=== PATIENT | male | born 1965 | race American Indian/Alaskan Native ===

== ENCOUNTER 2017-09-04 11:10 | Inpatient (IN) | payer BC ==
[2017-09-04 11:10] VITALS: BMI 28.1
--- NOTE | 2017-09-04 11:43 | C.PDOC ---
History Of Present Illness 52 Y/O MALE PRESENTS TO ED WITH C/O NEW ONSET JI/SOB FOR 2-3 DAYS, WORSENING B/ L LEG SWELL X SEVERAL WEEKS. PATIENT STATES HE WAS PREVIOUSLY ON HCTZ BUT WAS DC DUE TO HYPOKALEMIA. PATIENT REPORTS NO DIURETIC NOW W RECUR LEG SWELL. ON LASIX 20 MG X 2-3 DAYS "SWELLING IS MUCH BETTER THAN BEFORE". PATIENT ADMITS TO NEW ONSET YELLOW EYES X UNKNOWN DURATION, PMD IS AWAKE AND IS PENDING SPECIALIST EVALUATION. PATIENT COMPLAINS OF ABDOMEN DISTENTION AND DECREASED APPETITE, DENIES CP, FEVER, N/V/D OR ANY OTHER COMPLAINTS AT THIS TIME. +NEW ONSET YELLOW EYES X UNK DURATION. PS PMD AWARE, PENDING SPECIALIST EVAL. CO ABD DIST, DECR APPETITE. NO NVD COMPLIANT W HIV MEDS. VL UNDETECT EXAM NAD HEENT +ICTERIC SCLERA LUNGS B/L BASILAR RALES NO RETRACTIONS, TACHYPNEA SPEAKING FULL SENTENCES CV RRR EDEMA 2+ B/L ABD +MILD DIST NONTEND NEURO NO FOCAL DEF REMAINDER NEG Chief Complaint (Nursing): Shortness Of Breath History Per: Patient History/Exam Limitations: no limitations Onset/Duration Of Symptoms: Days Current Symptoms Are (Timing): Still Present Past Medical History Reviewed: Historical Data, Nursing Documentation, Vital Signs Vital Signs: Last Vital Signs Temp 98.3 F 09/04/17 11:12 Pulse 106 H 09/04/17 11:12 Resp 24 09/04/17 11:12 BP 143/82 09/04/17 11:12 Pulse Ox 96 09/04/17 12:43 - Medical History PMH: HIV, Hypothyroidism Surgical [facility] INJECT/INFUSE NEC (02/29/12) INJECT/INFUSE THROMBOLYTIC AGENT (11/06/03) PACKED CELL TRANSFUSION (11/06/03) Family History: States: No Known Family Hx - Social History Hx Tobacco Use: No Hx Alcohol Use: Yes Hx Substance Use: No Review Of Systems Constitutional: Negative for: Fever, Chills Cardiovascular: Negative for: Chest Pain Respiratory: Positive for: Shortness of Breath, SOB with Excertion. Negative for: Cough Gastrointestinal: Negative for: Nausea, Vomiting Musculoskeletal: Positive for: Leg Pain (swelling) Skin: Negative for: Rash Neurological: Negative for: Numbness Physical Exam - Physical Exam Appears: Non-toxic, No Acute Distress, Other (Speaking in full sentences) Skin: Warm, Dry, No Rash Head: Atraumatic, Normacephalic Eye(s): bilateral: PERRL, EOMI, Scleral Icterus Oral Mucosa: Moist Neck: Normal ROM, Supple Cardiovascular: Rhythm Regular Respiratory: Rales (bilateral basilar), No Rhonchi, No Wheezing, Other ( Tachypnea) Gastrointestinal/Abdominal: Soft, No Tenderness, Distention (mildly), No Guarding, No Rebound Back: No CVA Tenderness, No Paraspinal Tenderness Extremity: Pedal Edema (2+ bilateral), Capillary Refill (<2 seconds) Neurological/Psych: Oriented x3, Normal Speech, Normal Cognition ED Course And Treatment - Laboratory Results Result Diagrams: 09/04/17 11:57 ECG: Interpreted By Me ECG Rhythm: Sinus Rhythm ECG Interpretation: Normal Rate From EC O2 Sat by Pulse Oximetry: 96 (RA) Pulse Ox Interpretation: Normal - Radiology CXR: Interpreted by Me CXR Interpretation: Yes: No Acute Disease Progress - Re-Evaluation Re-evaluation Note: 09/04/17 12:36 D/W DR OLIVEIRA [employer] AND TE[employer] AWARE OF ER FINDINGS. CBC, UA PENDING. WILL ADMIT - Data Reviewed Data Reviewed: Lab, Diagnostic imaging, EKG, Old records Disposition Counseled Patient/Family Regarding: Studies Performed, Diagnosis - Disposition Disposition: HOSPITALIZED Disposition Time: 12:37 Condition: STABLE Forms: [facility] (Hebrew) - POA Present On Arrival: None - Clinical Impression Clinical Impression: Jaundice, HIV (human immunodeficiency virus infection), Dyspnea - Scribe Statement The provider has reviewed the documentation as recorded by the Saul Bearden All medical record entries made by the Saul were at my direction and personally dictated by me. I have reviewed the chart and agree that the record accurately reflects my personal performance of the history, physical exam, medical decision making, and the department course for this patient. I have also personally directed, reviewed, and agree with the discharge instructions and disposition. Decision To Admit - Pt Status Changed To: Hospital Disposition Of: Inpatient - Admit Certification Admit to Inpatient:: After my assessment, the patient will require hospitalization for at least two midnights. This is because of the severity of symptoms shown, intensity of services needed, and/or the medical risk in this patient being treated as an outpatient. - InPatient: Physician Admission Certification: I certify that this patient requires 2 or more midnights of care for the following reason:: SEE NOTE - . Bed Request Type: Telemetry Admitting Physician: Dano Oliveira Patient Diagnosis: Jaundice, HIV (human immunodeficiency virus infection), Dyspnea
[2017-09-04 12:25] LABS: ALB/GLOB RATIO 0.5 (1.0-2.1); ALT/SGPT 95 U/L (21-72); AST/SGOT 226 U/L (17-59); BILIRUBIN,DIRECT 6.1 mg/dL (0.0-0.4); BLOOD UREA NITROGEN 10 mg/dL (9-20); CALCIUM 8.2 mg/dl (8.6-10.4); GFR AFRICAN-AMERICAN > 60; GFR NON-AFRICAN AMERICAN > 60
[2017-09-04 12:29] LABS: B-TYPE NATRIURETIC PEPTIDE 163 pg/mL (0-900)
[2017-09-04] MEDS ORDERED: Potassium Chloride 20 mEq/15 ml LIQ UD PO STA (12:30)
[2017-09-04 12:40] LABS: SQUAMOUS EPITHIAL < 1 /hpf (0-5); URINE BACTERIA RARE (<OCC); URINE BILIRUBIN 2+ (NEGATIVE); URINE BLOOD 1+ (NEGATIVE); URINE CLARITY Hazy (Clear); URINE COLOR Amber (YELLOW); URINE GLUCOSE (UA) NORMAL (Normal); URINE LEUKOCYTE ESTERASE NEG Leu/uL (Negative); URINE PROTEIN 1+ mg/dL (NEGATIVE)
--- NOTE | 2017-09-04 12:46 | RAD ---
PROCEDURE: CHEST RADIOGRAPH, 1 VIEW HISTORY: SOB COMPARISON: None available. FINDINGS: LUNGS: Poor inspiration with low lung volumes, crowded bronchovascular markings and mild bibasilar atelectasis and suspected small left-sided effusion. Trace right-sided effusion not excluded. Developing lower lobe infiltrates could be excluded followup radiographs. PLEURA: As above. No apparent pneumothorax CARDIOVASCULAR: . Heart size difficult to assess due to poor inspiration the heart appears borderline enlarged OSSEOUS STRUCTURES: No significant abnormalities. VISUALIZED UPPER ABDOMEN: Normal. OTHER FINDINGS: None. IMPRESSION: Poor inspiration with low lung volumes, crowded bronchovascular markings and mild bibasilar atelectasis and suspected small left-sided effusion. Trace right-sided effusion not excluded. Developing lower lobe infiltrates could be excluded followup radiographs.
[2017-09-04 12:47] LABS: HEPATITIS B SURFACE AG Negative (NEGATIVE)
[2017-09-04 12:50] LABS: BASO # 0.1 K/uL (0.0-0.2); BASO % 1.2 % (0.0-2.0); EOS # 0.1 K/uL (0.0-0.7); EOS % 1.7 % (0.0-4.0); HEMOGLOBIN 11.9 g/dL (12.0-18.0); LYMPH # 1.4 K/uL (1.0-4.3); LYMPH % 19.7 % (20.0-40.0); MEAN CELL VOLUME 106.9 fL (80.0-94.0); MEAN CORPUSCULAR HEMOGLOBIN 36.3 pg (27.0-31.0); MEAN CORPUSCULAR HGB CONC 33.9 g/dL (33.0-37.0); MEAN PLATELET VOLUME 9.1 fL (7.2-11.7); MONO % 13.8 % (0.0-10.0); NEUT # 4.5 K/uL (1.8-7.0); NEUT % 63.6 % (50.0-75.0); NRBC % 0.3 % (0.0-2.0); RBC 3.28 Mil/uL (4.40-5.90); RED CELL DISTRIBUTION WIDTH 15.4 % (11.5-14.5); WHITE BLOOD COUNT 7.1 K/uL (4.8-10.8)
[2017-09-04 12:53] LABS: HEPATITIS A IGM NEGATIVE (NEGATIVE); HEPATITIS B CORE AB NEGATIVE (NEGATIVE)
[2017-09-04] MEDS ORDERED: Potassium Chloride 20 mEq ER Tab PO ONE ×2 (12:56→22:42)
[2017-09-04 13:05] LABS: HEPATITIS C ANTIBODY NEGATIVE (NEGATIVE)
[2017-09-04 13:07] LABS: VENOUS BLOOD GAS BASE EXCESS 5.4 mmol/L (0.0-2.0); VENOUS BLOOD GAS PCO2 38 mmHg (40-60); VENOUS BLOOD GAS PO2 39 mm/Hg (30-55); VENOUS BLOOD PH 7.49 (7.32-7.43)
[2017-09-04 13:09] LABS: PROTHROMBIN TIME 44.2 SECONDS (9.7-12.2)
[2017-09-04] MEDS ORDERED: Potassium Chloride 20 mEq 100 ML ONE (13:18)
--- NOTE | 2017-09-04 13:32 | CP.PCM.HP ---
History of Present Illness - History of Present Illness History of Present Illness: Of Note: Patient was seen and examined in ED Bed 15 at approximately 14:00. Patient is a FULL CODE status at this time. He has an advance directive in place. He states that his sister is his emergency contact. Her name is Dasha Luong. She can be reached at [phone]. CC: Shortness of breath HPI: 52 year old male with past medical history significant for PE (2003) and HIV presents with complaints of shortness of breath which he has been experiencing for the past three days. Patient states that he has not experienced this in the past. He states that he noticed dyspnea even while completing daily activities. He states that he has not been out of his house much and thus could not quantify the distance that he can walk before feeling short of breath. Patient states that he sleeps with one pillow at night as well. He further states that he had a workup back at [facility] in [place], 9 months ago for jaundice. He states that he had lab work and ultrasound performed which all came back normal. He states that he also had a recent visit to [facility] [place] [place] 6 weeks prior for treatment for hypokalemia. Patient states that an ultrasound was performed- the results of which were sent to his primary medical doctor. Patient states that he has since followed up with his primary. He states that his doctor switched him from HCTZ to Lasix. Since then, patient states that he recently started taking Lasix 4 days ago. Patient admits to dyspnea on exertion and swelling. He denies chest pain, headaches, nausea, vomiting, bowel changes, urinary changes, skin changes, bruising or recent illness at this time. PMHx- as stated above. Shantelle developed a PE following hernia surgery in 2003. Was on coumadin therapy afterwards for approx 6 month period PSHx- Hernia repair in 2003 Fam Hx- Mother has asthma, DM and HTN; Father has HTN, glaucoma and prostate cancer diagnosed in 60s/70s; Brother had prostate cancer diagnosed in his 50s Meds- Complera , Levothyroxine 100 mcg daily, Lasix 20 mg daily, Potassium daily ( unsure of meq), Vitamin D over the counter Social Hx- Admits to drinking 1-2 ( 6 or 7 oz) wine spritzers daily; denies tobacco or illicit drug use Allergies- denies although the medical record states lactose. Will need to clarify. Present on Admission - Present on Admission Any Indicators Present on Admission: No Review of Systems - Constitutional Constitutional: absent: Headache, Weight Gain, Weight Loss - EENT Eyes: absent: Blurred Vision, Change in Vision Nose/Mouth/Throat: absent: Nasal Congestion, Sinus Pain, Sinus Pressure - Cardiovascular Cardiovascular: Dyspnea, Dyspnea on Exertion, Leg Edema, Pedal Edema. absent: Chest Pain, Chest Pain at Rest, Chest Pain with Activity, Palpitations - Respiratory Respiratory: Dyspnea. absent: Cough, Hemoptysis - Gastrointestinal Gastrointestinal: Bloating, Nausea. absent: Abdominal Pain, Constipation, Diarrhea, Hematemesis, Hematochezia, Loose Stools, Melena, Vomiting - Genitourinary Genitourinary: absent: Difficulty Urinating, Dysuria, Flank Pain, Hematuria, Urinary Frequency - Integumentary Integumentary: Swelling. absent: New Lesions, Unusual Bruising, Wounds - Neurological Neurological: absent: Weakness - Hematologic/Lymphatic Hematologic: absent: Easy Bleeding, Easy Bruising Past Patient History - Past Social History Smoking Status: Never Smoked Alcohol: < 2 Drinks/Day Drugs: Denies - CARDIAC Hx Cardiac Disorders: Yes Hx Hypotension: Yes - ENDOCRINE/METABOLIC Hx Hypothyroidism: Yes - HEMATOLOGICAL/ONCOLOGICAL Hx Human Immunodeficiency Virus (HIV): Yes - PSYCHIATRIC Hx Substance Use: No - SURGICAL HISTORY Hx Tonsillectomy: Yes Meds Allergies/Adverse Reactions: Allergies Allergy/AdvReac Type Severity Reaction Status Date / Time lactose AdvReac Verified 09/04/17 11:17 Physical Exam - Constitutional Appears: Non-toxic, No Acute Distress - Head Exam Head Exam: ATRAUMATIC, NORMAL INSPECTION, NORMOCEPHALIC - Eye Exam Eye Exam: EOMI, Scleral icterus. absent: Normal appearance - ENT Exam ENT Exam: Mucous Membranes Moist - Neck Exam Neck exam: Positive for: Full Rom - Respiratory Exam Respiratory Exam: NORMAL BREATHING PATTERN. absent: Wheezes Additional comments: harsh breath sounds- poor inspiratory effort - Cardiovascular Exam Cardiovascular Exam: REGULAR RHYTHM, +S1, +S2, Systolic Murmur - Expanded Cardiovascular Exam Expanded Type of murmur: Systolic - GI/Abdominal Exam GI & Abdominal Exam: Distended, Soft. absent: Guarding, Rigid, Tenderness Additional comments: fluid wave shift noted; could not palpate for organomegaly - Extremities Exam Extremities exam: Positive for: full ROM, normal capillary refill, pedal edema, pedal pulses present - Neurological Exam Neurological exam: Alert, Oriented x3 - Psychiatric Exam Psychiatric exam: Normal Affect, Normal Mood - Skin Skin Exam: Dry, Intact, Warm Additional comments: no petechia or purpura appreciated Results - Vital Signs Recent Vital Signs: Last Vital Signs Temp 98.3 F 09/04/17 11:12 Pulse 106 H 09/04/17 11:12 Resp 24 09/04/17 11:12 BP 143/82 09/04/17 11:12 Pulse Ox 96 09/04/17 13:05 - Labs Result Diagrams: 09/04/17 12:39 09/04/17 11:57 Labs: Laboratory Results - last 24 hr 09/04/17 09/04/17 09/04/17 11:57 11:57 12:27 WBC RBC Hgb Hct MCV MCH MCHC RDW Plt Count MPV Neut % (Auto) Lymph % (Auto) [place] % (Auto) Eos % (Auto) Baso % (Auto) Neut # (Auto) Lymph # (Auto) [place] # (Auto) Eos # (Auto) Baso # (Auto) Differential Comment PT INR APTT pO2 VBG pH VBG pCO2 VBG HCO3 VBG Total CO2 VBG O2 Sat (Calc) VBG Base Excess VBG Potassium Glucose Lactate Sodium 136 Potassium 2.5 L* Chloride 92 L Carbon Dioxide 33 H Anion Gap 14 BUN 10 Creatinine 1.0 Est GFR ( Amer) > 60 Est GFR (Non-Af Amer) > 60 Random Glucose 106 Calcium 8.2 L Total Bilirubin 13.7 H Direct Bilirubin 6.1 H AST 226 H ALT 95 H Alkaline Phosphatase 169 H Troponin I 0.0150 NT-Pro-B Natriuret Pep 163 Total Protein 8.6 H Albumin 3.0 L Globulin 5.6 H Albumin/Globulin Ratio 0.5 L Venous Blood Potassium Urine Color [place] Urine Clarity Hazy Urine pH 5.0 Ur Specific [place] 1.024 Urine Protein 1+ H Urine Glucose (UA) Normal Urine Ketones Negative Urine Blood 1+ H Urine Nitrate Negative Urine Bilirubin 2+ H Urine Urobilinogen 4.0 Ur Leukocyte Esterase Neg Urine WBC (Auto) 2 Urine RBC (Auto) 7 H Ur Squamous Epith Cells < 1 Urine Bacteria Rare Hyaline Casts 6-10 H Hepatitis A IgM Ab Negative Hep Bs Antigen Negative Hep B Core IgM Ab Negative Hepatitis C Antibody Negative 09/04/17 09/04/17 09/04/17 12:39 12:39 13:03 WBC 7.1 RBC 3.28 L Hgb 11.9 L Hct 35.1 MCV 106.9 H MCH 36.3 H MCHC 33.9 RDW 15.4 H Plt Count 56 L MPV 9.1 Neut % (Auto) 63.6 Lymph % (Auto) 19.7 L [place] % (Auto) 13.8 H Eos % (Auto) 1.7 Baso % (Auto) 1.2 Neut # (Auto) 4.5 Lymph # (Auto) 1.4 [place] # (Auto) 1.0 H Eos # (Auto) 0.1 Baso # (Auto) 0.1 Differential Comment PT 44.2 H* INR 4.0 APTT 51 H pO2 39 VBG pH 7.49 H VBG pCO2 38 L VBG HCO3 28.6 VBG Total CO2 30.2 H VBG O2 Sat (Calc) 78.5 H VBG Base Excess 5.4 H VBG Potassium 3.4 L Glucose 94 Lactate 2.9 H Sodium 135.0 Potassium Chloride 102.0 Carbon Dioxide Anion Gap BUN Creatinine Est GFR ( Amer) Est GFR (Non-Af Amer) Random Glucose Calcium Total Bilirubin Direct Bilirubin AST ALT Alkaline Phosphatase Troponin I NT-Pro-B Natriuret Pep Total Protein Albumin Globulin Albumin/Globulin Ratio Venous Blood Potassium 3.4 L Urine Color Urine Clarity Urine pH Ur Specific [place] Urine Protein Urine Glucose (UA) Urine Ketones Urine Blood Urine Nitrate Urine Bilirubin Urine Urobilinogen Ur Leukocyte Esterase Urine WBC (Auto) Urine RBC (Auto) Ur Squamous Epith Cells Urine Bacteria Hyaline Casts Hepatitis A IgM Ab Hep Bs Antigen Hep B Core IgM Ab Hepatitis C Antibody Assessment & Plan (1) Transaminitis Assessment and Plan: With Hyperbilirubinemia Unclear source of hepatocellular injury- Considerations for Autoimmune, Viral, Toxin mediated or cardiac etiology Elevated liver enzymes Hep panel negative F/U additional studies: abdominal ultrasound, UDS, Alcohol, Echo, AM labs Consult to GI- F/U recommendations Status: Acute (2) Ascites Assessment and Plan: Evaluate portal hypertension vs non-portal hypertensive etiologies Consult to IR- Will require paracentesis once INR is stable. Currently 4. Administered Vitamin K. F/U fluid studies Status: Acute (3) Dyspnea Assessment and Plan: Will need diuresis however so this will be dependent on Potassium levels Repeat CXR b/c portable was of poor quality F/U Standing XRAYS, Echo BNP within normal limits Oxygen PRN Hold off on duonebs due to hypokalemic side effects. Monitor closely Status: Acute (4) Anemia Assessment and Plan: Follow up Anemia workup Could be secondarily due to liver pathology Status: Acute (5) Thrombocytopenia Assessment and Plan: Avoid medications that can further exacerbate levels Monitor at this time Status: Acute (6) HIV (human immunodeficiency virus infection) Assessment and Plan: F/U HIV Ab/Ag, Viral load, CD4 count Hold Complera at this time - Known side effects include Hepatotoxicity and Renal toxicity Considerations for ID consult pending lab results Status: Chronic (7) Hypokalemia Assessment and Plan: Secondary to effects of diuresis Repleted Recheck Potassium and Mag values later tonight and in AM Once within normal parameters, can give Lasix 20 mg IV. Considerations for aldactone since it is potassium-sparing; however onset likely slower than IV Lasix. Status: Acute (8) Hypothyroidism Assessment and Plan: Unclear of patient's history however he states that he takes levothyroxine F/U TSH values Continue 100 mcg at this time. Adjust accordingly pending results. Status: Acute (9) Prophylactic measure Assessment and Plan: Chemical anticoagulation contraindicated due to thrombocytopenia Patient MUST walk at least twice daily with assistance if need be. SCDs contraindicated due to LE swelling Status: Acute
[2017-09-04 17:12] LABS: IRON 124 ug/dL (49-181)
[2017-09-04 17:21] LABS: % IRON SATURATION 64 (20-55); TOTAL IRON BINDING CAPACITY 193 ug/dL (250-450)
--- NOTE | 2017-09-04 17:31 | RAD ---
HISTORY: Dyspnea ; could not visualize well on portable. COMPARISON: Correlation made with frontal view of the chest obtained earlier same day. TECHNIQUE: Chest PA and lateral FINDINGS: LUNGS: Mild bibasilar atelectasis and or scarring changes. Rule out developing infiltrates with followup radiographs Note that the possibility of pleural-based calcifications along the hemidiaphragms not excluded. PLEURA: No significant pleural effusion identified. No pneumothorax apparent. CARDIOVASCULAR: Normal. OSSEOUS STRUCTURES: No significant abnormalities. VISUALIZED UPPER ABDOMEN: Normal. OTHER FINDINGS: None. IMPRESSION: Mild bibasilar atelectasis and/or scarring. Rule out developing infiltrates with followup radiographs. . Note that the possibility of pleural-based calcification both hemidiaphragms not excluded
[2017-09-04] MEDS ORDERED: Magnesium Sulfate 1 gm in D5W 1 GM/100 ML BAG IVPB ONE (17:45)
[2017-09-04] MEDS ORDERED: Potassium Chloride 20 mEq/15 ml LIQ UD PO ONE (18:00)
[2017-09-04 18:20] LABS: FOLATE 12.6 ng/mL
[2017-09-04] MEDS ORDERED: Phytonadione 2.5 MG/0.5 TAB TAB PO ONE (19:00)
--- NOTE | 2017-09-04 19:54 | US ---
EXAM: US Abdomen Complete EXAM DATE/TIME: Exam ordered 09/04/2017 3:05 PM CLINICAL HISTORY: 52 years old, male; Signs and symptoms; Other: Jaundice , elevated bili , abd distension; Additional info: Jaundice, elevated bili, abd distension TECHNIQUE: Real-time ultrasound of the abdomen (complete) with image documentation. COMPARISON: No relevant prior studies available. FINDINGS: Liver: The liver surface is nodular. The liver measures 14.3 cm in craniocaudal span. Phasic flow is noted in the right and middle hepatic veins. Gallbladder: Unremarkable. No gallstones. Common bile duct: The common bile duct measures 4 mm. No stones. No dilation. Pancreas: The pancreas is not seen due to bowel gas. Kidneys: The right kidney measures 11 x 4.7 x 4.7 cm. The left kidney measures 11.7 x 6.5 x 5.6 cm. No stones. No hydronephrosis. Spleen: The spleen measures 12 cm in craniocaudal span. Aorta: The mid abdominal aorta are not seen due to bowel gas Inferior vena cava: Unremarkable. Free fluid: There is moderate to large amount of intra-abdominal ascites. Tubes, lines and devices: There is normal blood flow direction in the main portal vein. IMPRESSION: 1. Moderate amount of intra-abdominal ascites with evidence of cirrhosis.
[2017-09-04 21:25] LABS: BARBITURATES, UR NEGATIVE (NEGATIVE); BENZODIAZEPINES, UR NEGATIVE (NEGATIVE); OPIATES, UR NEGATIVE (NEGATIVE); PHENCYCLIDINE, UR NEGATIVE (NEGATIVE)
[2017-09-05] MEDS ORDERED: Potassium Chloride 20 mEq ER Tab PO ONE ×4 (04:00→22:42)
[2017-09-05] MEDS: Levothyroxine 100 MCG TAB PO SCH (05:55)
[2017-09-05 07:30] LABS: BASO # 0.1 K/uL (0.0-0.2); BASO % 1.1 % (0.0-2.0); EOS # 0.1 K/uL (0.0-0.7); EOS % 1.4 % (0.0-4.0); HEMOGLOBIN 11.4 g/dL (12.0-18.0); LYMPH # 1.4 K/uL (1.0-4.3); LYMPH % 22.4 % (20.0-40.0); MEAN CELL VOLUME 107.7 fL (80.0-94.0); MEAN CORPUSCULAR HEMOGLOBIN 36.5 pg (27.0-31.0); MEAN CORPUSCULAR HGB CONC 33.9 g/dL (33.0-37.0); MEAN PLATELET VOLUME 9.1 fL (7.2-11.7); MONO # 0.9 K/uL (0.0-0.8); MONO % 14.2 % (0.0-10.0); NEUT # 3.8 K/uL (1.8-7.0); NEUT % 60.9 % (50.0-75.0); NRBC % 0.4 % (0.0-2.0); RBC 3.12 Mil/uL (4.40-5.90); RED CELL DISTRIBUTION WIDTH 15.3 % (11.5-14.5); WHITE BLOOD COUNT 6.2 K/uL (4.8-10.8)
[2017-09-05 07:56] LABS: INR 3.9
[2017-09-05 07:57] LABS: PROTHROMBIN TIME 43.3 SECONDS (9.7-12.2)
[2017-09-05 08:12] LABS: ALB/GLOB RATIO 0.5 (1.0-2.1); ALBUMIN 2.5 g/dL (3.5-5.0); ALT/SGPT 89 U/L (21-72); AST/SGOT 190 U/L (17-59); BLOOD UREA NITROGEN 11 mg/dL (9-20); GFR AFRICAN-AMERICAN > 60; GFR NON-AFRICAN AMERICAN > 60
[2017-09-05] MEDS: Potassium Chloride 20 mEq ER Tab PO SCH ×2 (10:18→13:50)
--- NOTE | 2017-09-05 11:24 | CP.PCM.PN ---
<Avani Cotter - Last Filed: 09/05/17 15:11> Subjective - Date & Time of Evaluation Date of Evaluation: 09/05/17 Time of Evaluation: 07:00 - Subjective Subjective: PGY2- Medicine Note for Dr. Trevino Patient seen and examined at bedside and in no acute distress. Patient says his shortness of breath is much better, but he still experiences it with exertion. Patient feels his abdomen is very distended still. Patient denies headache, chest pain, nausea, vomiting, constipation, or diarrhea. Objective - Vital Signs/Intake and Output Vital Signs (last 24 hours): Temp Pulse Resp BP Pulse Ox 98.3 F 101 H 20 112/69 96 09/05/17 07:00 09/05/17 08:00 09/05/17 07:00 09/05/17 07:00 09/05/17 07:00 - Medications Medications: Current Medications Levothyroxine Sodium (Synthroid) 100 mcg PO DAILY@0630 [facility] Last Admin: 09/05/17 05:55 Dose: 100 mcg Potassium Chloride (K-Dur 20 Meq Er Tab) 40 meq PO Q4H [facility] Stop: 09/05/17 14:01 Last Admin: 09/05/17 10:18 Dose: 40 meq - Labs Labs: 09/05/17 07:06 09/05/17 07:06 PT 43.3 SECONDS (9.7-12.2) H* 09/05/17 07:06 INR 3.9 09/05/17 07:06 APTT 43 SECONDS (21-34) H D 09/05/17 07:06 - Constitutional Appears: Non-toxic, No Acute Distress - Head Exam Head Exam: ATRAUMATIC, NORMAL INSPECTION, NORMOCEPHALIC - Eye Exam Eye Exam: EOMI, Scleral icterus - ENT Exam ENT Exam: Mucous Membranes Moist - Neck Exam Neck Exam: Full ROM - Respiratory Exam Respiratory Exam: Decreased Breath Sounds, NORMAL BREATHING PATTERN. absent: Rales, Rhonchi, Wheezes - Cardiovascular Exam Cardiovascular Exam: REGULAR RHYTHM, +S1, +S2, Murmur (systolic murmur) - GI/Abdominal Exam GI & Abdominal Exam: Distended, Firm - Extremities Exam Extremities Exam: Normal Inspection, Pedal Edema. absent: Tenderness - Back Exam Back Exam: NORMAL INSPECTION - Neurological Exam Neurological Exam: Alert, Awake, Oriented x3 - Psychiatric Exam Psychiatric exam: Normal Affect, Normal Mood - Skin Skin Exam: Intact, Normal Color, Warm Assessment and Plan - Assessment and Plan (Free Text) Assessment: (1) Transaminitis/ Liver failure Assessment and Plan: With Hyperbilirubinemia Unclear source of hepatocellular injury- Considerations for Autoimmune, Viral, Toxin mediated or cardiacetiology Elevated liver enzymes Hep panel negative UDS and alcohol screen negative abdominal u/s: moderate amoutn of intra-abdominal ascites with evidence or cirrhosis Consult to GI- F/U recommendations F/u liver CT meds as per GI: Vitamin K, Xifaxin 550mg po BID, Aldactone 100mg po daily, Lactulose 20gm po BID, Lasix 40mg po daily Status: Acute (2) Ascites Assessment and Plan: Evaluate portal hypertension vs non-portal hypertensive etiologies Consult to IR- Will require paracentesis once INR is stable. Currently 3.9. Administered Vitamin K. Status: Acute (3) Dyspnea Assessment and Plan: Repeat CXR b/c portable was of poor quality Cxray: mild bibasilar atelectasis and/or scarring. Rule out developing infiltrates with followup radiographs. Note that the possibility of pleural based calcification both hemidiaphragms not excluded f/u ECHO BNP within normal limits Oxygen PRN Hold off on duonebs due to hypokalemic side effects. Monitor closely Status: Acute (4) Anemia Assessment and Plan: Follow up Anemia workup Could be secondarily due to liver pathology Status: Acute (5) Thrombocytopenia Assessment and Plan: Avoid medications that can further exacerbate levels Monitor at this time Status: Acute (6) HIV (human immunodeficiency virus infection) Assessment and Plan: F/U HIV Ab/Ag, Viral load, CD4 count Complera NF, patient will have someone bring to hospital ID, Dr. Dutton, consulted help appreciated Status: Chronic (7) Hypokalemia Assessment and Plan: Secondary to effects of diuresis Repleted Recheck Potassium tonight Aldactone 100mg po daily Status: Acute (8) Hypothyroidism Assessment and Plan: Unclear of patient's history however he states that he takes levothyroxine TSH: 6.57 Free T4: 2.68 Continue 100 mcg at this time. Status: Acute (9) Prophylactic measure Assessment and Plan: Chemical anticoagulation contraindicated due to thrombocytopenia Patient MUST walk at least twice daily with assistance if need be. SCDs contraindicated due to LE swelling <Star Trevinoraizacarmelita - Last Filed: 09/08/17 13:58> Objective - Vital Signs/Intake and Output Vital Signs (last 24 hours): Temp Pulse Resp BP Pulse Ox 98.8 F 105 H 20 129/77 95 09/08/17 07:05 09/08/17 11:53 09/08/17 07:05 09/08/17 09:07 09/08/17 07:05 - Medications Medications: Current Medications Furosemide (Lasix) 40 mg PO DAILY [facility] Last Admin: 09/08/17 09:07 Dose: 40 mg Home Med (Patient's Own Medication) 1 tab PO DAILY [facility] Last Admin: 09/08/17 09:08 Dose: Not Given Lactulose (Enulose) 20 gm PO BID [facility] Last Admin: 09/08/17 09:07 Dose: 20 gm Levothyroxine Sodium (Synthroid) 100 mcg PO DAILY@0630 [facility] Last Admin: 09/08/17 06:22 Dose: 100 mcg Prednisone (Prednisone Tab) 40 mg PO DAILY [facility] Stop: 10/05/17 10:01 Last Admin: 09/08/17 12:15 Dose: 40 mg Rifaximin (Xifaxan) 550 mg PO BID [facility] PRN Reason: Protocol Spironolactone (Aldactone) 100 mg PO DAILY [facility] Last Admin: 09/08/17 09:07 Dose: 100 mg - Labs Labs: 09/08/17 07:56 09/08/17 07:56 PT 28.1 SECONDS (9.7-12.2) H D 09/08/17 07:56 INR 2.6 D 09/08/17 07:56 APTT 43 SECONDS (21-34) H D 09/05/17 07:06 Attending/Attestation - Attestation I have personally seen and examined this patient.: Yes I have fully participated in the care of the patient.: Yes I have reviewed all pertinent clinical information, including history, physical exam and plan: Yes Notes (Text): Seen and examined by me. Assessment and the plan discussed with the resident in detail 1.SOB/Ascites/Liver cirrhosis/acute 2.Anemia/thrombocytopenia 3.coagulopathy 4.HIV on HAART 5.Transaminitis I agree with the documentation of the resident's assessment and the plan we will folllow GI recommendation Vit K to prep for paracentesis
--- NOTE | 2017-09-05 12:30 | CP.PCM.CON ---
<Donna Hooks - Last Filed: 09/05/17 12:35> History of Present Illness - History of Present Illness History of Present Illness: GI Fellow PGY4 Consult Note This is a 52 year old male with past medical history significant for PE in 2003 after hernia repair with no more OAC, HIV on HAART, alcohol abuse presenting with complaints of shortness of breath and abdominal distention over 3 days. Pt reports he has never had ascites, jaundice or admission for alcohol abuse. Pt has a hx of drinking alcohol with beer and liquor for years and six months ago started only drinking 1-2 glasses of wine. No known prior diagnosis of cirrhosis. Patient admits to dyspnea on exertion and swelling. He denies chest pain, headaches, nausea, vomiting, bowel changes, urinary changes, skin changes , bruising or recent illness at this time. No prior EGD or colonoscopy. ROS: A 12pt ROS was negative except as above. PMHx- As stated above PSHx- Hernia repair in 2003 FHx- Neg for liver disease or colon cancer SHx- Admits to drinking 1-2 glasses of wine daily, but heavy alcohol use prior for years; denies tobacco or illicit drug use Past Patient History - Past Medical History & Family History Past Medical History?: Yes - Past Social History Smoking Status: Never Smoked - CARDIAC Hx Cardiac Disorders: Yes Hx Hypotension: Yes - ENDOCRINE/METABOLIC Hx Endocrine Disorders: Yes Hx Hypothyroidism: Yes - HEMATOLOGICAL/ONCOLOGICAL Hx Blood Disorders: Yes Hx Human Immunodeficiency Virus (HIV): Yes - MUSCULOSKELETAL/RHEUMATOLOGICAL Hx Falls: No - PSYCHIATRIC Hx Psychophysiologic Disorder: No Hx Substance Use: No - SURGICAL HISTORY Hx Surgeries: Yes Hx Tonsillectomy: Yes - ANESTHESIA Hx Anesthesia: Yes Hx Anesthesia Reactions: No Meds Allergies/Adverse Reactions: Allergies Allergy/AdvReac Type Severity Reaction Status Date / Time lactose AdvReac Verified 09/04/17 11:17 - Medications Medications: Current Medications Levothyroxine Sodium (Synthroid) 100 mcg PO DAILY@0630 [facility] Last Admin: 09/05/17 05:55 Dose: 100 mcg Potassium Chloride (K-Dur 20 Meq Er Tab) 40 meq PO Q4H BEV Stop: 09/05/17 14:01 Last Admin: 09/05/17 10:18 Dose: 40 meq Physical Exam - Constitutional Appears: Non-toxic, No Acute Distress - Head Exam Head Exam: ATRAUMATIC, NORMAL INSPECTION, NORMOCEPHALIC - Eye Exam Eye Exam: EOMI, PERRL, Scleral icterus Pupil Exam: PERRL - ENT Exam ENT Exam: Mucous Membranes Moist - Neck Exam Neck exam: Positive for: Normal Inspection - Respiratory Exam Respiratory Exam: Clear to Auscultation Bilateral, NORMAL BREATHING PATTERN - Cardiovascular Exam Cardiovascular Exam: REGULAR RHYTHM, RRR, +S1, +S2 - GI/Abdominal Exam GI & Abdominal Exam: Distended, Normal Bowel Sounds, Soft. absent: Organomegaly , Tenderness Additional comments: ascites - Rectal Exam Rectal Exam: Deferred - Extremities Exam Extremities exam: Positive for: full ROM, pedal edema - Back Exam Back exam: NORMAL INSPECTION - Neurological Exam Neurological exam: Alert, Oriented x3 - Psychiatric Exam Psychiatric exam: Normal Affect, Normal Mood - Skin Skin Exam: Dry, Intact, Normal Color, Warm Results - Vital Signs Recent Vital Signs: Last Vital Signs Temp 98.3 F 09/05/17 07:00 Pulse 106 H 09/05/17 12:22 Resp 20 09/05/17 07:00 BP 112/69 09/05/17 07:00 Pulse Ox 96 09/05/17 07:00 - Labs Result Diagrams: 09/05/17 07:06 09/05/17 07:06 Labs: Laboratory Results - last 24 hr 09/04/17 09/04/17 09/04/17 11:57 11:57 12:27 WBC RBC Hgb Hct MCV MCH MCHC RDW Plt Count MPV Neut % (Auto) Lymph % (Auto) Mason % (Auto) Eos % (Auto) Baso % (Auto) Neut # (Auto) Lymph # (Auto) Mason # (Auto) Eos # (Auto) Baso # (Auto) Differential Comment Retic Count Haptoglobin PT INR APTT pO2 VBG pH VBG pCO2 VBG HCO3 VBG Total CO2 VBG O2 Sat (Calc) VBG Base Excess VBG Potassium Glucose Lactate Sodium 136 Potassium 2.5 L* Chloride 92 L Carbon Dioxide 33 H Anion Gap 14 BUN 10 Creatinine 1.0 Est GFR ( Amer) > 60 Est GFR (Non-Af Amer) > 60 Random Glucose 106 Calcium 8.2 L Phosphorus Magnesium Iron TIBC % Saturation Ferritin Total Bilirubin 13.7 H Direct Bilirubin 6.1 H AST 226 H ALT 95 H Alkaline Phosphatase 169 H Lactate Dehydrogenase Troponin I 0.0150 NT-Pro-B Natriuret Pep 163 Total Protein 8.6 H Albumin 3.0 L Globulin 5.6 H Albumin/Globulin Ratio 0.5 L Vitamin B12 Folate Free T4 TSH 3rd Generation Venous Blood Potassium Urine Color [place] Urine Clarity Hazy Urine pH 5.0 Ur Specific [place] 1.024 Urine Protein 1+ H Urine Glucose (UA) Normal Urine Ketones Negative Urine Blood 1+ H Urine Nitrate Negative Urine Bilirubin 2+ H Urine Urobilinogen 4.0 Ur Leukocyte Esterase Neg Urine WBC (Auto) 2 Urine RBC (Auto) 7 H Ur Squamous Epith Cells < 1 Urine Bacteria Rare Hyaline Casts 6-10 H Urine Opiates Screen Urine Methadone Screen Ur Barbiturates Screen Ur Phencyclidine Scrn Ur Amphetamines Screen U Benzodiazepines Scrn U Oth Cocaine Metabols U Cannabinoids Screen Alcohol, Quantitative Hepatitis A IgM Ab Negative Hep Bs Antigen Negative Hep B Core IgM Ab Negative Hepatitis C Antibody Negative Blood Type Antibody Screen 09/04/17 09/04/17 09/04/17 12:39 12:39 13:03 WBC 7.1 RBC 3.28 L Hgb 11.9 L Hct 35.1 MCV 106.9 H MCH 36.3 H MCHC 33.9 RDW 15.4 H Plt Count 56 L MPV 9.1 Neut % (Auto) 63.6 Lymph % (Auto) 19.7 L Mason % (Auto) 13.8 H Eos % (Auto) 1.7 Baso % (Auto) 1.2 Neut # (Auto) 4.5 Lymph # (Auto) 1.4 Mason # (Auto) 1.0 H Eos # (Auto) 0.1 Baso # (Auto) 0.1 Differential Comment Retic Count Haptoglobin PT 44.2 H* INR 4.0 APTT 51 H pO2 39 VBG pH 7.49 H VBG pCO2 38 L VBG HCO3 28.6 VBG Total CO2 30.2 H VBG O2 Sat (Calc) 78.5 H VBG Base Excess 5.4 H VBG Potassium 3.4 L Glucose 94 Lactate 2.9 H Sodium 135.0 Potassium Chloride 102.0 Carbon Dioxide Anion Gap BUN Creatinine Est GFR ( Amer) Est GFR (Non-Af Amer) Random Glucose Calcium Phosphorus Magnesium Iron TIBC % Saturation Ferritin Total Bilirubin Direct Bilirubin AST ALT Alkaline Phosphatase Lactate Dehydrogenase Troponin I NT-Pro-B Natriuret Pep Total Protein Albumin Globulin Albumin/Globulin Ratio Vitamin B12 Folate Free T4 TSH 3rd Generation Venous Blood Potassium 3.4 L Urine Color Urine Clarity Urine pH Ur Specific [place] Urine Protein Urine Glucose (UA) Urine Ketones Urine Blood Urine Nitrate Urine Bilirubin Urine Urobilinogen Ur Leukocyte Esterase Urine WBC (Auto) Urine RBC (Auto) Ur Squamous Epith Cells Urine Bacteria Hyaline Casts Urine Opiates Screen Urine Methadone Screen Ur Barbiturates Screen Ur Phencyclidine Scrn Ur Amphetamines Screen U Benzodiazepines Scrn U Oth Cocaine Metabols U Cannabinoids Screen Alcohol, Quantitative Hepatitis A IgM Ab Hep Bs Antigen Hep B Core IgM Ab Hepatitis C Antibody Blood Type Antibody Screen 09/04/17 09/04/17 09/04/17 16:42 16:42 16:42 WBC RBC Hgb Hct MCV MCH MCHC RDW Plt Count MPV Neut % (Auto) Lymph % (Auto) Mason % (Auto) Eos % (Auto) Baso % (Auto) Neut # (Auto) Lymph # (Auto) Mason # (Auto) Eos # (Auto) Baso # (Auto) Differential Comment Retic Count Haptoglobin PT INR APTT pO2 VBG pH VBG pCO2 VBG HCO3 VBG Total CO2 VBG O2 Sat (Calc) VBG Base Excess VBG Potassium Glucose Lactate Sodium Potassium Chloride Carbon Dioxide Anion Gap BUN Creatinine Est GFR ( Amer) Est GFR (Non-Af Amer) Random Glucose Calcium Phosphorus Magnesium Iron 124 TIBC 193 L % Saturation 64 H Ferritin 730.0 Total Bilirubin Direct Bilirubin AST ALT Alkaline Phosphatase Lactate Dehydrogenase Troponin I NT-Pro-B Natriuret Pep Total Protein Albumin Globulin Albumin/Globulin Ratio Vitamin B12 445 Folate 12.6 Free T4 2.68 H TSH 3rd Generation 6.57 H Venous Blood Potassium Urine Color Urine Clarity Urine pH Ur Specific [place] Urine Protein Urine Glucose (UA) Urine Ketones Urine Blood Urine Nitrate Urine Bilirubin Urine Urobilinogen Ur Leukocyte Esterase Urine WBC (Auto) Urine RBC (Auto) Ur Squamous Epith Cells Urine Bacteria Hyaline Casts Urine Opiates Screen Urine Methadone Screen Ur Barbiturates Screen Ur Phencyclidine Scrn Ur Amphetamines Screen U Benzodiazepines Scrn U Oth Cocaine Metabols U Cannabinoids Screen Alcohol, Quantitative Hepatitis A IgM Ab Hep Bs Antigen Hep B Core IgM Ab Hepatitis C Antibody Blood Type Antibody Screen 09/04/17 09/04/17 09/04/17 16:42 19:22 19:22 WBC RBC Hgb Hct MCV MCH MCHC RDW Plt Count MPV Neut % (Auto) Lymph % (Auto) Mason % (Auto) Eos % (Auto) Baso % (Auto) Neut # (Auto) Lymph # (Auto) Mason # (Auto) Eos # (Auto) Baso # (Auto) Differential Comment Retic Count 5.8 H Haptoglobin < 20.0 L PT INR APTT pO2 VBG pH VBG pCO2 VBG HCO3 VBG Total CO2 VBG O2 Sat (Calc) VBG Base Excess VBG Potassium Glucose Lactate Sodium Potassium Chloride Carbon Dioxide Anion Gap BUN Creatinine Est GFR ( Amer) Est GFR (Non-Af Amer) Random Glucose Calcium Phosphorus Magnesium Iron TIBC % Saturation Ferritin Total Bilirubin Direct Bilirubin AST ALT Alkaline Phosphatase Lactate Dehydrogenase 1075 H Troponin I NT-Pro-B Natriuret Pep Total Protein Albumin Globulin Albumin/Globulin Ratio Vitamin B12 Folate Free T4 TSH 3rd Generation Venous Blood Potassium Urine Color Urine Clarity Urine pH Ur Specific [place] Urine Protein Urine Glucose (UA) Urine Ketones Urine Blood Urine Nitrate Urine Bilirubin Urine Urobilinogen Ur Leukocyte Esterase Urine WBC (Auto) Urine RBC (Auto) Ur Squamous Epith Cells Urine Bacteria Hyaline Casts Urine Opiates Screen Urine Methadone Screen Ur Barbiturates Screen Ur Phencyclidine Scrn Ur Amphetamines Screen U Benzodiazepines Scrn U Oth Cocaine Metabols U Cannabinoids Screen Alcohol, Quantitative < 10 Hepatitis A IgM Ab Hep Bs Antigen Hep B Core IgM Ab Hepatitis C Antibody Blood Type Antibody Screen 09/04/17 09/04/17 09/05/17 19:22 21:01 07:06 WBC 6.2 RBC 3.12 L Hgb 11.4 L Hct 33.6 L MCV 107.7 H MCH 36.5 H MCHC 33.9 RDW 15.3 H Plt Count 46 L MPV 9.1 Neut % (Auto) 60.9 Lymph % (Auto) 22.4 Mason % (Auto) 14.2 H Eos % (Auto) 1.4 Baso % (Auto) 1.1 Neut # (Auto) 3.8 Lymph # (Auto) 1.4 Mason # (Auto) 0.9 H Eos # (Auto) 0.1 Baso # (Auto) 0.1 Differential Comment Retic Count Haptoglobin PT INR APTT pO2 VBG pH VBG pCO2 VBG HCO3 VBG Total CO2 VBG O2 Sat (Calc) VBG Base Excess VBG Potassium Glucose Lactate Sodium Potassium 3.1 L Chloride Carbon Dioxide Anion Gap BUN Creatinine Est GFR ( Amer) Est GFR (Non-Af Amer) Random Glucose Calcium Phosphorus Magnesium 1.9 Iron TIBC % Saturation Ferritin Total Bilirubin Direct Bilirubin AST ALT Alkaline Phosphatase Lactate Dehydrogenase Troponin I NT-Pro-B Natriuret Pep Total Protein Albumin Globulin Albumin/Globulin Ratio Vitamin B12 Folate Free T4 TSH 3rd Generation Venous Blood Potassium Urine Color Urine Clarity Urine pH Ur Specific [place] Urine Protein Urine Glucose (UA) Urine Ketones Urine Blood Urine Nitrate Urine Bilirubin Urine Urobilinogen Ur Leukocyte Esterase Urine WBC (Auto) Urine RBC (Auto) Ur Squamous Epith Cells Urine Bacteria Hyaline Casts Urine Opiates Screen Negative Urine Methadone Screen Negative Ur Barbiturates Screen Negative Ur Phencyclidine Scrn Negative Ur Amphetamines Screen Negative U Benzodiazepines Scrn Negative U Oth Cocaine Metabols Negative U Cannabinoids Screen Negative Alcohol, Quantitative Hepatitis A IgM Ab Hep Bs Antigen Hep B Core IgM Ab Hepatitis C Antibody Blood Type Antibody Screen 09/05/17 09/05/17 09/05/17 07:06 07:06 11:10 WBC RBC Hgb Hct MCV MCH MCHC RDW Plt Count MPV Neut % (Auto) Lymph % (Auto) Mason % (Auto) Eos % (Auto) Baso % (Auto) Neut # (Auto) Lymph # (Auto) Mason # (Auto) Eos # (Auto) Baso # (Auto) Differential Comment Retic Count Haptoglobin PT 43.3 H* INR 3.9 APTT 43 H D pO2 VBG pH VBG pCO2 VBG HCO3 VBG Total CO2 VBG O2 Sat (Calc) VBG Base Excess VBG Potassium Glucose Lactate Sodium 137 Potassium 3.0 L Chloride 96 L Carbon Dioxide 34 H Anion Gap 10 BUN 11 Creatinine 0.9 Est GFR ( Amer) > 60 Est GFR (Non-Af Amer) > 60 Random Glucose 103 Calcium 8.0 L Phosphorus 2.6 Magnesium 2.0 Iron TIBC % Saturation Ferritin Total Bilirubin 13.4 H Direct Bilirubin AST 190 H ALT 89 H Alkaline Phosphatase 134 H D Lactate Dehydrogenase Troponin I NT-Pro-B Natriuret Pep Total Protein 7.3 Albumin 2.5 L Globulin 4.8 H Albumin/Globulin Ratio 0.5 L Vitamin B12 Folate Free T4 TSH 3rd Generation Venous Blood Potassium Urine Color Urine Clarity Urine pH Ur Specific [place] Urine Protein Urine Glucose (UA) Urine Ketones Urine Blood Urine Nitrate Urine Bilirubin Urine Urobilinogen Ur Leukocyte Esterase Urine WBC (Auto) Urine RBC (Auto) Ur Squamous Epith Cells Urine Bacteria Hyaline Casts Urine Opiates Screen Urine Methadone Screen Ur Barbiturates Screen Ur Phencyclidine Scrn Ur Amphetamines Screen U Benzodiazepines Scrn U Oth Cocaine Metabols U Cannabinoids Screen Alcohol, Quantitative Hepatitis A IgM Ab Hep Bs Antigen Hep B Core IgM Ab Hepatitis C Antibody Blood Type A POSITIVE Antibody Screen Negative Assessment & Plan - Assessment and Plan (Free Text) Assessment: This is a 52 year old male with past medical history significant for PE in 2003 after hernia repair with no more OAC, HIV on HAART, alcohol abuse presenting with complaints of shortness of breath and abdominal distention over 3 days. 1. Decompensated Alcoholic Cirrhosis MELD 31 2. Alcoholic hepatitis DF 156 3. Ascites 4. Hx of HIV on HAART 5. Coagulopathy 6. Elevated LFTs, Hyperbilirubinemia Plan: -Continue supportive care -Pt with cirrhosis on Abd US as well as on lab finding -Will order CT Liver to r/o HCC and AFP level -Pt with ascites, will need to r/o SBP prior to starting treatment for alcoholic hepatitis -Pt with alcoholic hepatitis and DF>32 (152), will benefit from steroids or pentoxyphilline after all infectious workup negative -Pt will need Vit K and FFP prior to paracentesis -Will order Vit K today and tomorrow, FFP tomorrow for possible paracentesis Sunday -Start lasix, spironalactone -Start lactulose and rifaxamin -Monitor labs, INR, electrolytes -Hepatitis panel neg, UDS neg, will order autoimmune serologies -Low sodium diet -Discussed alcohol cessation -Pt will need EGD as an outpt to r/o esophageal varices -No active GI bleeding at this time, monitor closely -Will continue to follow closely <Elvin Solorio - Last Filed: 09/05/17 13:08> Meds - Medications Medications: Current Medications Furosemide (Lasix) 40 mg PO DAILY BEV Lactulose (Enulose) 20 gm PO BID [facility] Levothyroxine Sodium (Synthroid) 100 mcg PO DAILY@0630 [facility] Last Admin: 09/05/17 05:55 Dose: 100 mcg Phytonadione (Vitamin K Inj) 10 mg IV ONCE ONE Stop: 09/05/17 13:01 Potassium Chloride (K-Dur 20 Meq Er Tab) 40 meq PO Q4H [facility] Stop: 09/05/17 14:01 Last Admin: 09/05/17 10:18 Dose: 40 meq Rifaximin (Xifaxan) 550 mg PO BID BEV PRN Reason: Protocol Spironolactone (Aldactone) 100 mg PO DAILY BEV Results - Vital Signs Recent Vital Signs: Last Vital Signs Temp 98.3 F 09/05/17 07:00 Pulse 106 H 09/05/17 12:22 Resp 20 09/05/17 07:00 BP 112/69 09/05/17 07:00 Pulse Ox 96 09/05/17 07:00 - Labs Result Diagrams: 09/05/17 07:06 09/05/17 07:06 Labs: Laboratory Results - last 24 hr 09/04/17 09/04/17 09/04/17 12:39 12:39 13:03 WBC 7.1 RBC 3.28 L Hgb 11.9 L Hct 35.1 MCV 106.9 H MCH 36.3 H MCHC 33.9 RDW 15.4 H Plt Count 56 L MPV 9.1 Neut % (Auto) 63.6 Lymph % (Auto) 19.7 L Mason % (Auto) 13.8 H Eos % (Auto) 1.7 Baso % (Auto) 1.2 Neut # (Auto) 4.5 Lymph # (Auto) 1.4 Mason # (Auto) 1.0 H Eos # (Auto) 0.1 Baso # (Auto) 0.1 Differential Comment Retic Count Haptoglobin PT 44.2 H* INR 4.0 APTT 51 H pO2 39 VBG pH 7.49 H VBG pCO2 38 L VBG HCO3 28.6 VBG Total CO2 30.2 H VBG O2 Sat (Calc) 78.5 H VBG Base Excess 5.4 H VBG Potassium 3.4 L Sodium 135.0 Chloride 102.0 Glucose 94 Lactate 2.9 H Potassium Carbon Dioxide Anion Gap BUN Creatinine Est GFR ( Amer) Est GFR (Non-Af Amer) Random Glucose Calcium Phosphorus Magnesium Iron TIBC % Saturation Ferritin Total Bilirubin AST ALT Alkaline Phosphatase Lactate Dehydrogenase Total Protein Albumin Globulin Albumin/Globulin Ratio Vitamin B12 Folate Free T4 TSH 3rd Generation Venous Blood Potassium 3.4 L Urine Opiates Screen Urine Methadone Screen Ur Barbiturates Screen Ur Phencyclidine Scrn Ur Amphetamines Screen U Benzodiazepines Scrn U Oth Cocaine Metabols U Cannabinoids Screen Alcohol, Quantitative Blood Type Antibody Screen 09/04/17 09/04/17 09/04/17 16:42 16:42 16:42 WBC RBC Hgb Hct MCV MCH MCHC RDW Plt Count MPV Neut % (Auto) Lymph % (Auto) Mason % (Auto) Eos % (Auto) Baso % (Auto) Neut # (Auto) Lymph # (Auto) Mason # (Auto) Eos # (Auto) Baso # (Auto) Differential Comment Retic Count Haptoglobin PT INR APTT pO2 VBG pH VBG pCO2 VBG HCO3 VBG Total CO2 VBG O2 Sat (Calc) VBG Base Excess VBG Potassium Sodium Chloride Glucose Lactate Potassium Carbon Dioxide Anion Gap BUN Creatinine Est GFR ( Amer) Est GFR (Non-Af Amer) Random Glucose Calcium Phosphorus Magnesium Iron 124 TIBC 193 L % Saturation 64 H Ferritin 730.0 Total Bilirubin AST ALT Alkaline Phosphatase Lactate Dehydrogenase Total Protein Albumin Globulin Albumin/Globulin Ratio Vitamin B12 445 Folate 12.6 Free T4 2.68 H TSH 3rd Generation 6.57 H Venous Blood Potassium Urine Opiates Screen Urine Methadone Screen Ur Barbiturates Screen Ur Phencyclidine Scrn Ur Amphetamines Screen U Benzodiazepines Scrn U Oth Cocaine Metabols U Cannabinoids Screen Alcohol, Quantitative Blood Type Antibody Screen 09/04/17 09/04/17 09/04/17 16:42 19:22 19:22 WBC RBC Hgb Hct MCV MCH MCHC RDW Plt Count MPV Neut % (Auto) Lymph % (Auto) Mason % (Auto) Eos % (Auto) Baso % (Auto) Neut # (Auto) Lymph # (Auto) Mason # (Auto) Eos # (Auto) Baso # (Auto) Differential Comment Retic Count 5.8 H Haptoglobin < 20.0 L PT INR APTT pO2 VBG pH VBG pCO2 VBG HCO3 VBG Total CO2 VBG O2 Sat (Calc) VBG Base Excess VBG Potassium Sodium Chloride Glucose Lactate Potassium Carbon Dioxide Anion Gap BUN Creatinine Est GFR ( Amer) Est GFR (Non-Af Amer) Random Glucose Calcium Phosphorus Magnesium Iron TIBC % Saturation Ferritin Total Bilirubin AST ALT Alkaline Phosphatase Lactate Dehydrogenase 1075 H Total Protein Albumin Globulin Albumin/Globulin Ratio Vitamin B12 Folate Free T4 TSH 3rd Generation Venous Blood Potassium Urine Opiates Screen Urine Methadone Screen Ur Barbiturates Screen Ur Phencyclidine Scrn Ur Amphetamines Screen U Benzodiazepines Scrn U Oth Cocaine Metabols U Cannabinoids Screen Alcohol, Quantitative < 10 Blood Type Antibody Screen 09/04/17 09/04/17 09/05/17 19:22 21:01 07:06 WBC 6.2 RBC 3.12 L Hgb 11.4 L Hct 33.6 L MCV 107.7 H MCH 36.5 H MCHC 33.9 RDW 15.3 H Plt Count 46 L MPV 9.1 Neut % (Auto) 60.9 Lymph % (Auto) 22.4 Mason % (Auto) 14.2 H Eos % (Auto) 1.4 Baso % (Auto) 1.1 Neut # (Auto) 3.8 Lymph # (Auto) 1.4 Mason # (Auto) 0.9 H Eos # (Auto) 0.1 Baso # (Auto) 0.1 Differential Comment Retic Count Haptoglobin PT INR APTT pO2 VBG pH VBG pCO2 VBG HCO3 VBG Total CO2 VBG O2 Sat (Calc) VBG Base Excess VBG Potassium Sodium Chloride Glucose Lactate Potassium 3.1 L Carbon Dioxide Anion Gap BUN Creatinine Est GFR ( Amer) Est GFR (Non-Af Amer) Random Glucose Calcium Phosphorus Magnesium 1.9 Iron TIBC % Saturation Ferritin Total Bilirubin AST ALT Alkaline Phosphatase Lactate Dehydrogenase Total Protein Albumin Globulin Albumin/Globulin Ratio Vitamin B12 Folate Free T4 TSH 3rd Generation Venous Blood Potassium Urine Opiates Screen Negative Urine Methadone Screen Negative Ur Barbiturates Screen Negative Ur Phencyclidine Scrn Negative Ur Amphetamines Screen Negative U Benzodiazepines Scrn Negative U Oth Cocaine Metabols Negative U Cannabinoids Screen Negative Alcohol, Quantitative Blood Type Antibody Screen 09/05/17 09/05/17 09/05/17 07:06 07:06 11:10 WBC RBC Hgb Hct MCV MCH MCHC RDW Plt Count MPV Neut % (Auto) Lymph % (Auto) Mason % (Auto) Eos % (Auto) Baso % (Auto) Neut # (Auto) Lymph # (Auto) Mason # (Auto) Eos # (Auto) Baso # (Auto) Differential Comment Retic Count Haptoglobin PT 43.3 H* INR 3.9 APTT 43 H D pO2 VBG pH VBG pCO2 VBG HCO3 VBG Total CO2 VBG O2 Sat (Calc) VBG Base Excess VBG Potassium Sodium 137 Chloride 96 L Glucose Lactate Potassium 3.0 L Carbon Dioxide 34 H Anion Gap 10 BUN 11 Creatinine 0.9 Est GFR ( Amer) > 60 Est GFR (Non-Af Amer) > 60 Random Glucose 103 Calcium 8.0 L Phosphorus 2.6 Magnesium 2.0 Iron TIBC % Saturation Ferritin Total Bilirubin 13.4 H AST 190 H ALT 89 H Alkaline Phosphatase 134 H D Lactate Dehydrogenase Total Protein 7.3 Albumin 2.5 L Globulin 4.8 H Albumin/Globulin Ratio 0.5 L Vitamin B12 Folate Free T4 TSH 3rd Generation Venous Blood Potassium Urine Opiates Screen Urine Methadone Screen Ur Barbiturates Screen Ur Phencyclidine Scrn Ur Amphetamines Screen U Benzodiazepines Scrn U Oth Cocaine Metabols U Cannabinoids Screen Alcohol, Quantitative Blood Type A POSITIVE Antibody Screen Negative Attending/Attestation - Attestation I have personally seen and examined this patient.: Yes I have fully participated in the care of the patient.: Yes I have reviewed all pertinent clinical information: Yes Notes (Text): 09/05/17 13:07 52 year old male with new onset severe etoh hepatitis/cirrhosis. Recommend eval for other chronic liver disease. Triple phase CT abdomen. Etoh cessation. Diet as tolerated. Check factor level.s Give vitamin k. Plan for paracentesis when INR less than 2, maybe sunday. Will likely need steroids at some point based on high DF
[2017-09-05] MEDS ORDERED: Phytonadione 10 mg/ml Inj (Adult) IV ONE (13:00)
[2017-09-05] MEDS ORDERED: Phytonadione 10 MG in Sodium Chloride 0.9% 50 ML IVPB ONE (13:30)
[2017-09-05] MEDS ORDERED: Iodixanol 320 MG/ML 100 ML BOTTLE IV ONE (14:34)
[2017-09-05 14:43] LABS: IRON 95 ug/dL (49-181)
[2017-09-05 14:53] LABS: % IRON SATURATION 51 (20-55); TOTAL IRON BINDING CAPACITY 185 ug/dL (250-450)
--- NOTE | 2017-09-05 16:27 | CT ---
PROCEDURE: CT Abdomen with and without intravenous contrast HISTORY: cirrhosis, r/o HCC COMPARISON: None. TECHNIQUE: Axial images of the abdomen from lung bases to iliac crest with and without intravenous contrast enhancement. Postcontrast images were acquired in the arterial and portal venous phases of enhancement. Coronal and sagittal reformats generated. Oral contrast also administered. Intravenous contrast Dose: 100 mL Visipaque 320 Radiation dose: Total exam DLP = 2417.72 mGy-cm. This CT exam was performed using one or more of the following dose reduction techniques: Automated exposure control, adjustment of the mA and/or kV according to patient size, and/or use of iterative reconstruction technique. FINDINGS: LOWER THORAX: Bilateral lower lobe subsegmental atelectasis. Trace right pleural effusion. Two small nodules, 4 mm or less, in the posterior segment of the right upper lobe common nonspecific. No followup required. LIVER: Atrophic. Nodular contour consistent with cirrhosis. No mass. No abnormal early enhancement. No biliary ductal dilatation. GALLBLADDER AND BILE DUCTS: Unremarkable. PANCREAS: Unremarkable. No gross lesion or ductal dilatation. SPLEEN: Borderline spleen enlargement. No mass. ADRENALS: Unremarkable. No mass. KIDNEYS AND URETERS: Unremarkable. No hydronephrosis. No solid mass. VASCULATURE: Unremarkable. No aortic aneurysm. BOWEL: Diffuse mural thickening of the small bowel common nonspecific. This may be due to hypoalbuminemia or nonspecific enteritis. No bowel obstruction. APPENDIX: Normal appendix. PERITONEUM: Extensive ascites. LYMPH NODES: Unremarkable. No enlarged lymph nodes. BONES: No acute fracture. OTHER FINDINGS: None. IMPRESSION: Hepatic cirrhosis. No evidence of hepatocellular malignancy. Extensive ascites. Bilateral lower lobe subsegmental atelectasis and trace right pleural effusion. Diffuse mural thickening of the small bowel common nonspecific. This may be due to hypoalbuminemia or nonspecific enteritis. Additional minor findings as above appear
--- NOTE | 2017-09-05 21:00 | CP.PCM.CON ---
History of Present Illness - History of Present Illness History of Present Illness: dictated Past Patient History - Past Medical History & Family History Past Medical History?: Yes - Past Social History Smoking Status: Never Smoked - CARDIAC Hx Cardiac Disorders: Yes Hx Hypotension: Yes - ENDOCRINE/METABOLIC Hx Endocrine Disorders: Yes Hx Hypothyroidism: Yes - HEMATOLOGICAL/ONCOLOGICAL Hx Blood Disorders: Yes Hx Human Immunodeficiency Virus (HIV): Yes - MUSCULOSKELETAL/RHEUMATOLOGICAL Hx Falls: No - PSYCHIATRIC Hx Psychophysiologic Disorder: No Hx Substance Use: No - SURGICAL HISTORY Hx Surgeries: Yes Hx Tonsillectomy: Yes - ANESTHESIA Hx Anesthesia: Yes Hx Anesthesia Reactions: No Meds Allergies/Adverse Reactions: Allergies Allergy/AdvReac Type Severity Reaction Status Date / Time lactose AdvReac Verified 09/04/17 11:17 - Medications Medications: Current Medications Furosemide (Lasix) 40 mg PO DAILY [facility] Last Admin: 09/05/17 13:50 Dose: 40 mg Lactulose (Enulose) 20 gm PO BID [facility] Last Admin: 09/05/17 18:54 Dose: 20 gm Levothyroxine Sodium (Synthroid) 100 mcg PO DAILY@0630 [facility] Last Admin: 09/05/17 05:55 Dose: 100 mcg Rifaximin (Xifaxan) 550 mg PO BID [facility] PRN Reason: Protocol Last Admin: 09/05/17 18:55 Dose: 550 mg Spironolactone (Aldactone) 100 mg PO DAILY [facility] Last Admin: 09/05/17 13:50 Dose: 100 mg Results - Vital Signs Recent Vital Signs: Last Vital Signs Temp 98.8 F 09/05/17 15:45 Pulse 103 H 09/05/17 15:45 Resp 20 09/05/17 15:45 BP 115/71 09/05/17 15:45 Pulse Ox 94 L 09/05/17 15:45 - Labs Result Diagrams: 09/05/17 07:06 09/05/17 16:53 Labs: Laboratory Results - last 24 hr 09/04/17 09/05/17 09/05/17 21:01 07:06 07:06 WBC 6.2 RBC 3.12 L Hgb 11.4 L Hct 33.6 L MCV 107.7 H MCH 36.5 H MCHC 33.9 RDW 15.3 H Plt Count 46 L MPV 9.1 Neut % (Auto) 60.9 Lymph % (Auto) 22.4 [place] % (Auto) 14.2 H Eos % (Auto) 1.4 Baso % (Auto) 1.1 Neut # (Auto) 3.8 Lymph # (Auto) 1.4 [place] # (Auto) 0.9 H Eos # (Auto) 0.1 Baso # (Auto) 0.1 PT INR APTT Sodium 137 Potassium 3.0 L Chloride 96 L Carbon Dioxide 34 H Anion Gap 10 BUN 11 Creatinine 0.9 Est GFR ( Amer) > 60 Est GFR (Non-Af Amer) > 60 Random Glucose 103 Calcium 8.0 L Phosphorus 2.6 Magnesium 2.0 Iron TIBC % Saturation Ferritin Total Bilirubin 13.4 H AST 190 H ALT 89 H Alkaline Phosphatase 134 H D Total Protein 7.3 Albumin 2.5 L Globulin 4.8 H Albumin/Globulin Ratio 0.5 L Urine Opiates Screen Negative Urine Methadone Screen Negative Ur Barbiturates Screen Negative Ur Phencyclidine Scrn Negative Ur Amphetamines Screen Negative U Benzodiazepines Scrn Negative U Oth Cocaine Metabols Negative U Cannabinoids Screen Negative IgG Blood Type Antibody Screen 09/05/17 09/05/17 09/05/17 07:06 11:10 14:02 WBC RBC Hgb Hct MCV MCH MCHC RDW Plt Count MPV Neut % (Auto) Lymph % (Auto) [place] % (Auto) Eos % (Auto) Baso % (Auto) Neut # (Auto) Lymph # (Auto) [place] # (Auto) Eos # (Auto) Baso # (Auto) PT 43.3 H* INR 3.9 APTT 43 H D Sodium Potassium Chloride Carbon Dioxide Anion Gap BUN Creatinine Est GFR ( Amer) Est GFR (Non-Af Amer) Random Glucose Calcium Phosphorus Magnesium Iron 95 TIBC 185 L % Saturation 51 Ferritin Total Bilirubin AST ALT Alkaline Phosphatase Total Protein Albumin Globulin Albumin/Globulin Ratio Urine Opiates Screen Urine Methadone Screen Ur Barbiturates Screen Ur Phencyclidine Scrn Ur Amphetamines Screen U Benzodiazepines Scrn U Oth Cocaine Metabols U Cannabinoids Screen IgG Blood Type A POSITIVE Antibody Screen Negative 09/05/17 09/05/17 09/05/17 14:02 14:03 16:53 WBC RBC Hgb Hct MCV MCH MCHC RDW Plt Count MPV Neut % (Auto) Lymph % (Auto) [place] % (Auto) Eos % (Auto) Baso % (Auto) Neut # (Auto) Lymph # (Auto) [place] # (Auto) Eos # (Auto) Baso # (Auto) PT INR APTT Sodium Potassium 3.3 L Chloride Carbon Dioxide Anion Gap BUN Creatinine Est GFR ( Amer) Est GFR (Non-Af Amer) Random Glucose Calcium Phosphorus Magnesium Iron TIBC % Saturation Ferritin 743.0 Total Bilirubin AST ALT Alkaline Phosphatase Total Protein Albumin Globulin Albumin/Globulin Ratio Urine Opiates Screen Urine Methadone Screen Ur Barbiturates Screen Ur Phencyclidine Scrn Ur Amphetamines Screen U Benzodiazepines Scrn U Oth Cocaine Metabols U Cannabinoids Screen IgG 2483.3 H Blood Type Antibody Screen
--- NOTE | 2017-09-05 23:09 | CARD ---
APPROVED REPORT EKG Measurement Heart [id number] <Conclusion> Sinus rhythm with occasional premature ventricular complexes Possible Inferior infarct, age undetermined Abnormal ECG
[2017-09-06] MEDS: Levothyroxine 100 MCG TAB PO SCH (05:31)
--- NOTE | 2017-09-06 06:58 | CP.PCM.PN ---
<Amn Jesseea - Last Filed: 09/06/17 08:00> Subjective - Date & Time of Evaluation Date of Evaluation: 09/06/17 Time of Evaluation: 06:35 - Subjective Subjective: GI Fellow PGY4 Progress Note Pt seen and evaluated at bedside, pt doing well with no acute issues overnight. Pt tolerating diet with no N/V or F/C. Pt reports +BM with lactulose, no confusion noted. Pt with abdominal distension but no abdominal pain. ROS: A 12pt ROS was neg except as above. Objective - Vital Signs/Intake and Output Vital Signs (last 24 hours): Temp Pulse Resp BP Pulse Ox 98.0 F 103 H 20 117/70 95 09/05/17 23:10 09/06/17 03:53 09/05/17 23:10 09/05/17 23:10 09/05/17 23:10 Intake and Output: 09/05/17 09/06/17 18:59 06:59 Intake Total 350 Balance 350 - Medications Medications: Current Medications Furosemide (Lasix) 40 mg PO DAILY [facility] Last Admin: 09/05/17 13:50 Dose: 40 mg Lactulose (Enulose) 20 gm PO BID [facility] Last Admin: 09/05/17 18:54 Dose: 20 gm Levothyroxine Sodium (Synthroid) 100 mcg PO DAILY@0630 [facility] Last Admin: 09/06/17 05:31 Dose: 100 mcg Rifaximin (Xifaxan) 550 mg PO BID [facility] PRN Reason: Protocol Last Admin: 09/05/17 18:55 Dose: 550 mg Spironolactone (Aldactone) 100 mg PO DAILY [facility] Last Admin: 09/05/17 13:50 Dose: 100 mg - Labs Labs: 09/05/17 07:06 09/05/17 16:53 PT 43.3 SECONDS (9.7-12.2) H* 09/05/17 07:06 INR 3.9 09/05/17 07:06 APTT 43 SECONDS (21-34) H D 09/05/17 07:06 - Constitutional Appears: Non-toxic, No Acute Distress - Head Exam Head Exam: ATRAUMATIC, NORMAL INSPECTION, NORMOCEPHALIC - Eye Exam Eye Exam: EOMI, PERRL, Scleral icterus Pupil Exam: PERRL - ENT Exam ENT Exam: Mucous Membranes Moist - Neck Exam Neck Exam: Full ROM, Normal Inspection - Respiratory Exam Respiratory Exam: Clear to Ausculation Bilateral, NORMAL BREATHING PATTERN - Cardiovascular Exam Cardiovascular Exam: REGULAR RHYTHM, RRR, +S1, +S2 - GI/Abdominal Exam GI & Abdominal Exam: Distended, Firm, Hypoactive Bowel Sounds. absent: Soft, Organomegaly Additional comments: +ascites - Rectal Exam Rectal Exam: Deferred - Extremities Exam Extremities Exam: Full ROM, Pedal Edema - Back Exam Back Exam: Full ROM, NORMAL INSPECTION - Neurological Exam Neurological Exam: Alert, Awake, Oriented x3 - Psychiatric Exam Psychiatric exam: Normal Affect, Normal Mood - Skin Skin Exam: Dry, Intact, Warm Additional comments: jaundice Assessment and Plan - Assessment and Plan (Free Text) Assessment: This is a 52 year old male with past medical history significant for PE in 2003 after hernia repair with no more OAC, HIV on HAART, alcohol abuse presenting with complaints of shortness of breath and abdominal distention over 3 days. 1. 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 Alcoholic hepatitis DF 156 on admission 3. Ascites 4. Hx of HIV on HAART 5. Coagulopathy 6. Elevated LFTs, Hyperbilirubinemia Plan: -Continue supportive care -Pt with cirrhosis on Abd US as well as on lab finding -CT Liver with cirrhosis, ascites, neg for HCC, AFP pending -Pt with ascites, will need to r/o SBP prior to starting treatment for alcoholic hepatitis -Pt with alcoholic hepatitis and DF>32 (152), will benefit from steroids or pentoxyphilline after all infectious workup negative -Pt will need Vit K and FFP prior to paracentesis -Will order Vit K today, FFP tomorrow for possible paracentesis Sunday -Continue lasix, spironalactone -Continue lactulose and rifaxamin for HE ppx -Monitor labs, INR, electrolytes -Hepatitis panel neg, UDS neg, autoimmune serologies pending, IgG elevated -Low sodium diet -Discussed alcohol cessation -Pt will need EGD as an outpt to r/o esophageal varices -No active GI bleeding at this time, monitor closely -Will continue to follow closely <Elvin Solorio - Last Filed: 09/06/17 09:41> Objective - Vital Signs/Intake and Output Vital Signs (last 24 hours): Temp Pulse Resp BP Pulse Ox 98.3 F 106 H 18 119/76 96 09/06/17 09:21 09/06/17 09:21 09/06/17 09:21 09/06/17 09:21 09/06/17 09:21 - Medications Medications: Current Medications Furosemide (Lasix) 40 mg PO DAILY [facility] Last Admin: 09/05/17 13:50 Dose: 40 mg Lactulose (Enulose) 20 gm PO BID [facility] Last Admin: 09/05/17 18:54 Dose: 20 gm Levothyroxine Sodium (Synthroid) 100 mcg PO DAILY@0630 [facility] Last Admin: 09/06/17 05:31 Dose: 100 mcg Rifaximin (Xifaxan) 550 mg PO BID [facility] PRN Reason: Protocol Last Admin: 09/05/17 18:55 Dose: 550 mg Spironolactone (Aldactone) 100 mg PO DAILY [facility] Last Admin: 09/05/17 13:50 Dose: 100 mg - Labs Labs: 09/06/17 06:18 09/06/17 06:18 PT 43.3 SECONDS (9.7-12.2) H* 09/05/17 07:06 INR 3.9 09/05/17 07:06 APTT 43 SECONDS (21-34) H D 09/05/17 07:06 Attending/Attestation - Attestation I have personally seen and examined this patient.: Yes I have fully participated in the care of the patient.: Yes I have reviewed all pertinent clinical information, including history, physical exam and plan: Yes Notes (Text): 09/06/17 09:40 52 year old male admitted with decompensated alcoholic cirrhosis with ascites. CT reviewed, no malignancy noted. Recommend paracentesis if we are able to lower his INR sufficiently for procedure. Will likely need to give course of steroids for alcoholic hepatitis with very high DF.
[2017-09-06 07:04] LABS: BASO # 0.1 K/uL (0.0-0.2); BASO % 1.1 % (0.0-2.0); EOS # 0.1 K/uL (0.0-0.7); EOS % 1.8 % (0.0-4.0); HEMOGLOBIN 11.9 g/dL (12.0-18.0); LYMPH # 1.5 K/uL (1.0-4.3); LYMPH % 21.4 % (20.0-40.0); MEAN CELL VOLUME 108.6 fL (80.0-94.0); MEAN CORPUSCULAR HEMOGLOBIN 37.6 pg (27.0-31.0); MEAN CORPUSCULAR HGB CONC 34.6 g/dL (33.0-37.0); MONO # 0.9 K/uL (0.0-0.8); MONO % 13.3 % (0.0-10.0); NEUT # 4.5 K/uL (1.8-7.0); NEUT % 62.4 % (50.0-75.0); RBC 3.16 Mil/uL (4.40-5.90); RED CELL DISTRIBUTION WIDTH 15.5 % (11.5-14.5); WHITE BLOOD COUNT 7.1 K/uL (4.8-10.8)
--- NOTE | 2017-09-06 07:16 | CON ---
DATE: 09/05/2017 This is a new patient for me, and the patient was referred by Dr. Micki Trevino. HISTORY OF PRESENT ILLNESS: This patient is a 52-year-old male. He was admitted with shortness of breath and he is 52-year-old. He has a history of PE in the past. He had hernia surgery he said. He had pulmonary embolism and also he has HIV for the last 12 years. He has had different medications for HIV in the past, but right now he was on Complera, and he started to have shortness of breath. He says that he was on hydrochlorothiazide. For two weeks, he was not on anything, and now recently he took Lasix for 3 or 4 days, but he states that he did not feel better and was having dyspnea on exertion. He denied any chest pain. No headaches, no fevers, no nausea, no vomiting, but he was getting shortness of breath and he got concerned and came to the hospital. PAST MEDICAL HISTORY: Significant for PE, for hernia surgery in 2003, and he was in Coumadin for six months at that time. PAST SURGICAL HISTORY: Hernia repair in 2003. FAMILY HISTORY: Mother has asthma, diabetes, and hypertension. Father has glaucoma, hypertension, and prostate problems, and brother also has prostate problems in the 50s. MEDICATIONS: He is on Complera, levothyroxine, Lasix, potassium, and vitamin D. SOCIAL HISTORY: He admits to drinking 1 to 2 ounces of wine daily, and he used to drink heavier than that before. Denies any tobacco abuse. Denies any drug abuse. ALLERGIES: HE IS ALLERGIC TO LACTOSE HE STATES. REVIEW OF SYSTEMS: He states that he has become swollen with lower extremity swollen. Shortness of breath recently. Denies any eye problem. Does come with shortness of breath. Denies any chest pain. No chest pain on rest. No palpitations. Denies any recent respiratory infection and has generalized swelling. Denies any urinary symptoms. He does complain of bloating and nausea, but denied any abdominal pain, constipation, or diarrhea. PAST MEDICAL HISTORY: As above. ALLERGIES: HE IS ALLERGIC TO LACTOSE. MEDICATIONS: giving him furosemide now 40 mg p.o. daily. He is on lactulose 20 mg p.o. b.i.d. He is on levothyroxine as he is hypothyroid. He is on rifaximine 550 p.o. b.i.d. and he is on spironolactone 100 mg p.o. daily, and they are holding the HIV medications, which I agree with as he is severely jaundiced. PHYSICAL EXAMINATION: GENERAL: He is awake, alert, able to give history. VITAL SIGNS: T-max is 98.8, heart rate of 103, blood pressure of 115/71, respirations are 20. HEENT: Head is atraumatic and normocephalic. Eyes: Sclerae is jaundiced. Tongue is moist. NECK: Supple. JVP is flat. No lymphadenopathy present. LUNGS: Clear. No crackles or rales present. HEART: S1 and S2 is regular. No murmur is appreciated. ABDOMEN: Soft and is distended. There is fluid thrill and there is ascites. EXTREMITIES: Have bilateral edema on both lower extremities; and he is edematous, fluid thrill, jaundiced. There is no skin rash. LABORATORY DATA: Labs are noted. Labs show white count is 6.2, hemoglobin 11.4, hematocrit 33.6, platelet count is only 46. Haptoglobins were less than 20, retic count was 5.8, INR is 3.9. Sodium is 137, potassium is 3, chloride is 96, anion gap was 10, BUN is 11, creatinine 0.9, total bilirubin is 13.4. AST is 190, ALT is 89, alkaline phosphatase is 134. Free T4 was 2.68 and TSH is 6.57. Still he is hypothyroid. IgG, they did immunoglobulins, it is is high and it has serology. Hepatitis A, B and C are all negative at this time for any active, IgG is elevated and toxicology did not show any drug screen positive. He had abdominal ultrasound which showed moderate amount of intraabdominal ascites with evidence of cirrhosis, and then he also had liver CT done which shows extensive ascites, hepatic cirrhosis. No evidence of hepatocellular malignancy. Bilateral lower lobe segmental atelectasis, trace dry pleural effusion, diffuse mural thickening of the small bowel which is nonspecific due to hypoalbuminemia, nonspecific enteritis. Additional findings as above. So this patient has HIV. We will get a CD4 count and viral load done and he was seen by GI and he has liver cirrhosis with ascites. They are going to tap as soon as INR gets better and this is probably related to his drinking, alcoholic hepatitis. We will monitor, and we will follow with you. Ross Dutton MD
[2017-09-06 07:34] LABS: ALB/GLOB RATIO 0.5 (1.0-2.1); ALBUMIN 2.7 g/dL (3.5-5.0); ALT/SGPT 91 U/L (21-72); AST/SGOT 209 U/L (17-59); BLOOD UREA NITROGEN 12 mg/dL (9-20); CALCIUM 8.1 mg/dl (8.6-10.4); GFR AFRICAN-AMERICAN > 60; GFR NON-AFRICAN AMERICAN > 60
--- NOTE | 2017-09-06 07:49 | CP.PCM.PN ---
<Avani Cotter - Last Filed: 09/06/17 13:36> Subjective - Date & Time of Evaluation Date of Evaluation: 09/06/17 Time of Evaluation: 07:00 - Subjective Subjective: PGY2 Medicine Note for Dr. Trevino Patient seen and examined at bedside. Patient says his abdomen feels like "a balloon filled with air." Patient is uncomfortable, but denies any pain. Patient admits to some shortness of breath. Patient denies headache, chest pain , nausea, vomiting, constipation, or diarrhea. Objective - Vital Signs/Intake and Output Vital Signs (last 24 hours): Temp Pulse Resp BP Pulse Ox 98.0 F 103 H 20 117/70 95 09/05/17 23:10 09/06/17 03:53 09/05/17 23:10 09/05/17 23:10 09/05/17 23:10 - Medications Medications: Current Medications Furosemide (Lasix) 40 mg PO DAILY [facility] Last Admin: 09/05/17 13:50 Dose: 40 mg Lactulose (Enulose) 20 gm PO BID [facility] Last Admin: 09/05/17 18:54 Dose: 20 gm Levothyroxine Sodium (Synthroid) 100 mcg PO DAILY@0630 [facility] Last Admin: 09/06/17 05:31 Dose: 100 mcg Rifaximin (Xifaxan) 550 mg PO BID [facility] PRN Reason: Protocol Last Admin: 09/05/17 18:55 Dose: 550 mg Spironolactone (Aldactone) 100 mg PO DAILY [facility] Last Admin: 09/05/17 13:50 Dose: 100 mg - Labs Labs: 09/06/17 06:18 09/06/17 06:18 PT 43.3 SECONDS (9.7-12.2) H* 09/05/17 07:06 INR 3.9 09/05/17 07:06 APTT 43 SECONDS (21-34) H D 09/05/17 07:06 - Additional Findings Additional findings: - Constitutional Appears: Non-toxic, No Acute Distress - Head Exam Head Exam: ATRAUMATIC, NORMAL INSPECTION, NORMOCEPHALIC - Eye Exam Eye Exam: EOMI, Scleral icterus - ENT Exam ENT Exam: Mucous Membranes Moist - Neck Exam Neck Exam: Full ROM - Respiratory Exam Respiratory Exam: Decreased Breath Sounds, NORMAL BREATHING PATTERN. absent: Rales, Rhonchi, Wheezes - Cardiovascular Exam Cardiovascular Exam: REGULAR RHYTHM, +S1, +S2, Murmur (systolic murmur) - GI/Abdominal Exam GI & Abdominal Exam: Distended, Firm - Extremities Exam Extremities Exam: Normal Inspection, Pedal Edema. absent: Tenderness - Back Exam Back Exam: NORMAL INSPECTION - Neurological Exam Neurological Exam: Alert, Awake, Oriented x3 - Psychiatric Exam Psychiatric exam: Normal Affect, Normal Mood - Skin Skin Exam: Intact, Normal Color, Warm Assessment and Plan - Assessment and Plan (Free Text) Assessment: (1) Transaminitis/ Liver failure Assessment and Plan: With Hyperbilirubinemia Unclear source of hepatocellular injury- Considerations for Autoimmune, Viral, Toxin mediated or cardiacetiology Elevated liver enzymes Hep panel negative UDS and alcohol screen negative abdominal u/s: moderate amoutn of intra-abdominal ascites with evidence or cirrhosis Consult to GI- F/U recommendations liver CT: hepatic cirrhosis. no evidence of hepatocellular malignancy. extensive ascites. Bilateral lower lobe subsegmental atelectasis and trace right pleural effusion. Diffuse mural thickening of the small bowel common nonspecific. This may be due to hypoalbuminemia or nonspecific enteritis. meds as per GI: Vitamin K, Xifaxin 550mg po BID, Aldactone 100mg po daily, Lactulose 20gm po BID, Lasix 40mg po daily Status: Acute (2) Ascites Assessment and Plan: Evaluate portal hypertension vs non-portal hypertensive etiologies Consult to IR- Will require paracentesis once INR is stable. INR decreased to 3.2 on 09/06. will need to get FFP and vitamin K before paracentesis Status: Acute (3) Dyspnea Assessment and Plan: Cxray: mild bibasilar atelectasis and/or scarring. Rule out developing infiltrates with followup radiographs. Note that the possibility of pleural based calcification both hemidiaphragms not excluded ECHO:EF: 55-60%, mitral regurg trace to mild, mild to moderate tricuspid regurg , mild to moderate pulm hypertension, trace to mild pulmonic valvular regurg BNP within normal limits Oxygen PRN Hold off on duonebs due to hypokalemic side effects. Monitor closely Status: Acute (4) Anemia Assessment and Plan: Follow up Anemia workup Could be secondarily due to liver pathology Status: Acute (5) Thrombocytopenia Assessment and Plan: Avoid medications that can further exacerbate levels Monitor at this time patient will need FFP before paracentesis Status: Acute (6) HIV (human immunodeficiency virus infection) Assessment and Plan: F/U HIV Ab/Ag, Viral load, CD4 count Complera NF, patient will have someone bring to hospital ID, Dr. Dutton, consulted help appreciated Status: Chronic (7) Hypokalemia Assessment and Plan: Secondary to effects of diuresis Repleted Recheck Potassium tonight Aldactone 100mg po daily Status: Acute (8) Hypothyroidism Assessment and Plan: Unclear of patient's history however he states that he takes levothyroxine TSH: 6.57 Free T4: 2.68 Continue 100 mcg at this time. Status: Acute (9) Prophylactic measure Assessment and Plan: Chemical anticoagulation contraindicated due to thrombocytopenia Patient MUST walk at least twice daily with assistance if need be. SCDs contraindicated due to LE swelling <Eddy Trevino - Last Filed: 09/08/17 14:53> Objective - Vital Signs/Intake and Output Vital Signs (last 24 hours): Temp Pulse Resp BP Pulse Ox 98.8 F 105 H 20 129/77 95 09/08/17 07:05 09/08/17 11:53 09/08/17 07:05 09/08/17 09:07 09/08/17 07:05 - Medications Medications: Current Medications Furosemide (Lasix) 40 mg PO DAILY [facility] Last Admin: 09/08/17 09:07 Dose: 40 mg Home Med (Patient's Own Medication) 1 tab PO DAILY [facility] Last Admin: 09/08/17 09:08 Dose: Not Given Lactulose (Enulose) 20 gm PO BID [facility] Last Admin: 09/08/17 09:07 Dose: 20 gm Levothyroxine Sodium (Synthroid) 100 mcg PO DAILY@0630 [facility] Last Admin: 09/08/17 06:22 Dose: 100 mcg Prednisone (Prednisone Tab) 40 mg PO DAILY [facility] Stop: 10/05/17 10:01 Last Admin: 09/08/17 12:15 Dose: 40 mg Rifaximin (Xifaxan) 550 mg PO BID [facility] PRN Reason: Protocol Spironolactone (Aldactone) 100 mg PO DAILY [facility] Last Admin: 09/08/17 09:07 Dose: 100 mg - Labs Labs: 09/08/17 07:56 09/08/17 07:56 PT 28.1 SECONDS (9.7-12.2) H D 09/08/17 07:56 INR 2.6 D 09/08/17 07:56 APTT 43 SECONDS (21-34) H D 09/05/17 07:06 Attending/Attestation - Attestation I have personally seen and examined this patient.: Yes I have fully participated in the care of the patient.: Yes I have reviewed all pertinent clinical information, including history, physical exam and plan: Yes Notes (Text): Seen and examined by me.Not in distress,alert oriented x3,no confusion Patient was compliance with HAART and follows his ID physician. Discussed with Dr Dutton.we will follow her recommendation about continue his meds 1. Decompensated Alcoholic Cirrhosis MELD 31 2. Acute Alcoholic hepatitis 3. Ascites 4. Hx of HIV on HAART 5. Coagulopathy Got Vit K. Will get FFP before paracentesis. we will follow INR Discussed with the resident. I agree with the documentation of the resident's assessment and the plan
[2017-09-06 10:34] LABS: CERULOPLASMIN 21 mg/dL (18-36)
--- NOTE | 2017-09-06 10:54 | CARD ---
APPROVED REPORT EXAM: Two-dimensional and M-mode echocardiogram with Doppler and color Doppler. Other Information Quality : GoodRhythm : INDICATION Dyspnea Congestive Heart Failure HIV 2D DIMENSIONS IVSd1.2 (0.7-1.1cm)Aortic Root (2D)2.7 (2.0-3.7cm) LVDd4.1 (3.9-5.9cm)PWd0.8 (0.7-1.1cm) LVDs2.8 (2.5-4.0cm)FS (%) 31.3 % LVEF (%)59.5 (>50%) M-Mode DIMENSIONS RVDd1.97 (2.1-3.2cm)Left Atrium (MM)3.48 (2.5-4.0cm) IVSd1.00 (0.7-1.1cm)Aortic Root2.91 (2.2-3.7cm) LVDd4.56 (4.0-5.6cm)Aortic Cusp Exc.2.12 (1.5-2.0cm) PWd0.94 (0.7-1.1cm)FS (%) 31 % LVDs3.16 (2.0-3.8cm)LVEF (%)58 (>50%) Mitral Valve MV E Emrdhsui45.5cm/sMV A Veeqgeat43.8cm/sE/A ratio0.9 TDI E/Lateral E'0.0E/Medial E'0.0 Tricuspid Valve TR Peak [id number]/sTR Peak Gr.[id number] LEFT VENTRICLE The left ventricle is normal size. Left ventricle systolic function is normal. The Ejection Fraction is 55-60%. There is normal LV segmental wall motion. The left ventricular diastolic function is abnormal- Grade I-abnormal relaxation pattern. No left ventricle thrombus noted on this study. There is no ventricular septal defect visualized. RIGHT VENTRICLE The right ventricle is normal size. The right ventricular systolic function is normal. ATRIA The left atrium size is normal. The right atrium size is normal. AORTIC VALVE The aortic valve is mildly to moderately thickened. The aortic valve is trileaflet. No aortic regurgitation is present. There is no aortic valvular stenosis. There is no aortic valvular vegetation. MITRAL VALVE Mitral annular calcification is mild. The mitral valve leaflets are thickened. There is no evidence of mitral valve prolapse. There is no mitral valve stenosis. Mitral regurgitation is trace to mild. TRICUSPID VALVE The tricuspid valve is normal in structure. There is mild to moderate tricuspid regurgitation. Right ventricular systolic pressure is estimated at 40-50 mmHg. There is mild-moderate pulmonary hypertension. There is no tricuspid valve prolapse or vegetation. There is no tricuspid valve stenosis. PULMONIC VALVE The pulmonary valve is normal in structure. There is trace to mild pulmonic valvular regurgitation. There is no pulmonic valvular stenosis. GREAT VESSELS The aortic root is normal in size. The IVC collapses <50% with inspiration. PERICARDIAL EFFUSION There is no pericardial effusion. There is large left pleural effusion. <Conclusion> The left ventricle is normal size. Left ventricle systolic function is normal. The Ejection Fraction is 55-60%. The left ventricular diastolic function is abnormal- Grade I-abnormal relaxation pattern. The right ventricle is normal size. The right ventricular systolic function is normal. The left atrium size is normal. The right atrium size is normal. Mitral regurgitation is trace to mild. There is mild to moderate tricuspid regurgitation. There is mild-moderate pulmonary hypertension. There is trace to mild pulmonic valvular regurgitation.
[2017-09-06 11:44] LABS: INR 3.2
[2017-09-06 11:48] LABS: PROTHROMBIN TIME 35.4 SECONDS (9.7-12.2)
[2017-09-06] MEDS ORDERED: Phytonadione 10 mg/ml Inj (Adult) IV STA (12:33)
[2017-09-06] MEDS ORDERED: Phytonadione 10 MG in Sodium Chloride 0.9% 50 ML IV ONE (12:45)
[2017-09-06 15:40] LABS: % CD4 (T HELPER CELL) 41 Percent (30-61); % CD8 (SUPPRESSOR T CELL) 31 Percent (12-42); ABSOLUTE CD4 CELLS 663 Cells/mcL (490-1740); ABSOLUTE CD8 CELLS 505 Cells/mcL (180-1170); ABSOLUTE LYMPHOCYTES 1637 Cells/mcL (850-3900); HELPER/SUPPRESSOR RATIO 1.31 Ratio (0.86-5.00)
--- NOTE | 2017-09-06 19:49 | CP.PCM.PN ---
Subjective - Date & Time of Evaluation Date of Evaluation: 09/06/17 Time of Evaluation: 03:30 - Subjective Subjective: dictated Objective - Vital Signs/Intake and Output Vital Signs (last 24 hours): Temp Pulse Resp BP Pulse Ox 97.9 F 105 H 20 122/76 95 09/06/17 15:00 09/06/17 15:00 09/06/17 15:00 09/06/17 15:00 09/06/17 15:00 Intake and Output: 09/06/17 09/07/17 18:59 06:59 Intake Total 400 Balance 400 - Medications Medications: Current Medications Furosemide (Lasix) 40 mg PO DAILY [facility] Last Admin: 09/06/17 10:12 Dose: 40 mg Home Med (Home Med) 1 unit PO DAILY [facility] Lactulose (Enulose) 20 gm PO BID [facility] Last Admin: 09/06/17 17:52 Dose: 20 gm Levothyroxine Sodium (Synthroid) 100 mcg PO DAILY@0630 [facility] Last Admin: 09/06/17 05:31 Dose: 100 mcg Rifaximin (Xifaxan) 550 mg PO BID [facility] PRN Reason: Protocol Last Admin: 09/06/17 17:52 Dose: 550 mg Spironolactone (Aldactone) 100 mg PO DAILY [facility] Last Admin: 09/06/17 10:12 Dose: 100 mg - Labs Labs: 09/06/17 06:18 09/06/17 06:18 PT 35.4 SECONDS (9.7-12.2) H* D 09/06/17 11:13 INR 3.2 09/06/17 11:13 APTT 43 SECONDS (21-34) H D 09/05/17 07:06
--- NOTE | 2017-09-07 01:12 | PN ---
DATE: 09/06/2017 SUBJECTIVE: The patient was seen today. He is still waiting to get paracentesis done. He denies any complaints. Otherwise, he states he wants to get rid of the fluid as it is bothering him. PHYSICAL EXAMINATION: VITAL SIGNS: T-max is 97.9, heart rate of 105, blood pressure 122/76, respirations are 20. HEENT: Head is atraumatic and normocephalic. Pupils are reacting to light. He has icterus present. NECK: Supple. LUNGS: Clear. Decreased breath sounds bilaterally on both basis. He has to constantly change his position to be without shortness of breath. HEART: S1, S2 is regular. ABDOMEN: Remains diffusely distended. Abdomen has ascites and distention. EXTREMITIES: Have bilateral edema on the lower extremities. Labs are noted. White count is 7.1, hemoglobin 11.9, hematocrit 34.4, platelet count 66 is low. Platelets are low. INR is high 3.2. He is going to get FFP today and tomorrow they are saying. So INR is really high, and his bilirubin came down to 12.6, which is slightly better than it was. He was on Complera before which is we are holding, and we may have to change the medications to change it to something which is not that hepatotoxic as he does have alcoholic hepatitis and may have been aggravated with the medications that he was taking. Also suggest at this time, we will follow with the health and wellness coordinator. Blood culture x2 and urine culture are negative. Suggest also to send if the fluid is done to send for AFB and for cell count, which has been ordered, SIMRAN and HIV, and I would get for C and S culture as well as cell count culture for AFB and LDH, peritoneal fluid and culture of the fluid should be done. At this time, we will follow. The patient is HIV positive. He has been on medications for HIV ____ alcoholic hepatitis with cirrhosis of liver and ascites, and at this time has dyspnea due to some significant fluid and has coagulopathy. Ross Dutton MD
[2017-09-07] MEDS: Levothyroxine 100 MCG TAB PO SCH (05:44)
[2017-09-07 06:55] LABS: INR 2.4; PROTHROMBIN TIME 26.7 SECONDS (9.7-12.2)
[2017-09-07 07:03] LABS: ALB/GLOB RATIO 0.5 (1.0-2.1); ALBUMIN 2.6 g/dL (3.5-5.0); ALT/SGPT 86 U/L (21-72); AST/SGOT 157 U/L (17-59); BLOOD UREA NITROGEN 14 mg/dL (9-20); CALCIUM 8.5 mg/dl (8.6-10.4); GFR AFRICAN-AMERICAN > 60; GFR NON-AFRICAN AMERICAN > 60
[2017-09-07] MEDS ORDERED: Potassium Chloride 20 mEq ER Tab PO ONE ×2 (07:17→08:45)
[2017-09-07 07:24] LABS: BASO % 0.5 % (0.0-2.0); EOS # 0.1 K/uL (0.0-0.7); EOS % 1.3 % (0.0-4.0); HEMOGLOBIN 10.3 g/dL (12.0-18.0); LYMPH # 0.9 K/uL (1.0-4.3); LYMPH % 12.8 % (20.0-40.0); MEAN CELL VOLUME 108.3 fL (80.0-94.0); MEAN CORPUSCULAR HEMOGLOBIN 37.3 pg (27.0-31.0); MEAN CORPUSCULAR HGB CONC 34.4 g/dL (33.0-37.0); MEAN PLATELET VOLUME 9.2 fL (7.2-11.7); MONO # 0.8 K/uL (0.0-0.8); MONO % 10.7 % (0.0-10.0); NEUT # 5.3 K/uL (1.8-7.0); NEUT % 74.7 % (50.0-75.0); NRBC % 0.2 % (0.0-2.0); RBC 2.76 Mil/uL (4.40-5.90); RED CELL DISTRIBUTION WIDTH 15.4 % (11.5-14.5); WHITE BLOOD COUNT 7.1 K/uL (4.8-10.8)
--- NOTE | 2017-09-07 07:35 | CP.PCM.PN ---
<Donna Hooks - Last Filed: 09/07/17 07:36> Subjective - Date & Time of Evaluation Date of Evaluation: 09/07/17 Time of Evaluation: 07:00 - Subjective Subjective: GI Fellow PGY4 Progress Note Pt seen and evaluated at bedside, pt doing well with no acute issues overnight. Pt tolerating diet with no N/V or F/C. Pt reports +BM with lactulose, no confusion noted. Pt with abdominal distension but no abdominal pain. Pt received 2U FFP overnight instead of total 5U FFP, will plan for 3UFFP now. ROS: A 12pt ROS was neg except as above. Objective - Vital Signs/Intake and Output Vital Signs (last 24 hours): Temp Pulse Resp BP Pulse Ox 98.5 F 112 H 20 117/70 93 L 09/07/17 05:40 09/07/17 05:40 09/07/17 05:40 09/07/17 05:40 09/07/17 05:40 - Medications Medications: Current Medications Furosemide (Lasix) 40 mg PO DAILY [facility] Last Admin: 09/06/17 10:12 Dose: 40 mg Home Med (Home Med) 1 unit PO DAILY [facility] Lactulose (Enulose) 20 gm PO BID [facility] Last Admin: 09/06/17 17:52 Dose: 20 gm Levothyroxine Sodium (Synthroid) 100 mcg PO DAILY@0630 [facility] Last Admin: 09/07/17 05:44 Dose: 100 mcg Potassium Chloride (K-Dur 20 Meq Er Tab) 40 meq PO ONCE ONE Stop: 09/07/17 07:18 Rifaximin (Xifaxan) 550 mg PO BID [facility] PRN Reason: Protocol Last Admin: 09/06/17 17:52 Dose: 550 mg Spironolactone (Aldactone) 100 mg PO DAILY [facility] Last Admin: 09/06/17 10:12 Dose: 100 mg - Labs Labs: 09/07/17 06:34 09/07/17 06:34 PT 26.7 SECONDS (9.7-12.2) H D 09/07/17 06:34 INR 2.4 D 09/07/17 06:34 APTT 43 SECONDS (21-34) H D 09/05/17 07:06 - Constitutional Appears: Non-toxic, No Acute Distress - Head Exam Head Exam: ATRAUMATIC, NORMAL INSPECTION, NORMOCEPHALIC - Eye Exam Eye Exam: EOMI, PERRL, Scleral icterus - ENT Exam ENT Exam: Mucous Membranes Moist - Neck Exam Neck Exam: Full ROM, Normal Inspection - Respiratory Exam Respiratory Exam: Decreased Breath Sounds, NORMAL BREATHING PATTERN - Cardiovascular Exam Cardiovascular Exam: RRR, +S1, +S2 - GI/Abdominal Exam GI & Abdominal Exam: Distended, Firm, Normal Bowel Sounds. absent: Tenderness, Organomegaly - Extremities Exam Extremities Exam: Pedal Edema - Back Exam Back Exam: Full ROM, NORMAL INSPECTION - Neurological Exam Neurological Exam: Alert, Awake, Oriented x3 - Psychiatric Exam Psychiatric exam: Normal Affect, Normal Mood - Skin Skin Exam: Dry, Intact, Normal Color, Warm Assessment and Plan - Assessment and Plan (Free Text) Assessment: This is a 52 year old male with past medical history significant for PE in 2003 after hernia repair with no more OAC, HIV on HAART, alcohol abuse presenting with complaints of shortness of breath and abdominal distention over 3 days. 1. 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 Alcoholic hepatitis DF 156 on admission 3. Ascites 4. Hx of HIV on HAART 5. Coagulopathy 6. Elevated LFTs, Hyperbilirubinemia Plan: -Continue supportive care -Pt with cirrhosis on Abd US as well as on lab finding -CT Liver with cirrhosis, ascites, neg for HCC, AFP pending -Pt with ascites, will need to r/o SBP prior to starting treatment for alcoholic hepatitis -Pt with alcoholic hepatitis and DF>32 (152), will benefit from steroids after all infectious workup negative -Pt will need Vit K and FFP prior to paracentesis -Pt receiving 5U FFP today, INR 2.4, still planned for 3U FFP -Continue lasix, spironalactone -Continue lactulose and rifaxamin for HE ppx -Monitor labs, INR, electrolytes -Hepatitis panel neg, UDS neg, autoimmune serologies pending, IgG elevated -Low sodium diet -Discussed alcohol cessation -Pt will need EGD as an outpt to r/o esophageal varices -No active GI bleeding at this time, monitor closely -Will continue to follow closely MELD today 26 DF today 79.4 <Elvin Solorio - Last Filed: 09/07/17 15:49> Objective - Vital Signs/Intake and Output Vital Signs (last 24 hours): Temp Pulse Resp BP Pulse Ox 98.2 F 111 H 18 120/70 99 09/07/17 12:00 09/07/17 12:00 09/07/17 12:00 09/07/17 12:00 09/07/17 12:00 - Medications Medications: Current Medications Furosemide (Lasix) 40 mg PO DAILY [facility] Last Admin: 09/07/17 10:49 Dose: 40 mg Home Med (Patient's Own Medication) 1 tab PO DAILY [facility] Last Admin: 09/07/17 10:49 Dose: 1 tab Lactulose (Enulose) 20 gm PO BID [facility] Last Admin: 09/07/17 10:51 Dose: Not Given Levothyroxine Sodium (Synthroid) 100 mcg PO DAILY@0630 [facility] Last Admin: 09/07/17 05:44 Dose: 100 mcg Spironolactone (Aldactone) 100 mg PO DAILY [facility] Last Admin: 09/07/17 10:48 Dose: 100 mg - Labs Labs: 09/07/17 06:34 09/07/17 06:34 PT 19.0 SECONDS (9.7-12.2) H 09/07/17 13:01 INR 1.7 09/07/17 13:01 APTT 43 SECONDS (21-34) H D 09/05/17 07:06 Attending/Attestation - Attestation I have personally seen and examined this patient.: Yes I have fully participated in the care of the patient.: Yes I have reviewed all pertinent clinical information, including history, physical exam and plan: Yes Notes (Text): 09/07/17 15:48 52 year old male with etoh hepatitis/cirrhosis c/b ascites. S/p ffp for paracentesis today. Send fluid for cell count, diff, TP/albumin, and culture. Start steroids once sbp ruled out due to etoh hepatitis.
[2017-09-07] MEDS: COMPLERA PO SCH (10:49)
[2017-09-07 11:28] LABS: INR 1.8
[2017-09-07 13:26] LABS: INR 1.7
--- NOTE | 2017-09-07 15:51 | PCM.SURG1 ---
Surgeon's Initial Post Op Note - Surgeon's Notes Surgeon: [employer] Manager: None Type of Anesthesia: Local Pre-Operative Diagnosis: Ascites Operative Findings: Ascites Post-Operative Diagnosis: Ascites Operation Performed: Paracentesis Specimen/Specimens Removed: Approx 4000ml of clear pale yellow fluid aspirated. Estimated Blood Loss: EBL {In ML}: 1 Blood Products Given: N/A Drains Used: No Drains Post-Op Condition: Good Date of Surgery/Procedure: 09/07/17 Time of Surgery/Procedure: 15:40
--- NOTE | 2017-09-07 16:06 | CP.PCM.PN ---
<Avani Cotter - Last Filed: 09/07/17 15:55> Subjective - Date & Time of Evaluation Date of Evaluation: 09/07/17 Time of Evaluation: 07:00 - Subjective Subjective: PGY2- Progress note for Dr. Trevino Patient seen and examined at bedside and in no acute distress. Patient says his abdomen is very uncomfortable and that it is still causing him to feel short of breath. Patient denies any headache, chest pain, nausea, vomiting, constipation , or diarrhea. Objective - Vital Signs/Intake and Output Vital Signs (last 24 hours): Temp Pulse Resp BP Pulse Ox 98.2 F 111 H 18 120/70 99 09/07/17 12:00 09/07/17 12:00 09/07/17 12:00 09/07/17 12:00 09/07/17 12:00 - Medications Medications: Current Medications Furosemide (Lasix) 40 mg PO DAILY [facility] Last Admin: 09/07/17 10:49 Dose: 40 mg Home Med (Patient's Own Medication) 1 tab PO DAILY [facility] Last Admin: 09/07/17 10:49 Dose: 1 tab Lactulose (Enulose) 20 gm PO BID [facility] Last Admin: 09/07/17 10:51 Dose: Not Given Levothyroxine Sodium (Synthroid) 100 mcg PO DAILY@0630 [facility] Last Admin: 09/07/17 05:44 Dose: 100 mcg Spironolactone (Aldactone) 100 mg PO DAILY [facility] Last Admin: 09/07/17 10:48 Dose: 100 mg - Labs Labs: 09/07/17 06:34 09/07/17 06:34 PT 19.0 SECONDS (9.7-12.2) H 09/07/17 13:01 INR 1.7 09/07/17 13:01 APTT 43 SECONDS (21-34) H D 09/05/17 07:06 - Additional Findings Additional findings: - Constitutional Appears: Non-toxic, No Acute Distress - Head Exam Head Exam: ATRAUMATIC, NORMAL INSPECTION, NORMOCEPHALIC - Eye Exam Eye Exam: EOMI, Scleral icterus - ENT Exam ENT Exam: Mucous Membranes Moist - Neck Exam Neck Exam: Full ROM - Respiratory Exam Respiratory Exam: Decreased Breath Sounds, NORMAL BREATHING PATTERN. absent: Rales, Rhonchi, Wheezes - Cardiovascular Exam Cardiovascular Exam: REGULAR RHYTHM, +S1, +S2, Murmur (systolic murmur) - GI/Abdominal Exam GI & Abdominal Exam: Distended, Firm - Extremities Exam Extremities Exam: Normal Inspection, Pedal Edema. absent: Tenderness - Back Exam Back Exam: NORMAL INSPECTION - Neurological Exam Neurological Exam: Alert, Awake, Oriented x3 - Psychiatric Exam Psychiatric exam: Normal Affect, Normal Mood - Skin Skin Exam: Intact, Normal Color, Warm Assessment and Plan - Assessment and Plan (Free Text) Assessment: (1) Transaminitis/ Liver failure Assessment and Plan: With Hyperbilirubinemia Unclear source of hepatocellular injury- Considerations for Autoimmune, Viral, Toxin mediated or cardiacetiology Elevated liver enzymes Hep panel negative UDS and alcohol screen negative abdominal u/s: moderate amoutn of intra-abdominal ascites with evidence or cirrhosis Consult to GI- F/U recommendations liver CT: hepatic cirrhosis. no evidence of hepatocellular malignancy. extensive ascites. Bilateral lower lobe subsegmental atelectasis and trace right pleural effusion. Diffuse mural thickening of the small bowel common nonspecific. This may be due to hypoalbuminemia or nonspecific enteritis. meds as per GI: Vitamin K, Xifaxin 550mg po BID, Aldactone 100mg po daily, Lactulose 20gm po BID, Lasix 40mg po daily Status: Acute (2) Ascites Assessment and Plan: Evaluate portal hypertension vs non-portal hypertensive etiologies Consult to IR- Will require paracentesis once INR is stable. INR decreased to 3.2 on 09/06. recieved FFPx5 and vitamin K before paracentesis INR decreased to 1.7 on 09/07 paracentesis done on 09/07, f/u fluid studies Status: Acute (3) Dyspnea Assessment and Plan: Cxray: mild bibasilar atelectasis and/or scarring. Rule out developing infiltrates with followup radiographs. Note that the possibility of pleural based calcification both hemidiaphragms not excluded ECHO:EF: 55-60%, mitral regurg trace to mild, mild to moderate tricuspid regurg , mild to moderate pulm hypertension, trace to mild pulmonic valvular regurg BNP within normal limits Oxygen PRN Hold off on duonebs due to hypokalemic side effects. Monitor closely Status: Acute (4) Anemia Assessment and Plan: Follow up Anemia workup Could be secondarily due to liver pathology Status: Acute (5) Thrombocytopenia Assessment and Plan: Avoid medications that can further exacerbate levels Monitor at this time patient transfused 5 bags of FFP on 09/07 Status: Acute (6) HIV (human immunodeficiency virus infection) Assessment and Plan: CD4 count: 663 f/u viral load Complera 1 tab po daily ID, Dr. Dutton, consulted help appreciated Status: Chronic (7) Hypokalemia Assessment and Plan: Secondary to effects of diuresis Repleted with KDur 40 on 09/07 Recheck potassium in Am Aldactone 100mg po daily Status: Acute (8) Hypothyroidism Assessment and Plan: Unclear of patient's history however he states that he takes levothyroxine TSH: 6.57 Free T4: 2.68 Continue 100 mcg at this time. Status: Acute (9) Prophylactic measure Assessment and Plan: Chemical anticoagulation contraindicated due to thrombocytopenia Patient MUST walk at least twice daily with assistance if need be. SCDs contraindicated due to LE swelling <Eddy Trevino - Last Filed: 09/08/17 14:57> Objective - Vital Signs/Intake and Output Vital Signs (last 24 hours): Temp Pulse Resp BP Pulse Ox 98.8 F 105 H 20 129/77 95 09/08/17 07:05 09/08/17 11:53 09/08/17 07:05 09/08/17 09:07 09/08/17 07:05 - Medications Medications: Current Medications Furosemide (Lasix) 40 mg PO DAILY [facility] Last Admin: 09/08/17 09:07 Dose: 40 mg Home Med (Patient's Own Medication) 1 tab PO DAILY [facility] Last Admin: 09/08/17 09:08 Dose: Not Given Lactulose (Enulose) 20 gm PO BID [facility] Last Admin: 09/08/17 09:07 Dose: 20 gm Levothyroxine Sodium (Synthroid) 100 mcg PO DAILY@0630 [facility] Last Admin: 09/08/17 06:22 Dose: 100 mcg Prednisone (Prednisone Tab) 40 mg PO DAILY [facility] Stop: 10/05/17 10:01 Last Admin: 09/08/17 12:15 Dose: 40 mg Rifaximin (Xifaxan) 550 mg PO BID [facility] PRN Reason: Protocol Spironolactone (Aldactone) 100 mg PO DAILY [facility] Last Admin: 09/08/17 09:07 Dose: 100 mg - Labs Labs: 09/08/17 07:56 09/08/17 07:56 PT 28.1 SECONDS (9.7-12.2) H D 09/08/17 07:56 INR 2.6 D 09/08/17 07:56 APTT 43 SECONDS (21-34) H D 09/05/17 07:06 Attending/Attestation - Attestation I have personally seen and examined this patient.: Yes I have fully participated in the care of the patient.: Yes I have reviewed all pertinent clinical information, including history, physical exam and plan: Yes Notes (Text): Seen and examined by me. No complain,getting FFP,repeat INR after 5th bag Discussed with Interventional radiologist about paracentesis. He wants his INR below 1.7 with low platelets. Discussed with GI fellow.Do Paracentesis and rule out SBP before start on steroid for his acute hepatitis I agree with the documentation of the resident's assessment and the plan
[2017-09-07 16:37] VITALS: RESP 20
[2017-09-07 17:14] LABS: BODY FLUID TYPE PERITONEAL/ASCITES
[2017-09-07 18:02] LABS: BF GROSS APPEARANCE SL CLOUDY (CLEAR); BODY FLUID MONO/MACROPHAGE 1 % (0-0); BODY FLUID TOTAL COUNT 100 (0-0)
--- NOTE | 2017-09-07 19:40 | CP.PCM.PN ---
Subjective - Date & Time of Evaluation Date of Evaluation: 09/07/17 Time of Evaluation: 03:30 - Subjective Subjective: dictated Objective - Vital Signs/Intake and Output Vital Signs (last 24 hours): Temp Pulse Resp BP Pulse Ox 98.7 F 109 H 20 109/65 94 L 09/07/17 16:20 09/07/17 16:20 09/07/17 16:20 09/07/17 16:20 09/07/17 16:20 - Medications Medications: Current Medications Furosemide (Lasix) 40 mg PO DAILY [facility] Last Admin: 09/07/17 10:49 Dose: 40 mg Home Med (Patient's Own Medication) 1 tab PO DAILY [facility] Last Admin: 09/07/17 10:49 Dose: 1 tab Lactulose (Enulose) 20 gm PO BID [facility] Last Admin: 09/07/17 17:07 Dose: 20 gm Levothyroxine Sodium (Synthroid) 100 mcg PO DAILY@0630 [facility] Last Admin: 09/07/17 05:44 Dose: 100 mcg Spironolactone (Aldactone) 100 mg PO DAILY [facility] Last Admin: 09/07/17 10:48 Dose: 100 mg - Labs Labs: 09/07/17 06:34 09/07/17 06:34 PT 19.0 SECONDS (9.7-12.2) H 09/07/17 13:01 INR 1.7 09/07/17 13:01 APTT 43 SECONDS (21-34) H D 09/05/17 07:06
--- NOTE | 2017-09-07 23:10 | PN ---
DATE: 09/07/2017 SUBJECTIVE: The patient had a peritoneal tap today dressing, they removed 3.5 liter. He was feeling slightly better. He still had leg swelling, but he looks slightly better. He says he still has swelling. He said he took Complera today as he had one tablet. I would hold off his HIV medicines till the liver enzymes get better. OBJECTIVE: VITAL SIGNS: T-max is 98.7, heart rate is 109, blood pressure 109/65, respirations are 20. HEENT: Head is atraumatic, normocephalic. Icterus present. NECK: Supple. LUNGS: Clear. No crackles or rales present. Decreased breath sounds. HEART: S1, S2, regular. ABDOMEN: Soft with ascites. EXTREMITIES: Have bilateral edema. White count today was 7.1 and INR was 1.7 when they did that. Sodium was 136, potassium 3, he did get supplements, and we were waiting for the peritoneal fluid. It showed fluid had 95 wbc and 31% were neutrophils, 68% were lymphocytes, so probably but there are more rbc's because he has coagulopathy also, and his chemistry shows bilirubin still remains 12.7. Liver enzymes are slightly better. We need to give time for the liver enzymes to recuperate. I do not think Complera is a good choice to continue as it does cause better toxicity so we will have to see what to give him next and get HIV genotyping done, and also we are waiting for his CD4 count. Viral load was undetectable, and he also has smooth antibody, anti-smooth muscle antibodies positive, IgG was high, CD4 count absolute is 663, so at this time, Complera was working but I think we should put him on something which is less. Hepatotoxic once he is ready to get out of here. We will follow the culture reports. We will follow. IMPRESSION: He has alcoholic hepatitis and liver cirrhosis and second degree alcoholism and is human immunodeficiency virus positive. Ross Dutton MD
[2017-09-08 00:23] VITALS: TEMP 98.8
[2017-09-08] MEDS: Levothyroxine 100 MCG TAB PO SCH (06:22)
[2017-09-08 07:44] VITALS: O2SAT 95
[2017-09-08] MEDS ORDERED: Potassium Chloride 20 mEq ER Tab PO ONE ×2 (08:04→10:58)
--- NOTE | 2017-09-08 08:06 | CP.PCM.PN ---
Objective - Vital Signs/Intake and Output Vital Signs (last 24 hours): Temp Pulse Resp BP Pulse Ox 98.8 F 105 H 20 135/73 95 09/08/17 07:05 09/08/17 07:05 09/08/17 07:05 09/08/17 07:05 09/08/17 07:05 - Medications Medications: Current Medications Furosemide (Lasix) 40 mg PO DAILY [facility] [place] Last Admin: 09/07/17 10:49 Dose: 40 mg Home Med (Patient's Own Medication) 1 tab PO DAILY [facility] [place] Last Admin: 09/07/17 10:49 Dose: 1 tab Lactulose (Enulose) 20 gm PO BID [facility] [place] Last Admin: 09/07/17 17:07 Dose: 20 gm Levothyroxine Sodium (Synthroid) 100 mcg PO DAILY@0630 [facility] [place] Last Admin: 09/08/17 06:22 Dose: 100 mcg Spironolactone (Aldactone) 100 mg PO DAILY [facility] [place] Last Admin: 09/07/17 10:48 Dose: 100 mg - Labs Labs: 09/07/17 06:34 09/07/17 06:34 PT 19.0 SECONDS (9.7-12.2) H 09/07/17 13:01 INR 1.7 09/07/17 13:01 APTT 43 SECONDS (21-34) H D 09/05/17 07:06 - Additional Findings Additional findings: - Constitutional Appears: Non-toxic, No Acute Distress - Head Exam Head Exam: ATRAUMATIC, NORMAL INSPECTION, NORMOCEPHALIC - Eye Exam Eye Exam: EOMI, Scleral icterus - ENT Exam ENT Exam: Mucous Membranes Moist - Neck Exam Neck Exam: Full ROM - Respiratory Exam Respiratory Exam: Decreased Breath Sounds, NORMAL BREATHING PATTERN. absent: Rales, Rhonchi, Wheezes - Cardiovascular Exam Cardiovascular Exam: REGULAR RHYTHM, +S1, +S2, Murmur (systolic murmur) - GI/Abdominal Exam GI & Abdominal Exam: Distended, Firm - Extremities Exam Extremities Exam: Normal Inspection, Pedal Edema. absent: Tenderness - Back Exam Back Exam: NORMAL INSPECTION - Neurological Exam Neurological Exam: Alert, Awake, Oriented x3 - Psychiatric Exam Psychiatric exam: Normal Affect, Normal Mood - Skin Skin Exam: Intact, Normal Color, Warm Assessment and Plan - Assessment and Plan (Free Text) Assessment: (1) Transaminitis/ Liver failure Assessment and Plan: With Hyperbilirubinemia Unclear source of hepatocellular injury- Considerations for Autoimmune, Viral, Toxin mediated or cardiac etiology Elevated liver enzymes Hep panel negative UDS and alcohol screen negative Alpha Fetoprotein NORMAL abdominal u/s: moderate amount of intra-abdominal ascites with evidence or cirrhosis Consult to GI- * will need to r/o SBP prior to starting treatment for alcoholic hepatitis * will benefit from steroids after all infectious workup negative * Pt will need EGD as an outpt to r/o esophageal varices s/p paracentesis with 4 Liters removed on 09/07/[address]: hepatic cirrhosis. no evidence of hepatocellular malignancy. extensive ascites. Bilateral lower lobe subsegmental atelectasis and trace right pleural effusion. Diffuse mural thickening of the small bowel common nonspecific. This may be due to hypoalbuminemia or nonspecific enteritis. meds as per GI: Vitamin K, Xifaxin 550mg po BID, Aldactone 100mg po daily, Lactulose 20gm po BID, Lasix 40mg po daily Status: Acute (2) Ascites Assessment and Plan: Evaluate portal hypertension vs non-portal hypertensive etiologies Consult to IR- Will require paracentesis once INR is stable. INR decreased to 3.2 on 09/06. recieved FFPx5 and vitamin K before paracentesis INR decreased to 1.7 on 09/07 s/p paracentesis with 4 Liters removed on 09/07/17, f/u fluid studies Status: Acute (3) Dyspnea Assessment and Plan: Cxray: mild bibasilar atelectasis and/or scarring. Rule out developing infiltrates with followup radiographs. Note that the possibility of pleural based calcification both hemidiaphragms not excluded ECHO:EF: 55-60%, mitral regurg trace to mild, mild to moderate tricuspid regurg , mild to moderate pulm hypertension, trace to mild pulmonic valvular regurg BNP within normal limits Oxygen PRN Hold off on duonebs due to hypokalemic side effects. Monitor closely Status: Acute (4) Anemia Assessment and Plan: Follow up Anemia workup Could be secondarily due to liver pathology Status: Acute (5) Thrombocytopenia Assessment and Plan: Avoid medications that can further exacerbate levels Monitor at this time patient transfused 5 bags of FFP on 09/07 Status: Acute (6) HIV (human immunodeficiency virus infection) Assessment and Plan: CD4 count: 663 f/u viral load Complera 1 tab po daily ID, Dr. Dutton, consulted help appreciated Status: Chronic (7) Hypokalemia Assessment and Plan: Secondary to effects of diuresis Repleted with KDur 40 on 09/07 Recheck potassium in Am Aldactone 100mg po daily Status: Acute (8) Hypothyroidism Assessment and Plan: Unclear of patient's history however he states that he takes levothyroxine TSH: 6.57 Free T4: 2.68 Continue 100 mcg at this time. Status: Acute (9) Prophylactic measure Assessment and Plan: Chemical anticoagulation contraindicated due to thrombocytopenia Patient MUST walk at least twice daily with assistance if need be. SCDs contraindicated due to LE swelling
[2017-09-08 08:07] LABS: BASO % 0.9 % (0.0-2.0); EOS # 0.1 K/uL (0.0-0.7); EOS % 2.2 % (0.0-4.0); HEMOGLOBIN 10.5 g/dL (12.0-18.0); LYMPH # 1.2 K/uL (1.0-4.3); LYMPH % 23.7 % (20.0-40.0); MEAN CELL VOLUME 109.8 fL (80.0-94.0); MEAN CORPUSCULAR HEMOGLOBIN 37.4 pg (27.0-31.0); MEAN CORPUSCULAR HGB CONC 34.1 g/dL (33.0-37.0); MEAN PLATELET VOLUME 9.2 fL (7.2-11.7); MONO # 0.6 K/uL (0.0-0.8); MONO % 11.7 % (0.0-10.0); NEUT # 3.2 K/uL (1.8-7.0); NEUT % 61.5 % (50.0-75.0); NRBC % 0.5 % (0.0-2.0); RBC 2.81 Mil/uL (4.40-5.90); RED CELL DISTRIBUTION WIDTH 15.9 % (11.5-14.5); WHITE BLOOD COUNT 5.3 K/uL (4.8-10.8)
[2017-09-08 08:14] LABS: INR 2.6; PROTHROMBIN TIME 28.1 SECONDS (9.7-12.2)
[2017-09-08 08:26] LABS: ALB/GLOB RATIO 0.6 (1.0-2.1); ALT/SGPT 84 U/L (21-72); AST/SGOT 147 U/L (17-59); BLOOD UREA NITROGEN 11 mg/dL (9-20); CALCIUM 8.7 mg/dl (8.6-10.4); GFR AFRICAN-AMERICAN > 60; GFR NON-AFRICAN AMERICAN > 60
[2017-09-08 09:08] VITALS: BP 129/77
[2017-09-08] MEDS: COMPLERA PO SCH (09:08)
--- NOTE | 2017-09-08 11:07 | CP.PCM.PN ---
<Paulo Arana - Last Filed: 09/08/17 11:12> Subjective - Date & Time of Evaluation Date of Evaluation: 09/08/17 Time of Evaluation: 10:00 - Subjective Subjective: PGY5 GI Fellow Progress Note Patient seen and examined bedside this morning. The patient denies any complaints at this time. States that he is feeling well today and is eager to return home. No episodes overnight. 12 system ROS performed and negative except where stated. Objective - Vital Signs/Intake and Output Vital Signs (last 24 hours): Temp Pulse Resp BP Pulse Ox 98.8 F 100 H 20 129/77 95 09/08/17 07:05 09/08/17 07:07 09/08/17 07:05 09/08/17 09:07 09/08/17 07:05 - Medications Medications: Current Medications Furosemide (Lasix) 40 mg PO DAILY [facility] Last Admin: 09/08/17 09:07 Dose: 40 mg Home Med (Patient's Own Medication) 1 tab PO DAILY [facility] Last Admin: 09/08/17 09:08 Dose: Not Given Lactulose (Enulose) 20 gm PO BID [facility] Last Admin: 09/08/17 09:07 Dose: 20 gm Levothyroxine Sodium (Synthroid) 100 mcg PO DAILY@0630 [facility] Last Admin: 09/08/17 06:22 Dose: 100 mcg Spironolactone (Aldactone) 100 mg PO DAILY [facility] Last Admin: 09/08/17 09:07 Dose: 100 mg - Labs Labs: 09/08/17 07:56 09/08/17 07:56 PT 28.1 SECONDS (9.7-12.2) H D 09/08/17 07:56 INR 2.6 D 09/08/17 07:56 APTT 43 SECONDS (21-34) H D 09/05/17 07:06 - Constitutional Appears: Non-toxic, No Acute Distress - Eye Exam Eye Exam: EOMI, PERRL - ENT Exam ENT Exam: Mucous Membranes Moist - Respiratory Exam Respiratory Exam: Clear to Ausculation Bilateral. absent: Rales, Rhonchi, Wheezes - Cardiovascular Exam Cardiovascular Exam: RRR, +S1, +S2 - GI/Abdominal Exam GI & Abdominal Exam: Distended, Soft, Normal Bowel Sounds. absent: Firm, Guarding, Rigid, Tenderness, Organomegaly - Extremities Exam Extremities Exam: Normal Inspection. absent: Pedal Edema - Neurological Exam Neurological Exam: Alert, Awake, Oriented x3 - Psychiatric Exam Psychiatric exam: Normal Affect, Normal Mood Assessment and Plan - Assessment and Plan (Free Text) Assessment: Patient is a 52yo male with PMHx significant for decompensated EtOH cirrhosis c/ b ascites, coagulopathy with ongoing EtOH use, also with PE, HIV on HAART who presented to the ED with shortness of breath and abdominal distention. -Decompensated EtOH cirrhosis -Ascites -Acute alcoholic hepatitis -HIV on HAART Plan: -MDF > 32; Recommend initiation of Prednisone 40mg PO QD (Prednisolone unavailable) for acute alcoholic hepatitis - will require one month of therapy followed by prolonged taper -S/P 4L paracentesis without evidence of SBP on cell count -Supportive care -OK for D/C from GI standpoint with outpatient follow up in [address] Malave - information added to D/C paperwork -Continue lasix, spironalactone, lactulose and rifaxamin -2g Na diet -EtOH cessation stressed - encouraged to seek formal rehabilitation -Pt will need EGD as an outpt to r/o esophageal varices *MELD-Na: 27 - driven by hyperbilirubinemia <Elvin Solorio - Last Filed: 09/08/17 11:22> Objective - Vital Signs/Intake and Output Vital Signs (last 24 hours): Temp Pulse Resp BP Pulse Ox 98.8 F 100 H 20 129/77 95 09/08/17 07:05 09/08/17 07:07 09/08/17 07:05 09/08/17 09:07 09/08/17 07:05 - Medications Medications: Current Medications Furosemide (Lasix) 40 mg PO DAILY [facility] Last Admin: 09/08/17 09:07 Dose: 40 mg Home Med (Patient's Own Medication) 1 tab PO DAILY [facility] Last Admin: 09/08/17 09:08 Dose: Not Given Lactulose (Enulose) 20 gm PO BID [facility] Last Admin: 09/08/17 09:07 Dose: 20 gm Levothyroxine Sodium (Synthroid) 100 mcg PO DAILY@0630 [facility] Last Admin: 09/08/17 06:22 Dose: 100 mcg Prednisone (Prednisone Tab) 40 mg PO DAILY [facility] Stop: 10/05/17 10:01 Spironolactone (Aldactone) 100 mg PO DAILY [facility] Last Admin: 09/08/17 09:07 Dose: 100 mg - Labs Labs: 09/08/17 07:56 09/08/17 07:56 PT 28.1 SECONDS (9.7-12.2) H D 09/08/17 07:56 INR 2.6 D 09/08/17 07:56 APTT 43 SECONDS (21-34) H D 09/05/17 07:06 Attending/Attestation - Attestation I have personally seen and examined this patient.: Yes I have fully participated in the care of the patient.: Yes I have reviewed all pertinent clinical information, including history, physical exam and plan: Yes Notes (Text): 09/08/17 11:21 52 year old male who presents with alcoholic hepatitis and ascites. S/P LVP. No evidence of SBP. Start steroids. F/u Dr. Malave 2 weeks. Consider transplant center eval outpatient. Etoh cessatoin advised. Ok for discharge with close outpatient followup.
[2017-09-08 11:56] VITALS: PULSE 105
--- NOTE | 2017-09-08 13:32 | CP.PCM.DIS ---
<Salvador Argueta - Last Filed: 09/08/17 13:26> Provider - Provider Date of Admission: 09/04/17 12:43 Attending physician: Eddy Trevino MD Primary care physician: PMD: none Consults: GI: Dr Solorio ID: Dr Dutton Time Spent in preparation of Discharge (in minutes): 44 Diagnosis - Discharge Diagnosis (1) Alcoholic hepatitis with ascites Status: Chronic Priority: High (2) HIV (human immunodeficiency virus infection) Status: Chronic Priority: High Hospital Course - Lab Results Lab Results: Micro Results 09/07/17 17:20 Peritoneal Fluid Gram Stain - Final 09/07/17 17:20 Peritoneal Fluid Body Fluid Culture - Preliminary NO GROWTH AFTER 24 HOURS 09/05/17 14:46 Blood Blood Culture - Preliminary NO GROWTH AFTER 48 HOURS 09/05/17 14:02 Blood Blood Culture - Preliminary NO GROWTH AFTER 48 HOURS 09/04/17 12:27 Urine,Warren Urine Culture - Final No Growth (<1,000 CFU/ML) Most Recent Lab Values WBC 5.3 K/uL (4.8-10.8) 09/08/17 07:56 RBC 2.81 Mil/uL (4.40-5.90) L 09/08/17 07:56 Hgb 10.5 g/dL (12.0-18.0) L 09/08/17 07:56 Hct 30.8 % (35.0-51.0) L 09/08/17 07:56 MCV 109.8 fL (80.0-94.0) H 09/08/17 07:56 MCH 37.4 pg (27.0-31.0) H 09/08/17 07:56 MCHC 34.1 g/dL (33.0-37.0) 09/08/17 07:56 RDW 15.9 % (11.5-14.5) H 09/08/17 07:56 Plt Count 44 K/uL (130-400) L 09/08/17 07:56 MPV 9.2 fL (7.2-11.7) 09/08/17 07:56 Neut % (Auto) 61.5 % (50.0-75.0) 09/08/17 07:56 Lymph % (Auto) 23.7 % (20.0-40.0) 09/08/17 07:56 [place] % (Auto) 11.7 % (0.0-10.0) H 09/08/17 07:56 Eos % (Auto) 2.2 % (0.0-4.0) 09/08/17 07:56 Baso % (Auto) 0.9 % (0.0-2.0) 09/08/17 07:56 Neut # (Auto) 3.2 K/uL (1.8-7.0) 09/08/17 07:56 Lymph # (Auto) 1.2 K/uL (1.0-4.3) 09/08/17 07:56 [place] # (Auto) 0.6 K/uL (0.0-0.8) 09/08/17 07:56 Eos # (Auto) 0.1 K/uL (0.0-0.7) 09/08/17 07:56 Baso # (Auto) 0.0 K/uL (0.0-0.2) 09/08/17 07:56 Differential Comment 09/06/17 06:18 Retic Count 5.8 % (0.5-1.5) H 09/04/17 16:42 Haptoglobin < 20.0 mg/dL (30.0-200.0) L 09/04/17 19:22 PT 28.1 SECONDS (9.7-12.2) H D 09/08/17 07:56 INR 2.6 D 09/08/17 07:56 APTT 43 SECONDS (21-34) H D 09/05/17 07:06 pO2 39 mm/Hg (30-55) 09/04/17 13:03 VBG pH 7.49 (7.32-7.43) H 09/04/17 13:03 VBG pCO2 38 mmHg (40-60) L 09/04/17 13:03 VBG HCO3 28.6 mmol/L 09/04/17 13:03 VBG Total CO2 30.2 mmol/L (22-28) H 09/04/17 13:03 VBG O2 Sat (Calc) 78.5 % (40-65) H 09/04/17 13:03 VBG Base Excess 5.4 mmol/L (0.0-2.0) H 09/04/17 13:03 VBG Potassium 3.4 mmol/L (3.6-5.2) L 09/04/17 13:03 Sodium 135.0 mmol/l (132-148) 09/04/17 13:03 Chloride 102.0 mmol/L (98-107) 09/04/17 13:03 Glucose 94 mg/dl (75-110) 09/04/17 13:03 Lactate 2.9 mmol/L (0.7-2.1) H 09/04/17 13:03 Sodium 139 mmol/L (132-148) 09/08/17 07:56 Potassium 3.1 mmol/L (3.6-5.2) L 09/08/17 07:56 Chloride 95 mmol/L (98-107) L 09/08/17 07:56 Carbon Dioxide 34 mmol/L (22-30) H 09/08/17 07:56 Anion Gap 12 (10-20) 09/08/17 07:56 BUN 11 mg/dL (9-20) 09/08/17 07:56 Creatinine 0.9 mg/dL (0.8-1.5) 09/08/17 07:56 Est GFR ( Amer) > 60 09/08/17 07:56 Est GFR (Non-Af Amer) > 60 09/08/17 07:56 Random Glucose 91 mg/dL (75-110) 09/08/17 07:56 Calcium 8.7 mg/dl (8.6-10.4) 09/08/17 07:56 Phosphorus 3.0 mg/dL (2.5-4.5) 09/08/17 07:56 Magnesium 1.9 mg/dL (1.6-2.3) 09/08/17 07:56 Iron 95 ug/dL (49-181) 09/05/17 14:02 TIBC 185 ug/dL (250-450) L 09/05/17 14:02 % Saturation 51 (20-55) 09/05/17 14:02 Ferritin 743.0 ng/mL 09/05/17 14:02 Total Bilirubin 13.6 mg/dL (0.2-1.3) H 09/08/17 07:56 Direct Bilirubin 6.1 mg/dL (0.0-0.4) H 09/04/17 11:57 AST 147 U/L (17-59) H 09/08/17 07:56 ALT 84 U/L (21-72) H 09/08/17 07:56 Alkaline Phosphatase 139 U/L (38-126) H D 09/08/17 07:56 Ammonia 48 umol/L (9-33) H 09/06/17 06:18 Lactate Dehydrogenase 1075 U/L (313-618) H 09/04/17 19:22 Troponin I 0.0150 ng/mL (0.00-0.120) 09/04/17 11:57 NT-Pro-B Natriuret Pep 163 pg/mL (0-900) 09/04/17 11:57 Total Protein 8.0 g/dL (6.3-8.3) 09/08/17 07:56 Albumin 3.0 g/dL (3.5-5.0) L 09/08/17 07:56 Globulin 5.0 gm/dL (2.2-3.9) H 09/08/17 07:56 Albumin/Globulin Ratio 0.6 (1.0-2.1) L 09/08/17 07:56 Ceruloplasmin 21 mg/dL (18-36) 09/05/17 14:02 Alpha Fetoprotein 2.9 ng/mL (0.0-7.5) 09/06/17 11:13 Vitamin B12 445 pg/mL (239-931) 09/04/17 16:42 Folate 12.6 ng/mL 09/04/17 16:42 Free T4 2.68 ng/dL (0.78-2.19) H 09/04/17 16:42 TSH 3rd Generation 6.57 mIU/L (0.46-4.68) H 09/04/17 16:42 Venous Blood Potassium 3.4 mmol/L (3.6-5.2) L 09/04/17 13:03 Urine Color [place] (YELLOW) 09/04/17 12:27 Urine Clarity Hazy (Clear) 09/04/17 12:27 Urine pH 5.0 (5.0-8.0) 09/04/17 12:27 Ur Specific [place] 1.024 (1.003-1.030) 09/04/17 12:27 Urine Protein 1+ mg/dL (NEGATIVE) H 09/04/17 12:27 Urine Glucose (UA) Normal mg/dL (Normal) 09/04/17 12:27 Urine Ketones Negative mg/dL (NEGATIVE) 09/04/17 12:27 Urine Blood 1+ (NEGATIVE) H 09/04/17 12:27 Urine Nitrate Negative (NEGATIVE) 09/04/17 12:27 Urine Bilirubin 2+ (NEGATIVE) H 09/04/17 12:27 Urine Urobilinogen 4.0 mg/dL (0.2-1.0) 09/04/17 12:27 Ur Leukocyte Esterase Neg Lance/uL (Negative) 09/04/17 12:27 Urine WBC (Auto) 2 /hpf (0-5) 09/04/17 12:27 Urine RBC (Auto) 7 /hpf (0-3) H 09/04/17 12:27 Ur Squamous Epith Cells < 1 /hpf (0-5) 09/04/17 12:27 Urine Bacteria Rare (<OCC) 09/04/17 12:27 Hyaline Casts 6-10 /lpf (0-2) H 09/04/17 12:27 Fluid Source Peritoneal/ascites 09/07/17 17:11 Fluid Appearance Sl cloudy (CLEAR) 09/07/17 17:11 Fluid WBC 95.0 /mm3 (0.0-300.0) 09/07/17 17:11 Fluid RBC 1269.0 /mm3 (0.0-0.0) H 09/07/17 17:11 Fluid Tot Cell Count 100 (0-0) H 09/07/17 17:11 Fluid Neutrophils 31.0 % (0-0) H 09/07/17 17:11 Fluid Lymphocytes 68.0 % (0-0) H 09/07/17 17:11 Fld Monocyte/Macrophag 1 % (0-0) H 09/07/17 17:11 Fluid Comment 09/07/17 17:11 Urine Opiates Screen Negative (NEGATIVE) 09/04/17 21:01 Urine Methadone Screen Negative (NEGATIVE) 09/04/17 21:01 Ur Barbiturates Screen Negative (NEGATIVE) 09/04/17 21:01 Ur Phencyclidine Scrn Negative (NEGATIVE) 09/04/17 21:01 Ur Amphetamines Screen Negative (NEGATIVE) 09/04/17 21:01 U Benzodiazepines Scrn Negative (NEGATIVE) 09/04/17 21:01 U Oth Cocaine Metabols Negative (NEGATIVE) 09/04/17 21:01 U Cannabinoids Screen Negative (NEGATIVE) 09/04/17 21:01 Alcohol, Quantitative < 10 mg/dl (0-10) 09/04/17 19:22 IgG 2483.3 mg/dL (700.0-1600.0) H 09/05/17 14:03 SIMRAN Nuclear Membr Pat Negative (Negative) 09/05/17 14:02 Anti-Mitochondrial Ab Negative (Negative) 09/05/17 14:02 Smooth Muscle Ab Titer 1:80 Titer (< 1:20) H 09/05/17 14:02 Anti-Smooth Muscle Ab Positive (Negative) H 09/05/17 14:02 Absolute Lymphs (Flow) 1637 Cells/mcL (850-3900) 09/04/17 19:22 % CD4 Cells 41 Percent (30-61) 09/04/17 19:22 Absolute CD4 Count 663 Cells/mcL (490-1740) 09/04/17 19:22 T-Help/Suppress Ratio 1.31 Ratio (0.86-5.00) 09/04/17 19:22 % CD8 Cells 31 Percent (12-42) 09/04/17 19:22 Absolute CD8 Count 505 Cells/mcL (180-1170) 09/04/17 19:22 Hepatitis A IgM Ab Negative (NEGATIVE) 09/04/17 11:57 Hep Bs Antigen Negative (NEGATIVE) 09/04/17 11:57 Hep B Core IgM Ab Negative (NEGATIVE) 09/04/17 11:57 Hepatitis C Antibody Negative (NEGATIVE) 09/04/17 11:57 HIV-1 RNA Qnt (RT-PCR) <1.30 not detected (Not Detected) 09/04/17 16:42 Blood Type A POSITIVE 09/05/17 11:10 Blood Type Confirm A POSITIVE 09/05/17 11:10 Antibody Screen Negative 09/05/17 11:10 - Hospital Course Hospital Course: Of Note: Patient was seen and examined in ED Bed 15 at approximately 14:00. Patient is a FULL CODE status at this time. He has an advance directive in place. He states that his sister is his emergency contact. Her name is Dasha Luong. She can be reached at [phone]. CC: Shortness of breath HPI: 52 year old male with past medical history significant for PE (2003) and HIV presents with complaints of shortness of breath which he has been experiencing for the past three days. Patient states that he has not experienced this in the past. He states that he noticed dyspnea even while completing daily activities. He states that he has not been out of his house much and thus could not quantify the distance that he can walk before feeling short of breath. Patient states that he sleeps with one pillow at night as well. He further states that he had a workup back at [facility] in [place], 9 months ago for jaundice. He states that he had lab work and ultrasound performed which all came back normal. He states that he also had a recent visit to [facility] 6 weeks prior for treatment for hypokalemia. Patient states that an ultrasound was performed- the results of which were sent to his primary medical doctor. Patient states that he has since followed up with his primary. He states that his doctor switched him from HCTZ to Lasix. Since then, patient states that he recently started taking Lasix 4 days ago. Patient admits to dyspnea on exertion and swelling. He denies chest pain, headaches, nausea, vomiting, bowel changes, urinary changes, skin changes, bruising or recent illness at this time. PMHx- as stated above. Shantelle developed a PE following hernia surgery in 2003. Was on coumadin therapy afterwards for approx 6 month period PSHx- Hernia repair in 2003 Fam Hx- Mother has asthma, DM and HTN; Father has HTN, glaucoma and prostate cancer diagnosed in 60s/70s; Brother had prostate cancer diagnosed in his 50s Meds- Complera , Levothyroxine 100 mcg daily, Lasix 20 mg daily, Potassium daily ( unsure of meq), Vitamin D over the counter Social Hx- Admits to drinking 1-2 ( 6 or 7 oz) wine spritzers daily; denies tobacco or illicit drug use Allergies- denies although the medical record states lactose. Will need to clarify. HOSPITAL COURSE: This patient was diagnosed with alcoholic hepatitis with ascites. GI was consulted. A paracetesis was done to remove fluid and 4 Liters were removed by IR. HCC was ruled out as well as autoimmune and viral etiologies to his liver failure. GI has recommended the patient follow-up with liver transplant center for transplant eval. This patient also has HIV - he takes complera and is compliant with the medication - however the side effect of complera is liver toxicity thus our ID specialist, Dr Dutton, advised that the patient discontinue this medication and another substitute be found by the patient's HIV specialist. The latest progress note is pasted below for specifics regarding management: (1) Transaminitis/ Liver failure Assessment and Plan: With Hyperbilirubinemia Unclear source of hepatocellular injury- Considerations for Autoimmune, Viral, Toxin mediated or cardiac etiology Elevated liver enzymes Hep panel negative UDS and alcohol screen negative Alpha Fetoprotein NORMAL abdominal u/s: moderate amount of intra-abdominal ascites with evidence or cirrhosis Consult to GI- * will need to r/o SBP prior to starting treatment for alcoholic hepatitis * will benefit from steroids after all infectious workup negative * Pt will need EGD as an outpt to r/o esophageal varices s/p paracentesis with 4 Liters removed on 09/07/[address]: hepatic cirrhosis. no evidence of hepatocellular malignancy. extensive ascites. Bilateral lower lobe subsegmental atelectasis and trace right pleural effusion. Diffuse mural thickening of the small bowel common nonspecific. This may be due to hypoalbuminemia or nonspecific enteritis. meds as per GI: Vitamin K, Xifaxin 550mg po BID, Aldactone 100mg po daily, Lactulose 20gm po BID, Lasix 40mg po daily Status: Acute (2) Ascites Assessment and Plan: Evaluate portal hypertension vs non-portal hypertensive etiologies Consult to IR- Will require paracentesis once INR is stable. INR decreased to 3.2 on 09/06. recieved FFPx5 and vitamin K before paracentesis INR decreased to 1.7 on 09/07 s/p paracentesis with 4 Liters removed on 09/07/17, f/u fluid studies Status: Acute (3) Dyspnea Assessment and Plan: Cxray: mild bibasilar atelectasis and/or scarring. Rule out developing infiltrates with followup radiographs. Note that the possibility of pleural based calcification both hemidiaphragms not excluded ECHO:EF: 55-60%, mitral regurg trace to mild, mild to moderate tricuspid regurg , mild to moderate pulm hypertension, trace to mild pulmonic valvular regurg BNP within normal limits Oxygen PRN Hold off on duonebs due to hypokalemic side effects. Monitor closely Status: Acute (4) Anemia Assessment and Plan: Follow up Anemia workup Could be secondarily due to liver pathology Status: Acute (5) Thrombocytopenia Assessment and Plan: Avoid medications that can further exacerbate levels Monitor at this time patient transfused 5 bags of FFP on 09/07 Status: Acute (6) HIV (human immunodeficiency virus infection) Assessment and Plan: CD4 count: 663 f/u viral load Complera 1 tab po daily ID, Dr. Dutton, consulted help appreciated Status: Chronic (7) Hypokalemia Assessment and Plan: Secondary to effects of diuresis Repleted with KDur 40 on 09/07 Recheck potassium in Am Aldactone 100mg po daily Status: Acute (8) Hypothyroidism Assessment and Plan: Unclear of patient's history however he states that he takes levothyroxine TSH: 6.57 Free T4: 2.68 Continue 100 mcg at this time. Status: Acute (9) Prophylactic measure Assessment and Plan: Chemical anticoagulation contraindicated due to thrombocytopenia Patient MUST walk at least twice daily with assistance if need be. SCDs contraindicated due to LE swelling Discharge Exam - Head Exam Head Exam: ATRAUMATIC, NORMAL INSPECTION, NORMOCEPHALIC - Additional Findings Additional findings: - Constitutional Appears: Non-toxic, No Acute Distress - Head Exam Head Exam: ATRAUMATIC, NORMAL INSPECTION, NORMOCEPHALIC - Eye Exam Eye Exam: EOMI, Scleral icterus - ENT Exam ENT Exam: Mucous Membranes Moist - Neck Exam Neck Exam: Full ROM - Respiratory Exam Respiratory Exam: Decreased Breath Sounds, NORMAL BREATHING PATTERN. absent: Rales, Rhonchi, Wheezes - Cardiovascular Exam Cardiovascular Exam: REGULAR RHYTHM, +S1, +S2, Murmur (systolic murmur) - GI/Abdominal Exam GI & Abdominal Exam: Distended, Firm - Extremities Exam Extremities Exam: Normal Inspection, Pedal Edema. absent: Tenderness - Back Exam Back Exam: NORMAL INSPECTION - Neurological Exam Neurological Exam: Alert, Awake, Oriented x3 - Psychiatric Exam Psychiatric exam: Normal Affect, Normal Mood - Skin Skin Exam: Intact, Normal Color, Warm Discharge Plan - Discharge Medications Prescriptions: Furosemide [Lasix] 20 mg PO DAILY #30 tab Lactulose [Enulose] 20 gm PO BID #60 udc Levothyroxine [Synthroid] 100 mcg PO DAILY #30 tab Potassium Chloride 20 meq PO DAILY #30 tablet.er predniSONE [predniSONE Tab] 40 mg PO DAILY #60 tab rifAXIMin [Xifaxan] 550 mg PO BID #60 tab Spironolactone [Aldactone] 100 mg PO DAILY #30 tab - Follow Up Plan Condition: STABLE Disposition: HOME/ ROUTINE Instructions: Jaundice, Adult (DC), Lactulose, Prednisone, Abdominal Paracentesis (DC) Additional Instructions: You are medically stable for discharge. Please brain picker your medicines from your pharmacy ([facility] [address] [facility]) which were electronically sent over: 1. Rifaximin 550mg take 1 tablet with breakfast and 1 tablet with dinner 2. Prednisone 40mg take 1 tablet with breakfast (after 1 month this medication will be tapered - instructions will be given to you on your GI follow-up) 3. Spironolactone 100mg take 1 tablet with breakfast 4. Potassium 20meq take 1 tablet with breakfast 5. Levothyroxine 100mcg take 1 tablet with breakfast 6. Lactulose 20gm take 1 tablet with breakfast and 1 tablet with dinner 7. Furosemide 20mg take 1 tablet with lunch Very importantly, our infectious disease specialist has advised you discontinue your Complera medication as this medication can be toxic to your liver. We advise you reach out to your HIV specialist who can start you on a different medication. Please follow-up with our GI specialist, Dr Malave, in 2 weeks (information has been provided). At some point in the future you will need an EGD (a camera down thru the mouth into the GI tract) - this will be discussed with Dr Malave. You should also ask Dr Malave about information for a liver transplant center. If symptoms return, please go to your nearest emergency department. Referrals: Zenon Malave MD [Medical Doctor] - 2 Weeks (EtOH cirrhosis with EtOH hepatitis on Prednisone) <Eddy Trevino - Last Filed: 09/08/17 15:01> Provider - Provider Date of Admission: 09/04/17 12:43 Attending physician: Eddy Trevino MD Hospital Course - Lab Results Lab Results: Micro Results 09/05/17 14:46 Blood Blood Culture - Preliminary NO GROWTH AFTER 3 DAYS 09/05/17 14:02 Blood Blood Culture - Preliminary NO GROWTH AFTER 3 DAYS 09/07/17 17:20 Peritoneal Fluid Gram Stain - Final 09/07/17 17:20 Peritoneal Fluid Body Fluid Culture - Preliminary NO GROWTH AFTER 24 HOURS 09/04/17 12:27 Urine,Warren Urine Culture - Final No Growth (<1,000 CFU/ML) Most Recent Lab Values WBC 5.3 K/uL (4.8-10.8) 09/08/17 07:56 RBC 2.81 Mil/uL (4.40-5.90) L 09/08/17 07:56 Hgb 10.5 g/dL (12.0-18.0) L 09/08/17 07:56 Hct 30.8 % (35.0-51.0) L 09/08/17 07:56 MCV 109.8 fL (80.0-94.0) H 09/08/17 07:56 MCH 37.4 pg (27.0-31.0) H 09/08/17 07:56 MCHC 34.1 g/dL (33.0-37.0) 09/08/17 07:56 RDW 15.9 % (11.5-14.5) H 09/08/17 07:56 Plt Count 44 K/uL (130-400) L 09/08/17 07:56 MPV 9.2 fL (7.2-11.7) 09/08/17 07:56 Neut % (Auto) 61.5 % (50.0-75.0) 09/08/17 07:56 Lymph % (Auto) 23.7 % (20.0-40.0) 09/08/17 07:56 [place] % (Auto) 11.7 % (0.0-10.0) H 09/08/17 07:56 Eos % (Auto) 2.2 % (0.0-4.0) 09/08/17 07:56 Baso % (Auto) 0.9 % (0.0-2.0) 09/08/17 07:56 Neut # (Auto) 3.2 K/uL (1.8-7.0) 09/08/17 07:56 Lymph # (Auto) 1.2 K/uL (1.0-4.3) 09/08/17 07:56 [place] # (Auto) 0.6 K/uL (0.0-0.8) 09/08/17 07:56 Eos # (Auto) 0.1 K/uL (0.0-0.7) 09/08/17 07:56 Baso # (Auto) 0.0 K/uL (0.0-0.2) 09/08/17 07:56 Differential Comment 09/06/17 06:18 Retic Count 5.8 % (0.5-1.5) H 09/04/17 16:42 Haptoglobin < 20.0 mg/dL (30.0-200.0) L 09/04/17 19:22 PT 28.1 SECONDS (9.7-12.2) H D 09/08/17 07:56 INR 2.6 D 09/08/17 07:56 APTT 43 SECONDS (21-34) H D 09/05/17 07:06 pO2 39 mm/Hg (30-55) 09/04/17 13:03 VBG pH 7.49 (7.32-7.43) H 09/04/17 13:03 VBG pCO2 38 mmHg (40-60) L 09/04/17 13:03 VBG HCO3 28.6 mmol/L 09/04/17 13:03 VBG Total CO2 30.2 mmol/L (22-28) H 09/04/17 13:03 VBG O2 Sat (Calc) 78.5 % (40-65) H 09/04/17 13:03 VBG Base Excess 5.4 mmol/L (0.0-2.0) H 09/04/17 13:03 VBG Potassium 3.4 mmol/L (3.6-5.2) L 09/04/17 13:03 Sodium 135.0 mmol/l (132-148) 09/04/17 13:03 Chloride 102.0 mmol/L (98-107) 09/04/17 13:03 Glucose 94 mg/dl (75-110) 09/04/17 13:03 Lactate 2.9 mmol/L (0.7-2.1) H 09/04/17 13:03 Sodium 139 mmol/L (132-148) 09/08/17 07:56 Potassium 3.1 mmol/L (3.6-5.2) L 09/08/17 07:56 Chloride 95 mmol/L (98-107) L 09/08/17 07:56 Carbon Dioxide 34 mmol/L (22-30) H 09/08/17 07:56 Anion Gap 12 (10-20) 09/08/17 07:56 BUN 11 mg/dL (9-20) 09/08/17 07:56 Creatinine 0.9 mg/dL (0.8-1.5) 09/08/17 07:56 Est GFR ( Amer) > 60 09/08/17 07:56 Est GFR (Non-Af Amer) > 60 09/08/17 07:56 Random Glucose 91 mg/dL (75-110) 09/08/17 07:56 Calcium 8.7 mg/dl (8.6-10.4) 09/08/17 07:56 Phosphorus 3.0 mg/dL (2.5-4.5) 09/08/17 07:56 Magnesium 1.9 mg/dL (1.6-2.3) 09/08/17 07:56 Iron 95 ug/dL (49-181) 09/05/17 14:02 TIBC 185 ug/dL (250-450) L 09/05/17 14:02 % Saturation 51 (20-55) 09/05/17 14:02 Ferritin 743.0 ng/mL 09/05/17 14:02 Total Bilirubin 13.6 mg/dL (0.2-1.3) H 09/08/17 07:56 Direct Bilirubin 6.1 mg/dL (0.0-0.4) H 09/04/17 11:57 AST 147 U/L (17-59) H 09/08/17 07:56 ALT 84 U/L (21-72) H 09/08/17 07:56 Alkaline Phosphatase 139 U/L (38-126) H D 09/08/17 07:56 Ammonia 48 umol/L (9-33) H 09/06/17 06:18 Lactate Dehydrogenase 1075 U/L (313-618) H 09/04/17 19:22 Troponin I 0.0150 ng/mL (0.00-0.120) 09/04/17 11:57 NT-Pro-B Natriuret Pep 163 pg/mL (0-900) 09/04/17 11:57 Total Protein 8.0 g/dL (6.3-8.3) 09/08/17 07:56 Albumin 3.0 g/dL (3.5-5.0) L 09/08/17 07:56 Globulin 5.0 gm/dL (2.2-3.9) H 09/08/17 07:56 Albumin/Globulin Ratio 0.6 (1.0-2.1) L 09/08/17 07:56 Ceruloplasmin 21 mg/dL (18-36) 09/05/17 14:02 Alpha Fetoprotein 2.9 ng/mL (0.0-7.5) 09/06/17 11:13 Vitamin B12 445 pg/mL (239-931) 09/04/17 16:42 Folate 12.6 ng/mL 09/04/17 16:42 Free T4 2.68 ng/dL (0.78-2.19) H 09/04/17 16:42 TSH 3rd Generation 6.57 mIU/L (0.46-4.68) H 09/04/17 16:42 Venous Blood Potassium 3.4 mmol/L (3.6-5.2) L 09/04/17 13:03 Urine Color [place] (YELLOW) 09/04/17 12:27 Urine Clarity Hazy (Clear) 09/04/17 12:27 Urine pH 5.0 (5.0-8.0) 09/04/17 12:27 Ur Specific [place] 1.024 (1.003-1.030) 09/04/17 12:27 Urine Protein 1+ mg/dL (NEGATIVE) H 09/04/17 12:27 Urine Glucose (UA) Normal mg/dL (Normal) 09/04/17 12:27 Urine Ketones Negative mg/dL (NEGATIVE) 09/04/17 12:27 Urine Blood 1+ (NEGATIVE) H 09/04/17 12:27 Urine Nitrate Negative (NEGATIVE) 09/04/17 12:27 Urine Bilirubin 2+ (NEGATIVE) H 09/04/17 12:27 Urine Urobilinogen 4.0 mg/dL (0.2-1.0) 09/04/17 12:27 Ur Leukocyte Esterase Neg Lance/uL (Negative) 09/04/17 12:27 Urine WBC (Auto) 2 /hpf (0-5) 09/04/17 12:27 Urine RBC (Auto) 7 /hpf (0-3) H 06/19/18 12:27 Ur Squamous Epith Cells < 1 /hpf (0-5) 09/04/17 12:27 Urine Bacteria Rare (<OCC) 09/04/17 12:27 Hyaline Casts 6-10 /lpf (0-2) H 09/04/17 12:27 Fluid Source Peritoneal/ascites 09/07/17 17:11 Fluid Appearance Sl cloudy (CLEAR) 09/07/17 17:11 Fluid WBC 95.0 /mm3 (0.0-300.0) 09/07/17 17:11 Fluid RBC 1269.0 /mm3 (0.0-0.0) H 09/07/17 17:11 Fluid Tot Cell Count 100 (0-0) H 09/07/17 17:11 Fluid Neutrophils 31.0 % (0-0) H 09/07/17 17:11 Fluid Lymphocytes 68.0 % (0-0) H 09/07/17 17:11 Fld Monocyte/Macrophag 1 % (0-0) H 09/07/17 17:11 Fluid Comment 09/07/17 17:11 Urine Opiates Screen Negative (NEGATIVE) 09/04/17 21:01 Urine Methadone Screen Negative (NEGATIVE) 09/04/17 21:01 Ur Barbiturates Screen Negative (NEGATIVE) 09/04/17 21:01 Ur Phencyclidine Scrn Negative (NEGATIVE) 09/04/17 21:01 Ur Amphetamines Screen Negative (NEGATIVE) 09/04/17 21:01 U Benzodiazepines Scrn Negative (NEGATIVE) 09/04/17 21:01 U Oth Cocaine Metabols Negative (NEGATIVE) 09/04/17 21:01 U Cannabinoids Screen Negative (NEGATIVE) 09/04/17 21:01 Alcohol, Quantitative < 10 mg/dl (0-10) 09/04/17 19:22 IgG 2483.3 mg/dL (700.0-1600.0) H 09/05/17 14:03 SIMRAN Nuclear Membr Pat Negative (Negative) 09/05/17 14:02 Anti-Mitochondrial Ab Negative (Negative) 09/05/17 14:02 Smooth Muscle Ab Titer 1:80 Titer (< 1:20) H 09/05/17 14:02 Anti-Smooth Muscle Ab Positive (Negative) H 09/05/17 14:02 Absolute Lymphs (Flow) 1637 Cells/mcL (850-3900) 09/04/17 19:22 % CD4 Cells 41 Percent (30-61) 09/04/17 19:22 Absolute CD4 Count 663 Cells/mcL (490-1740) 09/04/17 19:22 T-Help/Suppress Ratio 1.31 Ratio (0.86-5.00) 09/04/17 19:22 % CD8 Cells 31 Percent (12-42) 09/04/17 19:22 Absolute CD8 Count 505 Cells/mcL (180-1170) 09/04/17 19:22 Hepatitis A IgM Ab Negative (NEGATIVE) 09/04/17 11:57 Hep Bs Antigen Negative (NEGATIVE) 09/04/17 11:57 Hep B Core IgM Ab Negative (NEGATIVE) 09/04/17 11:57 Hepatitis C Antibody Negative (NEGATIVE) 09/04/17 11:57 HIV-1 RNA Qnt (RT-PCR) <1.30 not detected (Not Detected) 09/04/17 16:42 Blood Type A POSITIVE 09/05/17 11:10 Blood Type Confirm A POSITIVE 09/05/17 11:10 Antibody Screen Negative 09/05/17 11:10 Attending/Attestation - Attestation I have personally seen and examined this patient.: Yes I have fully participated in the care of the patient.: Yes I have reviewed all pertinent clinical information, including history, physical exam and plan: Yes Notes (Text): Seen and examined by me. Discussed about the discharge plan.Discharge on prednisone as per GI and follow with GI at medical clinic in 2 weeks. Discussed joyce Dutton about his HIV HAART . She recommend to stop taking his Complera /HARRT due to liver toxicity and she asked to follow ID as an out patient Patient was explained about ID recommendation
--- NOTE | 2017-09-08 16:56 | US ---
Ultrasound guided paracentesis. Clinical History: Ascites with abdominal pain and distension. Technique: The relative risks and indications for the procedure were explained to the patient and informed written consent obtained. Sonography of the abdomen was performed in a supine position. This revealed a moderate amount of non-loculated ascites, greatest in the right lower quadrant. A puncture site was selected and the area was prepped and draped in the usual sterile fashion. 1% lidocaine was used to anesthetize the skin and soft tissues. A 5 [place] paracentesis catheter was trocared into the right lower quadrant under real time ultrasound guidance. A permanent image was stored. Approximately 4000 cc of clear pale yellow fluid aspirated. Impression: Ultrasound-guided paracentesis in the right lower quadrant. Approximately 4000 cc of clear pale yellow colored fluid was aspirated.
== END 2017-09-08 14:57 | disposition home or self-care (01) | DRG 432 ==
LOC: C.ER 11:10 → C.9E 12:43 → C.6T 14:46
PROVIDERS: ADMIT Internal Medicine; ATTEND Internal Medicine
PROC: 0W9G3ZZ Drainage of Peritoneal Cavity, Percutaneous Approach (ICD-10-PCS; principal; 2017-09-07)
DX: K70.11 Alcoholic hepatitis with ascites (principal); B20 Human immunodeficiency virus [HIV] disease; J98.11 Atelectasis; K70.31 Alcoholic cirrhosis of liver with ascites; D69.6 Thrombocytopenia, unspecified; E03.9 Hypothyroidism, unspecified; E87.6 Hypokalemia; Z79.01 Long term (current) use of anticoagulants; Z86.711 Personal history of pulmonary embolism; D64.9 Anemia, unspecified

== ENCOUNTER 2017-09-18 22:45 | Inpatient (IN) | payer BC ==
[2017-09-18 22:46] VITALS: BMI 28.1
--- NOTE | 2017-09-18 23:31 | C.PDOC ---
History Of Present Illness patient presents with worsening dyspnea on exertion, and at rest. Has history of alcoholic cirrhosis. Senies any etoh use. Has had a recent paracentisis of approximately 4 liters. No cp or palpitations. Speaking in complete sentences Time Seen by Provider: 09/18/17 23:31 Chief Complaint (Nursing): Shortness Of Breath History Per: Patient History/Exam Limitations: no limitations Onset/Duration Of Symptoms: Days Current Symptoms Are (Timing): Worse Initiating Event: Other Quality: Dull Exacerbating Factor(s): Exertion, Laying Flat Current Respiratory Medications: See Home Med List Severity: Severe Pain Scale Rating Of: 7 Associated Symptoms: Ankle/Leg Swelling. denies: Fever, Chills, Chest Pain, Anxiety Reports Recently: Seen In ED, Treated By A Physician, Hospitalized Recent travel outside of the [place]: No Additional History Per: Patient Past Medical History Reviewed: Historical Data, Nursing Documentation, Vital Signs Vital Signs: Last Vital Signs Temp 99.2 F 09/18/17 22:54 Pulse 97 H 09/19/17 00:49 Resp 22 09/19/17 00:49 BP 121/72 09/19/17 00:49 Pulse Ox 97 09/19/17 00:49 - Medical History PMH: HIV, Hypothyroidism Denies: Depression Surgical History: Tonsillectomy - [facility] Procedures DRAINAGE OF PERITONEAL CAVITY, PERCUTANEOUS APPROACH (09/04/17) INJECT/INFUSE NEC (02/29/12) INJECT/INFUSE THROMBOLYTIC AGENT (11/06/03) PACKED CELL TRANSFUSION (11/06/03) Family History: States: No Known Family Hx - Social History Hx Tobacco Use: No Hx Alcohol Use: Yes (social) Hx Substance Use: No - Immunization History Hx Tetanus Toxoid Vaccination: No Hx Influenza Vaccination: No Hx Pneumococcal Vaccination: No Review Of Systems Constitutional: Negative for: Fever, Chills Eyes: Positive for: Other (jaundice) ENT: Negative for: Throat Pain Cardiovascular: Negative for: Chest Pain Respiratory: Positive for: Shortness of Breath, SOB with Excertion Gastrointestinal: Positive for: Abdominal Pain. Negative for: Nausea, Vomiting Genitourinary: Negative for: Hematuria Musculoskeletal: Negative for: Back Pain Skin: Positive for: Jaundice. Negative for: Rash Neurological: Negative for: Weakness Psych: Negative for: Anxiety Physical Exam - Physical Exam Appears: Non-toxic Skin: Warm, Dry, Jaundice Head: Normacephalic Eye(s): bilateral: Scleral Icterus Oral Mucosa: Moist Neck: Supple Chest: Symmetrical Cardiovascular: Rhythm Regular Respiratory: Decreased Breath Sounds, No Rales, No Wheezing Gastrointestinal/Abdominal: Normal Exam, Bowel Sounds (tympanic), Distention, No Guarding, No Rebound, Ascites Back: No CVA Tenderness Extremity: Pedal Edema Extremity: Bilateral: Atraumatic Pulses: Left Dorsalis Pedis: Normal, Right Dorsalis Pedis: Normal Neurological/Psych: Oriented x3 Gait: Steady ED Course And Treatment - Laboratory Results Result Diagrams: 09/18/17 23:53 09/18/17 23:53 ECG: Interpreted By Me, Viewed By Me ECG Rhythm: Sinus Rhythm (98), Nonspecific Changes O2 Sat by Pulse Oximetry: 93 Pulse Ox Interpretation: Abnormal - Radiology CXR: Interpreted by Me, Viewed By Me Disposition Discussed With Dr.: Ruchi Patel Comment: accepted the pt on his service and took over the care at 2:39AM Doctor Will See Patient In The: Hospital Counseled Patient/Family Regarding: Studies Performed, Diagnosis - Disposition Referrals: Dino Campoverde MD [Primary Care Provider] - Disposition: HOSPITALIZED Disposition Time: 23:31 Condition: FAIR Forms: [facility] ([employer]) - POA Present On Arrival: Poor Glycemic Control - Clinical Impression Clinical Impression: Jaundice, Ascites, HIV (human immunodeficiency virus infection), Dyspnea Decision To Admit - Pt Status Changed To: Hospital Disposition Of: Inpatient - Admit Certification Admit to Inpatient:: After my assessment, the patient will require hospitalization for at least two midnights. This is because of the severity of symptoms shown, intensity of services needed, and/or the medical risk in this patient being treated as an outpatient. - InPatient: Physician Admission Certification: I certify that this patient requires 2 or more midnights of care for the following reason:: After my assessment, the patient will require hospitalization for at least two midnights. This is because of the severity of symptoms shown, intensity of services needed, and/or the medical risk in this patient being treated as an outpatient. - . Bed Request Type: Telemetry Admitting Physician: Ruchi Patel Patient Diagnosis: Jaundice, Ascites, HIV (human immunodeficiency virus infection), Dyspnea
[2017-09-18 23:56] LABS: BASO % 0.2 % (0.0-2.0); HEMOGLOBIN 11.7 g/dL (12.0-18.0); LYMPH # 0.7 K/uL (1.0-4.3); LYMPH % 6.9 % (20.0-40.0); MEAN CELL VOLUME 108.8 fL (80.0-94.0); MEAN CORPUSCULAR HEMOGLOBIN 36.9 pg (27.0-31.0); MEAN CORPUSCULAR HGB CONC 33.9 g/dL (33.0-37.0); MEAN PLATELET VOLUME 9.6 fL (7.2-11.7); MONO # 1.5 K/uL (0.0-0.8); MONO % 14.5 % (0.0-10.0); NEUT # 7.9 K/uL (1.8-7.0); NEUT % 78.4 % (50.0-75.0); NRBC % 0.5 % (0.0-2.0); PLATELET COUNT 64 K/uL (130-400); RBC 3.16 Mil/uL (4.40-5.90); RED CELL DISTRIBUTION WIDTH 15.5 % (11.5-14.5); WHITE BLOOD COUNT 10.1 K/uL (4.8-10.8)
[2017-09-19 00:14] LABS: INR 3.8; PROTHROMBIN TIME 41.5 SECONDS (9.7-12.2)
[2017-09-19 00:17] LABS: ALB/GLOB RATIO 0.6 (1.0-2.1); ALBUMIN 3.1 g/dL (3.5-5.0); ALT/SGPT 203 U/L (21-72); AST/SGOT 231 U/L (17-59); BLOOD UREA NITROGEN 19 mg/dL (9-20); CALCIUM 9.2 mg/dl (8.6-10.4); GFR AFRICAN-AMERICAN > 60; GFR NON-AFRICAN AMERICAN > 60; LIPASE 302 U/L (23-300)
[2017-09-19 02:19] LABS: ANISOCYTOSIS MODERATE; LYMPHOCYTE 8 % (20-40); MONOCYTE 16 % (0-10); NEUTROPHIL 76 % (50-75); PLATELET ESTIMATE DECREASED (NORMAL); TOTAL CELLS COUNTED 100
[2017-09-19 02:20] LABS: LARGE PLATELETS PRESENT; POLYCHROMIC MODERATE; ROULEAUX FORMATION SLIGHT
[2017-09-19 02:34] LABS: SQUAMOUS EPITHIAL < 1 /hpf (0-5); URINE BILIRUBIN 2+ (NEGATIVE); URINE BLOOD NEGATIVE (NEGATIVE); URINE CLARITY Hazy (Clear); URINE COLOR Amber (YELLOW); URINE GLUCOSE (UA) NORMAL (Normal); URINE LEUKOCYTE ESTERASE NEG Leu/uL (Negative); URINE PROTEIN 1+ mg/dL (NEGATIVE)
[2017-09-19] MEDS ORDERED: Phytonadione 2.5 MG/0.5 TAB TAB PO STA (02:40)
[2017-09-19 08:38] LABS: BASO % 0.2 % (0.0-2.0); EOS % 0.2 % (0.0-4.0); HEMOGLOBIN 11.5 g/dL (12.0-18.0); LYMPH # 1.3 K/uL (1.0-4.3); LYMPH % 11.4 % (20.0-40.0); MEAN CELL VOLUME 108.2 fL (80.0-94.0); MEAN CORPUSCULAR HEMOGLOBIN 36.6 pg (27.0-31.0); MEAN CORPUSCULAR HGB CONC 33.8 g/dL (33.0-37.0); MEAN PLATELET VOLUME 10.1 fL (7.2-11.7); MONO # 1.7 K/uL (0.0-0.8); MONO % 15.3 % (0.0-10.0); NEUT # 8.1 K/uL (1.8-7.0); NEUT % 72.9 % (50.0-75.0); NRBC % 0.6 % (0.0-2.0); RBC 3.13 Mil/uL (4.40-5.90); RED CELL DISTRIBUTION WIDTH 15.6 % (11.5-14.5); WHITE BLOOD COUNT 11.1 K/uL (4.8-10.8)
[2017-09-19 08:49] LABS: ALT/SGPT 198 U/L (21-72); AST/SGOT 220 U/L (17-59); BLOOD UREA NITROGEN 19 mg/dL (9-20); CALCIUM 9.2 mg/dl (8.6-10.4); GFR AFRICAN-AMERICAN > 60; GFR NON-AFRICAN AMERICAN > 60
[2017-09-19 08:51] LABS: ALB/GLOB RATIO 0.6 (1.0-2.1); ALBUMIN 2.9 g/dL (3.5-5.0)
[2017-09-19] MEDS ORDERED: Levothyroxine 100 MCG TAB PO SCH (10:00)
--- NOTE | 2017-09-19 10:43 | RAD ---
PROCEDURE: CHEST RADIOGRAPH, 1 VIEW HISTORY: abd pain COMPARISON: None available. FINDINGS: LUNGS: Low lung volumes. Bibasilar atelectasis. PLEURA: No pneumothorax or pleural fluid seen. CARDIOVASCULAR: Normal. OSSEOUS STRUCTURES: Unchanged. VISUALIZED UPPER ABDOMEN: Normal. OTHER FINDINGS: None. IMPRESSION: Bibasilar atelectasis.
--- NOTE | 2017-09-19 12:28 | CP.PCM.HP ---
History of Present Illness - History of Present Illness History of Present Illness: COMPREHENSIVE HISTORY & PHYSICAL EXAM Patient is admitted with increasing shortness of breath secondary to tense ascites. HPI Patient was recently discharged from [facility] on September 03, 2017 after a diagnosis of alcoholic hepatitis with ascites during that time patient had 4 L of fluid tapped by interventional radiologist. Patient was put on prednisone Xifaxan and Aldactone by the GI service. Patient claims that he was not drinking. The fluid in the abdomen started reaccumulating to the point that patient again became short of breath due to the compression atelectasis. PAST HIST. Alcohol hepatitis. History of pulmonary embolism in 2003 after hernia surgery. PERSONAL HIST: Smoking. N Alcohol. Y Allergy N Travel_- . FAMILY HIST : ROS : Constitutional: Negative for weight change, chills, night sweats, fatigue and usage of assist device. Eyes: Negative for redness, swelling, itching, discharge, vision changes, blurry vision, double vision, glaucoma, cataracts, Ears: Negative for hearing loss, ringing, , tinnitus, vertigo Nose: Negative for rhinorrhea, stuffiness, sniffing, itching, postnasal drip, discoloration, nasal congestion and epistaxis. Throat: Negative for throat clearing, sore throat, hoarseness, difficulty swallowing and difficulty speaking. Respiratory: Negative for cough, , sputum production, chest tightness, wheezing, pleuritic chest pain ,daytime somnolence, chronic cough, hemoptysis, snoring at night, Cardiovascular: Negative for chest pain, palpitations, orthopnea, PND, Edema of legs, leg cramps, angina, claudication, , irregular heartbeat, Neurology: Negative for irritability, muscle weakness, numbness and tingling, seizures, tremors, migraines, slurred speech, syncope, memory loss, mood changes , recurrent headaches Gastrointestinal: Negative for difficulty swallowing, diarrhea, constipation, black stools, rectal bleeding, nausea, flatulence, reflux, poor appetite, changes in bowel habits Genitourinary: Negative for frequent urination, hematuria, discharge, incontinence, urinary retention, frequent UTI, Psychiatric : Negative for depression, anxiety/panic, suicidal tendencies, Musculoskeletal: Negative for swollen joints, back pain, , neck pain, morning stiffness of joints, . Skin: Negative for rash, ulcers, itching, dry skin and pigmented lesions. P/E: Constitutional: Appears stated age and in no apparent distress. Head: Normocephalic. Ears: External ear canals patent without inflammation. Tympanic membranes intact with normal light reflex and landmark. Eyes: Pupils are central, bilaterally equal, symmetrical and reacts to light with normal movements and no icterus or pallor. Nose: External nares are patent. Mucosa is pink Mouth-Throat: Good general appearance and condition. No post-pharyngeal/oropharyngeal erythema and tonsillar hypertrophy. Good dental hygiene. Neck-Lymphatic: Neck is supple with normal ROM, no thyromegaly, lymph nodes or masses. JVD is normal with no carotid bruit. Lungs: Clear to percussion and auscultation with bilateral normal air entry. Cardiovascular: S1 and S2 are normal with no murmurs, gallops and rub. GI Exam: No hepatomegaly. Abdomen is distended and tense secondary to fluid No Organomegaly , masses or hernias are evident and bowel sounds are normal and active. Neurology: Higher function and all cranial nerves intact, with no gross motor or sensory deficit. Superficial and deep reflexes are normal with downwards planters. No cerebellar deficit with normal gait. Musculoskeletal: No tender spots with normal curvature of the spine with no swelling or restricted ROM of the small and large joints. Extremities: Homans sign absent. Intact pulses with no pitting edema, calf tenderness or skin color changes. Skin: No rash, eruptions or abnormal skin pigmentation LAB/RADIOLOGY: ASSESMENT : Alcoholic hepatitis with cirrhosis with recurrent ascites moderate to severe with symptoms of shortness of breath due to compression atelectasis History of HIV currently on no medication. History of pulmonary embolism in 2003 PLAN: We will consult the GI and ID service and interventional radiologist for abdominal tap. Present on Admission - Present on Admission Any Indicators Present on Admission: No Past Patient History - Infectious Disease Hx of Infectious Diseases: None - Past Medical History & Family History Past Medical History?: Yes - Past Social History Smoking Status: Former Smoker - CARDIAC Hx Cardiac Disorders: Yes Hx Hypotension: Yes - PULMONARY Hx Respiratory Disorders: No - NEUROLOGICAL Hx Neurological Disorder: No - HEENT Hx HEENT Problems: No - RENAL Hx Chronic Kidney Disease: No - ENDOCRINE/METABOLIC Hx Endocrine Disorders: Yes Hx Hypothyroidism: Yes - HEMATOLOGICAL/ONCOLOGICAL Hx Blood Disorders: Yes Hx Human Immunodeficiency Virus (HIV): Yes - INTEGUMENTARY Hx Dermatological Problems: No - MUSCULOSKELETAL/RHEUMATOLOGICAL Hx Musculoskeletal Disorders: No Hx Falls: No - GASTROINTESTINAL Hx Gastrointestinal Disorders: Yes Other/Comment: alcoholic cirrhosis. paracentesis on 09/07/17 - GENITOURINARY/GYNECOLOGICAL Hx Genitourinary Disorders: No - PSYCHIATRIC Hx Psychophysiologic Disorder: No Hx Depression: No Hx Substance Use: No - SURGICAL HISTORY Hx Surgeries: Yes Hx Herniorrhaphy: Yes (2003) Hx Tonsillectomy: Yes - ANESTHESIA Hx Anesthesia: Yes Hx Anesthesia Reactions: No Meds Allergies/Adverse Reactions: Allergies Allergy/AdvReac Type Severity Reaction Status Date / Time lactose AdvReac Verified 09/18/17 22:50 Results - Vital Signs Recent Vital Signs: Last Vital Signs Temp 97.9 F 09/19/17 07:00 Pulse 96 H 09/19/17 09:24 Resp 20 09/19/17 07:00 BP 129/76 09/19/17 09:26 Pulse Ox 97 09/19/17 07:00 - Labs Result Diagrams: 09/19/17 08:24 09/19/17 08:24 Labs: Laboratory Results - last 24 hr 09/18/17 09/18/17 09/18/17 23:33 23:53 23:53 WBC 10.1 D RBC 3.16 L Hgb 11.7 L Hct 34.4 L MCV 108.8 H MCH 36.9 H MCHC 33.9 RDW 15.5 H Plt Count 64 L D MPV 9.6 Neut % (Auto) 78.4 H Lymph % (Auto) 6.9 L [place] % (Auto) 14.5 H Eos % (Auto) 0.0 Baso % (Auto) 0.2 Neut # (Auto) 7.9 H Lymph # (Auto) 0.7 L [place] # (Auto) 1.5 H Eos # (Auto) 0.0 Baso # (Auto) 0.0 Neutrophils % (Manual) 76 H Lymphocytes % (Manual) 8 L Monocytes % (Manual) 16 H Platelet Estimate Decreased L Large Platelets Present Polychromasia Moderate Anisocytosis (manual) Moderate Macrocytosis (manual) Moderate Rouleaux Slight PT INR APTT Sodium 135 Potassium 4.6 Chloride 97 L Carbon Dioxide 28 Anion Gap 15 BUN 19 Creatinine 1.2 Est GFR ( Amer) > 60 Est GFR (Non-Af Amer) > 60 Random Glucose 118 H Calcium 9.2 Total Bilirubin 14.3 H AST 231 H D ALT 203 H D Alkaline Phosphatase 172 H D Ammonia Total Protein 8.5 H Albumin 3.1 L Globulin 5.4 H Albumin/Globulin Ratio 0.6 L Lipase 302 H Urine Color [place] Urine Clarity Hazy Urine pH 5.0 Ur Specific [place] 1.030 Urine Protein 1+ H Urine Glucose (UA) Normal Urine Ketones Negative Urine Blood Negative Urine Nitrate Negative Urine Bilirubin 2+ H Urine Urobilinogen 4.0 Ur Leukocyte Esterase Neg Urine WBC (Auto) 2 Urine RBC (Auto) < 1 Ur Squamous Epith Cells < 1 Alcohol, Quantitative 09/18/17 09/18/17 09/19/17 23:53 23:53 03:04 WBC RBC Hgb Hct MCV MCH MCHC RDW Plt Count MPV Neut % (Auto) Lymph % (Auto) [place] % (Auto) Eos % (Auto) Baso % (Auto) Neut # (Auto) Lymph # (Auto) [place] # (Auto) Eos # (Auto) Baso # (Auto) Neutrophils % (Manual) Lymphocytes % (Manual) Monocytes % (Manual) Platelet Estimate Large Platelets Polychromasia Anisocytosis (manual) Macrocytosis (manual) Rouleaux PT 41.5 H* INR 3.8 APTT 36 H Sodium Potassium Chloride Carbon Dioxide Anion Gap BUN Creatinine Est GFR ( Amer) Est GFR (Non-Af Amer) Random Glucose Calcium Total Bilirubin AST ALT Alkaline Phosphatase Ammonia 34 H D Total Protein Albumin Globulin Albumin/Globulin Ratio Lipase Urine Color Urine Clarity Urine pH Ur Specific [place] Urine Protein Urine Glucose (UA) Urine Ketones Urine Blood Urine Nitrate Urine Bilirubin Urine Urobilinogen Ur Leukocyte Esterase Urine WBC (Auto) Urine RBC (Auto) Ur Squamous Epith Cells Alcohol, Quantitative < 10 09/19/17 09/19/17 08:24 08:24 WBC 11.1 H RBC 3.13 L Hgb 11.5 L Hct 33.9 L MCV 108.2 H MCH 36.6 H MCHC 33.8 RDW 15.6 H Plt Count 60 L MPV 10.1 Neut % (Auto) 72.9 Lymph % (Auto) 11.4 L [place] % (Auto) 15.3 H Eos % (Auto) 0.2 Baso % (Auto) 0.2 Neut # (Auto) 8.1 H Lymph # (Auto) 1.3 [place] # (Auto) 1.7 H Eos # (Auto) 0.0 Baso # (Auto) 0.0 Neutrophils % (Manual) Lymphocytes % (Manual) Monocytes % (Manual) Platelet Estimate Large Platelets Polychromasia Anisocytosis (manual) Macrocytosis (manual) Rouleaux PT INR APTT Sodium 136 Potassium 4.7 Chloride 97 L Carbon Dioxide 32 H Anion Gap 12 BUN 19 Creatinine 1.1 Est GFR ( Amer) > 60 Est GFR (Non-Af Amer) > 60 Random Glucose 86 Calcium 9.2 Total Bilirubin 13.7 H AST 220 H ALT 198 H Alkaline Phosphatase 174 H Ammonia Total Protein 8.0 Albumin 2.9 L Globulin 5.1 H Albumin/Globulin Ratio 0.6 L Lipase Urine Color Urine Clarity Urine pH Ur Specific [place] Urine Protein Urine Glucose (UA) Urine Ketones Urine Blood Urine Nitrate Urine Bilirubin Urine Urobilinogen Ur Leukocyte Esterase Urine WBC (Auto) Urine RBC (Auto) Ur Squamous Epith Cells Alcohol, Quantitative
--- NOTE | 2017-09-19 12:35 | CP.PCM.CON ---
History of Present Illness - History of Present Illness History of Present Illness: INFECTIOUS DISEASE CONSULT; HPI; 52-year-old male with history of pulmonary embolism status post hernia repair in 2003, who is admitted 09/19/17 with shortness of breath and increasing abdominal girth and reaccumulating ascites. Patient has history off HIV for the past 12 years and he has been on different medications for HIV in the past including atripla, presently on COMPLERA one tablet once a day daily. Patient was recently hospitalized at [facility] on September 03 after diagnosis of alcoholic hepatitis with ascites during that time. Patient was tapped and 4 L of fluid was removed. Cultures of peritoneal fluid were negative. Patient also was diagnosed with cirrhosis of the liver most likely secondary to alcohol intake for several years. Patient was placed on prednisone, xifaxan and Aldactone by the GI service. Patient claims that he has not been drinking since his last admission.Also states he has been compliant with his diuretics and prednisone 40 mg by mouth daily. Patient now comes in with shortness of breath and difficulty breathing and tense ascites.PATIENT DENIES ANY COUGH OR EXPECTORATION. DENIES ANY FEVERS OR CHILLS CHEST X-RAY ON ADMISSION SHOWS BY BASILAR ATELECTASIS. Patient antiretroviral therapy was discontinued because of elevated LFTs as reported BY THE PATIENT INFECTIOUS DISEASE CONSULT REQUESTED BY PMD for evaluation of his HAART RX.. PATIENT'S LIVER FUNCTION TESTS ARE ELEVATED WITH BILIRUBIN OF 13.7 AND ELEVATED TRANSAMINITIS. PATIENT DENIES HISTORY OF HEPATITIS B OR HEPATITIS C IN THE PAST. PATIENT'S RENAL FUNCTION ARE STABLE WITH CREATININE OF 1.1/bun OF 19. PATIENT'S LAST VIRAL LOAD REPORTED WAS UNDETECTABLE WITH cd4 HELPER CELLS MORE THAN 600U/L. PMH: HIV, Hypothyroidism Denies: Depression Surgical History: Tonsillectomy - [facility] Procedures DRAINAGE OF PERITONEAL CAVITY, PERCUTANEOUS APPROACH (09/04/17) INJECT/INFUSE NEC (02/29/12) INJECT/INFUSE THROMBOLYTIC AGENT (11/06/03) PACKED CELL TRANSFUSION (11/06/03) Family History: States: No Known Family Hx - Social History Hx Tobacco Use: No Hx Alcohol Use: Yes (social) Hx Substance Use: No - Immunization History Hx Tetanus Toxoid Vaccination: No Hx Influenza Vaccination: No Hx Pneumococcal Vaccination: No ALLERGY; LACTOSE Review of Systems - Constitutional Constitutional: Weight Gain. absent: Fever - EENT Eyes: absent: Change in Vision Nose/Mouth/Throat: absent: Epistaxis, Mouth Lesions, Odynophagia - Cardiovascular Cardiovascular: Dyspnea, Pedal Edema. absent: Chest Pain, Claudication - Gastrointestinal Gastrointestinal: As Per HPI. absent: Constipation, Loose Stools, Nausea, Vomiting (ABDOMINAL DISTENTION AND INCREASING GIRTH.) - Genitourinary Genitourinary: absent: Urinary Hesitance, Hx Renal/Bladder Calculi - Neurological Neurological: absent: Confusion, Headaches - Psychiatric Psychiatric: Depression - Hematologic/Lymphatic Hematologic: As Per HPI. absent: Easy Bleeding, Easy Bruising, Lymphadenopathy Past Patient History - Infectious Disease Hx of Infectious Diseases: None - Past Medical History & Family History Past Medical History?: Yes - Past Social History Smoking Status: Former Smoker - CARDIAC Hx Cardiac Disorders: Yes Hx Hypotension: Yes - PULMONARY Hx Respiratory Disorders: No - NEUROLOGICAL Hx Neurological Disorder: No - HEENT Hx HEENT Problems: No - RENAL Hx Chronic Kidney Disease: No - ENDOCRINE/METABOLIC Hx Endocrine Disorders: Yes Hx Hypothyroidism: Yes - HEMATOLOGICAL/ONCOLOGICAL Hx Blood Disorders: Yes Hx Human Immunodeficiency Virus (HIV): Yes - INTEGUMENTARY Hx Dermatological Problems: No - MUSCULOSKELETAL/RHEUMATOLOGICAL Hx Musculoskeletal Disorders: No Hx Falls: No - GASTROINTESTINAL Hx Gastrointestinal Disorders: Yes Other/Comment: alcoholic cirrhosis. paracentesis on 09/07/17 - GENITOURINARY/GYNECOLOGICAL Hx Genitourinary Disorders: No - PSYCHIATRIC Hx Psychophysiologic Disorder: No Hx Depression: No Hx Substance Use: No - SURGICAL HISTORY Hx Surgeries: Yes Hx Herniorrhaphy: Yes (2003) Hx Tonsillectomy: Yes - ANESTHESIA Hx Anesthesia: Yes Hx Anesthesia Reactions: No Meds Allergies/Adverse Reactions: Allergies Allergy/AdvReac Type Severity Reaction Status Date / Time lactose AdvReac Verified 09/18/17 22:50 - Medications Medications: Current Medications Furosemide (Lasix) 20 mg PO DAILY [facility] Last Admin: 09/19/17 09:26 Dose: 20 mg Lactulose (Enulose) 20 gm PO BID [facility] Last Admin: 09/19/17 09:26 Dose: 20 gm Levothyroxine Sodium (Synthroid) 100 mcg PO DAILY@0630 [facility] Prednisone (Prednisone Tab) 40 mg PO DAILY [facility] Last Admin: 09/19/17 09:25 Dose: 40 mg Rifaximin (Xifaxan) 550 mg PO BID [facility] PRN Reason: Protocol Last Admin: 09/19/17 09:26 Dose: 550 mg Spironolactone (Aldactone) 100 mg PO DAILY [facility] Last Admin: 09/19/17 09:26 Dose: 100 mg Physical Exam - Constitutional Appears: No Acute Distress - Head Exam Head Exam: NORMAL INSPECTION - Eye Exam Eye Exam: EOMI, PERRL, Scleral icterus - ENT Exam ENT Exam: Mucous Membranes Moist, Normal Oropharynx - Neck Exam Neck exam: Positive for: Normal Inspection - Respiratory Exam Respiratory Exam: Decreased Breath Sounds (AT THE BASES.), NORMAL BREATHING PATTERN - Cardiovascular Exam Cardiovascular Exam: REGULAR RHYTHM, +S1, +S2 - GI/Abdominal Exam GI & Abdominal Exam: Distended, Normal Bowel Sounds, Soft. absent: Organomegaly (TENSE ASCITES.), Tenderness - Extremities Exam Extremities exam: Positive for: pedal edema (2+ EDEMA), pedal pulses present. Negative for: calf tenderness - Neurological Exam Neurological exam: Alert, CN II-XII Intact, Oriented x3, Reflexes Normal - Psychiatric Exam Psychiatric exam: Normal Mood - Skin Skin Exam: Warm Results - Vital Signs Recent Vital Signs: Last Vital Signs Temp 97.9 F 09/19/17 07:00 Pulse 96 H 09/19/17 09:24 Resp 20 09/19/17 07:00 BP 129/76 09/19/17 09:26 Pulse Ox 97 09/19/17 07:00 - Labs Result Diagrams: 09/20/17 07:00 09/20/17 07:00 Labs: Laboratory Results - last 24 hr 09/18/17 09/18/17 09/18/17 23:33 23:53 23:53 WBC 10.1 D RBC 3.16 L Hgb 11.7 L Hct 34.4 L MCV 108.8 H MCH 36.9 H MCHC 33.9 RDW 15.5 H Plt Count 64 L D MPV 9.6 Neut % (Auto) 78.4 H Lymph % (Auto) 6.9 L Bradley % (Auto) 14.5 H Eos % (Auto) 0.0 Baso % (Auto) 0.2 Neut # (Auto) 7.9 H Lymph # (Auto) 0.7 L Bradley # (Auto) 1.5 H Eos # (Auto) 0.0 Baso # (Auto) 0.0 Neutrophils % (Manual) 76 H Lymphocytes % (Manual) 8 L Monocytes % (Manual) 16 H Platelet Estimate Decreased L Large Platelets Present Polychromasia Moderate Anisocytosis (manual) Moderate Macrocytosis (manual) Moderate Rouleaux Slight PT INR APTT Sodium 135 Potassium 4.6 Chloride 97 L Carbon Dioxide 28 Anion Gap 15 BUN 19 Creatinine 1.2 Est GFR ( Amer) > 60 Est GFR (Non-Af Amer) > 60 Random Glucose 118 H Calcium 9.2 Total Bilirubin 14.3 H AST 231 H D ALT 203 H D Alkaline Phosphatase 172 H D Ammonia Total Protein 8.5 H Albumin 3.1 L Globulin 5.4 H Albumin/Globulin Ratio 0.6 L Lipase 302 H Urine Color [place] Urine Clarity Hazy Urine pH 5.0 Ur Specific Proctor 1.030 Urine Protein 1+ H Urine Glucose (UA) Normal Urine Ketones Negative Urine Blood Negative Urine Nitrate Negative Urine Bilirubin 2+ H Urine Urobilinogen 4.0 Ur Leukocyte Esterase Neg Urine WBC (Auto) 2 Urine RBC (Auto) < 1 Ur Squamous Epith Cells < 1 Alcohol, Quantitative 09/18/17 09/18/17 09/19/17 23:53 23:53 03:04 WBC RBC Hgb Hct MCV MCH MCHC RDW Plt Count MPV Neut % (Auto) Lymph % (Auto) Bradley % (Auto) Eos % (Auto) Baso % (Auto) Neut # (Auto) Lymph # (Auto) Bradley # (Auto) Eos # (Auto) Baso # (Auto) Neutrophils % (Manual) Lymphocytes % (Manual) Monocytes % (Manual) Platelet Estimate Large Platelets Polychromasia Anisocytosis (manual) Macrocytosis (manual) Rouleaux PT 41.5 H* INR 3.8 APTT 36 H Sodium Potassium Chloride Carbon Dioxide Anion Gap BUN Creatinine Est GFR ( Amer) Est GFR (Non-Af Amer) Random Glucose Calcium Total Bilirubin AST ALT Alkaline Phosphatase Ammonia 34 H D Total Protein Albumin Globulin Albumin/Globulin Ratio Lipase Urine Color Urine Clarity Urine pH Ur Specific Proctor Urine Protein Urine Glucose (UA) Urine Ketones Urine Blood Urine Nitrate Urine Bilirubin Urine Urobilinogen Ur Leukocyte Esterase Urine WBC (Auto) Urine RBC (Auto) Ur Squamous Epith Cells Alcohol, Quantitative < 10 09/19/17 09/19/17 08:24 08:24 WBC 11.1 H RBC 3.13 L Hgb 11.5 L Hct 33.9 L MCV 108.2 H MCH 36.6 H MCHC 33.8 RDW 15.6 H Plt Count 60 L MPV 10.1 Neut % (Auto) 72.9 Lymph % (Auto) 11.4 L Bradley % (Auto) 15.3 H Eos % (Auto) 0.2 Baso % (Auto) 0.2 Neut # (Auto) 8.1 H Lymph # (Auto) 1.3 Bradley # (Auto) 1.7 H Eos # (Auto) 0.0 Baso # (Auto) 0.0 Neutrophils % (Manual) Lymphocytes % (Manual) Monocytes % (Manual) Platelet Estimate Large Platelets Polychromasia Anisocytosis (manual) Macrocytosis (manual) Rouleaux PT INR APTT Sodium 136 Potassium 4.7 Chloride 97 L Carbon Dioxide 32 H Anion Gap 12 BUN 19 Creatinine 1.1 Est GFR ( Amer) > 60 Est GFR (Non-Af Amer) > 60 Random Glucose 86 Calcium 9.2 Total Bilirubin 13.7 H AST 220 H ALT 198 H Alkaline Phosphatase 174 H Ammonia Total Protein 8.0 Albumin 2.9 L Globulin 5.1 H Albumin/Globulin Ratio 0.6 L Lipase Urine Color Urine Clarity Urine pH Ur Specific Proctor Urine Protein Urine Glucose (UA) Urine Ketones Urine Blood Urine Nitrate Urine Bilirubin Urine Urobilinogen Ur Leukocyte Esterase Urine WBC (Auto) Urine RBC (Auto) Ur Squamous Epith Cells Alcohol, Quantitative - Imaging and Cardiology Chest x-ray Status: Report reviewed by me (biasilar atelectasis) Assessment & Plan (1) Alcoholic hepatitis with ascites Assessment and Plan: PATIENT HAS ALCOHOLIC HEPATITIS WITH CIRRHOSIS OF THE LIVER/AND ASCITES. SEEN BY GI SERVICE. ON DIURETICS, RIFAXAMIN AND PREDNISONE PER GI PARACENTESES PER GI. Status: Chronic Priority: High (2) Dyspnea Assessment and Plan: PATIENT STARTED ON DIURETICS ALDACTONE PER GI. Status: Acute (3) Jaundice Assessment and Plan: LFTS TOTAL BILI OF 13.7 AST 220, ALT 198 AP 174. fOLLOW-UP LFTS. fOLLOW-UP HEPATITIS PROFILE A.B AND C ANTIBODY Status: Acute Priority: High (4) HIV (human immunodeficiency virus infection) Assessment and Plan: DISCUSSED WITH PATIENT IF AGREEABLE FOR RESTARTING ART, STOPPING ANTIRETROVIRAL WILL ENTERTAIN RESISTANCE AND INCREASING VIRAL LOAD. PATIENT WANTS TO TRY NEW REGIMEN WHICH SHOULD BE LESS TOXIC TO THE LIVER. Status: Chronic Priority: High (5) Thrombocytopenia Assessment and Plan: PLATELETS 60K. MOST LIKELY SECONDARY TO LIVER DISEASE Status: Acute (6) Hypothyroidism Status: Acute
--- NOTE | 2017-09-19 15:38 | CP.PCM.CON ---
<Theron Guy - Last Filed: 09/19/17 15:55> History of Present Illness - History of Present Illness History of Present Illness: PGY5 Initial GI Consult Rocco Bhatti is a 52 year old male with past medical history significant for PE in 2003 after hernia repair with no more OAC, HIV on HAART, alcohol abuse presenting with increased abd distention. Pt was recently discharged from [facility] for new onset ascites and was founf to be cirrhotic likely from ETOH. Pt has a hx of drinking alcohol with beer and liquor for years and six months ago started only drinking 1-2 glasses of wine, but admits to no consumption of ETOH since his last admission. Patient admits to dyspnea on exertion and swelling. He denies chest pain, headaches, nausea, vomiting, bowel changes, urinary changes, skin changes, bruising or recent illness at this time. No prior EGD or colonoscopy. Pt notes that he was complaints on all diuretics, xifaxan. Last abd paracentesis was 09/07/17 of 4L. He was also charged on prednsione 40mg for 1month for alcoholic hepatitis. ROS: A 12pt ROS was negative except as above. PMHx- As stated above PSHx- Hernia repair in 2003 FHx- Neg for liver disease or colon cancer SHx- previously drank 1-2 glasses of wine daily, but heavy alcohol use prior for years; sober since last discharged, denies tobacco or illicit drug use ROS: 12 point ROS conducted, neg other than above : Past Patient History - Infectious Disease Hx of Infectious Diseases: None - Past Medical History & Family History Past Medical History?: Yes - Past Social History Smoking Status: Former Smoker - CARDIAC Hx Cardiac Disorders: Yes Hx Hypotension: Yes - PULMONARY Hx Respiratory Disorders: No - NEUROLOGICAL Hx Neurological Disorder: No - HEENT Hx HEENT Problems: No - RENAL Hx Chronic Kidney Disease: No - ENDOCRINE/METABOLIC Hx Endocrine Disorders: Yes Hx Hypothyroidism: Yes - HEMATOLOGICAL/ONCOLOGICAL Hx Blood Disorders: Yes Hx Human Immunodeficiency Virus (HIV): Yes - INTEGUMENTARY Hx Dermatological Problems: No - MUSCULOSKELETAL/RHEUMATOLOGICAL Hx Musculoskeletal Disorders: No Hx Falls: No - GASTROINTESTINAL Hx Gastrointestinal Disorders: Yes Other/Comment: alcoholic cirrhosis. paracentesis on 09/07/17 - GENITOURINARY/GYNECOLOGICAL Hx Genitourinary Disorders: No - PSYCHIATRIC Hx Psychophysiologic Disorder: No Hx Depression: No Hx Substance Use: No - SURGICAL HISTORY Hx Surgeries: Yes Hx Herniorrhaphy: Yes (2003) Hx Tonsillectomy: Yes - ANESTHESIA Hx Anesthesia: Yes Hx Anesthesia Reactions: No Meds Allergies/Adverse Reactions: Allergies Allergy/AdvReac Type Severity Reaction Status Date / Time lactose AdvReac Verified 09/18/17 22:50 - Medications Medications: Current Medications Furosemide (Lasix) 40 mg PO DAILY [facility] Lactulose (Enulose) 20 gm PO BID [facility] Last Admin: 09/19/17 09:26 Dose: 20 gm Levothyroxine Sodium (Synthroid) 100 mcg PO DAILY@0630 [facility] Prednisone (Prednisone Tab) 40 mg PO DAILY [facility] Last Admin: 09/19/17 09:25 Dose: 40 mg Rifaximin (Xifaxan) 550 mg PO BID [facility] PRN Reason: Protocol Last Admin: 09/19/17 09:26 Dose: 550 mg Spironolactone (Aldactone) 100 mg PO DAILY [facility] Last Admin: 09/19/17 09:26 Dose: 100 mg Physical Exam - Constitutional Appears: Non-toxic, No Acute Distress - Head Exam Head Exam: ATRAUMATIC, NORMOCEPHALIC - Eye Exam Eye Exam: Normal appearance, Scleral icterus - ENT Exam ENT Exam: Mucous Membranes Moist, Normal Exam - Neck Exam Neck exam: Positive for: Normal Inspection - Respiratory Exam Respiratory Exam: Clear to Auscultation Bilateral, NORMAL BREATHING PATTERN. absent: Rales, Rhonchi, Wheezes, Respiratory Distress - Cardiovascular Exam Cardiovascular Exam: REGULAR RHYTHM, +S1, +S2 - GI/Abdominal Exam GI & Abdominal Exam: Distended, Normal Bowel Sounds. absent: Firm, Guarding, Hernia, Rigid, Tenderness - Extremities Exam Extremities exam: Positive for: pedal edema. Negative for: joint swelling - Neurological Exam Neurological exam: Alert, Oriented x3 - Psychiatric Exam Psychiatric exam: Normal Affect, Normal Mood - Skin Skin Exam: Dry, Intact, Warm Additional comments: juandice Results - Vital Signs Recent Vital Signs: Last Vital Signs Temp 97.9 F 09/19/17 07:00 Pulse 94 H 09/19/17 12:00 Resp 20 09/19/17 07:00 BP 129/76 09/19/17 09:26 Pulse Ox 97 09/19/17 07:00 - Labs Result Diagrams: 09/19/17 08:24 09/19/17 08:24 Labs: Laboratory Results - last 24 hr 09/18/17 09/18/17 09/18/17 23:33 23:53 23:53 WBC 10.1 D RBC 3.16 L Hgb 11.7 L Hct 34.4 L MCV 108.8 H MCH 36.9 H MCHC 33.9 RDW 15.5 H Plt Count 64 L D MPV 9.6 Neut % (Auto) 78.4 H Lymph % (Auto) 6.9 L [place] % (Auto) 14.5 H Eos % (Auto) 0.0 Baso % (Auto) 0.2 Neut # (Auto) 7.9 H Lymph # (Auto) 0.7 L [place] # (Auto) 1.5 H Eos # (Auto) 0.0 Baso # (Auto) 0.0 Neutrophils % (Manual) 76 H Lymphocytes % (Manual) 8 L Monocytes % (Manual) 16 H Platelet Estimate Decreased L Large Platelets Present Polychromasia Moderate Anisocytosis (manual) Moderate Macrocytosis (manual) Moderate Rouleaux Slight PT INR APTT Sodium 135 Potassium 4.6 Chloride 97 L Carbon Dioxide 28 Anion Gap 15 BUN 19 Creatinine 1.2 Est GFR ( Amer) > 60 Est GFR (Non-Af Amer) > 60 Random Glucose 118 H Calcium 9.2 Total Bilirubin 14.3 H AST 231 H D ALT 203 H D Alkaline Phosphatase 172 H D Ammonia Total Protein 8.5 H Albumin 3.1 L Globulin 5.4 H Albumin/Globulin Ratio 0.6 L Lipase 302 H Urine Color [place] Urine Clarity Hazy Urine pH 5.0 Ur Specific [place] 1.030 Urine Protein 1+ H Urine Glucose (UA) Normal Urine Ketones Negative Urine Blood Negative Urine Nitrate Negative Urine Bilirubin 2+ H Urine Urobilinogen 4.0 Ur Leukocyte Esterase Neg Urine WBC (Auto) 2 Urine RBC (Auto) < 1 Ur Squamous Epith Cells < 1 Alcohol, Quantitative 09/18/17 09/18/17 09/19/17 23:53 23:53 03:04 WBC RBC Hgb Hct MCV MCH MCHC RDW Plt Count MPV Neut % (Auto) Lymph % (Auto) [place] % (Auto) Eos % (Auto) Baso % (Auto) Neut # (Auto) Lymph # (Auto) [place] # (Auto) Eos # (Auto) Baso # (Auto) Neutrophils % (Manual) Lymphocytes % (Manual) Monocytes % (Manual) Platelet Estimate Large Platelets Polychromasia Anisocytosis (manual) Macrocytosis (manual) Rouleaux PT 41.5 H* INR 3.8 APTT 36 H Sodium Potassium Chloride Carbon Dioxide Anion Gap BUN Creatinine Est GFR ( Amer) Est GFR (Non-Af Amer) Random Glucose Calcium Total Bilirubin AST ALT Alkaline Phosphatase Ammonia 34 H D Total Protein Albumin Globulin Albumin/Globulin Ratio Lipase Urine Color Urine Clarity Urine pH Ur Specific [place] Urine Protein Urine Glucose (UA) Urine Ketones Urine Blood Urine Nitrate Urine Bilirubin Urine Urobilinogen Ur Leukocyte Esterase Urine WBC (Auto) Urine RBC (Auto) Ur Squamous Epith Cells Alcohol, Quantitative < 10 09/19/17 09/19/17 08:24 08:24 WBC 11.1 H RBC 3.13 L Hgb 11.5 L Hct 33.9 L MCV 108.2 H MCH 36.6 H MCHC 33.8 RDW 15.6 H Plt Count 60 L MPV 10.1 Neut % (Auto) 72.9 Lymph % (Auto) 11.4 L [place] % (Auto) 15.3 H Eos % (Auto) 0.2 Baso % (Auto) 0.2 Neut # (Auto) 8.1 H Lymph # (Auto) 1.3 [place] # (Auto) 1.7 H Eos # (Auto) 0.0 Baso # (Auto) 0.0 Neutrophils % (Manual) Lymphocytes % (Manual) Monocytes % (Manual) Platelet Estimate Large Platelets Polychromasia Anisocytosis (manual) Macrocytosis (manual) Rouleaux PT INR APTT Sodium 136 Potassium 4.7 Chloride 97 L Carbon Dioxide 32 H Anion Gap 12 BUN 19 Creatinine 1.1 Est GFR ( Amer) > 60 Est GFR (Non-Af Amer) > 60 Random Glucose 86 Calcium 9.2 Total Bilirubin 13.7 H AST 220 H ALT 198 H Alkaline Phosphatase 174 H Ammonia Total Protein 8.0 Albumin 2.9 L Globulin 5.1 H Albumin/Globulin Ratio 0.6 L Lipase Urine Color Urine Clarity Urine pH Ur Specific [place] Urine Protein Urine Glucose (UA) Urine Ketones Urine Blood Urine Nitrate Urine Bilirubin Urine Urobilinogen Ur Leukocyte Esterase Urine WBC (Auto) Urine RBC (Auto) Ur Squamous Epith Cells Alcohol, Quantitative Assessment & Plan - Assessment and Plan (Free Text) Assessment: Patient is a 52yo male with PMHx significant for decompensated EtOH cirrhosis c/ b ascites, coagulopathy with ongoing EtOH use, also with PE, HIV on HAART who presented to the ED with abdominal distention. -Decompensated EtOH cirrhosis -Ascites -Alcoholic hepatitis -HIV on HAART Plan: -MDF > 32; continue Prednisone 40mg PO QD (Prednisolone unavailable) -recommend abd paracentesis, last tap 09/07/17 -recommend cell count, albumin, gram stain -if extracting >4L, recommend albumin replacement -Continue lasix, spironalactone, lactulose and rifaxamin -2g Na diet -EtOH cessation stressed - encouraged to seek formal rehabilitation -Pt will need EGD as an outpt to r/o esophageal varices *MELD-Na: 32 -DF:148 D/W Dr. Malave <Zenon Malave - Last Filed: 09/19/17 16:12> Meds - Medications Medications: Current Medications Furosemide (Lasix) 40 mg PO DAILY [facility] Lactulose (Enulose) 20 gm PO BID [facility] Last Admin: 09/19/17 09:26 Dose: 20 gm Levothyroxine Sodium (Synthroid) 100 mcg PO DAILY@0630 [facility] Prednisone (Prednisone Tab) 40 mg PO DAILY [facility] Last Admin: 09/19/17 09:25 Dose: 40 mg Rifaximin (Xifaxan) 550 mg PO BID [facility] PRN Reason: Protocol Last Admin: 09/19/17 09:26 Dose: 550 mg Spironolactone (Aldactone) 100 mg PO DAILY [facility] Last Admin: 09/19/17 09:26 Dose: 100 mg Results - Vital Signs Recent Vital Signs: Last Vital Signs Temp 97.9 F 09/19/17 07:00 Pulse 94 H 09/19/17 12:00 Resp 20 09/19/17 07:00 BP 129/76 09/19/17 09:26 Pulse Ox 97 09/19/17 07:00 - Labs Result Diagrams: 09/19/17 08:24 09/19/17 08:24 Labs: Laboratory Results - last 24 hr 09/18/17 09/18/17 09/18/17 23:33 23:53 23:53 WBC 10.1 D RBC 3.16 L Hgb 11.7 L Hct 34.4 L MCV 108.8 H MCH 36.9 H MCHC 33.9 RDW 15.5 H Plt Count 64 L D MPV 9.6 Neut % (Auto) 78.4 H Lymph % (Auto) 6.9 L [place] % (Auto) 14.5 H Eos % (Auto) 0.0 Baso % (Auto) 0.2 Neut # (Auto) 7.9 H Lymph # (Auto) 0.7 L [place] # (Auto) 1.5 H Eos # (Auto) 0.0 Baso # (Auto) 0.0 Neutrophils % (Manual) 76 H Lymphocytes % (Manual) 8 L Monocytes % (Manual) 16 H Platelet Estimate Decreased L Large Platelets Present Polychromasia Moderate Anisocytosis (manual) Moderate Macrocytosis (manual) Moderate Rouleaux Slight PT INR APTT Sodium 135 Potassium 4.6 Chloride 97 L Carbon Dioxide 28 Anion Gap 15 BUN 19 Creatinine 1.2 Est GFR ( Amer) > 60 Est GFR (Non-Af Amer) > 60 Random Glucose 118 H Calcium 9.2 Total Bilirubin 14.3 H AST 231 H D ALT 203 H D Alkaline Phosphatase 172 H D Ammonia Total Protein 8.5 H Albumin 3.1 L Globulin 5.4 H Albumin/Globulin Ratio 0.6 L Lipase 302 H Urine Color [place] Urine Clarity Hazy Urine pH 5.0 Ur Specific [place] 1.030 Urine Protein 1+ H Urine Glucose (UA) Normal Urine Ketones Negative Urine Blood Negative Urine Nitrate Negative Urine Bilirubin 2+ H Urine Urobilinogen 4.0 Ur Leukocyte Esterase Neg Urine WBC (Auto) 2 Urine RBC (Auto) < 1 Ur Squamous Epith Cells < 1 Alcohol, Quantitative 09/18/17 09/18/17 09/19/17 23:53 23:53 03:04 WBC RBC Hgb Hct MCV MCH MCHC RDW Plt Count MPV Neut % (Auto) Lymph % (Auto) [place] % (Auto) Eos % (Auto) Baso % (Auto) Neut # (Auto) Lymph # (Auto) [place] # (Auto) Eos # (Auto) Baso # (Auto) Neutrophils % (Manual) Lymphocytes % (Manual) Monocytes % (Manual) Platelet Estimate Large Platelets Polychromasia Anisocytosis (manual) Macrocytosis (manual) Rouleaux PT 41.5 H* INR 3.8 APTT 36 H Sodium Potassium Chloride Carbon Dioxide Anion Gap BUN Creatinine Est GFR ( Amer) Est GFR (Non-Af Amer) Random Glucose Calcium Total Bilirubin AST ALT Alkaline Phosphatase Ammonia 34 H D Total Protein Albumin Globulin Albumin/Globulin Ratio Lipase Urine Color Urine Clarity Urine pH Ur Specific [place] Urine Protein Urine Glucose (UA) Urine Ketones Urine Blood Urine Nitrate Urine Bilirubin Urine Urobilinogen Ur Leukocyte Esterase Urine WBC (Auto) Urine RBC (Auto) Ur Squamous Epith Cells Alcohol, Quantitative < 10 09/19/17 09/19/17 08:24 08:24 WBC 11.1 H RBC 3.13 L Hgb 11.5 L Hct 33.9 L MCV 108.2 H MCH 36.6 H MCHC 33.8 RDW 15.6 H Plt Count 60 L MPV 10.1 Neut % (Auto) 72.9 Lymph % (Auto) 11.4 L [place] % (Auto) 15.3 H Eos % (Auto) 0.2 Baso % (Auto) 0.2 Neut # (Auto) 8.1 H Lymph # (Auto) 1.3 [place] # (Auto) 1.7 H Eos # (Auto) 0.0 Baso # (Auto) 0.0 Neutrophils % (Manual) Lymphocytes % (Manual) Monocytes % (Manual) Platelet Estimate Large Platelets Polychromasia Anisocytosis (manual) Macrocytosis (manual) Rouleaux PT INR APTT Sodium 136 Potassium 4.7 Chloride 97 L Carbon Dioxide 32 H Anion Gap 12 BUN 19 Creatinine 1.1 Est GFR ( Amer) > 60 Est GFR (Non-Af Amer) > 60 Random Glucose 86 Calcium 9.2 Total Bilirubin 13.7 H AST 220 H ALT 198 H Alkaline Phosphatase 174 H Ammonia Total Protein 8.0 Albumin 2.9 L Globulin 5.1 H Albumin/Globulin Ratio 0.6 L Lipase Urine Color Urine Clarity Urine pH Ur Specific [place] Urine Protein Urine Glucose (UA) Urine Ketones Urine Blood Urine Nitrate Urine Bilirubin Urine Urobilinogen Ur Leukocyte Esterase Urine WBC (Auto) Urine RBC (Auto) Ur Squamous Epith Cells Alcohol, Quantitative Attending/Attestation - Attestation I have personally seen and examined this patient.: Yes I have fully participated in the care of the patient.: Yes I have reviewed all pertinent clinical information: Yes Notes (Text): 09/19/17 16:07 patient seen and examined with GI fellow on rounds this am. Known from admission two weeks ago by our service. In a nutshell this is a 52 year old male with PMHx significant for decompensated EtOH cirrhosis c/b ascites, coagulopathy with ongoing EtOH use, also with PE, HIV on HAART who presented to the ED with abdominal distention. He was discharged two weeks ago on steroids for alcoholic hepatitis. His bilirubin has not changed and hence his benefit of steroids is minimal. He was discharged on 40 mg prednisolone for 4 weeks. He is still on it week 3. He was discharged on minimal diuretics. Will increase his lasix to 80 mg po daily and aldactone 200 mg po daily. He has normal Cr and sodium. Can get abdominal paracentesis prior to discharge though it maybe mostly intestinal edema. Alcohol cessation. If more than 5 lts removed please give 3 bottles of IV albumin at 1 gm/kg. 2 gm sodium diet. Outpatient EGD and follow up in the GI office in 2 weeks. Thank you for letting us participate in the care of your patient. MELD- 32 and Df 148
[2017-09-20] MEDS: Levothyroxine 100 MCG TAB PO SCH (06:41)
[2017-09-20 07:43] LABS: BASO % 0.4 % (0.0-2.0); EOS # 0.1 K/uL (0.0-0.7); EOS % 0.5 % (0.0-4.0); LYMPH # 1.4 K/uL (1.0-4.3); LYMPH % 12.9 % (20.0-40.0); MEAN CELL VOLUME 108.3 fL (80.0-94.0); MEAN CORPUSCULAR HEMOGLOBIN 36.8 pg (27.0-31.0); MEAN PLATELET VOLUME 9.6 fL (7.2-11.7); MONO # 1.6 K/uL (0.0-0.8); MONO % 14.9 % (0.0-10.0); NEUT # 7.8 K/uL (1.8-7.0); NEUT % 71.3 % (50.0-75.0); NRBC % 0.7 % (0.0-2.0); RED CELL DISTRIBUTION WIDTH 15.5 % (11.5-14.5)
[2017-09-20 07:52] LABS: ALT/SGPT 206 U/L (21-72); AST/SGOT 210 U/L (17-59); BILIRUBIN,DIRECT 7.1 mg/dL (0.0-0.4); BLOOD UREA NITROGEN 20 mg/dL (9-20); CALCIUM 9.1 mg/dl (8.6-10.4); GFR AFRICAN-AMERICAN > 60; GFR NON-AFRICAN AMERICAN > 60
[2017-09-20 08:11] LABS: ALB/GLOB RATIO 0.6 (1.0-2.1); ALBUMIN 2.8 g/dL (3.5-5.0)
[2017-09-20 08:15] LABS: HEPATITIS B SURFACE AG Negative (NEGATIVE)
[2017-09-20 08:21] LABS: HEPATITIS B CORE AB NEGATIVE (NEGATIVE)
[2017-09-20 08:33] LABS: HEPATITIS C ANTIBODY NEGATIVE (NEGATIVE)
[2017-09-20 09:06] LABS: INR 3.6; PROTHROMBIN TIME 39.1 SECONDS (9.7-12.2)
[2017-09-20 09:17] LABS: HEPATITIS A IGM NEGATIVE (NEGATIVE)
--- NOTE | 2017-09-20 13:57 | CP.PCM.PN ---
Subjective - Date & Time of Evaluation Date of Evaluation: 09/20/17 Time of Evaluation: 13:56 - Subjective Subjective: CHIEF COMPLAINTS TODAY : abdominal distention and discomfort with mild shortness of breath ROS. HEENT : N. Resp : No cough, wheezing ,pleuritic CP ,or hemoptysis Cardio : No anginal CP, PND, orthopnea, palpitation GI : No n/v ,diarrhea or GI bleeding . 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 Musculoskel : No joint swelling , Derm : No rash Psych : Normal affect. Ext : No swelling ,calf pain PE. Pt. is alert awake in no distress. V.S As noted in the chart Head ,ear nose,throat and eyes : Normal. Neck : Supple with normal carotids. Lungs: Clear air entry. Heart : S1 & S2 normal with S4. No murmur. Abd : Soft non tender with normal bowel sounds.abdomen is distended secondary to ascites Neuro : Moves all ext. with no localized deficit. Ext : No edema with intact pulses.Non tender calves Derm : No rashes or decubitus ulcer. LABS/RADIOLOGY: ASSESSMENT/PLAN : INR is still more than 2.0. Will give 1 dose of vitamin K and try to attempt abdominal tap in a.m. Patient will need HIV medications. Bilirubin is still in the highest 13. Objective - Vital Signs/Intake and Output Vital Signs (last 24 hours): Temp Pulse Resp BP Pulse Ox 98.2 F 109 H 20 119/72 96 09/20/17 08:50 09/20/17 12:00 09/20/17 08:50 09/20/17 09:40 09/20/17 08:50 - Medications Medications: Current Medications Furosemide (Lasix) 40 mg PO DAILY [facility] Last Admin: 09/20/17 09:40 Dose: 40 mg Lactulose (Enulose) 20 gm PO BID [facility] Last Admin: 09/20/17 09:40 Dose: 20 gm Levothyroxine Sodium (Synthroid) 100 mcg PO DAILY@0630 [facility] Last Admin: 09/20/17 06:41 Dose: 100 mcg Prednisone (Prednisone Tab) 40 mg PO DAILY [facility] Last Admin: 09/20/17 09:41 Dose: 40 mg Rifaximin (Xifaxan) 550 mg PO BID [facility] PRN Reason: Protocol Last Admin: 09/20/17 09:40 Dose: 550 mg Spironolactone (Aldactone) 100 mg PO DAILY [facility] Last Admin: 09/20/17 10:49 Dose: 100 mg - Labs Labs: 09/20/17 07:00 09/20/17 07:00 PT 39.1 SECONDS (9.7-12.2) H* 09/20/17 07:00 INR 3.6 09/20/17 07:00 APTT 36 SECONDS (21-34) H 09/18/17 23:53
[2017-09-20] MEDS ORDERED: Phytonadione 10 mg/ml Inj (Adult) IV ONE (14:15)
--- NOTE | 2017-09-20 20:27 | CP.PCM.PN ---
Subjective - Date & Time of Evaluation Date of Evaluation: 09/20/17 Time of Evaluation: 20:27 - Subjective Subjective: CHIEF COMPLAINTS TODAY : AFEBRILE, VSS abdominal distention and discomfort , mild shortness of breath. ON TRIAL OF DIURETICS PER GI lASIX,, ALDACTONE, LACTULOSE ROS. HEENT : N. Resp : No cough, wheezing ,pleuritic CP ,or hemoptysis Cardio : No anginal CP, PND, orthopnea, palpitation GI : No n/v ,diarrhea or GI bleeding . 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 Musculoskel : No joint swelling , Derm : No rash Psych : Normal affect. Ext : No swelling ,calf pain PE. Pt. is alert awake in no distress. V.S As noted in the chart Head ,ear nose,throat and eyes : Normal. Neck : Supple with normal carotids. Lungs: DIMINISHED BREATH SOUNDS OTHERWISE CLEAR Heart : S1 & S2 normal with S4. No murmur. Abd : Soft non tender with normal bowel sounds.abdomen is distended secondary to ascites Neuro : Moves all ext. with no localized deficit. Ext : 2+ EDEMA with intact pulses.Non tender calves Derm : No rashes or decubitus ulcer. LABS/RADIOLOGY: REVIEWED. bILI STILL IN 13.0. [id number] CELLS 663 hiv rna QUANTITATIVE pcr-<1.30 NOT DETECTED. Objective - Vital Signs/Intake and Output Vital Signs (last 24 hours): Temp Pulse Resp BP Pulse Ox 98.3 F 94 H 20 126/73 94 L 09/20/17 15:12 09/20/17 15:12 09/20/17 15:12 09/20/17 15:12 09/20/17 15:12 - Medications Medications: Current Medications Furosemide (Lasix) 40 mg PO DAILY [facility] Last Admin: 09/20/17 09:40 Dose: 40 mg Lactulose (Enulose) 20 gm PO BID [facility] Last Admin: 09/20/17 17:21 Dose: 20 gm Levothyroxine Sodium (Synthroid) 100 mcg PO DAILY@0630 [facility] Last Admin: 09/20/17 06:41 Dose: 100 mcg Prednisone (Prednisone Tab) 40 mg PO DAILY [facility] Last Admin: 09/20/17 09:41 Dose: 40 mg Rifaximin (Xifaxan) 550 mg PO BID [facility] PRN Reason: Protocol Last Admin: 09/20/17 17:22 Dose: 550 mg Spironolactone (Aldactone) 100 mg PO DAILY [facility] Last Admin: 09/20/17 10:49 Dose: 100 mg - Labs Labs: 09/20/17 07:00 09/20/17 07:00 PT 39.1 SECONDS (9.7-12.2) H* 09/20/17 07:00 INR 3.6 09/20/17 07:00 APTT 36 SECONDS (21-34) H 09/18/17 23:53 Assessment and Plan (1) Alcoholic hepatitis with ascites Assessment & Plan: PATIENT ON DIURETICS INCLUDING lASIX, aLDACTONE lACTULOSE pATIENT ALSO STARTED ON RIFAXAMIN/PREDNISONE PER GI Status: Chronic (2) Dyspnea Assessment & Plan: TRIAL OF ANTI-DIURETICS. PARACENTESIS PER GI. Status: Acute (3) Jaundice Assessment & Plan: TOTAL BILI STILL IN THE RANGE OF 13 .0 pATIENT'S SMOOTH MUSCLE ANTIBODY REPORTED POSITIVE SMA +VE TITRE 1:80.LOW TITRE TO DISCUSSED WITH GI ? SIGNIFICANCE Status: Acute (4) HIV (human immunodeficiency virus infection) Assessment & Plan: WILL INITIATE ISENTRESS 400 MG TWICE A DAY TRUVADA 1 TABLET PO ONCE DAILY. monitor closely for any sideffects. MONITOR LFTS /RENAL FUNCTIONS CLOSELY. Status: Chronic (5) Thrombocytopenia Status: Acute (6) Hypothyroidism Status: Acute
--- NOTE | 2017-09-20 20:57 | CARD ---
APPROVED REPORT EKG Measurement Heart [id number] MD [id number] <Conclusion> Normal sinus rhythm Cannot rule out Inferior infarct, age undetermined Abnormal ECG
[2017-09-21] MEDS: Levothyroxine 100 MCG TAB PO SCH (06:29)
[2017-09-21 07:02] LABS: BASO % 0.1 % (0.0-2.0); EOS % 0.4 % (0.0-4.0); HEMOGLOBIN 10.3 g/dL (12.0-18.0); LYMPH # 1.1 K/uL (1.0-4.3); MEAN CELL VOLUME 108.1 fL (80.0-94.0); MEAN CORPUSCULAR HEMOGLOBIN 36.8 pg (27.0-31.0); MEAN PLATELET VOLUME 9.2 fL (7.2-11.7); MONO # 1.7 K/uL (0.0-0.8); MONO % 14.3 % (0.0-10.0); NEUT # 8.9 K/uL (1.8-7.0); NEUT % 76.2 % (50.0-75.0); NRBC % 0.2 % (0.0-2.0); PLATELET COUNT 51 K/uL (130-400); RBC 2.79 Mil/uL (4.40-5.90); WHITE BLOOD COUNT 11.7 K/uL (4.8-10.8)
[2017-09-21 07:15] LABS: INR 3.7
[2017-09-21 07:16] LABS: ALB/GLOB RATIO 0.6 (1.0-2.1); ALBUMIN 2.6 g/dL (3.5-5.0); ALT/SGPT 211 U/L (21-72); AST/SGOT 216 U/L (17-59); BLOOD UREA NITROGEN 22 mg/dL (9-20); GFR AFRICAN-AMERICAN > 60; GFR NON-AFRICAN AMERICAN > 60
[2017-09-21 07:19] LABS: PROTHROMBIN TIME 40.2 SECONDS (9.7-12.2)
[2017-09-21 08:45] LABS: LYMPHOCYTE 9 % (20-40); MONOCYTE 8 % (0-10); NEUTROPHIL 83 % (50-75); TOTAL CELLS COUNTED 100
[2017-09-21 08:46] LABS: ANISOCYTOSIS SLIGHT; PLATELET ESTIMATE DECREASED (NORMAL); POLYCHROMIC SLIGHT
--- NOTE | 2017-09-21 14:10 | CP.PCM.PN ---
Subjective - Date & Time of Evaluation Date of Evaluation: 09/21/17 Time of Evaluation: 14:08 - Subjective Subjective: CHIEF COMPLAINTS TODAY : abdominal distention and discomfort with mild shortness of breath ROS. HEENT : N. Resp : No cough, wheezing ,pleuritic CP ,or hemoptysis Cardio : No anginal CP, PND, orthopnea, palpitation GI : No n/v ,diarrhea or GI bleeding . 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 Musculoskel : No joint swelling , Derm : No rash Psych : Normal affect. Ext : No swelling ,calf pain PE. Pt. is alert awake in no distress. V.S As noted in the chart Head ,ear nose,throat and eyes : Normal. Neck : Supple with normal carotids. Lungs: Clear air entry. Heart : S1 & S2 normal with S4. No murmur. Abd : Soft non tender with normal bowel sounds.abdomen is distended secondary to ascites Neuro : Moves all ext. with no localized deficit. Ext : No edema with intact pulses.Non tender calves Derm : No rashes or decubitus ulcer. LABS/RADIOLOGY: ASSESSMENT/PLAN : patient's repeat INR after 10 mg of vitamin K is 3.7. Abdominal tap is postponed until INR is less than 1.3. We will continue his present medications of prednisone 40 mg once a day and and still awaiting HIV medication. Objective - Vital Signs/Intake and Output Vital Signs (last 24 hours): Temp Pulse Resp BP Pulse Ox 98.2 F 96 H 20 119/69 96 09/21/17 07:00 09/21/17 08:05 09/21/17 07:00 09/21/17 10:55 09/21/17 07:00 - Medications Medications: Current Medications Emtricitabine/Tenofovir (Truvada 200 Mg-300 Mg) 1 tab PO Q24H [facility] PRN Reason: Protocol Furosemide (Lasix) 40 mg PO DAILY [facility] Last Admin: 09/21/17 10:55 Dose: 40 mg Lactulose (Enulose) 20 gm PO BID [facility] Last Admin: 09/21/17 10:55 Dose: 20 gm Levothyroxine Sodium (Synthroid) 100 mcg PO DAILY@0630 [facility] Last Admin: 09/21/17 06:29 Dose: 100 mcg Phytonadione (Vitamin K Tab) 5 mg PO DAILY [facility] Stop: 09/23/17 12:16 Last Admin: 09/21/17 12:31 Dose: 5 mg Prednisone (Prednisone Tab) 40 mg PO DAILY [facility] Last Admin: 09/21/17 10:55 Dose: 40 mg Raltegravir (Isentress) 400 mg PO BID [facility] PRN Reason: Protocol Rifaximin (Xifaxan) 550 mg PO BID [facility] PRN Reason: Protocol Last Admin: 09/21/17 10:55 Dose: 550 mg Spironolactone (Aldactone) 100 mg PO DAILY [facility] Last Admin: 09/21/17 10:55 Dose: 100 mg - Labs Labs: 09/21/17 06:52 09/21/17 06:52 PT 40.2 SECONDS (9.7-12.2) H* 09/21/17 06:52 INR 3.7 09/21/17 06:52 APTT 36 SECONDS (21-34) H 09/18/17 23:53
[2017-09-21 17:34] LABS: % CD4 (T HELPER CELL) 40 Percent (30-61); % CD8 (SUPPRESSOR T CELL) 28 Percent (12-42); ABSOLUTE CD4 CELLS 601 Cells/mcL (490-1740); ABSOLUTE CD8 CELLS 422 Cells/mcL (180-1170); ABSOLUTE LYMPHOCYTES 1499 Cells/mcL (850-3900); HELPER/SUPPRESSOR RATIO 1.42 Ratio (0.86-5.00)
[2017-09-21] MEDS: Emtricitabine-Tenofovir 200 mg-300 mg Tab PO SCH (17:54)
--- NOTE | 2017-09-21 20:06 | CP.PCM.PN ---
Subjective - Date & Time of Evaluation Date of Evaluation: 09/21/17 Time of Evaluation: 20:06 - Subjective Subjective: CHIEF COMPLAINTS TODAY : AFEBRILE, VSS abdominal distention and discomfort , mild shortness of breath. ON TRIAL OF DIURETICS PER GI lASIX,, ALDACTONE, LACTULOSE ROS. HEENT : N. Resp : No cough, wheezing ,pleuritic CP ,or hemoptysis Cardio : No anginal CP, PND, orthopnea, palpitation GI : No n/v ,diarrhea or GI bleeding . 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 Musculoskel : No joint swelling , Derm : No rash Psych : Normal affect. Ext : No swelling ,calf pain PE. Pt. is alert awake in no distress. V.S As noted in the chart Head ,ear nose,throat and eyes : Normal. Neck : Supple with normal carotids. Lungs: DIMINISHED BREATH SOUNDS OTHERWISE CLEAR Heart : S1 & S2 normal with S4. No murmur. Abd : Soft non tender with normal bowel sounds.abdomen is distended secondary to ASCITIS Neuro : Moves all ext. with no localized deficit. Ext : 2+ EDEMA with intact pulses.Non tender calves Derm : No rashes or decubitus ulcer. LABS/RADIOLOGY: REVIEWED. bILI STILL IN 12.7 TRASAMINASES IMPROVING [id number] CELLS 663- >601 hiv rna QUANTITATIVE pcr-<1.30 NOT DETECTED. Objective - Vital Signs/Intake and Output Vital Signs (last 24 hours): Temp Pulse Resp BP Pulse Ox 97.9 F 91 H 20 118/69 95 09/21/17 15:00 09/21/17 16:00 09/21/17 15:00 09/21/17 15:00 09/21/17 15:00 - Medications Medications: Current Medications Emtricitabine/Tenofovir (Truvada 200 Mg-300 Mg) 1 tab PO Q24H [facility] PRN Reason: Protocol Last Admin: 09/21/17 17:54 Dose: 1 tab Furosemide (Lasix) 40 mg PO DAILY [facility] Last Admin: 09/21/17 10:55 Dose: 40 mg Lactulose (Enulose) 20 gm PO BID [facility] Last Admin: 09/21/17 17:54 Dose: 20 gm Levothyroxine Sodium (Synthroid) 100 mcg PO DAILY@0630 [facility] Last Admin: 09/21/17 06:29 Dose: 100 mcg Phytonadione (Vitamin K Tab) 5 mg PO DAILY [facility] Stop: 09/23/17 12:16 Last Admin: 09/21/17 12:31 Dose: 5 mg Prednisone (Prednisone Tab) 40 mg PO DAILY [facility] Last Admin: 09/21/17 10:55 Dose: 40 mg Raltegravir (Isentress) 400 mg PO BID [facility] PRN Reason: Protocol Last Admin: 09/21/17 17:54 Dose: 400 mg Rifaximin (Xifaxan) 550 mg PO BID [facility] PRN Reason: Protocol Last Admin: 09/21/17 17:54 Dose: 550 mg Spironolactone (Aldactone) 100 mg PO DAILY [facility] Last Admin: 09/21/17 10:55 Dose: 100 mg - Labs Labs: 09/21/17 06:52 09/21/17 06:52 PT 40.2 SECONDS (9.7-12.2) H* 09/21/17 06:52 INR 3.7 09/21/17 06:52 APTT 36 SECONDS (21-34) H 09/18/17 23:53 Assessment and Plan (1) Alcoholic hepatitis with ascites Assessment & Plan: ON TRYING OFF DIURETICS AND LACTULOSE RIFAXAMIN 550 BY MOUTH TWICE A DAY PER GI. F/U DAILY WTS Status: Chronic (2) Dyspnea Assessment & Plan: LESS SHORT OF BREATH. GENERALIZED ANASARCA Status: Acute (3) Jaundice Assessment & Plan: LFTS IMPROVING SLOWLY. tOTAL BILI 12.7, D. BILI 7.0 tRANSAMINASES IMPROVING. mONITOR CLOSELY LFTS. Status: Acute (4) HIV (human immunodeficiency virus infection) Assessment & Plan: STARTED ON ISENTRESS 400 MG TWICE A DAY 09/21/17 TRUVADA 1 TABLET PO ONCE DAILY. monitor closely for any sideffects. Status: Chronic (5) Thrombocytopenia Status: Acute (6) Hypothyroidism Status: Acute
[2017-09-22] MEDS: Levothyroxine 100 MCG TAB PO SCH (06:17)
[2017-09-22 09:04] LABS: BASO % 0.3 % (0.0-2.0); EOS # 0.1 K/uL (0.0-0.7); EOS % 0.6 % (0.0-4.0); HEMOGLOBIN 11.3 g/dL (12.0-18.0); LYMPH # 1.1 K/uL (1.0-4.3); LYMPH % 10.2 % (20.0-40.0); MEAN CELL VOLUME 107.9 fL (80.0-94.0); MEAN CORPUSCULAR HGB CONC 34.3 g/dL (33.0-37.0); MEAN PLATELET VOLUME 9.5 fL (7.2-11.7); MONO # 1.1 K/uL (0.0-0.8); MONO % 10.1 % (0.0-10.0); NEUT # 8.7 K/uL (1.8-7.0); NEUT % 78.8 % (50.0-75.0); NRBC % 0.2 % (0.0-2.0); RBC 3.05 Mil/uL (4.40-5.90); RED CELL DISTRIBUTION WIDTH 16.4 % (11.5-14.5)
[2017-09-22 09:22] LABS: ALB/GLOB RATIO 0.6 (1.0-2.1); ALT/SGPT 248 U/L (21-72); AST/SGOT 262 U/L (17-59); BILIRUBIN,DIRECT 7.3 mg/dL (0.0-0.4); BLOOD UREA NITROGEN 25 mg/dL (9-20); CALCIUM 9.1 mg/dl (8.6-10.4); GFR AFRICAN-AMERICAN > 60; GFR NON-AFRICAN AMERICAN > 60
--- NOTE | 2017-09-22 14:21 | CP.PCM.PN ---
Subjective - Date & Time of Evaluation Date of Evaluation: 09/22/17 Time of Evaluation: 14:21 - Subjective Subjective: CHIEF COMPLAINTS TODAY : AFEBRILE, VSS abdominal distention and discomfort , INR 3.7 ON VIT. K ON TRIAL OF DIURETICS PER GI lASIX,, ALDACTONE, LACTULOSE. STARTED ON ANTIRETROVIRAL THERAPY 09/21/17 ROS. HEENT : N. Resp : No cough, wheezing ,pleuritic CP ,or hemoptysis Cardio : No anginal CP, PND, orthopnea, palpitation GI : No n/v ,diarrhea or GI bleeding . 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 Musculoskel : No joint swelling , Derm : No rash Psych : Normal affect. Ext : No swelling ,calf pain PE. Pt. is alert awake in no distress. V.S As noted in the chart Head ,ear nose,throat and eyes : Normal. Neck : Supple with normal carotids. Lungs: DIMINISHED BREATH SOUNDS OTHERWISE CLEAR Heart : S1 & S2 normal with S4. No murmur. Abd : Soft non tender with normal bowel sounds.abdomen is distended secondary to ASCITIS Neuro : Moves all ext. with no localized deficit. Ext : 2+ EDEMA with intact pulses.Non tender calves Derm : No rashes or decubitus ulcer. LABS/RADIOLOGY: REVIEWED. LFTS HIGH [id number] CELLS 663- >601 hiv rna QUANTITATIVE pcr-<1.30 NOT DETECTED. Objective - Vital Signs/Intake and Output Vital Signs (last 24 hours): Temp Pulse Resp BP Pulse Ox 98.5 F 92 H 18 123/66 96 09/22/17 07:00 09/22/17 07:50 09/22/17 07:00 09/22/17 09:23 09/22/17 07:00 - Medications Medications: Current Medications Emtricitabine/Tenofovir (Truvada 200 Mg-300 Mg) 1 tab PO Q24H [facility] PRN Reason: Protocol Last Admin: 09/21/17 17:54 Dose: 1 tab Furosemide (Lasix) 40 mg PO DAILY [facility] Last Admin: 09/22/17 09:23 Dose: 40 mg Lactulose (Enulose) 20 gm PO BID [facility] Last Admin: 09/22/17 09:23 Dose: 20 gm Levothyroxine Sodium (Synthroid) 100 mcg PO DAILY@0630 [facility] Last Admin: 09/22/17 06:17 Dose: 100 mcg Phytonadione (Vitamin K Tab) 5 mg PO DAILY [facility] Stop: 09/23/17 12:16 Last Admin: 09/22/17 09:22 Dose: 5 mg Prednisone (Prednisone Tab) 40 mg PO DAILY [facility] Last Admin: 09/22/17 09:21 Dose: 40 mg Raltegravir (Isentress) 400 mg PO BID [facility] PRN Reason: Protocol Last Admin: 09/22/17 09:22 Dose: 400 mg Rifaximin (Xifaxan) 550 mg PO BID [facility] PRN Reason: Protocol Last Admin: 09/22/17 09:22 Dose: 550 mg Spironolactone (Aldactone) 100 mg PO DAILY [facility] Last Admin: 09/22/17 09:22 Dose: 100 mg - Labs Labs: 09/22/17 08:51 09/22/17 08:51 PT 40.2 SECONDS (9.7-12.2) H* 09/21/17 06:52 INR 3.7 09/21/17 06:52 APTT 36 SECONDS (21-34) H 09/18/17 23:53 Assessment and Plan (1) Alcoholic hepatitis with ascites Assessment & Plan: ON TRIAL OF DIURETICS AND LACTULOSE RIFAXAMIN 550 BY MOUTH TWICE A DAY PER GI. F/U DAILY WTS F/U INR -STILL 3.7 WHEN INR <1.5 PT TO GO FOR THERAPEUTIC PARACENTESIS. Status: Chronic (2) Dyspnea Status: Acute (3) Jaundice Status: Acute (4) HIV (human immunodeficiency virus infection) Assessment & Plan: STARTED ON ISENTRESS 400 MG TWICE A DAY 09/21/17 TRUVADA 1 TABLET PO ONCE DAILY. monitor closely for any sideffects. Status: Chronic (5) Thrombocytopenia Status: Acute (6) Hypothyroidism Status: Acute
--- NOTE | 2017-09-22 14:21 | CP.PCM.PN ---
Subjective - Date & Time of Evaluation Date of Evaluation: 09/22/17 Time of Evaluation: 14:21 - Subjective Subjective: CHIEF COMPLAINTS TODAY : abdominal distention and discomfort with mild shortness of breath ROS. HEENT : N. Resp : No cough, wheezing ,pleuritic CP ,or hemoptysis Cardio : No anginal CP, PND, orthopnea, palpitation GI : No n/v ,diarrhea or GI bleeding . 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 Musculoskel : No joint swelling , Derm : No rash Psych : Normal affect. Ext : No swelling ,calf pain PE. Pt. is alert awake in no distress. V.S As noted in the chart Head ,ear nose,throat and eyes : Normal. Neck : Supple with normal carotids. Lungs: Clear air entry. Heart : S1 & S2 normal with S4. No murmur. Abd : Soft non tender with normal bowel sounds.abdomen is distended secondary to ascites Neuro : Moves all ext. with no localized deficit. Ext : No edema with intact pulses.Non tender calves Derm : No rashes or decubitus ulcer. LABS/RADIOLOGY: ASSESSMENT/PLAN : patient's repeat INR after 10 mg of vitamin K is 3.7. Abdominal tap is postponed until INR is less than 1.3. We will continue his present medications of prednisone 40 mg once a day and and still awaiting HIV medication. Objective - Vital Signs/Intake and Output Vital Signs (last 24 hours): Temp Pulse Resp BP Pulse Ox 98.5 F 92 H 18 123/66 96 09/22/17 07:00 09/22/17 07:50 09/22/17 07:00 09/22/17 09:23 09/22/17 07:00 - Medications Medications: Current Medications Emtricitabine/Tenofovir (Truvada 200 Mg-300 Mg) 1 tab PO Q24H [facility] PRN Reason: Protocol Last Admin: 09/21/17 17:54 Dose: 1 tab Furosemide (Lasix) 40 mg PO DAILY [facility] Last Admin: 09/22/17 09:23 Dose: 40 mg Lactulose (Enulose) 20 gm PO BID [facility] Last Admin: 09/22/17 09:23 Dose: 20 gm Levothyroxine Sodium (Synthroid) 100 mcg PO DAILY@0630 [facility] Last Admin: 09/22/17 06:17 Dose: 100 mcg Phytonadione (Vitamin K Tab) 5 mg PO DAILY [facility] Stop: 09/23/17 12:16 Last Admin: 09/22/17 09:22 Dose: 5 mg Prednisone (Prednisone Tab) 40 mg PO DAILY [facility] Last Admin: 09/22/17 09:21 Dose: 40 mg Raltegravir (Isentress) 400 mg PO BID [facility] PRN Reason: Protocol Last Admin: 09/22/17 09:22 Dose: 400 mg Rifaximin (Xifaxan) 550 mg PO BID [facility] PRN Reason: Protocol Last Admin: 09/22/17 09:22 Dose: 550 mg Spironolactone (Aldactone) 100 mg PO DAILY [facility] Last Admin: 09/22/17 09:22 Dose: 100 mg - Labs Labs: 09/22/17 08:51 09/22/17 08:51 PT 40.2 SECONDS (9.7-12.2) H* 09/21/17 06:52 INR 3.7 09/21/17 06:52 APTT 36 SECONDS (21-34) H 09/18/17 23:53
[2017-09-22] MEDS ORDERED: Phytonadione 2.5 MG/0.5 TAB TAB PO ONE (20:45)
[2017-09-22] MEDS: Emtricitabine-Tenofovir 200 mg-300 mg Tab PO SCH (20:45)
[2017-09-22] MEDS: oxyCODONE 5 mg Immediate Release Tab PO PRN (23:01)
[2017-09-23] MEDS: Levothyroxine 100 MCG TAB PO SCH (05:58)
[2017-09-23 08:23] LABS: BASO % 0.3 % (0.0-2.0); EOS % 0.3 % (0.0-4.0); HEMOGLOBIN 10.4 g/dL (12.0-18.0); LYMPH # 0.9 K/uL (1.0-4.3); LYMPH % 8.1 % (20.0-40.0); MEAN CORPUSCULAR HEMOGLOBIN 36.8 pg (27.0-31.0); MEAN CORPUSCULAR HGB CONC 33.8 g/dL (33.0-37.0); MEAN PLATELET VOLUME 9.6 fL (7.2-11.7); MONO # 1.5 K/uL (0.0-0.8); MONO % 13.8 % (0.0-10.0); NEUT # 8.7 K/uL (1.8-7.0); NEUT % 77.5 % (50.0-75.0); NRBC % 0.4 % (0.0-2.0); PLATELET COUNT 56 K/uL (130-400); RBC 2.84 Mil/uL (4.40-5.90); RED CELL DISTRIBUTION WIDTH 16.1 % (11.5-14.5); WHITE BLOOD COUNT 11.2 K/uL (4.8-10.8)
[2017-09-23 08:34] LABS: ALT/SGPT 235 U/L (21-72); AST/SGOT 240 U/L (17-59); BILIRUBIN,DIRECT 6.8 mg/dL (0.0-0.4); BLOOD UREA NITROGEN 30 mg/dL (9-20); GFR AFRICAN-AMERICAN > 60; GFR NON-AFRICAN AMERICAN > 60
[2017-09-23 08:39] LABS: ALB/GLOB RATIO 0.6 (1.0-2.1); ALBUMIN 2.8 g/dL (3.5-5.0)
[2017-09-23 09:06] LABS: INR 3.7
[2017-09-23 09:08] LABS: PROTHROMBIN TIME 40.6 SECONDS (9.7-12.2)
[2017-09-23] MEDS ORDERED: Phytonadione 10 mg/ml Inj (Adult) IV ONE ×2 (10:00→11:15)
[2017-09-23 10:19] LABS: LYMPHOCYTE 6 % (20-40); MONOCYTE 10 % (0-10); NEUTROPHIL 84 % (50-75); TOTAL CELLS COUNTED 100
[2017-09-23 10:20] LABS: ANISOCYTOSIS SLIGHT; PLATELET ESTIMATE DECREASED (NORMAL); POIKILOCYTOSIS SLIGHT
[2017-09-23 10:21] LABS: OVALOCYTES SLIGHT; POLYCHROMIC SLIGHT
--- NOTE | 2017-09-23 15:11 | CP.PCM.PN ---
Subjective - Date & Time of Evaluation Date of Evaluation: 09/23/17 Time of Evaluation: 15:10 - Subjective Subjective: CHIEF COMPLAINTS TODAY : abdominal distention and discomfort with mild shortness of breath ROS. HEENT : N. Resp : No cough, wheezing ,pleuritic CP ,or hemoptysis Cardio : No anginal CP, PND, orthopnea, palpitation GI : No n/v ,diarrhea or GI bleeding . 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 Musculoskel : No joint swelling , Derm : No rash Psych : Normal affect. Ext : No swelling ,calf pain PE. Pt. is alert awake in no distress. V.S As noted in the chart Head ,ear nose,throat and eyes : Normal. Neck : Supple with normal carotids. Lungs: Clear air entry. Heart : S1 & S2 normal with S4. No murmur. Abd : Soft non tender with normal bowel sounds.abdomen is distended secondary to ascites Neuro : Moves all ext. with no localized deficit. Ext : No edema with intact pulses.Non tender calves Derm : No rashes or decubitus ulcer. LABS/RADIOLOGY: ASSESSMENT/PLAN : patient's repeat INR after 10 mg of vitamin K is 3.5. Abdominal tap is postponed until INR is less than 1.3. We will continue his present medications of prednisone 40 mg once a day and and still awaiting HIV medication. Objective - Vital Signs/Intake and Output Vital Signs (last 24 hours): Temp Pulse Resp BP Pulse Ox 97.9 F 95 H 18 110/67 96 09/23/17 07:00 09/23/17 11:20 09/23/17 07:00 09/23/17 11:21 09/23/17 07:00 - Medications Medications: Current Medications Emtricitabine/Tenofovir (Truvada 200 Mg-300 Mg) 1 tab PO Q24H [facility] PRN Reason: Protocol Last Admin: 09/22/17 20:45 Dose: 1 tab Furosemide (Lasix) 40 mg PO DAILY [facility] Last Admin: 09/23/17 11:21 Dose: 40 mg Lactulose (Enulose) 20 gm PO BID [facility] Last Admin: 09/23/17 11:20 Dose: 20 gm Levothyroxine Sodium (Synthroid) 100 mcg PO DAILY@0630 [facility] Last Admin: 09/23/17 05:58 Dose: 100 mcg Oxycodone HCl (Oxycodone Immediate Release Tab) 10 mg PO Q6H [facility] PRN Reason: Pain, severe (8-10) Last Admin: 09/22/17 23:01 Dose: 10 mg Prednisone (Prednisone Tab) 40 mg PO DAILY [facility] Last Admin: 09/23/17 11:20 Dose: 40 mg Raltegravir (Isentress) 400 mg PO BID [facility] PRN Reason: Protocol Last Admin: 09/23/17 11:21 Dose: 400 mg Rifaximin (Xifaxan) 550 mg PO BID [facility] PRN Reason: Protocol Last Admin: 09/23/17 11:21 Dose: 550 mg Spironolactone (Aldactone) 100 mg PO DAILY [facility] Last Admin: 09/23/17 11:21 Dose: 100 mg - Labs Labs: 09/23/17 08:07 09/23/17 08:07 PT 40.6 SECONDS (9.7-12.2) H* 09/23/17 08:07 INR 3.7 09/23/17 08:07 APTT 36 SECONDS (21-34) H 09/18/17 23:53
[2017-09-23] MEDS: Emtricitabine-Tenofovir 200 mg-300 mg Tab PO SCH (18:12)
[2017-09-23] MEDS: oxyCODONE 5 mg Immediate Release Tab PO PRN (21:48)
[2017-09-24] MEDS: Levothyroxine 100 MCG TAB PO SCH (05:44)
[2017-09-24 06:55] LABS: BASO % 0.1 % (0.0-2.0); EOS % 0.2 % (0.0-4.0); HEMOGLOBIN 10.7 g/dL (12.0-18.0); LYMPH # 0.6 K/uL (1.0-4.3); LYMPH % 5.6 % (20.0-40.0); MEAN CORPUSCULAR HEMOGLOBIN 36.5 pg (27.0-31.0); MEAN CORPUSCULAR HGB CONC 33.8 g/dL (33.0-37.0); MEAN PLATELET VOLUME 9.2 fL (7.2-11.7); MONO # 1.4 K/uL (0.0-0.8); MONO % 12.4 % (0.0-10.0); NEUT # 9.1 K/uL (1.8-7.0); NEUT % 81.7 % (50.0-75.0); NRBC % 0.2 % (0.0-2.0); PLATELET COUNT 59 K/uL (130-400); RBC 2.93 Mil/uL (4.40-5.90); RED CELL DISTRIBUTION WIDTH 15.7 % (11.5-14.5); WHITE BLOOD COUNT 11.2 K/uL (4.8-10.8)
[2017-09-24 07:19] LABS: ALT/SGPT 248 U/L (21-72); AST/SGOT 245 U/L (17-59); BILIRUBIN,DIRECT 8.6 mg/dL (0.0-0.4); BLOOD UREA NITROGEN 35 mg/dL (9-20); CALCIUM 9.3 mg/dl (8.6-10.4); GFR AFRICAN-AMERICAN > 60; GFR NON-AFRICAN AMERICAN > 60
[2017-09-24 07:29] LABS: INR 3.7
[2017-09-24 08:08] LABS: ALB/GLOB RATIO 0.6 (1.0-2.1); ALBUMIN 2.7 g/dL (3.5-5.0)
[2017-09-24 08:55] LABS: LYMPHOCYTE 3 % (20-40); MONOCYTE 10 % (0-10); NEUTROPHIL 87 % (50-75); TOTAL CELLS COUNTED 100
[2017-09-24 08:56] LABS: ANISOCYTOSIS SLIGHT; HYPOCHROMIC SLIGHT; PLATELET ESTIMATE DECREASED (NORMAL); POLYCHROMIC SLIGHT; TARGET CELLS SLIGHT
[2017-09-24 08:57] LABS: BURR CELLS SLIGHT
--- NOTE | 2017-09-24 12:16 | CP.PCM.PN ---
Subjective - Date & Time of Evaluation Date of Evaluation: 09/24/17 Time of Evaluation: 12:16 - Subjective Subjective: CHIEF COMPLAINTS TODAY : AFEBRILE, VSS abdominal distention and discomfort , INR 3.7 ON VIT. K. UNABLE TO DO PARACENTESIS DUE TO HIGH INR. ON TRIAL OF DIURETICS PER GI lASIX,, ALDACTONE, LACTULOSE. STARTED ON ANTIRETROVIRAL THERAPY 09/21/17 ROS. HEENT : N. 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 Musculoskel : No joint swelling , Derm : No rash Psych : Normal affect. Ext : No swelling ,calf pain PE. Pt. is alert awake in no distress. V.S As noted in the chart Head ,ear nose,throat and eyes : Normal. Neck : Supple with normal carotids. Lungs: DIMINISHED BREATH SOUNDS OTHERWISE CLEAR Heart : S1 & S2 normal with S4. No murmur. Abd : Soft non tender with normal bowel sounds.abdomen is distended secondary to ASCITIS Neuro : Moves all ext. with no localized deficit. Ext : 2+ EDEMA with intact pulses.Non tender calves Derm : No rashes or decubitus ulcer. LABS/RADIOLOGY: REVIEWED. LFTS INCREASING TOTAL BILI 15.6/DIRECT BILI 8.6 AST 245. ALT 248 AP 130 HEPATITIS SCREENING NEGATIVE FOR A.B,C. ALB 2.7 [id number] CELLS 663- >601 hiv rna QUANTITATIVE pcr-<1.30 NOT DETECTED. Objective - Vital Signs/Intake and Output Vital Signs (last 24 hours): Temp Pulse Resp BP Pulse Ox 97.7 F 93 H 18 111/69 98 09/24/17 07:00 09/24/17 07:00 09/24/17 07:00 09/24/17 09:40 09/24/17 07:00 - Medications Medications: Current Medications Emtricitabine/Tenofovir (Truvada 200 Mg-300 Mg) 1 tab PO Q24H [facility] PRN Reason: Protocol Last Admin: 09/23/17 18:12 Dose: 1 tab Furosemide (Lasix) 40 mg PO DAILY [facility] Last Admin: 09/24/17 09:40 Dose: 40 mg Lactulose (Enulose) 20 gm PO BID [facility] Last Admin: 09/24/17 09:39 Dose: 20 gm Levothyroxine Sodium (Synthroid) 100 mcg PO DAILY@0630 [facility] Last Admin: 09/24/17 05:44 Dose: 100 mcg Oxycodone HCl (Oxycodone Immediate Release Tab) 10 mg PO Q6H [facility]N PRN Reason: Pain, severe (8-10) Last Admin: 09/23/17 21:48 Dose: 10 mg Prednisone (Prednisone Tab) 40 mg PO DAILY [facility] Last Admin: 09/24/17 09:41 Dose: 40 mg Raltegravir (Isentress) 400 mg PO BID [facility] PRN Reason: Protocol Last Admin: 09/24/17 09:39 Dose: 400 mg Spironolactone (Aldactone) 100 mg PO DAILY [facility] Last Admin: 09/24/17 09:40 Dose: 100 mg - Labs Labs: 09/24/17 06:39 09/24/17 06:39 PT 41.0 SECONDS (9.7-12.2) H* 09/24/17 06:39 INR 3.7 09/24/17 06:39 APTT 36 SECONDS (21-34) H 09/18/17 23:53 Assessment and Plan (1) Alcoholic hepatitis with ascites Assessment & Plan: ON TRIAL OF DIURETICS AND LACTULOSE RIFAXAMIN 550 BY MOUTH TWICE A DAY PER GI. F/U DAILY WTS F/U INR -STILL 3.7 WHEN INR <1.5 PT TO GO FOR THERAPEUTIC PARACENTESIS PER GI.. Status: Chronic (2) Dyspnea Status: Acute (3) Jaundice Assessment & Plan: PATIENT LOOKS MORE JAUNDICED. LFTS INCREASING. wILL STOP ART FOR NOW.. ISENTRESS 400 MG TWICE A DAY 09/21/17 TRUVADA 1 TABLET PO ONCE DAILY. PATIENT'S VIRAL LOAD IS U UNDETECTABLE <1.30 CD4 > 600. fOLLOW-UP LFTS CLOSELY.. WILL DISCUSS WITH GI/PMD. Status: Acute (4) HIV (human immunodeficiency virus infection) Status: Chronic (5) Thrombocytopenia Status: Acute (6) Hypothyroidism Status: Acute
--- NOTE | 2017-09-24 12:42 | CP.PCM.PN ---
Subjective - Date & Time of Evaluation Date of Evaluation: 09/24/17 Time of Evaluation: 12:41 - Subjective Subjective: CHIEF COMPLAINTS TODAY : abdominal distention and discomfort with mild shortness of breath ROS. HEENT : N. Resp : No cough, wheezing ,pleuritic CP ,or hemoptysis Cardio : No anginal CP, PND, orthopnea, palpitation GI : No n/v ,diarrhea or GI bleeding . 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 Musculoskel : No joint swelling , Derm : No rash Psych : Normal affect. Ext : No swelling ,calf pain PE. Pt. is alert awake in no distress. V.S As noted in the chart Head ,ear nose,throat and eyes : Normal. Neck : Supple with normal carotids. Lungs: Clear air entry. Heart : S1 & S2 normal with S4. No murmur. Abd : Soft non tender with normal bowel sounds.abdomen is distended secondary to ascites Neuro : Moves all ext. with no localized deficit. Ext : No edema with intact pulses.Non tender calves Derm : No rashes or decubitus ulcer. LABS/RADIOLOGY: ASSESSMENT/PLAN : repeat INR is 3.7 patient getting vitamin K 10 mg for the last 3 days. Patient is still symptomatic with tense ascites, current medication is resistant Patient's C4 C8 ratio is 1.4 Total bilirubin still remains high at 15.3 Objective - Vital Signs/Intake and Output Vital Signs (last 24 hours): Temp Pulse Resp BP Pulse Ox 97.7 F 93 H 18 111/69 98 09/24/17 07:00 09/24/17 07:00 09/24/17 07:00 09/24/17 09:40 09/24/17 07:00 - Medications Medications: Current Medications Furosemide (Lasix) 40 mg PO DAILY [facility] Last Admin: 09/24/17 09:40 Dose: 40 mg Lactulose (Enulose) 20 gm PO BID [facility] Last Admin: 09/24/17 09:39 Dose: 20 gm Levothyroxine Sodium (Synthroid) 100 mcg PO DAILY@0630 [facility] Last Admin: 09/24/17 05:44 Dose: 100 mcg Oxycodone HCl (Oxycodone Immediate Release Tab) 10 mg PO Q6H PRN PRN Reason: Pain, severe (8-10) Last Admin: 09/23/17 21:48 Dose: 10 mg Prednisone (Prednisone Tab) 40 mg PO DAILY [facility] Last Admin: 09/24/17 09:41 Dose: 40 mg Spironolactone (Aldactone) 100 mg PO DAILY [facility] Last Admin: 09/24/17 09:40 Dose: 100 mg - Labs Labs: 09/24/17 06:39 09/24/17 06:39 PT 41.0 SECONDS (9.7-12.2) H* 09/24/17 06:39 INR 3.7 09/24/17 06:39 APTT 36 SECONDS (21-34) H 09/18/17 23:53
[2017-09-24] MEDS ORDERED: Phytonadione 10 mg/ml Inj (Adult) IV STA (16:35)
[2017-09-24] MEDS ORDERED: Phytonadione 10 MG in Sodium Chloride 0.9% 50 ML IV ONE (17:00)
[2017-09-24] MEDS: oxyCODONE 5 mg Immediate Release Tab PO PRN (23:07)
[2017-09-25] MEDS: Levothyroxine 100 MCG TAB PO SCH (05:32)
[2017-09-25 07:39] LABS: ALT/SGPT 273 U/L (21-72); AST/SGOT 274 U/L (17-59); BILIRUBIN,DIRECT 9.7 mg/dL (0.0-0.4); BLOOD UREA NITROGEN 40 mg/dL (9-20); CALCIUM 9.3 mg/dl (8.6-10.4); GFR AFRICAN-AMERICAN > 60; GFR NON-AFRICAN AMERICAN 58
[2017-09-25 07:41] LABS: ALB/GLOB RATIO 0.6 (1.0-2.1); ALBUMIN 2.7 g/dL (3.5-5.0)
[2017-09-25 07:54] LABS: INR 3.7
[2017-09-25 07:55] LABS: BASO % 0.2 % (0.0-2.0); EOS % 0.3 % (0.0-4.0); HEMOGLOBIN 10.3 g/dL (12.0-18.0); LYMPH # 0.6 K/uL (1.0-4.3); LYMPH % 4.8 % (20.0-40.0); MEAN CELL VOLUME 107.8 fL (80.0-94.0); MEAN CORPUSCULAR HEMOGLOBIN 36.5 pg (27.0-31.0); MEAN CORPUSCULAR HGB CONC 33.9 g/dL (33.0-37.0); MEAN PLATELET VOLUME 10.2 fL (7.2-11.7); MONO # 1.5 K/uL (0.0-0.8); MONO % 13.3 % (0.0-10.0); NEUT # 9.4 K/uL (1.8-7.0); NEUT % 81.4 % (50.0-75.0); NRBC % 0.4 % (0.0-2.0); PLATELET COUNT 57 K/uL (130-400); RBC 2.82 Mil/uL (4.40-5.90); RED CELL DISTRIBUTION WIDTH 16.1 % (11.5-14.5); WHITE BLOOD COUNT 11.6 K/uL (4.8-10.8)
[2017-09-25 07:58] LABS: PROTHROMBIN TIME 40.9 SECONDS (9.7-12.2)
[2017-09-25] MEDS ORDERED: Phytonadione 10 mg/ml Inj (Adult) IV STA (09:03)
[2017-09-25] MEDS ORDERED: Phytonadione 10 MG in Sodium Chloride 0.9% 50 ML IV ONE ×2 (09:15→10:00)
[2017-09-25 09:40] LABS: LYMPHOCYTE 4 % (20-40); MONOCYTE 10 % (0-10); NEUTROPHIL 86 % (50-75); PLATELET ESTIMATE DECREASED (NORMAL); TOTAL CELLS COUNTED 100
[2017-09-25 09:41] LABS: ANISOCYTOSIS SLIGHT; BURR CELLS SLIGHT; HYPOCHROMIC SLIGHT; POIKILOCYTOSIS SLIGHT
[2017-09-25] MEDS ORDERED: Phytonadione 10 mg/ml Inj (Adult) IV ONE (10:00)
--- NOTE | 2017-09-25 13:55 | CP.PCM.PN ---
Subjective - Date & Time of Evaluation Date of Evaluation: 09/25/17 Time of Evaluation: 13:55 - Subjective Subjective: CHIEF COMPLAINTS TODAY : abdominal distention and discomfort with mild shortness of breath ROS. HEENT : N. Resp : No cough, wheezing ,pleuritic CP ,or hemoptysis Cardio : No anginal CP, PND, orthopnea, palpitation GI : No n/v ,diarrhea or GI bleeding . 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 Musculoskel : No joint swelling , Derm : No rash Psych : Normal affect. Ext : No swelling ,calf pain PE. Pt. is alert awake in no distress. V.S As noted in the chart Head ,ear nose,throat and eyes : Normal. Neck : Supple with normal carotids. Lungs: Clear air entry. Heart : S1 & S2 normal with S4. No murmur. Abd : Soft non tender with normal bowel sounds.abdomen is distended secondary to ascites Neuro : Moves all ext. with no localized deficit. Ext : No edema with intact pulses.Non tender calves Derm : No rashes or decubitus ulcer. LABS/RADIOLOGY: ASSESSMENT/PLAN : repeat INR is 3.7 patient getting vitamin K 10 mg for the last 3 days. HEMATOLOGY EVAL TO CORRECT INR FOR ABD. TAP. Patient is still symptomatic with tense ascites, current medication is resistant Patient's C4 C8 ratio is 1.4 Total bilirubin still remains high at 15.3 Objective - Vital Signs/Intake and Output Vital Signs (last 24 hours): Temp Pulse Resp BP Pulse Ox 97.4 F L 92 H 20 111/69 97 09/25/17 08:02 09/25/17 08:02 09/25/17 08:02 09/25/17 09:51 09/25/17 08:02 Intake and Output: 09/25/17 09/25/17 11:59 23:59 Intake Total 240 Balance 240 - Medications Medications: Current Medications Furosemide (Lasix) 40 mg PO DAILY [facility] Last Admin: 09/25/17 09:51 Dose: 40 mg Lactulose (Enulose) 20 gm PO BID [facility] Last Admin: 09/25/17 09:48 Dose: 20 gm Levothyroxine Sodium (Synthroid) 100 mcg PO DAILY@0630 [facility] Last Admin: 09/25/17 05:32 Dose: 100 mcg Oxycodone HCl (Oxycodone Immediate Release Tab) 10 mg PO Q6H PRN PRN Reason: Pain, severe (8-10) Last Admin: 09/24/17 23:07 Dose: 10 mg Prednisone (Prednisone Tab) 40 mg PO DAILY [facility] Last Admin: 09/25/17 09:51 Dose: 40 mg Spironolactone (Aldactone) 100 mg PO DAILY [facility] - Labs Labs: 09/25/17 06:38 09/25/17 06:38 PT 40.9 SECONDS (9.7-12.2) H* 09/25/17 06:38 INR 3.7 09/25/17 06:38 APTT 36 SECONDS (21-34) H 09/18/17 23:53
--- NOTE | 2017-09-25 18:34 | CP.PCM.CON ---
History of Present Illness - History of Present Illness History of Present Illness: 52 year old male with a history of alcoholic liver cirrhosis, HIV on HAART, admitted with abdominal distension/pain secondary to increasing ascites, with coagulopathy and anemia. The patient notes to progressive abdominal distension which has caused him abdominal discomfort and difficulty breathing when lying flat. He had similar symptoms about 2 weeks ago and underwent paracentesis. He notes he required plasma transfusions prior to the paracentesis. He denies abnormal bleeding and bruising. He reports to have stopped drinking alcohol. Past medical history: Alcoholic liver cirrhosis, HIV on HAART, PE Past surgical history: Denie Family history: Father and brother prostate cancer Social history: Denies tobacco, former alcohol, denies illicit drug use. Allergies: Lactose Review of systems: All remaining review of systems including HEENT, cardiovascular, respiratory, gastrointestinal, genitourinary, musculoskeletal, dermatologic neurologic, and psychiatric are negative unless mentioned in the HPI. Past Patient History - Infectious Disease Hx of Infectious Diseases: None - Past Medical History & Family History Past Medical History?: Yes - Past Social History Smoking Status: Former Smoker - CARDIAC Hx Cardiac Disorders: Yes Hx Hypotension: Yes - PULMONARY Hx Respiratory Disorders: No - NEUROLOGICAL Hx Neurological Disorder: No - HEENT Hx HEENT Problems: No - RENAL Hx Chronic Kidney Disease: No - ENDOCRINE/METABOLIC Hx Endocrine Disorders: Yes Hx Hypothyroidism: Yes - HEMATOLOGICAL/ONCOLOGICAL Hx Blood Disorders: Yes Hx Human Immunodeficiency Virus (HIV): Yes - INTEGUMENTARY Hx Dermatological Problems: No - MUSCULOSKELETAL/RHEUMATOLOGICAL Hx Musculoskeletal Disorders: No Hx Falls: No - GASTROINTESTINAL Hx Gastrointestinal Disorders: Yes Other/Comment: alcoholic cirrhosis. paracentesis on 09/07/17 - GENITOURINARY/GYNECOLOGICAL Hx Genitourinary Disorders: No - PSYCHIATRIC Hx Psychophysiologic Disorder: No Hx Depression: No Hx Substance Use: No - SURGICAL HISTORY Hx Surgeries: Yes Hx Herniorrhaphy: Yes (2003) Hx Tonsillectomy: Yes - ANESTHESIA Hx Anesthesia: Yes Hx Anesthesia Reactions: No Meds Allergies/Adverse Reactions: Allergies Allergy/AdvReac Type Severity Reaction Status Date / Time lactose AdvReac Verified 09/18/17 22:50 - Medications Medications: Current Medications Furosemide (Lasix) 40 mg PO DAILY [facility] Last Admin: 09/25/17 09:51 Dose: 40 mg Lactulose (Enulose) 20 gm PO BID [facility] Last Admin: 09/25/17 17:19 Dose: 20 gm Levothyroxine Sodium (Synthroid) 100 mcg PO DAILY@0630 [facility] Last Admin: 09/25/17 05:32 Dose: 100 mcg Oxycodone HCl (Oxycodone Immediate Release Tab) 10 mg PO Q6H PRN PRN Reason: Pain, severe (8-10) Last Admin: 09/24/17 23:07 Dose: 10 mg Prednisone (Prednisone Tab) 40 mg PO DAILY [facility] Last Admin: 09/25/17 09:51 Dose: 40 mg Spironolactone (Aldactone) 100 mg PO DAILY [facility] Physical Exam - Head Exam Head Exam: ATRAUMATIC - Eye Exam Eye Exam: Normal appearance - ENT Exam ENT Exam: Mucous Membranes Dry - Respiratory Exam Respiratory Exam: NORMAL BREATHING PATTERN - Cardiovascular Exam Cardiovascular Exam: +S1, +S2 - GI/Abdominal Exam GI & Abdominal Exam: Normal Bowel Sounds - Extremities Exam Extremities exam: Positive for: pedal edema - Neurological Exam Neurological exam: Oriented x3 - Psychiatric Exam Psychiatric exam: Normal Affect, Normal Mood - Skin Skin Exam: Warm Results - Vital Signs Recent Vital Signs: Last Vital Signs Temp 98.1 F 09/25/17 16:00 Pulse 85 09/25/17 16:00 Resp 20 09/25/17 16:00 BP 110/70 09/25/17 16:00 Pulse Ox 95 09/25/17 16:00 - Labs Result Diagrams: 09/26/17 09:17 09/26/17 09:17 Labs: Laboratory Results - last 24 hr 09/25/17 09/25/17 09/25/17 06:38 06:38 06:38 WBC 11.6 H RBC 2.82 L Hgb 10.3 L Hct 30.4 L MCV 107.8 H MCH 36.5 H MCHC 33.9 RDW 16.1 H Plt Count 57 L MPV 10.2 Neut % (Auto) 81.4 H Lymph % (Auto) 4.8 L Collier % (Auto) 13.3 H Eos % (Auto) 0.3 Baso % (Auto) 0.2 Neut # (Auto) 9.4 H Lymph # (Auto) 0.6 L Collier # (Auto) 1.5 H Eos # (Auto) 0.0 Baso # (Auto) 0.0 Neutrophils % (Manual) 86 H Lymphocytes % (Manual) 4 L Monocytes % (Manual) 10 Platelet Estimate Decreased L Hypochromasia (manual) Slight Poikilocytosis (manual Slight Anisocytosis (manual) Slight Heather Cells Slight PT 40.9 H* INR 3.7 Sodium 130 L Potassium 4.9 Chloride 91 L Carbon Dioxide 30 Anion Gap 14 BUN 40 H Creatinine 1.3 Est GFR ( Amer) > 60 Est GFR (Non-Af Amer) 58 Random Glucose 92 Calcium 9.3 Total Bilirubin 15.5 H Direct Bilirubin 9.7 H AST 274 H ALT 273 H Alkaline Phosphatase 132 H Total Protein 7.2 Albumin 2.7 L Globulin 4.5 H Albumin/Globulin Ratio 0.6 L Assessment & Plan (1) Coagulopathy Assessment and Plan: secondary to liver cirrhosis s/p vit k will need FFP prior to paracentesis, will coordinate with GI and IR Status: Acute (2) Thrombocytopenia Assessment and Plan: multifactorial thrombopoietin dysregulation from liver disease splenic sequestration from portal HTN may have element from HIV cont. to monitor Status: Acute (3) Anemia Assessment and Plan: will check retic count, b12, folate, ferritin to further characterize may have intermittent GI blood loss from portal HTN anemia of HIV Status: Acute (4) Leukocytosis Assessment and Plan: mild, may be related to steroids Thank you for this interesting consult. Status: Acute
--- NOTE | 2017-09-25 20:23 | CP.PCM.PN ---
Subjective - Date & Time of Evaluation Date of Evaluation: 09/25/17 Time of Evaluation: 20:23 - Subjective Subjective: CHIEF COMPLAINTS TODAY : AFEBRILE, VSS C/O ABDOMINAL PAIN AND DISTENSION INCREASING ICTERIC GENERALIZED ANASARCA INR 3.7 ON VIT. K. UNABLE TO DO PARACENTESIS DUE TO HIGH INR. ON TRIAL OF DIURETICS PER GI lASIX,, ALDACTONE, LACTULOSE. ANTIRETROVIRAL THERAPY HELD -09/24/17 ROS. HEENT : N SCLERA ICTERIC Resp : No cough, wheezing ,pleuritic CP ,or hemoptysis Cardio : No anginal CP, PND, orthopnea, palpitation GI : No n/v ,diarrhea or GI bleeding .ABD +VE TENSE ASCITES ASSISTANT [place] : No headache, vertigo, focal deficit. Musculoskel : No joint swelling , Derm : No rash Psych : Normal affect. Ext : 3+ EDEMA ,calf pain PE. Pt. is alert awake / UNCOMFORTABLE V.S As noted in the chart Head ,ear nose,throat and eyes : Normal. Neck : Supple with normal carotids. Lungs: DIMINISHED BREATH SOUNDS OTHERWISE CLEAR Heart : S1 & S2 normal with S4. No murmur. Abd : Soft non tender with normal bowel sounds.abdomen is distended secondary to ASCITIS Neuro : Moves all ext. with no localized deficit. Ext : 3+ EDEMA with intact pulses.Non tender calves Derm : No rashes or decubitus ulcer. LABS/RADIOLOGY: REVIEWED. WBC 11.6 H/H 10.3 LFTS INCREASING TOTAL BILI 15.5 /DIRECT BILI 9.7 AST 274. ALT 273 AP 132 HEPATITIS SCREENING NEGATIVE FOR A.B,C. ALB 2.7 [id number] CELLS 663- >601 hiv rna QUANTITATIVE pcr-<1.30 NOT DETECTED. Objective - Vital Signs/Intake and Output Vital Signs (last 24 hours): Temp Pulse Resp BP Pulse Ox 98.1 F 85 20 110/70 95 09/25/17 16:00 09/25/17 16:00 09/25/17 16:00 09/25/17 16:00 09/25/17 16:00 Intake and Output: 09/25/17 09/26/17 18:59 06:59 Intake Total 720 Balance 720 - Medications Medications: Current Medications Furosemide (Lasix) 40 mg PO DAILY [facility] Last Admin: 07/10/18 09:51 Dose: 40 mg Lactulose (Enulose) 20 gm PO BID [facility] Last Admin: 09/25/17 17:19 Dose: 20 gm Levothyroxine Sodium (Synthroid) 100 mcg PO DAILY@0630 [facility] Last Admin: 09/25/17 05:32 Dose: 100 mcg Oxycodone HCl (Oxycodone Immediate Release Tab) 10 mg PO Q6H PRN PRN Reason: Pain, severe (8-10) Last Admin: 09/24/17 23:07 Dose: 10 mg Prednisone (Prednisone Tab) 40 mg PO DAILY [facility] Last Admin: 09/25/17 09:51 Dose: 40 mg Spironolactone (Aldactone) 100 mg PO DAILY [facility] - Labs Labs: 09/25/17 06:38 09/25/17 06:38 PT 40.9 SECONDS (9.7-12.2) H* 09/25/17 06:38 INR 3.7 09/25/17 06:38 APTT 36 SECONDS (21-34) H 09/18/17 23:53 Assessment and Plan (1) Alcoholic hepatitis with ascites Assessment & Plan: ON TRIAL OF DIURETICS AND LACTULOSE RIFAXAMIN 550 BY MOUTH TWICE A DAY PER GI. F/U DAILY WTS F/U INR -STILL 3.7 WHEN INR <1.5 PT TO GO FOR THERAPEUTIC PARACENTESIS PER GI.. CHECK SERUM NH3 LEVEL PLEASE INFORM GI DR ACOSTA OF WORSENING LFTS/AND TENSE ASCITES Status: Chronic (2) Dyspnea Status: Acute (3) Jaundice Status: Acute (4) HIV (human immunodeficiency virus infection) Assessment & Plan: PATIENT'S VIRAL LOAD IS U UNDETECTABLE <1.30 CD4 > 600. DC ANTIRETROVIRAL RX IN VIEW OF WORSENING LFTS WILL DISCUSS WITH GI/PMD. Status: Chronic (5) Thrombocytopenia Assessment & Plan: PLATELETS 57 K . NO OVERT BLEEDING. ON VIT K FOR ELEVATED INR 3.7 . Status: Acute (6) Hypothyroidism Status: Acute
[2017-09-25] MEDS: oxyCODONE 5 mg Immediate Release Tab PO PRN (22:07)
[2017-09-26] MEDS: Levothyroxine 100 MCG TAB PO SCH (05:46)
--- NOTE | 2017-09-26 08:02 | CP.PCM.PN ---
<AndreyjessyAmrit - Last Filed: 09/26/17 14:17> Subjective - Date & Time of Evaluation Date of Evaluation: 09/26/17 Time of Evaluation: 07:59 - Subjective Subjective: GI Fellow PGY4, progress note. We were reconsulted for worsening ascites. Since we last saw Mr. Luong, he continue to be on prednisone without much improvement in alcoholic hepatitis symptoms. HAART therapy was restarted then discontinued as his LFTs worsened slightly. Paracentesis has not been attempt due to elevated INR despite vitamin K. FFP was given 1 month ago for previous paracentesis. 5 units given and INR dropped from 4.0 to 1.7 at that time. Patient denies severe abdominal pain, but discomfort from the increasing distension. He denies change in mental status, fevers. He is drinking quite a bit of fluid, there are several large, high sodium liquids at bedside (Dr. Che [facility]). He is on a 2gm Sodium diet, but no fluid restriction. He is taking lasix 40 and Aldactone 100 daily with decent urine output. Kidney function appears stable. 12pt ROS completed and negative except for as above. Objective - Vital Signs/Intake and Output Vital Signs (last 24 hours): Temp Pulse Resp BP Pulse Ox 97.8 F 97 H 20 104/57 L 95 09/25/17 23:00 09/26/17 03:51 09/25/17 23:00 09/25/17 23:00 09/25/17 23:00 Intake and Output: 09/26/17 09/26/17 06:59 18:59 Intake Total 500 Balance 500 - Medications Medications: Current Medications Furosemide (Lasix) 40 mg PO DAILY [facility] Last Admin: 09/25/17 09:51 Dose: 40 mg Lactulose (Enulose) 20 gm PO BID [facility] Last Admin: 09/25/17 17:19 Dose: 20 gm Levothyroxine Sodium (Synthroid) 100 mcg PO DAILY@0630 [facility] Last Admin: 09/26/17 05:46 Dose: 100 mcg Oxycodone HCl (Oxycodone Immediate Release Tab) 10 mg PO Q6H PRN PRN Reason: Pain, severe (8-10) Last Admin: 09/25/17 22:07 Dose: 10 mg Prednisone (Prednisone Tab) 40 mg PO DAILY [facility] Last Admin: 09/25/17 09:51 Dose: 40 mg Spironolactone (Aldactone) 100 mg PO DAILY [facility] - Labs Labs: 09/25/17 06:38 09/25/17 06:38 PT 40.9 SECONDS (9.7-12.2) H* 09/25/17 06:38 INR 3.7 09/25/17 06:38 APTT 36 SECONDS (21-34) H 09/18/17 23:53 - Constitutional Appears: Non-toxic, No Acute Distress, Older Than Stated Age, Chronically Ill - Head Exam Head Exam: ATRAUMATIC, NORMAL INSPECTION, NORMOCEPHALIC - Eye Exam Eye Exam: EOMI, PERRL, Scleral icterus - ENT Exam ENT Exam: Mucous Membranes Moist, Normal Exam - Respiratory Exam Respiratory Exam: Clear to Ausculation Bilateral, NORMAL BREATHING PATTERN. absent: Wheezes - Cardiovascular Exam Cardiovascular Exam: REGULAR RHYTHM, +S1, +S2. absent: JVD - GI/Abdominal Exam GI & Abdominal Exam: Distended, Firm, Normal Bowel Sounds. absent: Tenderness Additional comments: Tense ascites with fluid wave present - Extremities Exam Extremities Exam: Full ROM, Pedal Edema. absent: Tenderness - Neurological Exam Neurological Exam: Alert, CN II-XII Intact, Oriented x3 - Psychiatric Exam Psychiatric exam: Normal Affect, Normal Mood - Skin Skin Exam: Dry, Intact, Warm Assessment and Plan - Assessment and Plan (Free Text) Assessment: Patient is a 52yo male with PMHx significant for decompensated EtOH cirrhosis c/ b ascites, coagulopathy with ongoing EtOH use, also with PE, HIV on HAART who presented to the ED with abdominal distention. #Decompensated EtOH cirrhosis #Tense Ascites #Alcoholic hepatitis #Possible autoimmune hepatitis - SM-Ab + 1:80, IGG elevated. #HARRIET #HIV on HAART Plan: -Continue supportive care -MDF > 32; Unfortunately, he is not improving with steroids per Hunter score. -Discontinue prednisone as risk>benefit -paracentesis tomorrow after 5 units FFP. INR must be less than 2. Orders have been placed. -Consult to IR for paracentesis -Cell count, albumin, gram stain ordered -Give 25% albumin if >4L ascites removed -Continue lactulose. -HARRIET is an ominous sign and recommend renal consult. -Start 100gm 5% albumin in suspicion of hepatorenal syndrome -Hold lasix, spironalactone in setting of HARRIET -2g Na diet restriction -Pt will need EGD as an outpt to r/o esophageal varices *MELD-Na: 35 -DF:148 -Overall prognosis is poor. <Kristopher Winston - Last Filed: 09/26/17 17:38> Objective - Vital Signs/Intake and Output Vital Signs (last 24 hours): Temp Pulse Resp BP Pulse Ox 97.8 F 95 H 20 109/68 95 09/26/17 15:05 09/26/17 15:05 09/26/17 15:05 09/26/17 15:05 09/26/17 15:05 Intake and Output: 09/26/17 09/26/17 06:59 18:59 Intake Total 500 480 Output Total 400 Balance 500 80 - Medications Medications: Current Medications Albumin Human (Albutein 5% 500 Ml) 500 mls @ 166.667 mls/hr IVPB Q3H BEV Stop: 09/27/17 04:59 Lactulose (Enulose) 20 gm PO BID [facility] Last Admin: 09/26/17 10:08 Dose: 20 gm Levothyroxine Sodium (Synthroid) 100 mcg PO DAILY@0630 [facility] Last Admin: 09/26/17 05:46 Dose: 100 mcg Oxycodone HCl (Oxycodone Immediate Release Tab) 10 mg PO Q6H PRN PRN Reason: Pain, severe (8-10) Last Admin: 09/25/17 22:07 Dose: 10 mg Rifaximin (Xifaxan) 550 mg PO BID [facility] PRN Reason: Protocol - Labs Labs: 09/26/17 09:17 09/26/17 09:17 PT 40.9 SECONDS (9.7-12.2) H* 09/25/17 06:38 INR 3.7 09/25/17 06:38 APTT 36 SECONDS (21-34) H 09/18/17 23:53 Attending/Attestation - Attestation I have personally seen and examined this patient.: Yes I have fully participated in the care of the patient.: Yes I have reviewed all pertinent clinical information, including history, physical exam and plan: Yes Notes (Text): 09/26/17 17:33 I have seen and examined patient with GI fellow. No acute events overnight, he is seen resting in bed comfortably. He does report worsening epigastric abdominal pain but denies nausea, vomiting, fever/chills. Tolerating PO diet without difficulty. Review of vitals from today shows tachycardia. Decompensated ETOH cirrhosis Acute ETOH hepatitis, started on prednisolone therapy secondary to DF>32 HIV Abdominal pain, ascites Acute renal insufficiency - Low sodium diet as tolerated - Suggest infusion of albumin and temporarily holding diuretic therapy, monitor creatinine - Recommend nephrology consultation - Will transfuse patient FFP in order to perform paracentesis tomorrow - Suggest discontinuing steroid therapy as lille score shows no benefit to ongoing medication - Will place call to [facility] for consideration of transfer and transplant evaluation - Overall prognosis for patient is quite poor with high 90 day mortality risk. Will continue to monitor patient clinical course.
[2017-09-26 09:48] LABS: BASO % 0.1 % (0.0-2.0); EOS % 0.3 % (0.0-4.0); HEMOGLOBIN 9.4 g/dL (12.0-18.0); LYMPH # 0.8 K/uL (1.0-4.3); LYMPH % 7.5 % (20.0-40.0); MEAN CELL VOLUME 108.9 fL (80.0-94.0); MEAN CORPUSCULAR HEMOGLOBIN 36.3 pg (27.0-31.0); MEAN CORPUSCULAR HGB CONC 33.3 g/dL (33.0-37.0); MEAN PLATELET VOLUME 8.9 fL (7.2-11.7); MONO # 0.8 K/uL (0.0-0.8); MONO % 8.1 % (0.0-10.0); NEUT # 8.8 K/uL (1.8-7.0); NRBC % 0.6 % (0.0-2.0); PLATELET COUNT 49 K/uL (130-400); RED CELL DISTRIBUTION WIDTH 16.2 % (11.5-14.5); WHITE BLOOD COUNT 10.5 K/uL (4.8-10.8)
[2017-09-26 09:52] LABS: ALB/GLOB RATIO 0.5 (1.0-2.1); ALBUMIN 2.3 g/dL (3.5-5.0); CALCIUM 9.3 mg/dl (8.6-10.4)
[2017-09-26 10:15] LABS: ANISOCYTOSIS SLIGHT; BURR CELLS SLIGHT; HYPOCHROMIC SLIGHT; LYMPHOCYTE 7 % (20-40); MONOCYTE 9 % (0-10); NEUTROPHIL 84 % (50-75); NUCLEATED RED BLOOD CELL 1 % (0-0); PLATELET ESTIMATE DECREASED (NORMAL); POIKILOCYTOSIS SLIGHT; TARGET CELLS SLIGHT; TOTAL CELLS COUNTED 100
--- NOTE | 2017-09-26 13:53 | CP.PCM.PN ---
Subjective - Date & Time of Evaluation Date of Evaluation: 09/26/17 Time of Evaluation: 13:51 - Subjective Subjective: CHIEF COMPLAINTS TODAY : abdominal distention and discomfort with mild shortness of breath ROS. HEENT : N. Resp : No cough, wheezing ,pleuritic CP ,or hemoptysis Cardio : No anginal CP, PND, orthopnea, palpitation GI : No n/v ,diarrhea or GI bleeding . 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 Musculoskel : No joint swelling , Derm : No rash Psych : Normal affect. Ext : No swelling ,calf pain PE. Pt. is alert awake in no distress. V.S As noted in the chart Head ,ear nose,throat and eyes : Normal. Neck : Supple with normal carotids. Lungs: Clear air entry. Heart : S1 & S2 normal with S4. No murmur. Abd : Soft non tender with normal bowel sounds.abdomen is distended secondary to ascites Neuro : Moves all ext. with no localized deficit. Ext : No edema with intact pulses.Non tender calves Derm : No rashes or decubitus ulcer. LABS/RADIOLOGY: ASSESSMENT/PLAN : hematology and GI consult and follow-up noted. Patient will be receiving fresh frozen plasma monitor INR and go for paracentesis. Patient's BUN and creatinine is slightly trending upwards will monitor. Objective - Vital Signs/Intake and Output Vital Signs (last 24 hours): Temp Pulse Resp BP Pulse Ox 97.9 F 97 H 18 94/53 L 95 09/26/17 07:50 09/26/17 07:55 09/26/17 07:50 09/26/17 11:41 09/26/17 07:50 - Medications Medications: Current Medications Furosemide (Lasix) 40 mg PO DAILY [facility] Last Admin: 09/26/17 11:41 Dose: Not Given Lactulose (Enulose) 20 gm PO BID [facility] Last Admin: 09/26/17 10:08 Dose: 20 gm Levothyroxine Sodium (Synthroid) 100 mcg PO DAILY@0630 [facility] Last Admin: 09/26/17 05:46 Dose: 100 mcg Oxycodone HCl (Oxycodone Immediate Release Tab) 10 mg PO Q6H PRN PRN Reason: Pain, severe (8-10) Last Admin: 09/25/17 22:07 Dose: 10 mg Prednisone (Prednisone Tab) 40 mg PO DAILY [facility] Last Admin: 09/26/17 10:08 Dose: 40 mg Spironolactone (Aldactone) 100 mg PO DAILY [facility] Last Admin: 09/26/17 11:41 Dose: Not Given - Labs Labs: 09/26/17 09:17 09/26/17 09:17 PT 40.9 SECONDS (9.7-12.2) H* 09/25/17 06:38 INR 3.7 09/25/17 06:38 APTT 36 SECONDS (21-34) H 09/18/17 23:53
[2017-09-26] MEDS ORDERED: Albumin Human 25% (12.5 gm/50 ml) IV ONE (14:39)
[2017-09-26] MEDS ORDERED: Albumin Human 5% (12.5 gm/250 ml) IV ONE (14:42)
--- NOTE | 2017-09-26 19:43 | CP.PCM.PN ---
Subjective - Date & Time of Evaluation Date of Evaluation: 09/26/17 Time of Evaluation: 19:43 - Subjective Subjective: CHIEF COMPLAINTS TODAY : AFEBRILE, VSS C/O ABDOMINAL DISTENSION +VE JAUNDICE GENERALIZED ANASARCA. seen by GI and appreciated. SEEN BY HEMATOLOGY and appreciated ANTIRETROVIRAL THERAPY HELD -09/24/17 ROS. HEENT : N SCLERA ICTERIC Resp : No cough, wheezing ,pleuritic CP ,or hemoptysis Cardio : No anginal CP, PND, orthopnea, palpitation GI : No n/v ,diarrhea or GI bleeding .ABD +VE TENSE ASCITES CRA : No headache, vertigo, focal deficit. Musculoskel : No joint swelling , Derm : No rash Psych : Normal affect. Ext : 3+ EDEMA ,calf pain PE. Pt. is alert awake / UNCOMFORTABLE V.S As noted in the chart Head ,ear nose,throat and eyes : Normal. Neck : Supple with normal carotids. Lungs: DIMINISHED BREATH SOUNDS OTHERWISE CLEAR Heart : S1 & S2 normal with S4. No murmur. Abd : Soft non tender with normal bowel sounds.abdomen is distended secondary to ASCITIS Neuro : Moves all ext. with no localized deficit. Ext : 3+ EDEMA with intact pulses.Non tender calves Derm : No rashes or decubitus ulcer. LABS/RADIOLOGY: REVIEWED. WBC 11.6 H/H 10.3 LFTS INCREASING TOTAL BILI 15.5 /DIRECT BILI 9.7 AST 274. ALT 273 AP 132 HEPATITIS SCREENING NEGATIVE FOR A.B,C. ALB 2.7 [id number] CELLS 663- >601 hiv rna QUANTITATIVE pcr-<1.30 NOT DETECTED. Objective - Vital Signs/Intake and Output Vital Signs (last 24 hours): Temp Pulse Resp BP Pulse Ox 97.8 F 95 H 20 109/68 95 09/26/17 15:05 09/26/17 15:05 09/26/17 15:05 09/26/17 15:05 09/26/17 15:05 Intake and Output: 09/26/17 09/27/17 18:59 06:59 Intake Total 480 Output Total 400 Balance 80 - Medications Medications: Current Medications Albumin Human (Albutein 5% 500 Ml) 500 mls @ 166.667 mls/hr IVPB Q3H BEV Stop: 09/27/17 04:59 Last Admin: 09/26/17 18:15 Dose: 166.667 mls/hr Lactulose (Enulose) 20 gm PO BID [facility] Last Admin: 09/26/17 17:58 Dose: 20 gm Levothyroxine Sodium (Synthroid) 100 mcg PO DAILY@0630 [facility] Last Admin: 09/26/17 05:46 Dose: 100 mcg Oxycodone HCl (Oxycodone Immediate Release Tab) 10 mg PO Q6H PRN PRN Reason: Pain, severe (8-10) Last Admin: 09/25/17 22:07 Dose: 10 mg Rifaximin (Xifaxan) 550 mg PO BID [facility] PRN Reason: Protocol Last Admin: 09/26/17 17:58 Dose: 550 mg - Labs Labs: 09/26/17 09:17 09/26/17 09:17 PT 40.9 SECONDS (9.7-12.2) H* 09/25/17 06:38 INR 3.7 09/25/17 06:38 APTT 36 SECONDS (21-34) H 09/18/17 23:53 Assessment and Plan (1) Alcoholic hepatitis with ascites Assessment & Plan: SERUM AMMONIA LEVEL < 9. ON TRIAL OF DIURETICS AND LACTULOSE /RIFAXIMIN as per GI. LFTS NOTED. PT FOR PARACENTESIS ONCE INR CONTROLLED. PER HEMATOLOGY AND GI. Status: Chronic (2) Dyspnea Status: Acute (3) Jaundice Status: Acute (4) HIV (human immunodeficiency virus infection) Assessment & Plan: PATIENT'S VIRAL LOAD IS UNDETECTABLE <1.30 CD4 > 600. OFF ANTIRETROVIRAL RX IN VIEW OF WORSENING LFTS WILL DISCUSS WITH GI/PMD. Status: Chronic (5) Thrombocytopenia Assessment & Plan: PATIENT REMAINS THROMBOCYTOPENIC MOST PROBABLY SECONDARY TO LIVER DISEASE AND HIV. Status: Acute (6) Hypothyroidism Status: Acute (7) Renal insufficiency Assessment & Plan: CREATININE 2.0./bun 53 GFR 35. NEPHROLOGY CONSULT ORDERED. Status: Acute
[2017-09-26 23:01] LABS: SQUAMOUS EPITHIAL < 1 /hpf (0-5); URINE AMORPHOUS SEDIMENT OCC /ul (<OCC); URINE BILIRUBIN 1+ (NEGATIVE); URINE BLOOD NEGATIVE (NEGATIVE); URINE CLARITY Hazy (Clear); URINE GLUCOSE (UA) NORMAL (Normal); URINE LEUKOCYTE ESTERASE NEG Leu/uL (Negative); URINE PROTEIN NEGATIVE (NEGATIVE); URINE UROBILINOGEN NORMAL mg/dL (0.2-1.0)
[2017-09-26 23:13] LABS: URINE COLOR YELLOW (YELLOW)
[2017-09-27 03:50] LABS: OSMOLALITY,URINE 555 mosm/kg (300-1000)
[2017-09-27 04:57] LABS: HIV-1 GENOTYPE NOT DETECTED
[2017-09-27 05:39] LABS: CREATININE, RANDOM URINE 326 mg/dL
[2017-09-27] MEDS: Levothyroxine 100 MCG TAB PO SCH (06:05)
--- NOTE | 2017-09-27 06:15 | CP.PCM.PN ---
<Amrit Taylor - Last Filed: 09/27/17 09:08> Subjective - Date & Time of Evaluation Date of Evaluation: 09/27/17 Time of Evaluation: 06:15 - Subjective Subjective: GI Fellow PGY4, Progress note. Patient seen and examined. FFP frequency decreased overnight while albumin running. He is complaining of abdominal distension without significant pain. No fevers. He denies significant SOB compared to yesterday. He admits increased urine output. 12pt ROS completed and negative except for as above. Objective - Vital Signs/Intake and Output Vital Signs (last 24 hours): Temp Pulse Resp BP Pulse Ox 98 F 106 H 20 130/72 96 09/27/17 06:10 09/27/17 06:10 09/27/17 06:10 09/27/17 06:10 09/27/17 06:10 Intake and Output: 09/26/17 09/27/17 18:59 06:59 Intake Total 480 750 Output Total 400 Balance 80 750 - Medications Medications: Current Medications Lactulose (Enulose) 20 gm PO BID [facility] Last Admin: 09/26/17 17:58 Dose: 20 gm Levothyroxine Sodium (Synthroid) 100 mcg PO DAILY@0630 [facility] Last Admin: 09/27/17 06:05 Dose: 100 mcg Oxycodone HCl (Oxycodone Immediate Release Tab) 10 mg PO Q6H PRN PRN Reason: Pain, severe (8-10) Last Admin: 09/25/17 22:07 Dose: 10 mg Rifaximin (Xifaxan) 550 mg PO BID [facility] PRN Reason: Protocol Last Admin: 09/26/17 17:58 Dose: 550 mg - Labs Labs: 09/26/17 09:17 09/26/17 09:17 PT 40.9 SECONDS (9.7-12.2) H* 09/25/17 06:38 INR 3.7 09/25/17 06:38 APTT 36 SECONDS (21-34) H 09/18/17 23:53 - Constitutional Appears: Non-toxic, No Acute Distress, Chronically Ill - Head Exam Head Exam: ATRAUMATIC, NORMAL INSPECTION, NORMOCEPHALIC - Eye Exam Eye Exam: EOMI, Scleral icterus - ENT Exam ENT Exam: Mucous Membranes Moist, Normal Exam - Respiratory Exam Respiratory Exam: Clear to Ausculation Bilateral. absent: Respiratory Distress Additional comments: Mild increased respiratory effort. - Cardiovascular Exam Cardiovascular Exam: REGULAR RHYTHM, +S1, +S2. absent: Bradycardia, Tachycardia - GI/Abdominal Exam GI & Abdominal Exam: Distended, Hyperactive Bowel Sounds. absent: Tenderness Additional comments: Percussion dull. - Extremities Exam Extremities Exam: Pedal Edema. absent: Calf Tenderness - Neurological Exam Neurological Exam: Alert, CN II-XII Intact, Oriented x3 - Skin Skin Exam: Dry, Intact. absent: Cyanosis Assessment and Plan - Assessment and Plan (Free Text) Assessment: Patient is a 52yo male with PMHx significant for decompensated EtOH cirrhosis c/ b ascites, coagulopathy with ongoing EtOH use, also with PE, HIV on HAART who presented to the ED with abdominal distention. #Decompensated EtOH cirrhosis #Tense Ascites #Alcoholic hepatitis #Possible autoimmune hepatitis - SM-Ab + 1:80, IGG elevated. #HARRIET, ?HRS #HIV on HAART Plan: -Continue supportive care -MDF > 32; Unfortunately, he is not improving with steroids per [place] score. -Discontinue prednisone as risk>benefit. Will need to taper dose due prolonged exposure. Decrease 10mg q5days. 09/27 (30mg)--> 10/02 (20mg) etc. -paracentesis today after 5 units FFP. INR must be less than 2. Orders have been placed. -Consult to IR for paracentesis -Cell count, gram stain ordered -Give 25% albumin if >4L ascites removed -Continue lactulose. -HARRIET is an ominous sign and recommend renal consult. -Hold lasix, spironalactone in setting of HARRIET. Defer further diuretics to renal in setting of HARRIET and volume overload. -2g Na diet restriction -Pt will need EGD as an outpt to r/o esophageal varices *MELD-Na: 35 -DF:148 -Overall prognosis is poor. -He has been accepted by [facility] for transfer. <Kristopher Winston - Last Filed: 09/27/17 14:24> Objective - Vital Signs/Intake and Output Vital Signs (last 24 hours): Temp Pulse Resp BP Pulse Ox 97.5 F L 106 H 22 109/57 L 92 L 09/27/17 12:40 09/27/17 12:40 09/27/17 12:40 09/27/17 12:40 09/27/17 12:10 Intake and Output: 09/27/17 09/27/17 06:59 18:59 Intake Total 750 796 Balance 750 796 - Medications Medications: Current Medications Lactulose (Enulose) 20 gm PO BID [facility] Last Admin: 09/27/17 11:08 Dose: Not Given Levothyroxine Sodium (Synthroid) 100 mcg PO DAILY@0630 [facility] Last Admin: 09/27/17 06:05 Dose: 100 mcg Oxycodone HCl (Oxycodone Immediate Release Tab) 10 mg PO Q6H PRN PRN Reason: Pain, severe (8-10) Last Admin: 09/25/17 22:07 Dose: 10 mg Prednisone (Prednisone Tab) 30 mg PO DAILY [facility] Stop: 10/02/17 23:59 Last Admin: 09/27/17 09:51 Dose: 30 mg Rifaximin (Xifaxan) 550 mg PO BID [facility] PRN Reason: Protocol Last Admin: 09/27/17 09:51 Dose: 550 mg - Labs Labs: 09/26/17 09:17 09/26/17 09:17 PT 40.9 SECONDS (9.7-12.2) H* 09/25/17 06:38 INR 3.7 09/25/17 06:38 APTT 36 SECONDS (21-34) H 09/18/17 23:53 Attending/Attestation - Attestation I have personally seen and examined this patient.: Yes I have fully participated in the care of the patient.: Yes I have reviewed all pertinent clinical information, including history, physical exam and plan: Yes Notes (Text): 09/27/17 14:20 I have seen and examined patient with GI fellow. No acute events overnight, he does report some dyspnea following blood product infusion which has since resolved. He also reports ongoing generalized abdominal pain but denies nausea , vomiting, fever/chills. Tolerating PO diet without difficulty. He had one bowel movement yesterday. Review of vitals from today shows tachycardia. ETOH decompensated cirrhosis HIV Abdominal pain, ascites Acute renal insufficiency - Low sodium diet as tolerated - Patient receiving FFP and platelet transfusion in order to facilitate paracentesis, follow up INR - Continue to monitor LFTs - Continue with lactulose for HE prevention - Would taper off steroid therapy given non-efficacy in this situation, LFTs remain unchanged - Continue to monitor creatinine, follow up nephrology recommendations - Patient accepted for transfer to [facility], will continue to monitor patient clinical course
--- NOTE | 2017-09-27 09:08 | CP.PCM.PN ---
Subjective - Date & Time of Evaluation Date of Evaluation: 09/27/17 Time of Evaluation: 09:03 - Subjective Subjective: Patient evaluated yesterday evening; full consult dictated; agree with volume challenge started by GI yesterday (1g/kg IV albumin over 24 hrs); rate of infusion of both IV albumin and FFP cut in half as patient was getting volume overloaded, will also give prn lasix IV to avoid respiratory compromise; If no improvement in renal function after volume challenge, should be started on treatment for HRS (midrodrine and octreotide); Objective - Vital Signs/Intake and Output Vital Signs (last 24 hours): Temp Pulse Resp BP Pulse Ox 97.5 F L 106 H 22 138/76 92 L 09/27/17 08:05 09/27/17 08:05 09/27/17 08:05 09/27/17 08:05 09/27/17 08:05 Intake and Output: 09/27/17 09/27/17 06:59 18:59 Intake Total 750 Balance 750 - Medications Medications: Current Medications Furosemide (Lasix) 120 mg IV ONCE ONE Stop: 09/27/17 08:16 Lactulose (Enulose) 20 gm PO BID [facility] Last Admin: 09/26/17 17:58 Dose: 20 gm Levothyroxine Sodium (Synthroid) 100 mcg PO DAILY@0630 [facility] Last Admin: 09/27/17 06:05 Dose: 100 mcg Oxycodone HCl (Oxycodone Immediate Release Tab) 10 mg PO Q6H PRN PRN Reason: Pain, severe (8-10) Last Admin: 09/25/17 22:07 Dose: 10 mg Rifaximin (Xifaxan) 550 mg PO BID [facility] PRN Reason: Protocol Last Admin: 09/26/17 17:58 Dose: 550 mg - Labs Labs: 09/26/17 09:17 09/26/17 09:17 PT 40.9 SECONDS (9.7-12.2) H* 09/25/17 06:38 INR 3.7 09/25/17 06:38 APTT 36 SECONDS (21-34) H 09/18/17 23:53
--- NOTE | 2017-09-27 09:48 | RAD ---
Date of service: 09/26/2017 HISTORY: R/O PULMONARY VASCULAR CONGESTION COMPARISON: 09/18/2017 FINDINGS: LUNGS: Very shallow lung volumes noted. Bibasilar discoid atelectatic changes- similar in appearance Of the visualized mid to upper lung zones unknown pathology appreciated. PLEURA: No significant pleural effusion identified, no pneumothorax apparent. CARDIOVASCULAR: Normal. OSSEOUS STRUCTURES: No significant abnormalities. VISUALIZED UPPER ABDOMEN: Normal. OTHER FINDINGS: Large body habitus IMPRESSION: Shallow lung volumes. Basilar discoid atelectasis. No interval pathology noted.
--- NOTE | 2017-09-27 11:01 | PCM.IRP ---
Chief Complaint: IR requested to perform paracentesis. Will plan paracentesis once INR is below 2.0 and platelets above 75. Objective - Vital Signs/Intake and Output Vital Signs (last 24 hours): Vital Signs - 24 hr 09/26/17 09/26/17 09/26/17 11:41 15:05 23:05 Temperature 97.8 F 98.1 F Pulse Rate 95 H 101 H Respiratory 20 20 Rate Blood Pressure 94/53 L 109/68 115/72 O2 Sat by Pulse 95 95 Oximetry 09/27/17 09/27/17 09/27/17 00:01 01:00 01:15 Temperature 98.3 F 9802 F H Pulse Rate 105 H 108 H 107 H Respiratory 20 20 Rate Blood Pressure 121/63 127/69 O2 Sat by Pulse 98 97 Oximetry 09/27/17 09/27/17 09/27/17 01:30 02:00 03:20 Temperature 98.2 F 98.3 F 98.3 F Pulse Rate 108 H 105 H 108 H Respiratory 20 20 20 Rate Blood Pressure 134/73 127/75 136/69 O2 Sat by Pulse 94 L 94 L 94 L Oximetry 09/27/17 09/27/17 09/27/17 03:40 03:55 04:10 Temperature 98.3 F 98.4 F 98.1 F Pulse Rate 110 H 106 H 103 H Respiratory 20 20 20 Rate Blood Pressure 139/70 129/75 125/66 O2 Sat by Pulse 94 L 96 95 Oximetry 09/27/17 09/27/17 09/27/17 04:11 04:40 06:10 Temperature 98.4 F 98 F Pulse Rate 105 H 108 H 106 H Respiratory 20 20 Rate Blood Pressure 128/74 130/72 O2 Sat by Pulse 95 96 Oximetry 09/27/17 09/27/17 09/27/17 07:05 07:10 07:35 Temperature 97.6 F 98.2 F 97.4 F L Pulse Rate 101 H 58 L 121 H Respiratory 20 20 22 Rate Blood Pressure 122/72 128/62 116/63 O2 Sat by Pulse 94 L 100 Oximetry 09/27/17 09/27/17 09/27/17 07:38 07:45 08:05 Temperature 98.1 F 97.5 F L 97.5 F L Pulse Rate 105 H 106 H 106 H Respiratory 20 18 22 Rate Blood Pressure 125/66 115/65 138/76 O2 Sat by Pulse 95 95 92 L Oximetry 09/27/17 09/27/17 09/27/17 09:20 09:35 09:49 Temperature 98 F 97.6 F 97.6 F Pulse Rate 102 H 109 H 108 H Respiratory 20 20 20 Rate Blood Pressure 113/58 L 110/58 L 114/59 L O2 Sat by Pulse Oximetry 09/27/17 09/27/17 09:53 10:26 Temperature 98.2 F Pulse Rate 105 H Respiratory 20 Rate Blood Pressure 114/59 L 115/63 O2 Sat by Pulse 91 L Oximetry Intake and Output (last 12 hours): Intake & Output 09/26/17 09/27/17 09/27/17 18:59 06:59 18:59 Intake Total 480 750 Output Total 400 Balance 80 750 Intake: Oral 480 150 Albumin 600 Output: Urine 400 Urine, Voided 400 Other: # Voids Urine, Voided 2 1 # Bowel Movements 1 0 - Medications Medications: Current Medications Lactulose (Enulose) 20 gm PO BID [facility] Last Admin: 09/27/17 09:54 Dose: 20 gm Levothyroxine Sodium (Synthroid) 100 mcg PO DAILY@0630 [facility] Last Admin: 09/27/17 06:05 Dose: 100 mcg Oxycodone HCl (Oxycodone Immediate Release Tab) 10 mg PO Q6H PRN PRN Reason: Pain, severe (8-10) Last Admin: 09/25/17 22:07 Dose: 10 mg Prednisone (Prednisone Tab) 30 mg PO DAILY [facility] Stop: 10/02/17 23:59 Last Admin: 09/27/17 09:51 Dose: 30 mg Rifaximin (Xifaxan) 550 mg PO BID [facility] PRN Reason: Protocol Last Admin: 09/27/17 09:51 Dose: 550 mg - Labs Labs (last 24 hours): Laboratory Results - last 24 hr 09/20/17 09/26/17 09/26/17 09:42 15:21 22:19 Urine Color Yellow Urine Clarity Hazy Urine pH 5.0 Ur Specific [place] 1.021 Urine Protein Negative Urine Glucose (UA) Normal Urine Ketones Negative Urine Blood Negative Urine Nitrate Negative Urine Bilirubin 1+ H Urine Urobilinogen Normal Ur Leukocyte Esterase Neg Urine WBC (Auto) 1 Urine RBC (Auto) 1 Ur Squamous Epith Cells < 1 Amorphous Sediment Occ H Urine Osmolality Ur Random Creatinine U Random Total Protein Ur Random Sodium Urine Microalbumin HIV-1 Genotyping Not detected Blood Type A POSITIVE Antibody Screen Negative 09/27/17 09/27/17 09/27/17 00:59 01:01 02:17 Urine Color Urine Clarity Urine pH Ur Specific [place] Urine Protein Urine Glucose (UA) Urine Ketones Urine Blood Urine Nitrate Urine Bilirubin Urine Urobilinogen Ur Leukocyte Esterase Urine WBC (Auto) Urine RBC (Auto) Ur Squamous Epith Cells Amorphous Sediment Urine Osmolality 555 Ur Random Creatinine 326 U Random Total Protein 8.0 Ur Random Sodium < 5 Urine Microalbumin 20.5 H HIV-1 Genotyping Blood Type Antibody Screen
--- NOTE | 2017-09-27 11:45 | CON ---
DATE: 09/27/2017 LOCATION: [facility]. NEPHROLOGY CONSULTATION HISTORY OF PRESENT ILLNESS: The patient is a 52-year-old male with past medical history of HIV, status post PE, hypothyroidism, recently diagnosed with liver failure, presented to ED one week ago with dyspnea and worsening abdominal ascites. Nephrology now being consulted for acute renal failure. The patient was admitted to [facility] last month after presenting with dyspnea. At that time, he had GI workup and cause of liver failure/transaminitis was thought to be unclear. The patient had abdominal paracentesis done at that time with 4 L fluid drained. The patient was discharged on Lasix 20 mg daily and Aldactone 100 mg daily as well as p.o. prednisone 40 mg daily. The patient says that he has been compliant with his meds, reports decreased ability to ambulate due to severe leg swelling lately. Urination has decreased as well. Reports two soft stools daily that has been unchanged and due to being on lactulose. Appetite has been fair. The patient denies any nausea or vomiting. PAST MEDICAL HISTORY: As above. SOCIAL HISTORY: Alcohol abuse, although reports not drinking in the past several weeks. FAMILY HISTORY: Mother with asthma, diabetes, and hypertension. Father with hypertension and prostate cancer. Brother with prostate cancer. REVIEW OF SYSTEMS: CONSTITUTIONAL: Denies fevers or chills. HEENT: No dysphagia. RESPIRATORY: Dyspnea. CARDIOVASCULAR: No chest pain or palpitations. GI: Abdominal distention. : No dysuria. MUSCULOSKELETAL: No arthralgias or back pain. NEURO: Denies any dizziness. PHYSICAL EXAMINATION: VITAL SIGNS: This afternoon, blood pressure 109/68, heart rate 95, respirations 20, temperature 97.8, O2 sat 95%. GENERAL: Mildly dyspneic. Otherwise, able to converse coherently in full sentences. HEENT: Scleral icterus present. Moist mucous membranes. NECK: Elevated JVD. RESPIRATORY: Lungs are clear to auscultation bilaterally. No rales. No rhonchi. No wheezes. CARDIOVASCULAR: Heart sounds S1, S2 normal. No murmurs, no gallops, no rubs. GI: Abdomen soft, but distended. Tenderness present. : Unable to appreciate bladder distention, although limited exam. EXTREMITIES: Gross anasarca. Bilateral severe leg edema. SKIN: Warm. No cyanosis. NEURO: Mild left asterixis present. Otherwise, alert and oriented x3. PSYCHIATRIC: Normal mood. Normal affect. LABORATORY DATA: CBC: WBC 10.5, hemoglobin 9.4, hematocrit 28.3, platelets 49. Chemistry Panel: Sodium 127, potassium 5.3, chloride 90, bicarb 28, BUN 53, creatinine 2.0, glucose 133, calcium 9.3, T-bilirubin 15.6, AST 273, ALT 277, albumin 2.3. UA from today negative for protein. Chest x-ray directly observed showing elevation of diaphragm some increased pulmonary vascular congestion. ASSESSMENT AND PLAN: 1. Acute kidney injury. The patient with severe liver dysfunction, now with worsening renal function oliguric renal failure; mild hyperkalemia noted. Of note, the patient had been on diuretics with Lasix 40 mg daily and Aldactone 100 mg daily, need to rule out volume depletion. Checking urine electrolytes, particularly urine sodium. Agree with gastrointestinal team to give volume challenge with albumin 1 g/kg over 24 hour; however, given that the patient is already dyspneic and is set to get further blood products tonight. I recommend to avoid giving 5% albumin faster than 100 mL/hr. 2. Hyperkalemia, relatively mild, but in the setting of patient being on mineralocorticoid receptor antagonist. The patient may also have been intravascularly volume depleted with diuretics. We will look to see improvement with patient getting volume expansion with albumin and saline. 3. Hyponatremia, relatively mild, but progressive; in the setting of likely intravascular volume depletion, should improve with volume expansion. 4. Abdominal ascites. The patient had been on diuretics, but not sufficient to prevent reaccumulation of ascites fluid. The patient has total body sodium excess and we will benefit from diuretics in termite treater helper if renal function can be stabilized. For now, I agree with holding diuretics and trying to get paracentesis done. Should give 6 to 8 g of IV albumin replacement per liter of ascites fluid removed if indeed large task done. Thank you for this referral. We will be following up closely. Nadeem Triana MD
--- NOTE | 2017-09-27 14:00 | CP.PCM.PN ---
Subjective - Date & Time of Evaluation Date of Evaluation: 09/27/17 Time of Evaluation: 13:58 - Subjective Subjective: CHIEF COMPLAINTS TODAY : abdominal distention and discomfort with mild shortness of breath there is not much improvement from the previous day's. ROS. HEENT : N. Resp : No cough, wheezing ,pleuritic CP ,or hemoptysis Cardio : No anginal CP, PND, orthopnea, palpitation GI : No n/v ,diarrhea or GI bleeding . [employer] : No headache, vertigo, focal deficit. Musculoskel : No joint swelling , Derm : No rash Psych : Normal affect. Ext : No swelling ,calf pain PE. Pt. is alert awake in no distress. V.S As noted in the chart Head ,ear nose,throat and eyes : Normal. Neck : Supple with normal carotids. Lungs: Clear air entry. Heart : S1 & S2 normal with S4. No murmur. Abd : Soft non tender with normal bowel sounds.abdomen is distended secondary to ascites Neuro : Moves all ext. with no localized deficit. Ext : No edema with intact pulses.Non tender calves Derm : No rashes or decubitus ulcer. LABS/RADIOLOGY: today's lab is pending ASSESSMENT/PLAN : continue present IV hydration with albumin fresh frozen plasma, as per interventional radiology INR has to be below 2 and platelets more than 75,000. We will discuss with GI for transfer to liver center. Objective - Vital Signs/Intake and Output Vital Signs (last 24 hours): Temp Pulse Resp BP Pulse Ox 97.5 F L 106 H 22 109/57 L 92 L 09/27/17 12:40 09/27/17 12:40 09/27/17 12:40 09/27/17 12:40 09/27/17 12:10 Intake and Output: 09/27/17 09/27/17 11:59 23:59 Intake Total 796 Balance 796 - Medications Medications: Current Medications Lactulose (Enulose) 20 gm PO BID [facility] Last Admin: 09/27/17 11:08 Dose: Not Given Levothyroxine Sodium (Synthroid) 100 mcg PO DAILY@0630 [facility] Last Admin: 09/27/17 06:05 Dose: 100 mcg Oxycodone HCl (Oxycodone Immediate Release Tab) 10 mg PO Q6H PRN PRN Reason: Pain, severe (8-10) Last Admin: 09/25/17 22:07 Dose: 10 mg Prednisone (Prednisone Tab) 30 mg PO DAILY [facility] Stop: 10/02/17 23:59 Last Admin: 09/27/17 09:51 Dose: 30 mg Rifaximin (Xifaxan) 550 mg PO BID [facility] PRN Reason: Protocol Last Admin: 09/27/17 09:51 Dose: 550 mg - Labs Labs: 09/26/17 09:17 09/26/17 09:17 PT 40.9 SECONDS (9.7-12.2) H* 09/25/17 06:38 INR 3.7 09/25/17 06:38 APTT 36 SECONDS (21-34) H 09/18/17 23:53
--- NOTE | 2017-09-27 14:11 | CP.PCM.PN ---
Subjective - Date & Time of Evaluation Date of Evaluation: 09/27/17 Time of Evaluation: 12:30 - Subjective Subjective: PGY-[address] Triana. No acute events noted overnight. Patient seen while receiving 5th bag of FFP. A morning dose of lasix 120mg iv was given - patient responded with urinary output of 500ml. He stated he felt weak and overall felt "lousy". He complained of shortness of breath and stated his breathing is worse when he tries to sit- up or standup. He was saturating at 91% on 6L NC. Complained of abdominal discomfort. Denied chest pain, fever, bleeding, palpitations. Objective - Vital Signs/Intake and Output Vital Signs (last 24 hours): Temp Pulse Resp BP Pulse Ox 97.5 F L 106 H 22 109/57 L 92 L 09/27/17 12:40 09/27/17 12:40 09/27/17 12:40 09/27/17 12:40 09/27/17 12:10 Intake and Output: 09/27/17 09/27/17 06:59 18:59 Intake Total 750 796 Balance 750 796 - Medications Medications: Current Medications Lactulose (Enulose) 20 gm PO BID [facility] Last Admin: 09/27/17 11:08 Dose: Not Given Levothyroxine Sodium (Synthroid) 100 mcg PO DAILY@0630 [facility] Last Admin: 09/27/17 06:05 Dose: 100 mcg Oxycodone HCl (Oxycodone Immediate Release Tab) 10 mg PO Q6H PRN PRN Reason: Pain, severe (8-10) Last Admin: 09/25/17 22:07 Dose: 10 mg Prednisone (Prednisone Tab) 30 mg PO DAILY [facility] Stop: 10/02/17 23:59 Last Admin: 09/27/17 09:51 Dose: 30 mg Rifaximin (Xifaxan) 550 mg PO BID [facility] PRN Reason: Protocol Last Admin: 09/27/17 09:51 Dose: 550 mg - Labs Labs: 09/26/17 09:17 09/26/17 09:17 PT 40.9 SECONDS (9.7-12.2) H* 09/25/17 06:38 INR 3.7 09/25/17 06:38 APTT 36 SECONDS (21-34) H 09/18/17 23:53 - Constitutional Appears: In Acute Distress, Chronically Ill - Head Exam Head Exam: ATRAUMATIC, NORMAL INSPECTION - Eye Exam Eye Exam: EOMI, Scleral icterus. absent: Normal appearance Pupil Exam: PERRL - ENT Exam ENT Exam: Mucous Membranes Moist - Neck Exam Neck Exam: Full ROM, Normal Inspection. absent: Tenderness - Respiratory Exam Respiratory Exam: Rales. absent: Clear to Ausculation Bilateral, Wheezes - Cardiovascular Exam Cardiovascular Exam: Tachycardia, JVD, +S1, +S2. absent: Murmur - GI/Abdominal Exam GI & Abdominal Exam: Distended, Firm, Tenderness, Hypoactive Bowel Sounds. absent: Soft - Exam Additional comments: w/ wayne draining normal appearing urine - Extremities Exam Extremities Exam: Full ROM, Pedal Edema - Neurological Exam Neurological Exam: Alert, Awake, Oriented x3 - Skin Skin Exam: Intact, Warm Assessment and Plan - Assessment and Plan (Free Text) Assessment: Mr Luong is a 52 year old male with a PMHx of decompensated EtOH cirrhosis complicated by ascites, coagulopathy 2/2 cirrhosis, hypothyroidism, also with remote hx of PE, HIV currently not on antiretroviral therapy due to elevated LFTs, who presented to the ED with abdominal distention. Nephrology has been consulted for acute renal insufficiency. ACUTE KIDNEY INJURY Likely 2/2 to hepatorenal syndrome Agree with GI plan of volume challenge * 3 bags of albumin 5% 500ml given * 5 bags FFP given, rate set to 1 bag every 2 hours as to not volume overload given patient is already dyspneic * lasix 120mg given this morning to balance volume challenge and volume overload in light of patient's dysnpea - patient responded by making urine approx 500cc of normal appearing urine output Holding lasix and spironalactone for now 2g Na diet restriction F/U complement studies ASCITIES 2/2 to DECOMPENSATED ETOH CIRRHOSIS US guided paracentesis performed today with 4 liters of straw colored fluid removed Should give 6 to 8g of IV albumin replacement per liter of asicites fluid removed HYPERKALEMIA, Resolved Relatively mild and in the setting of patient being on aldactone, may also have been intravascularly depleted with diuretics Monitor HYPONATREMIA, Improved Likely 2/2 to volume depletion Monitor
[2017-09-27 14:22] LABS: INR 2.1
[2017-09-27 14:31] LABS: ALB/GLOB RATIO 0.8 (1.0-2.1); ALBUMIN 3.4 g/dL (3.5-5.0); CALCIUM 9.7 mg/dl (8.6-10.4)
--- NOTE | 2017-09-27 14:36 | PCM.SURG1 ---
Surgeon's Initial Post Op Note - Surgeon's Notes Surgeon: Soy Munson MD Enroute Controller: NONE Type of Anesthesia: Local Pre-Operative Diagnosis: Ascites Operative Findings: US showed large amount of ascites Post-Operative Diagnosis: Ascites Operation Performed: US guided paracentesis Specimen/Specimens Removed: 4 liters of straw colored fluid Estimated Blood Loss: EBL {In ML}: 0 Blood Products Given: N/A Drains Used: No Drains Post-Op Condition: Fair Date of Surgery/Procedure: 09/27/17 Time of Surgery/Procedure: 14:30
[2017-09-27 16:04] LABS: BODY FLUID TYPE PERITONEAL/ASCITES
--- NOTE | 2017-09-27 16:22 | CP.PCM.PN ---
Subjective - Date & Time of Evaluation Date of Evaluation: 09/27/17 Time of Evaluation: 12:00 - Subjective Subjective: Has abdominal discomfort, some shortness of breath s/p FFP Objective - Vital Signs/Intake and Output Vital Signs (last 24 hours): Temp Pulse Resp BP Pulse Ox 98 F 111 H 18 110/67 98 09/27/17 15:51 09/27/17 15:51 09/27/17 15:51 09/27/17 15:51 09/27/17 15:51 Intake and Output: 09/27/17 09/27/17 06:59 18:59 Intake Total 750 796 Balance 750 796 - Medications Medications: Current Medications Lactulose (Enulose) 20 gm PO BID [facility] Last Admin: 09/27/17 11:08 Dose: Not Given Levothyroxine Sodium (Synthroid) 100 mcg PO DAILY@0630 [facility] Last Admin: 09/27/17 06:05 Dose: 100 mcg Oxycodone HCl (Oxycodone Immediate Release Tab) 10 mg PO Q6H PRN PRN Reason: Pain, severe (8-10) Last Admin: 09/25/17 22:07 Dose: 10 mg Prednisone (Prednisone Tab) 30 mg PO DAILY [facility] Stop: 10/02/17 23:59 Last Admin: 09/27/17 09:51 Dose: 30 mg Rifaximin (Xifaxan) 550 mg PO BID [facility] PRN Reason: Protocol Last Admin: 09/27/17 09:51 Dose: 550 mg - Labs Labs: 09/26/17 09:17 09/27/17 14:08 PT 23.0 SECONDS (9.7-12.2) H D 09/27/17 14:04 INR 2.1 D 09/27/17 14:04 APTT 38 SECONDS (21-34) H 09/27/17 14:04 - Head Exam Head Exam: ATRAUMATIC - Eye Exam Eye Exam: Scleral icterus - ENT Exam ENT Exam: Mucous Membranes Dry - Respiratory Exam Respiratory Exam: NORMAL BREATHING PATTERN - Cardiovascular Exam Cardiovascular Exam: +S1, +S2 - GI/Abdominal Exam GI & Abdominal Exam: Normal Bowel Sounds - Extremities Exam Extremities Exam: Pedal Edema Assessment and Plan (1) Coagulopathy Assessment & Plan: improved s/p ffp secondary to liver cirrhosis Status: Acute (2) Thrombocytopenia Assessment & Plan: liver disease, splenic sequestration, HIV Status: Acute (3) Anemia Assessment & Plan: 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
[2017-09-27 16:48] LABS: BF GROSS APPEARANCE SL CLOUDY (CLEAR); BODY FLUID MONO/MACROPHAGE 3 % (0-0)
[2017-09-27] MEDS ORDERED: Albumin Human 25% (12.5 gm/50 ml) IV ONE (18:47)
--- NOTE | 2017-09-27 19:33 | CP.PCM.PN ---
Subjective - Date & Time of Evaluation Date of Evaluation: 09/27/17 Time of Evaluation: 19:33 - Subjective Subjective: CHIEF COMPLAINTS TODAY : AFEBRILE, VS NOTED S/P PARACENTESIS BY IR TODAY _4.0 L FLUID REMOVED GENERALIZED ANASARCA. ROS. 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 Musculoskel : No joint swelling , Derm : No rash Psych : Normal affect. Ext : 2+ EDEMA ,calf pain PE. Pt. is alert awake / COMFORTABLE TODAY V.S As noted in the chart Head ,ear nose,throat and eyes : Normal.ICTERIC Neck : Supple with normal carotids. Lungs: DIMINISHED BREATH SOUNDS OTHERWISE CLEAR Heart : S1 & S2 normal with S4. No murmur. Abd : Soft non tender with normal bowel sounds.abdomen is distended secondary to ASCITIS Neuro : Moves all ext. with no localized deficit. Ext : 3+ EDEMA with intact pulses.Non tender calves Derm : No rashes or decubitus ulcer. LABS/RADIOLOGY: REVIEWED. ABD. FLUID -NOTED CLOUDY,WBC 69,RBC 2762, 52N, 45L,2 M HEPATITIS SCREENING NEGATIVE FOR A.B,C. LA3OARMCI CELLS 663- >601 hiv rna QUANTITATIVE pcr-<1.30 NOT DETECTED. Objective - Vital Signs/Intake and Output Vital Signs (last 24 hours): Temp Pulse Resp BP Pulse Ox 98 F 111 H 18 110/67 98 09/27/17 15:51 09/27/17 15:51 09/27/17 15:51 09/27/17 15:51 09/27/17 15:51 Intake and Output: 09/27/17 09/28/17 18:59 06:59 Intake Total 2268 Output Total 1100 Balance 1168 - Medications Medications: Current Medications Albumin Human (Albumin Human 25% (12.5 Gm/50 Ml)) 12.5 gm IV Q3H BEV Stop: 09/28/17 16:01 Lactulose (Enulose) 20 gm PO BID BEV Last Admin: 09/27/17 11:08 Dose: Not Given Levothyroxine Sodium (Synthroid) 100 mcg PO DAILY@0630 [facility] Last Admin: 09/27/17 06:05 Dose: 100 mcg Oxycodone HCl (Oxycodone Immediate Release Tab) 10 mg PO Q6H PRN PRN Reason: Pain, severe (8-10) Last Admin: 09/25/17 22:07 Dose: 10 mg Prednisone (Prednisone Tab) 30 mg PO DAILY BEV Stop: 10/02/17 23:59 Last Admin: 09/27/17 09:51 Dose: 30 mg - Labs Labs: 09/26/17 09:17 09/27/17 14:08 PT 23.0 SECONDS (9.7-12.2) H D 09/27/17 14:04 INR 2.1 D 09/27/17 14:04 APTT 38 SECONDS (21-34) H 09/27/17 14:04 Assessment and Plan (1) Alcoholic hepatitis with ascites Assessment & Plan: S/P PARACENTESIS 09/27/17. 4 l FLUID REMOVED. ASCITES FLUID CLOUDY- - cULTURE -VE X 24 HOURS. ON iv CEFEPIME 1 G EVERY 12 HOURLY FOR NOW 09/27/17 ?SBP WHILE AWAITING FINAL CULTURES. Status: Chronic (2) Dyspnea Status: Acute (3) Jaundice Assessment & Plan: lftS TOTAL BILI 17.1 TODAY. inr 2.1. Status: Acute (4) HIV (human immunodeficiency virus infection) Assessment & Plan: PATIENT'S VIRAL LOAD IS UNDETECTABLE <1.30 CD4 > 600. OFF ANTIRETROVIRAL RX IN VIEW OF WORSENING LFTS WILL DISCUSS WITH GI/PMD. Status: Chronic (5) Thrombocytopenia Status: Acute (6) Hypothyroidism Status: Acute (7) Renal insufficiency Assessment & Plan: CREATININE 1.5. /BUN 56 RENAL ON BOARD. Status: Acute
[2017-09-27] MEDS: Cefepime IV 1 gm in Dextrose 1 GM/50 ML BAG IVPB SCH (20:56)
[2017-09-27 23:21] LABS: URINE BILIRUBIN NEGATIVE (NEGATIVE); URINE BLOOD 2+ (NEGATIVE); URINE CLARITY Clear (Clear); URINE COLOR Amber (YELLOW); URINE GLUCOSE (UA) NORMAL (Normal); URINE HYALINE CAST 0-2 /lpf (0-2); URINE LEUKOCYTE ESTERASE NEG Leu/uL (Negative); URINE PROTEIN NEGATIVE (NEGATIVE); URINE UROBILINOGEN NORMAL mg/dL (0.2-1.0)
[2017-09-28] MEDS: Albumin Human 25% (12.5 gm/50 ml) IV SCH ×4 (01:15→14:00)
[2017-09-28] MEDS: Levothyroxine 100 MCG TAB PO SCH (06:16)
--- NOTE | 2017-09-28 06:52 | CP.PCM.PN ---
<Amrit Taylor - Last Filed: 09/28/17 14:04> Subjective - Date & Time of Evaluation Date of Evaluation: 09/28/17 Time of Evaluation: 06:51 - Subjective Subjective: GI Fellow PGY4, Progress note. 4L Straw colored ascites fluid removed yesterday. Patient seen and examined at bedside. Nursing reports patient cannot be transferred due to insurance reasons. He admits good urine output. He had large BM last night and compliant with lactulose. He complains of rattle in throat. No cough. Still on NC He denies history of lung problems. He denied abdominal pain, fevers. 12pt ROS completed and negative except for as above. Addendum: Apparently transferred to ICU for SOB, ?PNA vs CHF. Objective - Vital Signs/Intake and Output Vital Signs (last 24 hours): Temp Pulse Resp BP Pulse Ox 98.6 F 103 H 20 119/61 93 L 09/27/17 23:00 09/28/17 04:24 09/27/17 23:00 09/27/17 23:00 09/27/17 23:00 Intake and Output: 09/27/17 09/28/17 18:59 06:59 Intake Total 2268 Output Total 1100 950 Balance 1168 -950 - Medications Medications: Current Medications Albumin Human (Albumin Human 25% (12.5 Gm/50 Ml)) 12.5 gm IV Q3H [facility] Stop: 09/28/17 16:01 Last Admin: 09/28/17 06:17 Dose: 12.5 gm Cefepime HCl (Maxipime Iv 1 Gm Premix) 1 gm in 50 mls @ 100 mls/hr IVPB Q12H BEV PRN Reason: Protocol Last Admin: 09/27/17 20:56 Dose: 100 mls/hr Lactulose (Enulose) 20 gm PO BID [facility] Last Admin: 09/27/17 20:19 Dose: Not Given Levothyroxine Sodium (Synthroid) 100 mcg PO DAILY@0630 [facility] Last Admin: 09/28/17 06:16 Dose: 100 mcg Oxycodone HCl (Oxycodone Immediate Release Tab) 10 mg PO Q6H PRN PRN Reason: Pain, severe (8-10) Last Admin: 09/25/17 22:07 Dose: 10 mg Prednisone (Prednisone Tab) 30 mg PO DAILY BEV Stop: 10/02/17 23:59 Last Admin: 09/27/17 09:51 Dose: 30 mg - Labs Labs: 09/26/17 09:17 09/27/17 14:08 PT 23.0 SECONDS (9.7-12.2) H D 09/27/17 14:04 INR 2.1 D 09/27/17 14:04 APTT 38 SECONDS (21-34) H 09/27/17 14:04 - Constitutional Appears: Well, Non-toxic, No Acute Distress - Head Exam Head Exam: ATRAUMATIC, NORMAL INSPECTION, NORMOCEPHALIC - Eye Exam Eye Exam: EOMI, Scleral icterus - ENT Exam ENT Exam: Mucous Membranes Moist, Normal Exam - Respiratory Exam Respiratory Exam: Decreased Breath Sounds, NORMAL BREATHING PATTERN. absent: Respiratory Distress - Cardiovascular Exam Cardiovascular Exam: REGULAR RHYTHM, +S1, +S2 - GI/Abdominal Exam GI & Abdominal Exam: Distended, Soft, Normal Bowel Sounds. absent: Tenderness - Extremities Exam Extremities Exam: Full ROM, Pedal Edema - Neurological Exam Neurological Exam: Alert, Awake, Oriented x3 - Psychiatric Exam Psychiatric exam: Normal Affect, Normal Mood - Skin Skin Exam: Dry, Intact, Normal Color Assessment and Plan - Assessment and Plan (Free Text) Assessment: Patient is a 52yo male with PMHx significant for decompensated EtOH cirrhosis c/ b ascites, coagulopathy with ongoing EtOH use, also with PE, HIV on HAART who presented to the ED with abdominal distention. #Decompensated EtOH cirrhosis #Tense Ascites #Alcoholic hepatitis #Possible autoimmune hepatitis - SM-Ab + 1:80, IGG elevated. #Thrombocytopenia #Anemia #SOB - ?TACO, left heart failure. Previous echo 09/03 showed normal EF. #HARRIET- Resolved. #HIV on HAART Plan: -Continue supportive care -MDF > 32; Unfortunately, he is not improving with steroids per [place] score. -Discontinue prednisone as risk>benefit. Will need to taper dose due prolonged exposure. Decrease 10mg q5days. 09/27 (30mg)--> 10/02 (20mg) etc. -paracentesis 09/27/17 with 4L removed, straw colored. PMNs very low, negative gram stain. No SBP. -75gm 25% albumin per nephro post paracentesis. -Patient appears to be volume overloaded. Agree with diuretics. -Anemia could be dilutional vs bleeding in setting of coagulopathy and thrombocytopenia, agree with CT scan. Vitals otherwise stable. -Continue lactulose. -2g Na diet restriction -Defer to ID on when to restart HAART -Pt will need EGD as an outpt to r/o esophageal varices *MELD-Na: 35 -DF:148 -Overall prognosis is poor. -He has been accepted by [facility] for transfer pending insurance auth. He should transfer based on decompensated cirrhosis in the setting of worsening liver function, alcoholic hepatitis and possible autoimmune hepatitis refractory to steroids. <Kristopher Winston - Last Filed: 09/28/17 14:15> Objective - Vital Signs/Intake and Output Vital Signs (last 24 hours): Temp Pulse Resp BP Pulse Ox 98.3 F 10 L 20 120/65 91 L 09/28/17 07:24 09/28/17 07:40 09/28/17 07:24 09/28/17 07:24 09/28/17 07:24 Intake and Output: 09/28/17 09/28/17 06:59 18:59 Output Total 950 Balance -950 - Medications Medications: Current Medications Albumin Human (Albumin Human 25% (12.5 Gm/50 Ml)) 12.5 gm IV Q8H BEV Stop: 09/29/17 14:01 Albuterol/Ipratropium (Duoneb 3 Mg/0.5 Mg (3 Ml) Ud) 3 ml INH RQ6 BEV Stop: 10/01/17 23:59 Cefepime HCl (Maxipime Iv 1 Gm Premix) 1 gm in 50 mls @ 100 mls/hr IVPB Q12H BEV PRN Reason: Protocol Last Admin: 09/28/17 08:08 Dose: 100 mls/hr Bumetanide 10 mg/ Dextrose 140 mls @ 5 mls/hr IV .Q24H BEV Lactulose (Enulose) 20 gm PO BID BEV Last Admin: 09/28/17 09:25 Dose: Not Given Levothyroxine Sodium (Synthroid) 100 mcg PO DAILY@0630 [facility] Last Admin: 09/28/17 06:16 Dose: 100 mcg Oxycodone HCl (Oxycodone Immediate Release Tab) 10 mg PO Q6H PRN PRN Reason: Pain, severe (8-10) Last Admin: 09/25/17 22:07 Dose: 10 mg Prednisone (Prednisone Tab) 30 mg PO DAILY BEV Stop: 10/02/17 23:59 Last Admin: 09/28/17 09:08 Dose: 30 mg Spironolactone (Aldactone) 25 mg PO BID BEV - Labs Labs: 09/28/17 09:54 09/28/17 08:34 PT 36.5 SECONDS (9.7-12.2) H* D 09/28/17 08:34 INR 3.3 D 09/28/17 08:34 APTT 38 SECONDS (21-34) H 09/27/17 14:04 Attending/Attestation - Attestation I have personally seen and examined this patient.: Yes I have fully participated in the care of the patient.: Yes I have reviewed all pertinent clinical information, including history, physical exam and plan: Yes Notes (Text): 09/28/17 14:10 I have seen and examined patient with GI fellow. Acute events from this morning noted with episode of respiratory distress, patient transferred to ICU. He is seen resting in bed comfortably, on BIPAP. He denies abdominal pain, nausea, vomiting, fever/chills. s/p paracentesis yesterday with 4 L fluid removed. Decompensated ETOH cirrhosis Steroid-refractory ETOH hepatitis Pneumonia Abdominal pain, ascites s/p paracentesis (fluid analysis shows no SBP) HIV Acute renal insufficiency, resolving Anemia - Low sodium diet as tolerated - Continue with diuresis, monitor electrolytes - Creatinine improved, follow up nephrology recommendations - Continue with antibiotic therapy - Steroid taper to eventual discontinuation given lack of efficacy - Continue with lactulose for HE prevention - Continue to monitor H/H, transfuse as necessary. No overt bleeding noted. - LFTs stable, continue to monitor - Awaiting transfer to [facility] for advanced liver care, transplant consideration in setting of cirrhosis with steroid refractory ETOH hepatitis
[2017-09-28] MEDS: Cefepime IV 1 gm in Dextrose 1 GM/50 ML BAG IVPB SCH ×2 (08:08→20:42)
[2017-09-28 08:45] LABS: INR 3.3
[2017-09-28 08:51] LABS: BASO % 0.1 % (0.0-2.0); EOS % 0.5 % (0.0-4.0); LYMPH # 0.9 K/uL (1.0-4.3); LYMPH % 11.9 % (20.0-40.0); MEAN CELL VOLUME 108.6 fL (80.0-94.0); MEAN CORPUSCULAR HEMOGLOBIN 36.8 pg (27.0-31.0); MEAN CORPUSCULAR HGB CONC 33.9 g/dL (33.0-37.0); MEAN PLATELET VOLUME 9.1 fL (7.2-11.7); MONO # 0.8 K/uL (0.0-0.8); MONO % 10.5 % (0.0-10.0); NEUT # 6.1 K/uL (1.8-7.0); NRBC % 0.9 % (0.0-2.0); RBC 1.9 Mil/uL (4.40-5.90); RED CELL DISTRIBUTION WIDTH 16.2 % (11.5-14.5)
[2017-09-28 08:53] LABS: PROTHROMBIN TIME 36.5 SECONDS (9.7-12.2)
[2017-09-28 08:54] LABS: ALT/SGPT 188 U/L (21-72); AST/SGOT 178 U/L (17-59); BILIRUBIN,DIRECT 8.8 mg/dL (0.0-0.4); BLOOD UREA NITROGEN 49 mg/dL (9-20); GFR AFRICAN-AMERICAN > 60; GFR NON-AFRICAN AMERICAN > 60
[2017-09-28 08:55] LABS: ALB/GLOB RATIO 1.1 (1.0-2.1); ALBUMIN 3.7 g/dL (3.5-5.0)
[2017-09-28] MEDS ORDERED: Albuterol-Ipratrop 3 mg / 0.5 (3 ml) UD INH ONE (09:30)
[2017-09-28 09:54] LABS: ABG ALLEN TEST POS; ARTERIAL BLOOD GAS HCO3 32.6 mmol/L (21-28); ARTERIAL BLOOD GAS HEMOGLOBIN 6.7 g/dL (11.7-17.4); ARTERIAL BLOOD GAS O2 SAT 100.6 % (95-98); ARTERIAL BLOOD GAS PCO2 41 mm/Hg (35-45); ARTERIAL BLOOD GAS PH 7.52 (7.35-7.45); ARTERIAL BLOOD GAS PO2 73 mm/Hg (80-100); ARTERIAL BLOOD GAS TCO2 34.8 mmol/L (22-28)
[2017-09-28 10:01] LABS: BASO % 0.2 % (0.0-2.0); EOS # 0.1 K/uL (0.0-0.7); EOS % 0.6 % (0.0-4.0); HEMOGLOBIN 6.9 g/dL (12.0-18.0); LYMPH % 11.2 % (20.0-40.0); MEAN CELL VOLUME 108.3 fL (80.0-94.0); MEAN CORPUSCULAR HEMOGLOBIN 37.5 pg (27.0-31.0); MEAN CORPUSCULAR HGB CONC 34.6 g/dL (33.0-37.0); MEAN PLATELET VOLUME 9.5 fL (7.2-11.7); MONO % 11.7 % (0.0-10.0); NEUT # 6.6 K/uL (1.8-7.0); NEUT % 76.3 % (50.0-75.0); NRBC % 0.8 % (0.0-2.0); RBC 1.84 Mil/uL (4.40-5.90); WHITE BLOOD COUNT 8.6 K/uL (4.8-10.8)
--- NOTE | 2017-09-28 10:04 | RAD ---
Date of service: 09/28/2017 HISTORY: sob COMPARISON: No prior. FINDINGS: LUNGS: There are low lung volumes which may be related to poor inspiratory effort or abdominal ascites. There is triangular consolidation with air bronchogram in the right lower lobe. There is also mild pulmonary venous congestion. PLEURA: No significant pleural effusion identified, no pneumothorax apparent. CARDIOVASCULAR: Normal. OSSEOUS STRUCTURES: No significant abnormalities. VISUALIZED UPPER ABDOMEN: Normal. OTHER FINDINGS: None. IMPRESSION: Suspect right lower lobe pneumonia. Follow-up after medical management is recommended to ensure complete resolution.
--- NOTE | 2017-09-28 11:14 | CP.PCM.PN ---
Subjective - Date & Time of Evaluation Date of Evaluation: 09/28/17 Time of Evaluation: 09:30 - Subjective Subjective: Patien tseartem today, awake,alert, c/o sob, moderate resp. distress, tachypnic an dhypoxia 90% with 5 lit of oxygen hgb drops from 9.4 to 7 s/p parancentesis - 09/27/17- 4/ lit removed INR- 3.3 Objective - Vital Signs/Intake and Output Vital Signs (last 24 hours): Temp Pulse Resp BP Pulse Ox 98.3 F 10 L 20 120/65 91 L 09/28/17 07:24 09/28/17 07:40 09/28/17 07:24 09/28/17 07:24 09/28/17 07:24 Intake and Output: 09/28/17 09/28/17 06:59 18:59 Output Total 950 Balance -950 - Medications Medications: Current Medications Albumin Human (Albumin Human 25% (12.5 Gm/50 Ml)) 12.5 gm IV Q3H [facility] Stop: 09/28/17 16:01 Last Admin: 09/28/17 06:17 Dose: 12.5 gm Albuterol/Ipratropium (Duoneb 3 Mg/0.5 Mg (3 Ml) Ud) 3 ml INH RQ6 BEV Stop: 10/01/17 23:59 Cefepime HCl (Maxipime Iv 1 Gm Premix) 1 gm in 50 mls @ 100 mls/hr IVPB Q12H BEV PRN Reason: Protocol Last Admin: 09/28/17 08:08 Dose: 100 mls/hr Lactulose (Enulose) 20 gm PO BID [facility] Last Admin: 09/28/17 09:25 Dose: Not Given Levothyroxine Sodium (Synthroid) 100 mcg PO DAILY@0630 [facility] Last Admin: 09/28/17 06:16 Dose: 100 mcg Oxycodone HCl (Oxycodone Immediate Release Tab) 10 mg PO Q6H PRN PRN Reason: Pain, severe (8-10) Last Admin: 09/25/17 22:07 Dose: 10 mg Prednisone (Prednisone Tab) 30 mg PO DAILY [facility] Stop: 10/02/17 23:59 Last Admin: 09/28/17 09:08 Dose: 30 mg - Labs Labs: 09/28/17 09:54 09/28/17 08:34 PT 36.5 SECONDS (9.7-12.2) H* D 09/28/17 08:34 INR 3.3 D 09/28/17 08:34 APTT 38 SECONDS (21-34) H 09/27/17 14:04 - Constitutional Appears: In Acute Distress - Respiratory Exam Respiratory Exam: Rales, Wheezes, Respiratory Distress - Cardiovascular Exam Cardiovascular Exam: Tachycardia, REGULAR RHYTHM, +S1, +S2 - GI/Abdominal Exam GI & Abdominal Exam: Distended, Firm - Neurological Exam Neurological Exam: Alert, Awake, Oriented x3 Assessment and Plan - Assessment and Plan (Free Text) Assessment: a/p 52 yr old male admitted with shortness of breath and recurrent ascitis s/p Paracentes yesterday and 4 lit removed pt received FFP x5 prior to paracentesis hgb drops from 9.4- 7 this am and INR 3.3 hypoxia -on 90% with o2 5 lit/min abg- alkalosis lasix 40 mg iv stat given CXR ordered CT abd/pevis orderd
--- NOTE | 2017-09-28 12:13 | US ---
Date of Procedure: 09/27/2017 PROCEDURE: Ultrasound-guided paracentesis, CPT 83631 Medications: 7 cc 1% Lidocaine HISTORY: Ascites, abdominal pain, cirrhosis TECHNIQUE: Following informed consent , the patient was placed supine on the stretcher and the site was marked. A limited abdominal ultrasound was performed that showed a large amount of intra-abdominal fluid. Procedural time out was called and the Pt's abdomen was marked and prepped and draped in the usual sterile fashion. Ultrasound-guided large volume paracentesis performed. A total of 4 liters of straw colored fluid was removed without complication. IMPRESSION: Ultrasound-guided large volume paracentesis.
--- NOTE | 2017-09-28 13:44 | CT ---
Date of service: 09/28/2017 PROCEDURE: CT Abdomen and Pelvis without intravenous contrast HISTORY: ascites COMPARISON: None. TECHNIQUE: CT scan of the abdomen and pelvis was performed without administration of intravenous contrast. Oral contrast was not administered. Coronal and sagittal reformatted images were obtained. Radiation dose: Total exam DLP = 1306.35 mGy-cm. This CT exam was performed using one or more of the following dose reduction techniques: Automated exposure control, adjustment of the mA and/or kV according to patient size, and/or use of iterative reconstruction technique. FINDINGS: LOWER THORAX: There is multifocal airspace disease in the visualized lungs with more confluent consolidations in both lung bases. There are small pleural effusions, larger on the left. LIVER: There is a small cirrhotic liver. No ductal dilatation. GALLBLADDER AND BILE DUCTS: No calcified gallstones. PANCREAS: Normal in size. No gross lesion or ductal dilatation. SPLEEN: There is mild splenomegaly. ADRENALS: No discrete nodule. KIDNEYS AND URETERS: Normal in size without nephrolithiasis. No hydronephrosis. VASCULATURE: Diffuse low density in the aorta consistent with anemia. No aortic aneurysm. BOWEL: The small bowel loops are normal in caliber. There is large amount of stool in the colon. No bowel dilatation or obstruction. . No obstruction. No gross mural thickening. APPENDIX: Normal appendix. PERITONEUM: There is large abdominal and pelvic ascites. No free air. LYMPH NODES: No enlarged lymph nodes. BLADDER: The urinary bladder is partially decompressed and there is moderate circumferential mural thickening of the urinary bladder wall. REPRODUCTIVE: The prostate gland is normal in size. BONES: No acute fracture. Within normal limits for the patient's age. OTHER FINDINGS: There is diffuse anasarca. IMPRESSION: 1. Cirrhosis of liver, mild splenomegaly and large abdominal and pelvic ascites. 2. Multifocal airspace disease in the visualized lungs with lower more confluent lower lobe consolidations concerning for multifocal pneumonia. Also noted are small pleural effusions, larger on the left. 3. Diffuse circumferential mural thickening of the urinary bladder wall is nonspecific and could be related to underdistention however cystitis cannot be excluded. Please correlate with urine analysis.
[2017-09-28] MEDS ORDERED: Milrinone 20 MG in Dextrose 5% In Water 80 ML IV SCH (13:45)
--- NOTE | 2017-09-28 13:50 | CP.PCM.PN ---
<Salvador Argueta - Last Filed: 09/28/17 14:02> Subjective - Date & Time of Evaluation Date of Evaluation: 09/28/17 Time of Evaluation: 13:47 - Subjective Subjective: PGY-2 nephrology progress note for Dr Triana. Patient moved to ICU this morning due to drop in Hgb. Patient seen in ICU with bipap on. Stated he felt a little better since receiving the paracentesis yesterday, however this morning he said he had a "breathing spell". Stated he urinated a lot yesterday. Denied chest pain, abdominal pain. He was laid flat on the bed and stated his breathing becomes worse. Sister was at bedside. Objective - Vital Signs/Intake and Output Vital Signs (last 24 hours): Temp Pulse Resp BP Pulse Ox 98.3 F 10 L 20 120/65 91 L 09/28/17 07:24 09/28/17 07:40 09/28/17 07:24 09/28/17 07:24 09/28/17 07:24 Intake and Output: 09/28/17 09/28/17 06:59 18:59 Output Total 950 Balance -950 - Medications Medications: Current Medications Albumin Human (Albumin Human 25% (12.5 Gm/50 Ml)) 12.5 gm IV Q8H BEV Stop: 09/29/17 14:01 Albuterol/Ipratropium (Duoneb 3 Mg/0.5 Mg (3 Ml) Ud) 3 ml INH RQ6 BEV Stop: 10/01/17 23:59 Cefepime HCl (Maxipime Iv 1 Gm Premix) 1 gm in 50 mls @ 100 mls/hr IVPB Q12H BEV PRN Reason: Protocol Last Admin: 09/28/17 08:08 Dose: 100 mls/hr Milrinone Lactate/Dextrose 20 (mg/ Dextrose) 100 mls @ 5.85 mls/hr IV .Q17H6M BEV; 0.2 MCG/KG/MIN PRN Reason: Protocol Bumetanide 10 mg/ Dextrose 140 mls @ 5 mls/hr IV .Q24H BEV Lactulose (Enulose) 20 gm PO BID BEV Last Admin: 09/28/17 09:25 Dose: Not Given Levothyroxine Sodium (Synthroid) 100 mcg PO DAILY@0630 BEV Last Admin: 09/28/17 06:16 Dose: 100 mcg Oxycodone HCl (Oxycodone Immediate Release Tab) 10 mg PO Q6H PRN PRN Reason: Pain, severe (8-10) Last Admin: 09/25/17 22:07 Dose: 10 mg Prednisone (Prednisone Tab) 30 mg PO DAILY [facility] Stop: 10/02/17 23:59 Last Admin: 09/28/17 09:08 Dose: 30 mg Spironolactone (Aldactone) 25 mg PO BID [facility] - Labs Labs: 09/28/17 09:54 09/28/17 08:34 PT 36.5 SECONDS (9.7-12.2) H* D 09/28/17 08:34 INR 3.3 D 09/28/17 08:34 APTT 38 SECONDS (21-34) H 09/27/17 14:04 - Additional Findings Additional findings: - Constitutional Appears: No Acute Distress, Chronically Ill - Head Exam Head Exam: ATRAUMATIC, NORMAL INSPECTION - Eye Exam Eye Exam: EOMI, Scleral icterus. absent: Normal appearance Pupil Exam: PERRL - ENT Exam ENT Exam: Mucous Membranes Moist - Neck Exam Neck Exam: Full ROM, Normal Inspection. absent: Tenderness - Respiratory Exam Respiratory Exam: Rales. absent: Clear to Ausculation Bilateral, Wheezes - Cardiovascular Exam Cardiovascular Exam: Tachycardia, JVD, +S1, +S2. absent: Murmur - GI/Abdominal Exam GI & Abdominal Exam: Distended, Firm, Tenderness, Hypoactive Bowel Sounds. 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 Nephrology has been consulted for acute renal insufficiency. ACUTE KIDNEY INJURY -Kidney function improved after receiving volume challenge yesterday (we are no longer considering hepatorenal syndrome). -He was given lasix 120mg ivp to balance his pulmonary congestion with the volume challenge - he responded well by outputting over 2L of urine - however cxr today still shows congestion (as well as RLL pneumonia) and his breathing remains labored - he was moved to ICU this morning and placed on bipap -Given his anasarca/pulmonary congestion, Bumetanide stated today, we recommend a rate of 0.5mg/hr -Continue albumin 25% to maintain intravascular volume - we will space out the frequency to q8h given his pulmonary congestion -2g Na diet restriction -F/U complement studies ASCITIES 2/2 to DECOMPENSATED ETOH CIRRHOSIS -US guided paracentesis performed today with 4 liters of straw colored fluid removed -Continue albumin 25% to maintain intravascular volume - we will space out the frequency to q8h given his pulmonary congestion ALKALOSIS -ABG shows pH of 7.52, likely from lasix -Start aldactone 25mg po bid ANEMIA -Hgb drop from 9.4 from 2 days ago to 6.9 today, CT abd/pelvis did not show evidence of bleed, ICU team plans to transfuse pRBCs HYPERKALEMIA, Resolved -Relatively mild and in the setting of patient being on aldactone, may also have been intravascularly depleted with diuretics -Monitor HYPONATREMIA, Resolved -Likely 2/2 to volume depletion -Monitor <Nadeem Triana - Last Filed: 09/29/17 07:02> Objective - Vital Signs/Intake and Output Vital Signs (last 24 hours): Temp Pulse Resp BP Pulse Ox 98.4 F 10 L 22 123/64 94 L 09/29/17 04:00 09/29/17 06:21 09/29/17 04:42 09/29/17 04:42 09/29/17 04:42 Intake and Output: 09/28/17 09/29/17 18:59 06:59 Intake Total 335 55 Output Total 3750 Balance 335 -3695 - Medications Medications: Current Medications Albuterol/Ipratropium (Duoneb 3 Mg/0.5 Mg (3 Ml) Ud) 3 ml INH RQ6 BEV Stop: 10/01/17 23:59 Last Admin: 09/29/17 01:09 Dose: 3 ml Cefepime HCl (Maxipime Iv 1 Gm Premix) 1 gm in 50 mls @ 100 mls/hr IVPB Q12H BEV PRN Reason: Protocol Last Admin: 09/28/17 20:42 Dose: 100 mls/hr Bumetanide 10 mg/ Dextrose 140 mls @ 5 mls/hr IV .Q24H [facility] Lactulose (Enulose) 20 gm PO BID [facility] Last Admin: 09/28/17 17:07 Dose: 20 gm Levothyroxine Sodium (Synthroid) 100 mcg PO DAILY@0630 [facility] Last Admin: 09/28/17 06:16 Dose: 100 mcg Oxycodone HCl (Oxycodone Immediate Release Tab) 10 mg PO Q6H PRN PRN Reason: Pain, severe (8-10) Last Admin: 09/25/17 22:07 Dose: 10 mg Prednisone (Prednisone Tab) 30 mg PO DAILY [facility] Stop: 10/02/17 23:59 Last Admin: 09/28/17 09:08 Dose: 30 mg Spironolactone (Aldactone) 25 mg PO BID [facility] Last Admin: 09/28/17 17:07 Dose: 25 mg - Labs Labs: 09/28/17 09:54 09/28/17 08:34 PT 36.5 SECONDS (9.7-12.2) H* D 09/28/17 08:34 INR 3.3 D 09/28/17 08:34 APTT 38 SECONDS (21-34) H 09/27/17 14:04 Attending/Attestation - Attestation I have personally seen and examined this patient.: Yes I have fully participated in the care of the patient.: Yes I have reviewed all pertinent clinical information, including history, physical exam and plan: Yes Notes (Text): Patient seen and examined; I agree with the resident's note as above with the following additions/edits: 52 yo M w/ HIV, recently diagnosed liver failure, admitted with worsening ascites and anasarca, nephrology following for HARRIET; Patient transferred to ICU this morning due to hypoxia and sharp drop in hgb; Renal function much improved with volume expansion (using IV albumin but also given multiple units FFP); effectively rules out HRS type I; UO much improved as well; However, is now volume overloaded and hypoxic, with high FIO2 requirement; CXR showing vascular congestion, also concern for PNA; Started on high dose bumex gtt by CCM team; patient already with metabolic alkalosis following large IV lasix dose yesterday, concern for worsening alkalosis with aggressive loop diuretic dosing; resp alkalosis may also ensue with patient now on BIPAP; -cutting bumex drip from 1.0 -> 0.5 mg/hr and adding aldactone 25 mg bid to help offset alkalosis; -need to avoid hypokalemia (can precipitate hepatic encephalopathy and further drive patient's alkalosis); -holding IV albumin for now due to volume overload; can restart q8h once hypoxia improved (goal is to tile helper in diuresis and reduce ansarca);
--- NOTE | 2017-09-28 13:52 | CP.PCM.PN ---
Subjective - Date & Time of Evaluation Date of Evaluation: 09/28/17 Time of Evaluation: 13:49 - Subjective Subjective: CHIEF COMPLAINTS TODAY : .Yesterday patient had an abdominal tap after the INR was 2.1. Straw-colored fluid was removed. After the tap patient felt much better with no shortness of breath. Creatinine also decreased to 1.1 This morning patient became short of breath diaphoretic a stat hemoglobin showed a drop to 6.9 g/dL there is no any obvious visible bleeding but abdomen appears to be same as yesterday. Bilirubin remains at 17 ROS. HEENT : N. Resp : No cough, wheezing ,pleuritic CP ,or hemoptysis Cardio : No anginal CP, PND, orthopnea, palpitation GI : No n/v ,diarrhea or GI bleeding . MEDICAL AFFAIRS DIRECTOR : No headache, vertigo, focal deficit. Musculoskel : No joint swelling , Derm : No rash Psych : Normal affect. Ext : No swelling ,calf pain PE. Pt. is alert awake in no distress. V.S As noted in the chart Head ,ear nose,throat and eyes : Normal. Neck : Supple with normal carotids. Lungs: Clear air entry. Heart : S1 & S2 normal with S4. No murmur. Abd : Soft non tender with normal bowel sounds.abdomen is distended secondary to ascites Neuro : Moves all ext. with no localized deficit. Ext : No edema with intact pulses.Non tender calves Derm : No rashes or decubitus ulcer. LABS/RADIOLOGY: today's lab is pending ASSESSMENT/PLAN : we will continue fresh frozen plasma to keep the INR below 2 continue IV fluids and Lasix monitor the creatinine. Currently the liver center has declined the transfer due to insurance issues. Will reapply again. Objective - Vital Signs/Intake and Output Vital Signs (last 24 hours): Temp Pulse Resp BP Pulse Ox 98.3 F 10 L 20 120/65 91 L 09/28/17 07:24 09/28/17 07:40 09/28/17 07:24 09/28/17 07:24 09/28/17 07:24 Intake and Output: 09/28/17 09/28/17 11:59 23:59 Output Total 200 Balance -200 - Medications Medications: Current Medications Albumin Human (Albumin Human 25% (12.5 Gm/50 Ml)) 12.5 gm IV Q8H BEV Stop: 09/29/17 14:01 Albuterol/Ipratropium (Duoneb 3 Mg/0.5 Mg (3 Ml) Ud) 3 ml INH RQ6 BEV Stop: 10/01/17 23:59 Cefepime HCl (Maxipime Iv 1 Gm Premix) 1 gm in 50 mls @ 100 mls/hr IVPB Q12H BEV PRN Reason: Protocol Last Admin: 09/28/17 08:08 Dose: 100 mls/hr Milrinone Lactate/Dextrose 20 (mg/ Dextrose) 100 mls @ 5.85 mls/hr IV .Q17H6M BEV; 0.2 MCG/KG/MIN PRN Reason: Protocol Bumetanide 10 mg/ Dextrose 140 mls @ 5 mls/hr IV .Q24H BEV Lactulose (Enulose) 20 gm PO BID [facility] Last Admin: 09/28/17 09:25 Dose: Not Given Levothyroxine Sodium (Synthroid) 100 mcg PO DAILY@0630 [facility] Last Admin: 09/28/17 06:16 Dose: 100 mcg Oxycodone HCl (Oxycodone Immediate Release Tab) 10 mg PO Q6H PRN PRN Reason: Pain, severe (8-10) Last Admin: 09/25/17 22:07 Dose: 10 mg Prednisone (Prednisone Tab) 30 mg PO DAILY [facility] Stop: 10/02/17 23:59 Last Admin: 09/28/17 09:08 Dose: 30 mg Spironolactone (Aldactone) 25 mg PO BID [facility] - Labs Labs: 09/28/17 09:54 09/28/17 08:34 PT 36.5 SECONDS (9.7-12.2) H* D 09/28/17 08:34 INR 3.3 D 09/28/17 08:34 APTT 38 SECONDS (21-34) H 09/27/17 14:04
[2017-09-28] MEDS ORDERED: Albumin Human 25% (12.5 gm/50 ml) IV SCH (14:00)
[2017-09-28] MEDS: Albuterol-Ipratrop 3 mg / 0.5 (3 ml) UD INH SCH ×2 (14:28→20:01)
--- NOTE | 2017-09-28 16:12 | CP.PCM.CON ---
History of Present Illness - History of Present Illness History of Present Illness: 52 y/o male with pmx of alcoholic liver cirrhosis, HIV on HAART, (denies HCV, HBV) admitted to [facility] with abdominal distension/pain secondary to increasing ascites, with chronic coagulopathy (liver disfunction) and anemia. Patient was being worked up for alcoholic hepatitis and paracentesis performed to r/o SBP. Today, patient developed tachypnea and decrease in hb/hct. Patient admitted to ICU for further workup Past medical history: Alcoholic liver cirrhosis, HIV on HAART, PE Past surgical history: Denie Family history: Father and brother prostate cancer Social history: Denies tobacco, former alcohol, denies illicit drug use. Allergies: Lactose ROS: (+)SOB, (+)leg swelling Review of Systems - Review of Systems Review of Systems: as per HPI Past Patient History - Infectious Disease Hx of Infectious Diseases: None - Past Medical History & Family History Past Medical History?: Yes - Past Social History Smoking Status: Former Smoker - CARDIAC Hx Cardiac Disorders: Yes Hx Hypotension: Yes - PULMONARY Hx Respiratory Disorders: No - NEUROLOGICAL Hx Neurological Disorder: No - HEENT Hx HEENT Problems: No - RENAL Hx Chronic Kidney Disease: No - ENDOCRINE/METABOLIC Hx Endocrine Disorders: Yes Hx Hypothyroidism: Yes - HEMATOLOGICAL/ONCOLOGICAL Hx Blood Disorders: Yes Hx Human Immunodeficiency Virus (HIV): Yes - INTEGUMENTARY Hx Dermatological Problems: No - MUSCULOSKELETAL/RHEUMATOLOGICAL Hx Musculoskeletal Disorders: No Hx Falls: No - GASTROINTESTINAL Hx Gastrointestinal Disorders: Yes Other/Comment: alcoholic cirrhosis. paracentesis on 09/07/17 - GENITOURINARY/GYNECOLOGICAL Hx Genitourinary Disorders: No - PSYCHIATRIC Hx Psychophysiologic Disorder: No Hx Depression: No Hx Substance Use: No - SURGICAL HISTORY Hx Surgeries: Yes Hx Herniorrhaphy: Yes (2003) Hx Tonsillectomy: Yes - ANESTHESIA Hx Anesthesia: Yes Hx Anesthesia Reactions: No Meds Allergies/Adverse Reactions: Allergies Allergy/AdvReac Type Severity Reaction Status Date / Time lactose AdvReac Verified 09/18/17 22:50 - Medications Medications: Current Medications Albuterol/Ipratropium (Duoneb 3 Mg/0.5 Mg (3 Ml) Ud) 3 ml INH RQ6 BEV Stop: 10/01/17 23:59 Last Admin: 09/28/17 14:28 Dose: 3 ml Cefepime HCl (Maxipime Iv 1 Gm Premix) 1 gm in 50 mls @ 100 mls/hr IVPB Q12H [facility] PRN Reason: Protocol Last Admin: 09/28/17 08:08 Dose: 100 mls/hr Bumetanide 10 mg/ Dextrose 140 mls @ 5 mls/hr IV .Q24H [facility] Lactulose (Enulose) 20 gm PO BID [facility] Last Admin: 09/28/17 09:25 Dose: Not Given Levothyroxine Sodium (Synthroid) 100 mcg PO DAILY@0630 [facility] Last Admin: 09/28/17 06:16 Dose: 100 mcg Oxycodone HCl (Oxycodone Immediate Release Tab) 10 mg PO Q6H PRN PRN Reason: Pain, severe (8-10) Last Admin: 09/25/17 22:07 Dose: 10 mg Prednisone (Prednisone Tab) 30 mg PO DAILY [facility] Stop: 10/02/17 23:59 Last Admin: 09/28/17 09:08 Dose: 30 mg Spironolactone (Aldactone) 25 mg PO BID [facility] Last Admin: 09/28/17 15:03 Dose: Not Given Physical Exam - Head Exam Head Exam: ATRAUMATIC, NORMAL INSPECTION, NORMOCEPHALIC - ENT Exam Additional comments: (+)JVD - Respiratory Exam Respiratory Exam: Rales, NORMAL BREATHING PATTERN. absent: Wheezes - Cardiovascular Exam Cardiovascular Exam: REGULAR RHYTHM, +S1, +S2, Systolic Murmur - GI/Abdominal Exam GI & Abdominal Exam: Distended, Hypoactive Bowel Sounds, Normal Bowel Sounds, Soft. absent: Guarding, Rebound, Rigid, Tenderness - Extremities Exam Extremities exam: Positive for: pedal edema Results - Vital Signs Recent Vital Signs: Last Vital Signs Temp 98.5 F 09/28/17 15:07 Pulse 100 H 09/28/17 15:07 Resp 20 09/28/17 15:07 BP 125/56 L 09/28/17 15:07 Pulse Ox 96 09/28/17 12:01 - Labs Result Diagrams: 09/28/17 09:54 09/28/17 08:34 Labs: Laboratory Results - last 24 hr 09/26/17 09/27/17 09/27/17 15:21 16:02 23:01 WBC RBC Hgb Hct MCV MCH MCHC RDW Plt Count MPV Neut % (Auto) Lymph % (Auto) [place] % (Auto) Eos % (Auto) Baso % (Auto) Neut # (Auto) Lymph # (Auto) [place] # (Auto) Eos # (Auto) Baso # (Auto) PT INR Puncture Site pCO2 pO2 HCO3 ABG pH ABG Total CO2 ABG O2 Saturation ABG Base Excess ABG Hemoglobin ABG Carboxyhemoglobin POC ABG HHb (Measured) ABG Methemoglobin Robb Test Hgb O2 Saturation Liter Flow Sodium Potassium Chloride Carbon Dioxide Anion Gap BUN Creatinine Est GFR ( Amer) Est GFR (Non-Af Amer) Random Glucose Lactic Acid Calcium Total Bilirubin Direct Bilirubin AST ALT Alkaline Phosphatase Ammonia NT-Pro-B Natriuret Pep Total Protein Albumin Globulin Albumin/Globulin Ratio Urine Color [place] Urine Clarity Clear Urine pH 6.0 Ur Specific [place] 1.014 Urine Protein Negative Urine Glucose (UA) Normal Urine Ketones Negative Urine Blood 2+ H Urine Nitrate Negative Urine Bilirubin Negative Urine Urobilinogen Normal Ur Leukocyte Esterase Neg Urine WBC (Auto) 1 Urine RBC (Auto) 20 H Hyaline Casts 0-2 Fluid Appearance Sl cloudy Fluid WBC 69.0 Fluid RBC 2762.0 H Fluid Tot Cell Count TEST NOT PERFORMED Fluid Neutrophils 52.0 H Fluid Lymphocytes 45.0 H Fld Monocyte/Macrophag 3 H Fluid Comment Blood Type A POSITIVE Antibody Screen Negative 09/28/17 09/28/17 09/28/17 08:34 08:34 08:34 WBC 8.0 RBC 1.90 L Hgb 7.0 L D Hct 20.6 L MCV 108.6 H MCH 36.8 H MCHC 33.9 RDW 16.2 H Plt Count 35 L MPV 9.1 Neut % (Auto) 77.0 H Lymph % (Auto) 11.9 L [place] % (Auto) 10.5 H Eos % (Auto) 0.5 Baso % (Auto) 0.1 Neut # (Auto) 6.1 Lymph # (Auto) 0.9 L [place] # (Auto) 0.8 Eos # (Auto) 0.0 Baso # (Auto) 0.0 PT 36.5 H* D INR 3.3 D Puncture Site pCO2 pO2 HCO3 ABG pH ABG Total CO2 ABG O2 Saturation ABG Base Excess ABG Hemoglobin ABG Carboxyhemoglobin POC ABG HHb (Measured) ABG Methemoglobin Robb Test Hgb O2 Saturation Liter Flow Sodium 133 Potassium 4.6 Chloride 93 L Carbon Dioxide 30 Anion Gap 15 BUN 49 H Creatinine 1.1 Est GFR ( Amer) > 60 Est GFR (Non-Af Amer) > 60 Random Glucose 112 H Lactic Acid Calcium 10.0 Total Bilirubin 17.7 H Direct Bilirubin 8.8 H AST 178 H ALT 188 H Alkaline Phosphatase 91 Ammonia NT-Pro-B Natriuret Pep Total Protein 7.1 Albumin 3.7 Globulin 3.4 Albumin/Globulin Ratio 1.1 Urine Color Urine Clarity Urine pH Ur Specific [place] Urine Protein Urine Glucose (UA) Urine Ketones Urine Blood Urine Nitrate Urine Bilirubin Urine Urobilinogen Ur Leukocyte Esterase Urine WBC (Auto) Urine RBC (Auto) Hyaline Casts Fluid Appearance Fluid WBC Fluid RBC Fluid Tot Cell Count Fluid Neutrophils Fluid Lymphocytes Fld Monocyte/Macrophag Fluid Comment Blood Type Antibody Screen 09/28/17 09/28/17 09/28/17 09:50 09:54 09:54 WBC 8.6 RBC 1.84 L Hgb 6.9 L Hct 20.0 L MCV 108.3 H MCH 37.5 H MCHC 34.6 RDW 16.0 H Plt Count 32 L MPV 9.5 Neut % (Auto) 76.3 H Lymph % (Auto) 11.2 L [place] % (Auto) 11.7 H Eos % (Auto) 0.6 Baso % (Auto) 0.2 Neut # (Auto) 6.6 Lymph # (Auto) 1.0 [place] # (Auto) 1.0 H Eos # (Auto) 0.1 Baso # (Auto) 0.0 PT INR Puncture Site Rr pCO2 41 pO2 73 L HCO3 32.6 H ABG pH 7.52 H ABG Total CO2 34.8 H ABG O2 Saturation 100.6 H ABG Base Excess 9.8 H ABG Hemoglobin 6.7 L ABG Carboxyhemoglobin 3.7 H POC ABG HHb (Measured) -0.6 L ABG Methemoglobin 1.1 Robb Test Pos Hgb O2 Saturation 95.8 Liter Flow 5.0 Sodium Potassium Chloride Carbon Dioxide Anion Gap BUN Creatinine Est GFR ( Amer) Est GFR (Non-Af Amer) Random Glucose Lactic Acid Calcium Total Bilirubin Direct Bilirubin AST ALT Alkaline Phosphatase Ammonia 28 D NT-Pro-B Natriuret Pep Total Protein Albumin Globulin Albumin/Globulin Ratio Urine Color Urine Clarity Urine pH Ur Specific [place] Urine Protein Urine Glucose (UA) Urine Ketones Urine Blood Urine Nitrate Urine Bilirubin Urine Urobilinogen Ur Leukocyte Esterase Urine WBC (Auto) Urine RBC (Auto) Hyaline Casts Fluid Appearance Fluid WBC Fluid RBC Fluid Tot Cell Count Fluid Neutrophils Fluid Lymphocytes Fld Monocyte/Macrophag Fluid Comment Blood Type Antibody Screen 09/28/17 09/28/17 09:54 09:54 WBC RBC Hgb Hct MCV MCH MCHC RDW Plt Count MPV Neut % (Auto) Lymph % (Auto) [place] % (Auto) Eos % (Auto) Baso % (Auto) Neut # (Auto) Lymph # (Auto) [place] # (Auto) Eos # (Auto) Baso # (Auto) PT INR Puncture Site pCO2 pO2 HCO3 ABG pH ABG Total CO2 ABG O2 Saturation ABG Base Excess ABG Hemoglobin ABG Carboxyhemoglobin POC ABG HHb (Measured) ABG Methemoglobin Robb Test Hgb O2 Saturation Liter Flow Sodium Potassium Chloride Carbon Dioxide Anion Gap BUN Creatinine Est GFR ( Amer) Est GFR (Non-Af Amer) Random Glucose Lactic Acid 2.2 H Calcium Total Bilirubin Direct Bilirubin AST ALT Alkaline Phosphatase Ammonia NT-Pro-B Natriuret Pep 3510 H Total Protein Albumin Globulin Albumin/Globulin Ratio Urine Color Urine Clarity Urine pH Ur Specific [place] Urine Protein Urine Glucose (UA) Urine Ketones Urine Blood Urine Nitrate Urine Bilirubin Urine Urobilinogen Ur Leukocyte Esterase Urine WBC (Auto) Urine RBC (Auto) Hyaline Casts Fluid Appearance Fluid WBC Fluid RBC Fluid Tot Cell Count Fluid Neutrophils Fluid Lymphocytes Fld Monocyte/Macrophag Fluid Comment Blood Type Antibody Screen Assessment & Plan - Assessment and Plan (Free Text) Assessment: Alcohol Cirrhosis with abdominal ascites with clinical signs of fluid overloaded : will benefit from lasix + spironolactone, -Htombocytopenia:suspect 2nd hyperspleemins -Anemia: continue to monitor transfuse to keep Hb/hct >8/24 -Coagulopathy: chronic 2nd liver cirrohsis, -Chronic systolic heart faulure:contine to monitor MAP , start pressors to [place] MAP >65, bnp high -CXR reveals plmonary congestion -check AFP and RUQ US -Leukocytosis: reasolving, consider shorten course of ABX (5days) continue dvt/pud ppx Patient's overall prognosis is poor 2nd liver cirrhosis monitor serial cbc and infuse as needed to maintain hemodynamic stability - Date & Time Date: 09/28/17 Time: 16:21
--- NOTE | 2017-09-28 16:38 | CP.PCM.PN ---
Subjective - Date & Time of Evaluation Date of Evaluation: 09/28/17 Time of Evaluation: 16:37 - Subjective Subjective: CHIEF COMPLAINTS TODAY : PATIENT TRANSFERRED TO ICU THIS A.M.09/28/17 H/H DROPPEDTO 6.9/20.0,AND PT MILDLY DYSPNOEIC ON BIPAP AFEBRILE, VS NOTED. AWAKE AND ALERT S/P PARACENTESIS BY IR 09/27/17 presently getting blood transfusion 1 unit PRBC. GENERALIZED ANASARCA. ROS. 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 Musculoskel : No joint swelling , Derm : No rash Psych : Normal affect. Ext : 2+ EDEMA , no calf pain PE. Pt. is alert awake on ON BIPAP V.S As noted in the chart Head ,ear nose,throat and eyes : Normal.ICTERIC Neck : Supple with normal carotids. Lungs: DIMINISHED BREATH SOUNDS OTHERWISE CLEAR Heart : S1 & S2 normal with S4. No murmur. Abd : Soft non tender with normal bowel sounds.abdomen is LESS DISTENDED secondary to ASCITIS Neuro : Moves all ext. with no localized deficit. Ext : 1+ EDEMA with intact pulses.Non tender calves Derm : No rashes or decubitus ulcer. LABS/RADIOLOGY: REVIEWED. CREATININE 1.1/bun 49 wbc 8.6 LFTS 17.7 WITH DECREASING TRANSAMINITIS ast 178, alt 188. INR -3.3 ABD. FLUID -NOTED CLOUDY,WBC 69,RBC 2762, 52N, 45L,2 M ASCITES FLUID -VE GROWTH FOR 24 HOURS. HEPATITIS SCREENING NEGATIVE FOR A.B,C. [id number] CELLS 663- >601 hiv rna QUANTITATIVE pcr-<1.30 NOT DETECTED. Objective - Vital Signs/Intake and Output Vital Signs (last 24 hours): Temp Pulse Resp BP Pulse Ox 98.5 F 100 H 20 125/56 L 96 09/28/17 15:07 09/28/17 15:07 09/28/17 15:07 09/28/17 15:07 09/28/17 12:01 Intake and Output: 09/28/17 09/28/17 06:59 18:59 Intake Total 0 Output Total 950 Balance -950 0 - Medications Medications: Current Medications Albuterol/Ipratropium (Duoneb 3 Mg/0.5 Mg (3 Ml) Ud) 3 ml INH RQ6 BEV Stop: 10/01/17 23:59 Last Admin: 09/28/17 14:28 Dose: 3 ml Cefepime HCl (Maxipime Iv 1 Gm Premix) 1 gm in 50 mls @ 100 mls/hr IVPB Q12H BEV PRN Reason: Protocol Last Admin: 09/28/17 08:08 Dose: 100 mls/hr Bumetanide 10 mg/ Dextrose 140 mls @ 5 mls/hr IV .Q24H BEV Lactulose (Enulose) 20 gm PO BID [facility] Last Admin: 09/28/17 09:25 Dose: Not Given Levothyroxine Sodium (Synthroid) 100 mcg PO DAILY@0630 [facility] Last Admin: 09/28/17 06:16 Dose: 100 mcg Oxycodone HCl (Oxycodone Immediate Release Tab) 10 mg PO Q6H PRN PRN Reason: Pain, severe (8-10) Last Admin: 09/25/17 22:07 Dose: 10 mg Prednisone (Prednisone Tab) 30 mg PO DAILY [facility] Stop: 10/02/17 23:59 Last Admin: 09/28/17 09:08 Dose: 30 mg Spironolactone (Aldactone) 25 mg PO BID [facility] Last Admin: 09/28/17 15:03 Dose: Not Given - Labs Labs: 09/28/17 09:54 09/28/17 08:34 PT 36.5 SECONDS (9.7-12.2) H* D 09/28/17 08:34 INR 3.3 D 09/28/17 08:34 APTT 38 SECONDS (21-34) H 09/27/17 14:04 Assessment and Plan (1) Alcoholic hepatitis with ascites Assessment & Plan: ASCITES FLUID CLOUDY- - cULTURE -VE X 24 HOURS. ON iv CEFEPIME 1 G EVERY 12 HOURLY FOR NOW 09/27/17 ?SBP WHILE AWAITING FINAL CULTURES. Status: Chronic (2) Dyspnea Assessment & Plan: ON BIPAP. F/U CXR DIURESIS PER GI/RENAL Status: Acute (3) Jaundice Status: Acute (4) HIV (human immunodeficiency virus infection) Assessment & Plan: PATIENT'S VIRAL LOAD IS UNDETECTABLE <1.30 CD4 > 600. OFF ANTIRETROVIRAL RX IN VIEW OF WORSENING LFTS WILL DISCUSS WITH GI/PMD. Status: Chronic (5) Thrombocytopenia Status: Acute (6) Hypothyroidism Status: Acute (7) Renal insufficiency Status: Acute
[2017-09-29] MEDS: Albuterol-Ipratrop 3 mg / 0.5 (3 ml) UD INH SCH ×4 (01:09→20:07)
[2017-09-29 06:52] LABS: BASO % 0.2 % (0.0-2.0); EOS # 0.1 K/uL (0.0-0.7); EOS % 0.5 % (0.0-4.0); LYMPH # 1.1 K/uL (1.0-4.3); LYMPH % 9.2 % (20.0-40.0); MEAN CELL VOLUME 105.9 fL (80.0-94.0); MEAN CORPUSCULAR HEMOGLOBIN 36.6 pg (27.0-31.0); MEAN CORPUSCULAR HGB CONC 34.5 g/dL (33.0-37.0); MONO # 0.9 K/uL (0.0-0.8); MONO % 7.6 % (0.0-10.0); NEUT # 10.2 K/uL (1.8-7.0); NEUT % 82.5 % (50.0-75.0); NRBC % 0.8 % (0.0-2.0); PLATELET COUNT 38 K/uL (130-400); RBC 2.46 Mil/uL (4.40-5.90); WHITE BLOOD COUNT 12.3 K/uL (4.8-10.8)
[2017-09-29 06:55] LABS: INR 4.3
[2017-09-29 06:57] LABS: PROTHROMBIN TIME 47.6 SECONDS (9.7-12.2)
[2017-09-29] MEDS: Levothyroxine 100 MCG TAB PO SCH (07:10)
[2017-09-29 07:12] LABS: ALB/GLOB RATIO 0.9 (1.0-2.1); ALBUMIN 3.5 g/dL (3.5-5.0); ALT/SGPT 183 U/L (21-72); AST/SGOT 193 U/L (17-59); BILIRUBIN,DIRECT 7.7 mg/dL (0.0-0.4); BLOOD UREA NITROGEN 44 mg/dL (9-20); CALCIUM 9.7 mg/dl (8.6-10.4); GFR AFRICAN-AMERICAN > 60; GFR NON-AFRICAN AMERICAN > 60
[2017-09-29] MEDS: Cefepime IV 1 gm in Dextrose 1 GM/50 ML BAG IVPB SCH (09:14)
[2017-09-29 09:28] LABS: BANDS 1 % (0-2); LYMPHOCYTE 8 % (20-40); MONOCYTE 9 % (0-10); NEUTROPHIL 82 % (50-75); PLATELET ESTIMATE MARKEDLY DECREASED (NORMAL); TOTAL CELLS COUNTED 100
[2017-09-29 09:29] LABS: ANISOCYTOSIS MODERATE; BURR CELLS SLIGHT; HYPOCHROMIC MODERATE; OVALOCYTES SLIGHT; POIKILOCYTOSIS SLIGHT; POLYCHROMIC SLIGHT
[2017-09-29 09:30] LABS: TOXIC GRANULATION PRESENT
--- NOTE | 2017-09-29 09:53 | RAD ---
Chest x-ray single frontal view History: Effusion. Comparison: 09/28/2017 Findings: Moderate to severe venous congestion. Confluent consolidative opacifications seen within the right mid to lower lung zone as well as the left lung base. Bilateral hilar prominence; left greater than right. Cardiomegaly. Degenerative changes in the spine and shoulders. Impression: Moderate to severe venous congestion. Confluent consolidative opacifications seen within the right mid to lower lung zone as well as the left lung base. Bilateral hilar prominence; left greater than right. Cardiomegaly.
--- NOTE | 2017-09-29 14:03 | CP.PCM.PN ---
Subjective - Date & Time of Evaluation Date of Evaluation: 09/29/17 Time of Evaluation: 14:01 - Subjective Subjective: CHIEF COMPLAINTS TODAY : patient is breathing better today, still on BiPAP Put out large amount of urine about 5700 cc Hemoglobin is now stable ROS. HEENT : N. Resp : No cough, wheezing ,pleuritic CP ,or hemoptysis Cardio : No anginal CP, PND, orthopnea, palpitation GI : No n/v ,diarrhea or GI bleeding . 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 Musculoskel : No joint swelling , Derm : No rash Psych : Normal affect. Ext : No swelling ,calf pain PE. Pt. is alert awake in no distress. V.S As noted in the chart Head ,ear nose,throat and eyes : Normal. Neck : Supple with normal carotids. Lungs: Clear air entry. Heart : S1 & S2 normal with S4. No murmur. Abd : Soft non tender with normal bowel sounds.abdomen is distended secondary to ascites Neuro : Moves all ext. with no localized deficit. Ext : No edema with intact pulses.Non tender calves Derm : No rashes or decubitus ulcer. LABS/RADIOLOGY: ASSESSMENT/PLAN : continue present management. Creatinine has normalized. Continue IV hydration and Lasix when necessary Will plan for transfer to tertiary center, liver center Objective - Vital Signs/Intake and Output Vital Signs (last 24 hours): Temp Pulse Resp BP Pulse Ox 98.5 F 108 H 27 H 111/54 L 97 09/29/17 12:00 09/29/17 13:13 09/29/17 13:13 09/29/17 13:13 09/29/17 13:13 Intake and Output: 09/29/17 09/29/17 11:59 23:59 Intake Total 160 5 Output Total 3650 300 Balance -3490 -295 - Medications Medications: Current Medications Albuterol/Ipratropium (Duoneb 3 Mg/0.5 Mg (3 Ml) Ud) 3 ml INH RQ6 BEV Stop: 10/01/17 23:59 Last Admin: 09/29/17 06:50 Dose: 3 ml Cefepime HCl (Maxipime Iv 1 Gm Premix) 1 gm in 50 mls @ 100 mls/hr IVPB Q12H BEV PRN Reason: Protocol Last Admin: 09/29/17 09:14 Dose: 100 mls/hr Bumetanide 10 mg/ Dextrose 140 mls @ 5 mls/hr IV .Q24H [facility] Last Admin: 09/29/17 11:28 Dose: 5 mls/hr Lactulose (Enulose) 20 gm PO BID [facility] Last Admin: 09/29/17 09:25 Dose: 20 gm Levothyroxine Sodium (Synthroid) 100 mcg PO DAILY@0630 [facility] Last Admin: 09/29/17 07:10 Dose: 100 mcg Oxycodone HCl (Oxycodone Immediate Release Tab) 10 mg PO Q6H PRN PRN Reason: Pain, severe (8-10) Last Admin: 09/25/17 22:07 Dose: 10 mg Pantoprazole Sodium (Protonix Inj) 40 mg IVP Q12H [facility] Last Admin: 09/29/17 10:55 Dose: 40 mg Prednisone (Prednisone Tab) 30 mg PO DAILY [facility] Stop: 10/02/17 23:59 Last Admin: 09/29/17 11:25 Dose: 30 mg Spironolactone (Aldactone) 50 mg PO BID [facility] - Labs Labs: 09/29/17 06:49 09/29/17 06:49 PT 47.6 SECONDS (9.7-12.2) H* D 09/29/17 04:00 INR 4.3 D 09/29/17 04:00 APTT 38 SECONDS (21-34) H 09/27/17 14:04
--- NOTE | 2017-09-29 15:33 | CP.PCM.PN ---
Subjective - Date & Time of Evaluation Date of Evaluation: 09/29/17 Time of Evaluation: 15:33 - Subjective Subjective: CHIEF COMPLAINTS TODAY : AFEBRILE, VS NOTED. AWAKE AND ALERT BREATHING BETTER , ON BIPAP urine about --- 5700 cc H/H STABLE S/P PARACENTESIS BY IR 09/27/17- ROS. 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 Musculoskel : No joint swelling , Derm : No rash Psych : Normal affect. Ext : 2+ EDEMA , no calf pain PE. Pt. is alert awake on ON BIPAP V.S As noted in the chart Head ,ear nose,throat and eyes : Normal.ICTERIC Neck : Supple with normal carotids. Lungs: B/L RHONCHI Heart : S1 & S2 normal with S4. No murmur. Abd : Soft non tender with normal bowel sounds.abdomen is LESS DISTENDED secondary to ASCITIS Neuro : Moves all ext. with no localized deficit. Ext : 1+ EDEMA with intact pulses.Non tender calves Derm : No rashes or decubitus ulcer. LABS/RADIOLOGY: WBC 12.3 H/H 9.0 PLT 38. CXR 09/29/17 -CONFLUENT CONSOLIDATIVE OPACIFICATION SEEN IN RIGHT MIDDLE LOBE AND RIGHT LOWER LUNG BASE WELL LEFT LUNG BASE. CREATININE 1.0/bun 44. INR 4.3 LFTS T .BILI 19.7, D.BILI 7.7 AST 193,ALT 183 AP 92. ABD. FLUID -NOTED CLOUDY,WBC 69,RBC 2762, 52N, 45L,2 M ASCITES FLUID -VE GROWTH FOR 24 HOURS. HEPATITIS SCREENING NEGATIVE FOR A.B,C. [id number] CELLS 663- >601 hiv rna QUANTITATIVE pcr-<1.30 NOT DETECT Objective - Vital Signs/Intake and Output Vital Signs (last 24 hours): Temp Pulse Resp BP Pulse Ox 98.5 F 102 H 22 110/54 L 99 09/29/17 12:00 09/29/17 15:00 09/29/17 15:00 09/29/17 14:42 09/29/17 15:00 Intake and Output: 07/14/18 07/14/18 06:59 18:59 Intake Total 60 1545 Output Total 4600 1999 Balance -9538 -294 - Medications Medications: Current Medications Albuterol/Ipratropium (Duoneb 3 Mg/0.5 Mg (3 Ml) Ud) 3 ml INH RQ6 [facility] Stop: 10/01/17 23:59 Last Admin: 09/29/17 14:35 Dose: 3 ml Bumetanide 10 mg/ Dextrose 140 mls @ 5 mls/hr IV .Q24H [facility] Last Admin: 09/29/17 15:20 Dose: Not Given Lactulose (Enulose) 20 gm PO BID [facility] Last Admin: 09/29/17 09:25 Dose: 20 gm Levothyroxine Sodium (Synthroid) 100 mcg PO DAILY@0630 [facility] Last Admin: 09/29/17 07:10 Dose: 100 mcg Oxycodone HCl (Oxycodone Immediate Release Tab) 10 mg PO Q6H PRN PRN Reason: Pain, severe (8-10) Last Admin: 09/25/17 22:07 Dose: 10 mg Pantoprazole Sodium (Protonix Inj) 40 mg IVP Q12H [facility] Last Admin: 09/29/17 10:55 Dose: 40 mg Prednisone (Prednisone Tab) 30 mg PO DAILY [facility] Stop: 10/02/17 23:59 Last Admin: 09/29/17 11:25 Dose: 30 mg Spironolactone (Aldactone) 50 mg PO BID [facility] - Labs Labs: 09/29/17 06:49 09/29/17 06:49 PT 47.6 SECONDS (9.7-12.2) H* D 09/29/17 04:00 INR 4.3 D 09/29/17 04:00 APTT 38 SECONDS (21-34) H 09/27/17 14:04 Assessment and Plan (1) Alcoholic hepatitis with ascites Assessment & Plan: ASCITES FLUID CLOUDY- - cULTURE -VE X 24 HOURS. ON iv CEFEPIME 1 G EVERY 12 HOURLY FOR NOW 09/27/17 Status: Chronic (2) Dyspnea Assessment & Plan: CXR 09/29/17 NOTED +VE B/L INFILTRATES RML/RLL/LLL WILL CONTINUE IV CEFEPIME 1GM IVPB [id number] FOR NOW. DIURESIS PER RENAL. Status: Acute (3) Jaundice Status: Acute (4) HIV (human immunodeficiency virus infection) Assessment & Plan: ART ON HOLD. Status: Chronic (5) Thrombocytopenia Status: Acute (6) Hypothyroidism Status: Acute (7) Renal insufficiency Status: Resolved
--- NOTE | 2017-09-29 22:03 | CP.CCUPN ---
CCU Subjective - Physician Review Events Since Last Encounter (Free Text): 09/29/17 22:04 Patient is morning was on BiPAP. But later he was placed on nasal cannula sitting up comfortably. Not in any distress. Abdominal distention present. No nausea vomiting. Patient tolerating the oral feeding. Blood works reviewed Chest good air entry bilaterally, expiratory wheezing noted Regular heart sound. Nontender abdomen. Pedal edema bilaterally noted Assessment/recommendation: Patient admitted to the ICU because of the severe tachypnea following the paracentesis. Currently patient is comfortable. On BiPAP. Stable. Transferred to floor CCU Objective - Vital Signs / Intake & Output Vital Signs (Last 4 hours): Vital Signs Pulse Resp BP Pulse Ox 09/29/17 18:13 104 H 20 113/51 L 99 09/29/17 18:00 104 H 18 100 Intake and Output (Last 8hrs): Intake & Output 09/29/17 09/29/17 09/29/17 06:59 14:59 22:59 Intake Total 40 440 520 Output Total 2900 2000 1200 Balance -2860 -1560 -680 Weight 195 lb 6.4 oz Intake: Intake, IV Amount 40 40 20 right AC 40 40 20 Oral 0 400 500 Output: Urine 2900 2000 1200 Urine, Voided 2900 2000 1200 Other: # Bowel Movements 0 0 - Medications Active Medications: Active Medications Generic Name Dose Route Start Last Admin Trade Name Freq PRN Reason Stop Dose Admin Albuterol/Ipratropium 3 ml 09/28/17 14:00 09/29/17 20:07 Duoneb 3 Mg/0.5 Mg (3 Ml) Ud INH 10/01/17 23:59 3 ml RQ6 BEV Administration Bumetanide 10 mg/ Dextrose 140 mls @ 5 mls/hr 09/28/17 14:30 09/29/17 15:20 IV Not Given .Q24H BEV Cefepime HCl 1 gm/ Dextrose 50 mls @ 100 mls/hr 09/29/17 20:00 09/29/17 20:15 IVPB 100 mls/hr Q12H BEV Administration Protocol Lactulose 20 gm 09/19/17 10:00 09/29/17 17:54 Enulose PO 20 gm BID BEV Administration Levothyroxine Sodium 100 mcg 09/20/17 06:30 09/29/17 07:10 Synthroid PO 100 mcg DAILY@0630 BEV Administration Oxycodone HCl 10 mg 09/22/17 20:55 09/25/17 22:07 Oxycodone Immediate Release Tab PO 10 mg Q6H PRN Administration Pain, severe (8-10) Pantoprazole Sodium 40 mg 09/29/17 10:00 09/29/17 10:55 Protonix Inj IVP 40 mg Q12H BEV Administration Prednisone 30 mg 09/27/17 10:00 09/29/17 11:25 Prednisone Tab PO 10/02/17 23:59 30 mg DAILY BEV Administration Spironolactone 50 mg 09/29/17 10:07 09/29/17 17:54 Aldactone PO 50 mg BID BEV Administration - Patient Studies Lab Studies: Microbiology Studies 09/28/17 11:59 MRSA Culture (Admit) - Final Naris MRSA NOT DETECTED 09/27/17 16:02 Gram Stain - Final Peritoneal Fluid Body Fluid Culture - Preliminary NO GROWTH AFTER 2 DAYS 09/27/17 Unknown Urine Culture - Final Urine,Clean Catch No Growth (<1,000 CFU/ML) Lab Studies 09/29/17 09/29/17 09/29/17 Range/Units 06:49 06:49 04:00 WBC 12.3 H (4.8-10.8) K/uL RBC 2.46 L (4.40-5.90) Mil/uL Hgb 9.0 L D (12.0-18.0) g/dL Hct 26.1 L (35.0-51.0) % MCV 105.9 H D (80.0-94.0) fL MCH 36.6 H (27.0-31.0) pg MCHC 34.5 (33.0-37.0) g/dL RDW 19.0 H (11.5-14.5) % Plt Count 38 L (130-400) K/uL MPV 10.0 (7.2-11.7) fL Neut % (Auto) 82.5 H (50.0-75.0) % Lymph % (Auto) 9.2 L (20.0-40.0) % Allen % (Auto) 7.6 (0.0-10.0) % Eos % (Auto) 0.5 (0.0-4.0) % Baso % (Auto) 0.2 (0.0-2.0) % Neut # (Auto) 10.2 H (1.8-7.0) K/uL Lymph # (Auto) 1.1 (1.0-4.3) K/uL Allen # (Auto) 0.9 H (0.0-0.8) K/uL Eos # (Auto) 0.1 (0.0-0.7) K/uL Baso # (Auto) 0.0 (0.0-0.2) K/uL Neutrophils % (Manual) 82 H (50-75) % Band Neutrophils % 1 (0-2) % Lymphocytes % (Manual) 8 L (20-40) % Monocytes % (Manual) 9 (0-10) % Toxic Granulation Present Platelet Estimate Markedly decreased L (NORMAL) Polychromasia Slight Hypochromasia (manual) Moderate Poikilocytosis (manual Slight Anisocytosis (manual) Moderate Macrocytosis (manual) Moderate Ovalocytes Slight Bison Cells Slight PT 47.6 H* D (9.7-12.2) SECONDS INR 4.3 D Sodium 138 (132-148) mmol/L Potassium 4.5 (3.6-5.2) mmol/L Chloride 92 L (98-107) mmol/L Carbon Dioxide 33 H (22-30) mmol/L Anion Gap 17 (10-20) BUN 44 H (9-20) mg/dL Creatinine 1.0 (0.8-1.5) mg/dL Est GFR ( Amer) > 60 Est GFR (Non-Af Amer) > 60 Random Glucose 90 (75-110) mg/dL Calcium 9.7 (8.6-10.4) mg/dl Phosphorus 3.3 (2.5-4.5) mg/dL Magnesium 1.9 (1.6-2.3) mg/dL Total Bilirubin 19.7 H (0.2-1.3) mg/dL Direct Bilirubin 7.7 H (0.0-0.4) mg/dL AST 193 H (17-59) U/L ALT 183 H (21-72) U/L Alkaline Phosphatase 92 (38-126) U/L Total Protein 7.4 (6.3-8.3) g/dL Albumin 3.5 (3.5-5.0) g/dL Globulin 3.9 (2.2-3.9) gm/dL Albumin/Globulin Ratio 0.9 L (1.0-2.1) Laboratory Results - last 24 hr 09/29/17 09/29/17 09/29/17 04:00 06:49 06:49 WBC 12.3 H RBC 2.46 L Hgb 9.0 L D Hct 26.1 L MCV 105.9 H D MCH 36.6 H MCHC 34.5 RDW 19.0 H Plt Count 38 L MPV 10.0 Neut % (Auto) 82.5 H Lymph % (Auto) 9.2 L Allen % (Auto) 7.6 Eos % (Auto) 0.5 Baso % (Auto) 0.2 Neut # (Auto) 10.2 H Lymph # (Auto) 1.1 Allen # (Auto) 0.9 H Eos # (Auto) 0.1 Baso # (Auto) 0.0 Neutrophils % (Manual) 82 H Band Neutrophils % 1 Lymphocytes % (Manual) 8 L Monocytes % (Manual) 9 Toxic Granulation Present Platelet Estimate Markedly decreased L Polychromasia Slight Hypochromasia (manual) Moderate Poikilocytosis (manual Slight Anisocytosis (manual) Moderate Macrocytosis (manual) Moderate Ovalocytes Slight Heather Cells Slight PT 47.6 H* D INR 4.3 D Sodium 138 Potassium 4.5 Chloride 92 L Carbon Dioxide 33 H Anion Gap 17 BUN 44 H Creatinine 1.0 Est GFR ( Amer) > 60 Est GFR (Non-Af Amer) > 60 Random Glucose 90 Calcium 9.7 Phosphorus 3.3 Magnesium 1.9 Total Bilirubin 19.7 H Direct Bilirubin 7.7 H AST 193 H ALT 183 H Alkaline Phosphatase 92 Total Protein 7.4 Albumin 3.5 Globulin 3.9 Albumin/Globulin Ratio 0.9 L Critical Care Progress Note - Nutrition Nutrition: Nutrition Category Date Time Status Liquid Diet [DIET] Diets 09/29/17 Lunch Active
--- NOTE | 2017-09-29 23:28 | CP.PCM.PN ---
Objective - Vital Signs/Intake and Output Vital Signs (last 24 hours): Temp Pulse Resp BP Pulse Ox 98.2 F 104 H 20 113/51 L 99 09/29/17 16:00 09/29/17 18:13 09/29/17 18:13 09/29/17 18:13 09/29/17 18:13 Intake and Output: 09/29/17 09/30/17 18:59 06:59 Intake Total 960 Output Total 3200 Balance -2240 - Medications Medications: Current Medications Albuterol/Ipratropium (Duoneb 3 Mg/0.5 Mg (3 Ml) Ud) 3 ml INH RQ6 BEV Stop: 10/01/17 23:59 Last Admin: 09/29/17 20:07 Dose: 3 ml Bumetanide 10 mg/ Dextrose 140 mls @ 5 mls/hr IV .Q24H [facility] Last Admin: 09/29/17 15:20 Dose: Not Given Cefepime HCl 1 gm/ Dextrose 50 mls @ 100 mls/hr IVPB Q12H BEV PRN Reason: Protocol Last Admin: 09/29/17 20:15 Dose: 100 mls/hr Lactulose (Enulose) 20 gm PO BID [facility] Last Admin: 09/29/17 17:54 Dose: 20 gm Levothyroxine Sodium (Synthroid) 100 mcg PO DAILY@0630 [facility] Last Admin: 09/29/17 07:10 Dose: 100 mcg Oxycodone HCl (Oxycodone Immediate Release Tab) 10 mg PO Q6H PRN PRN Reason: Pain, severe (8-10) Last Admin: 09/25/17 22:07 Dose: 10 mg Pantoprazole Sodium (Protonix Inj) 40 mg IVP Q12H [facility] Last Admin: 09/29/17 22:04 Dose: 40 mg Prednisone (Prednisone Tab) 30 mg PO DAILY [facility] Stop: 10/02/17 23:59 Last Admin: 09/29/17 11:25 Dose: 30 mg Spironolactone (Aldactone) 50 mg PO BID [facility] Last Admin: 09/29/17 17:54 Dose: 50 mg - Labs Labs: 09/29/17 06:49 09/29/17 06:49 PT 47.6 SECONDS (9.7-12.2) H* D 09/29/17 04:00 INR 4.3 D 09/29/17 04:00 APTT 38 SECONDS (21-34) H 09/27/17 14:04
[2017-09-30] MEDS: Albuterol-Ipratrop 3 mg / 0.5 (3 ml) UD INH SCH ×3 (02:20→21:08)
[2017-09-30 06:00] LABS: BASO % 0.2 % (0.0-2.0); EOS % 0.3 % (0.0-4.0); HEMOGLOBIN 9.4 g/dL (12.0-18.0); LYMPH # 1.1 K/uL (1.0-4.3); MEAN CELL VOLUME 106.5 fL (80.0-94.0); MEAN CORPUSCULAR HEMOGLOBIN 36.5 pg (27.0-31.0); MEAN CORPUSCULAR HGB CONC 34.3 g/dL (33.0-37.0); MEAN PLATELET VOLUME 9.2 fL (7.2-11.7); MONO # 0.8 K/uL (0.0-0.8); MONO % 8.4 % (0.0-10.0); NEUT # 7.8 K/uL (1.8-7.0); NEUT % 80.1 % (50.0-75.0); RBC 2.57 Mil/uL (4.40-5.90); RED CELL DISTRIBUTION WIDTH 18.2 % (11.5-14.5); WHITE BLOOD COUNT 9.7 K/uL (4.8-10.8)
[2017-09-30 06:34] LABS: ALB/GLOB RATIO 0.8 (1.0-2.1); ALT/SGPT 168 U/L (21-72); AST/SGOT 172 U/L (17-59); BILIRUBIN,DIRECT 9.3 mg/dL (0.0-0.4); BLOOD UREA NITROGEN 38 mg/dL (9-20); CALCIUM 9.3 mg/dl (8.6-10.4); GFR AFRICAN-AMERICAN > 60; GFR NON-AFRICAN AMERICAN > 60
[2017-09-30 06:49] LABS: PROTHROMBIN TIME 55.1 SECONDS (9.7-12.2)
[2017-09-30] MEDS: Levothyroxine 100 MCG TAB PO SCH (07:56)
--- NOTE | 2017-09-30 08:48 | CP.PCM.PN ---
Subjective - Date & Time of Evaluation Date of Evaluation: 09/30/17 Time of Evaluation: 08:43 - Subjective Subjective: Patient seen and examined, resting in bed comfortably. His breathing has significantly improved following diuresis. He denies abdominal pain, nausea, vomiting, diarrhea (no bowel movements over past 24 hours), fever/chills. Tolerating PO diet without difficulty. 12 point review of systems performed, negative aside from mentioned above. Objective - Vital Signs/Intake and Output Vital Signs (last 24 hours): Temp Pulse Resp BP Pulse Ox 97.9 F 103 H 20 102/44 L 96 09/29/17 22:00 09/30/17 08:02 09/30/17 05:12 09/30/17 05:12 09/30/17 05:12 Intake and Output: 09/30/17 09/30/17 06:59 18:59 Intake Total 260 5 Output Total 2400 550 Balance -2140 -545 - Medications Medications: Current Medications Albuterol/Ipratropium (Duoneb 3 Mg/0.5 Mg (3 Ml) Ud) 3 ml INH RQ6 [facility] Stop: 10/01/17 23:59 Last Admin: 09/30/17 08:09 Dose: 3 ml Bumetanide 10 mg/ Dextrose 140 mls @ 5 mls/hr IV .Q24H [facility] Last Admin: 09/29/17 15:20 Dose: Not Given Cefepime HCl 1 gm/ Dextrose 50 mls @ 100 mls/hr IVPB Q12H [facility]EV PRN Reason: Protocol Last Admin: 09/30/17 07:36 Dose: 100 mls/hr Lactulose (Enulose) 20 gm PO BID [facility] Last Admin: 09/29/17 17:54 Dose: 20 gm Levothyroxine Sodium (Synthroid) 100 mcg PO DAILY@0630 [facility] Last Admin: 09/30/17 07:56 Dose: 100 mcg Oxycodone HCl (Oxycodone Immediate Release Tab) 10 mg PO Q6H PRN PRN Reason: Pain, severe (8-10) Last Admin: 09/25/17 22:07 Dose: 10 mg Pantoprazole Sodium (Protonix Inj) 40 mg IVP Q12H [facility] Last Admin: 09/29/17 22:04 Dose: 40 mg Prednisone (Prednisone Tab) 30 mg PO DAILY [facility] Stop: 10/02/17 23:59 Last Admin: 09/29/17 11:25 Dose: 30 mg Spironolactone (Aldactone) 50 mg PO BID [facility] Last Admin: 09/29/17 17:54 Dose: 50 mg - Labs Labs: 09/30/17 05:53 09/30/17 05:54 PT 55.1 SECONDS (9.7-12.2) H* D 09/30/17 05:54 INR 5.0 09/30/17 05:54 APTT 38 SECONDS (21-34) H 09/27/17 14:04 - Constitutional Appears: Non-toxic, No Acute Distress - Eye Exam Eye Exam: EOMI, Normal appearance - ENT Exam ENT Exam: Mucous Membranes Moist - Respiratory Exam Respiratory Exam: Clear to Ausculation Bilateral - Cardiovascular Exam Cardiovascular Exam: +S1, +S2 - GI/Abdominal Exam GI & Abdominal Exam: Distended, Soft, Normal Bowel Sounds Additional comments: non tender to palpation in four quadrants - Extremities Exam Additional comments: 1+ pitting edema b/l lower extremities - Skin Skin Exam: Dry, Intact, Normal Color, Warm Assessment and Plan - Assessment and Plan (Free Text) Assessment: Decompensated ETOH cirrhosis Ascites s/p large volume paracentesis, no SBP Steroid refractory ETOH hepatitis Pneumonia HIV Renal insufficiency - resolved Plan: - Low sodium diet as tolerated - LFTs stable, continue to monitor - Continue with antibiotic therapy as per ID - Steroid taper given inefficacy of use in ETOH hepatitis - Continue with lactulose for HE prevention - Patient has been accepted for transfer to [facility], awaiting bed assignment
[2017-09-30] MEDS ORDERED: Albumin Human 5% (12.5 gm/250 ml) IV ONE (10:30)
--- NOTE | 2017-09-30 11:47 | CP.PCM.PN ---
Subjective - Date & Time of Evaluation Date of Evaluation: 09/30/17 Time of Evaluation: 11:44 - Subjective Subjective: Patient sitting in chair; feels well; tolerating diet; breathing much improved; urinating well; Objective - Vital Signs/Intake and Output Vital Signs (last 24 hours): Temp Pulse Resp BP Pulse Ox 97.9 F 110 H 27 H 91/49 L 95 09/29/17 22:00 09/30/17 10:52 09/30/17 10:42 09/30/17 10:42 09/30/17 10:42 Intake and Output: 09/30/17 09/30/17 06:59 18:59 Intake Total 260 565 Output Total 2400 850 Balance -2140 -285 - Medications Medications: Current Medications Albuterol/Ipratropium (Duoneb 3 Mg/0.5 Mg (3 Ml) Ud) 3 ml INH RQ6 BEV Stop: 10/01/17 23:59 Last Admin: 09/30/17 08:09 Dose: 3 ml Cefepime HCl 1 gm/ Dextrose 50 mls @ 100 mls/hr IVPB Q12H BEV PRN Reason: Protocol Last Admin: 09/30/17 07:36 Dose: 100 mls/hr Lactulose (Enulose) 20 gm PO BID [facility] Last Admin: 09/30/17 09:49 Dose: 20 gm Levothyroxine Sodium (Synthroid) 100 mcg PO DAILY@0630 [facility] Last Admin: 09/30/17 07:56 Dose: 100 mcg Oxycodone HCl (Oxycodone Immediate Release Tab) 10 mg PO Q6H PRN PRN Reason: Pain, severe (8-10) Last Admin: 09/25/17 22:07 Dose: 10 mg Pantoprazole Sodium (Protonix Inj) 40 mg IVP Q12H [facility] Last Admin: 09/30/17 09:49 Dose: 40 mg Prednisone (Prednisone Tab) 30 mg PO DAILY BEV Stop: 10/02/17 23:59 Last Admin: 09/30/17 09:49 Dose: 30 mg Spironolactone (Aldactone) 50 mg PO BID [facility] Last Admin: 09/30/17 09:49 Dose: 50 mg - Labs Labs: 09/30/17 05:53 09/30/17 05:54 PT 55.1 SECONDS (9.7-12.2) H* D 09/30/17 05:54 INR 5.0 09/30/17 05:54 APTT 38 SECONDS (21-34) H 09/27/17 14:04 - Constitutional Appears: Non-toxic, No Acute Distress - Eye Exam Eye Exam: Scleral icterus - Respiratory Exam Respiratory Exam: Rales. absent: Wheezes, Respiratory Distress Additional comments: bilateral rales - Cardiovascular Exam Cardiovascular Exam: REGULAR RHYTHM, +S1, +S2 - GI/Abdominal Exam GI & Abdominal Exam: Soft. absent: Tenderness - Extremities Exam Additional comments: moderate b/l leg edema extending to thighs, much improved; - Neurological Exam Neurological Exam: Alert, Awake - Psychiatric Exam Psychiatric exam: Normal Affect, Normal Mood. absent: Agitated - Skin Skin Exam: Warm. absent: Cyanosis Assessment and Plan (1) Metabolic alkalosis Assessment & Plan: Progressively alkalotic in setting of aggressive loop diuretics needed to control volume status; volume status now much improved with relatively low FIO2 requirement; needs chloride containing IVF to correct alkalosis; -giving 250 cc NS at 60 cc/hr x 1 bag -IV albumin 5% q8h x 3 doses to help with intravascular volume expansion -holding bumx drip, can restart bolus dosing tomorrow; -continue aldactone 50 mg bid -KCl 40 meq PO x 1 dose; -check bmp at 6pm Status: Acute (2) Ascites Assessment & Plan: Secondary to liver failure; s/p 4L drainage from paracentesis; will need to continue aggressive diuretic regimen to prevent recurrence, holding temporarily; -resume diuretics tomorrow with torsemide 20 mg PO bid; continue aldactone 50 mg bid; -low Na diet; Status: Acute (3) Renal insufficiency Assessment & Plan: HRS type I ruled out; avoid nephrotoxic agents, NSAIDS: Status: Resolved (4) Hypokalemia Assessment & Plan: Mild but may worsen with us giving IVF; need to avoid hypokalemia as it can precipitate hepatic encephalopathy and will prevent alkalosis from being corrected; supplementing as above and checking labs; Status: Acute
[2017-09-30] MEDS ORDERED: Potassium Chloride 20 mEq ER Tab PO ONE (11:52)
[2017-09-30] MEDS ORDERED: Sodium Chloride 0.9% 250 ML IV SCH ×2 (12:00)
--- NOTE | 2017-09-30 15:29 | CP.PCM.PN ---
Subjective - Date & Time of Evaluation Date of Evaluation: 09/30/17 Time of Evaluation: 15:28 - Subjective Subjective: currently patient is undergoing through electrolyte and fluid imbalance. Patient had adequate urine output with a creatinine of 1.1 as of yesterday patient is asymptomatic sitting in the chair with no symptoms. Electrolytes and fluid being managed by the nephrology will follow the guidelines Discussed with the patient concerning the transfer to [facility], patient has agreed for the transfer awaiting bed situation Objective - Vital Signs/Intake and Output Vital Signs (last 24 hours): Temp Pulse Resp BP Pulse Ox 98.4 F 114 H 26 H 102/48 L 95 09/30/17 12:00 09/30/17 14:13 09/30/17 14:13 09/30/17 14:13 09/30/17 14:13 Intake and Output: 09/30/17 09/30/17 11:59 23:59 Intake Total 685 600 Output Total 3550 400 Balance -2865 200 - Medications Medications: Current Medications Albuterol/Ipratropium (Duoneb 3 Mg/0.5 Mg (3 Ml) Ud) 3 ml INH RQ6 [facility] Stop: 10/01/17 23:59 Last Admin: 09/30/17 08:09 Dose: 3 ml Cefepime HCl 1 gm/ Dextrose 50 mls @ 100 mls/hr IVPB Q12H [facility] PRN Reason: Protocol Last Admin: 09/30/17 07:36 Dose: 100 mls/hr Lactulose (Enulose) 20 gm PO BID [facility] Last Admin: 09/30/17 09:49 Dose: 20 gm Levothyroxine Sodium (Synthroid) 100 mcg PO DAILY@0630 [facility] Last Admin: 09/30/17 07:56 Dose: 100 mcg Oxycodone HCl (Oxycodone Immediate Release Tab) 10 mg PO Q6H PRN PRN Reason: Pain, severe (8-10) Last Admin: 09/25/17 22:07 Dose: 10 mg Pantoprazole Sodium (Protonix Inj) 40 mg IVP Q12H [facility] Last Admin: 09/30/17 09:49 Dose: 40 mg Prednisone (Prednisone Tab) 30 mg PO DAILY [facility] Stop: 10/02/17 23:59 Last Admin: 09/30/17 09:49 Dose: 30 mg Spironolactone (Aldactone) 50 mg PO BID [facility] Last Admin: 09/30/17 09:49 Dose: 50 mg - Labs Labs: 09/30/17 05:53 09/30/17 05:54 PT 55.1 SECONDS (9.7-12.2) H* D 09/30/17 05:54 INR 5.0 09/30/17 05:54 APTT 38 SECONDS (21-34) H 09/27/17 14:04
[2017-09-30 19:00] LABS: BLOOD UREA NITROGEN 32 mg/dL (9-20); CALCIUM 9.4 mg/dl (8.6-10.4); GFR AFRICAN-AMERICAN > 60; GFR NON-AFRICAN AMERICAN > 60
[2017-10-01] MEDS: Albuterol-Ipratrop 3 mg / 0.5 (3 ml) UD INH SCH ×3 (01:13→20:17)
[2017-10-01] MEDS: Levothyroxine 100 MCG TAB PO SCH (06:16)
[2017-10-01 06:38] LABS: MEAN CELL VOLUME 106.9 fL (80.0-94.0); MEAN CORPUSCULAR HEMOGLOBIN 36.9 pg (27.0-31.0); MEAN CORPUSCULAR HGB CONC 34.5 g/dL (33.0-37.0); MEAN PLATELET VOLUME 8.7 fL (7.2-11.7); PLATELET COUNT 35 K/uL (130-400); RBC 2.45 Mil/uL (4.40-5.90); RED CELL DISTRIBUTION WIDTH 18.6 % (11.5-14.5); WHITE BLOOD COUNT 9.9 K/uL (4.8-10.8)
[2017-10-01 06:58] LABS: ALB/GLOB RATIO 0.8 (1.0-2.1); ALBUMIN 2.9 g/dL (3.5-5.0); ALT/SGPT 217 U/L (21-72); AST/SGOT 246 U/L (17-59); BILIRUBIN,DIRECT 10.1 mg/dL (0.0-0.4); BLOOD UREA NITROGEN 28 mg/dL (9-20); CALCIUM 9.1 mg/dl (8.6-10.4); GFR AFRICAN-AMERICAN > 60; GFR NON-AFRICAN AMERICAN > 60
[2017-10-01 07:27] LABS: INR 5.5; PROTHROMBIN TIME 60.6 SECONDS (9.7-12.2)
--- NOTE | 2017-10-01 08:17 | CP.PCM.PN ---
<Amrit Taylor - Last Filed: 10/01/17 11:50> Subjective - Date & Time of Evaluation Date of Evaluation: 10/01/17 Time of Evaluation: 08:15 - Subjective Subjective: GI Fellow PGY4, progress note. Patient seen and examined. No acute overnight events. No complaints. He denies SOB on RA. No cough. He denies abdominal pain. He is passing gas but no BMs in two days and compliant with lactulose. He is making significant urine the past two days and medical team is decreasing diuretics. 12pt ROS completed and negative except for as above. Objective - Vital Signs/Intake and Output Vital Signs (last 24 hours): Temp Pulse Resp BP Pulse Ox 98.7 F 104 H 16 102/53 L 94 L 10/01/17 04:00 10/01/17 04:42 10/01/17 04:42 10/01/17 04:42 10/01/17 04:42 Intake and Output: 10/01/17 10/01/17 06:59 18:59 Intake Total 550 50 Output Total 600 400 Balance -50 -350 - Medications Medications: Current Medications Albuterol/Ipratropium (Duoneb 3 Mg/0.5 Mg (3 Ml) Ud) 3 ml INH RQ6 [facility] Stop: 10/01/17 23:59 Last Admin: 10/01/17 07:54 Dose: 3 ml Cefepime HCl 1 gm/ Dextrose 50 mls @ 100 mls/hr IVPB Q12H [facility] PRN Reason: Protocol Last Admin: 10/01/17 07:36 Dose: 100 mls/hr Lactulose (Enulose) 20 gm PO BID [facility] Last Admin: 09/30/17 19:26 Dose: 20 gm Levothyroxine Sodium (Synthroid) 100 mcg PO DAILY@0630 [facility] Last Admin: 10/01/17 06:16 Dose: 100 mcg Oxycodone HCl (Oxycodone Immediate Release Tab) 10 mg PO Q6H PRN PRN Reason: Pain, severe (8-10) Last Admin: 09/25/17 22:07 Dose: 10 mg Pantoprazole Sodium (Protonix Inj) 40 mg IVP Q12H [facility] Last Admin: 09/30/17 21:23 Dose: 40 mg Phytonadione (Vitamin K Tab) 10 mg PO DAILY [facility] Stop: 10/03/17 11:00 Prednisone (Prednisone Tab) 30 mg PO DAILY [facility] Stop: 10/02/17 23:59 Last Admin: 09/30/17 09:49 Dose: 30 mg Spironolactone (Aldactone) 50 mg PO BID [facility] Last Admin: 09/30/17 19:26 Dose: 50 mg - Labs Labs: 10/01/17 06:24 10/01/17 06:24 PT 60.6 SECONDS (9.7-12.2) H* D 10/01/17 06:24 INR 5.5 10/01/17 06:24 APTT 38 SECONDS (21-34) H 09/27/17 14:04 - Constitutional Appears: Well, Non-toxic, No Acute Distress - Head Exam Head Exam: ATRAUMATIC, NORMAL INSPECTION, NORMOCEPHALIC - Eye Exam Eye Exam: EOMI, Scleral icterus - ENT Exam ENT Exam: Mucous Membranes Moist, Normal Exam - Respiratory Exam Respiratory Exam: Clear to Ausculation Bilateral, NORMAL BREATHING PATTERN - Cardiovascular Exam Cardiovascular Exam: REGULAR RHYTHM, +S1, +S2 - GI/Abdominal Exam GI & Abdominal Exam: Distended, Soft, Normal Bowel Sounds. absent: Tenderness - Extremities Exam Extremities Exam: Full ROM, Pedal Edema - Neurological Exam Neurological Exam: Alert, Awake, Oriented x3 - Psychiatric Exam Psychiatric exam: Normal Affect, Normal Mood - Skin Skin Exam: Dry, Intact, Normal Color Assessment and Plan - Assessment and Plan (Free Text) Assessment: Patient is a 52yo male with PMHx significant for decompensated EtOH cirrhosis c/ b ascites, coagulopathy with ongoing EtOH use, also with PE, HIV on HAART who presented to the ED with abdominal distention. #Decompensated EtOH cirrhosis #Tense Ascites #Alcoholic hepatitis #Possible autoimmune hepatitis - SM-Ab + 1:80, IGG elevated. #Thrombocytopenia #Anemia #SOB - ?TACO, left heart failure. Previous echo 09/03 showed normal EF. #HARRIET- Resolved. #HIV on HAART Plan: -Continue supportive care -MDF > 32; Unfortunately, he is not improving with steroids per [place] score. -Discontinue prednisone as risk>benefit. Will need to taper dose due prolonged exposure. Decrease 10mg q5days. 09/27 (30mg)--> 10/02 (20mg) etc. until down to 5mg. -paracentesis 09/27/17 with 4L removed, straw colored. PMNs very low, negative gram stain. No SBP. -Continue lactulose for HE prevention. -2g Na diet restriction -Defer to ID on when to restart HAART -Pt will need EGD as an outpt to r/o esophageal varices *MELD-Na: 35 -DF:148 -Overall prognosis is poor without close follow up. Currently in stable condition. -He has been accepted by [facility] for transfer. Okay with GI team to transfer to [facility] or to followup as outpt at [facility]. I will give patient information regarding clinic contact information -We will sign-off at this point. Please reconsult for any other GI related concerns. <Kristopher Winston - Last Filed: 10/01/17 14:08> Objective - Vital Signs/Intake and Output Vital Signs (last 24 hours): Temp Pulse Resp BP Pulse Ox 97.4 F L 108 H 25 H 94/50 L 94 L 10/01/17 08:00 10/01/17 11:42 10/01/17 11:42 10/01/17 11:42 10/01/17 11:42 Intake and Output: 10/01/17 10/01/17 06:59 18:59 Intake Total 550 300 Output Total 600 400 Balance -50 -100 - Medications Medications: Current Medications Acetazolamide (Diamox 500 Mg Inj) 250 mg IV Q6 [facility] Stop: 10/02/17 00:01 Last Admin: 10/01/17 12:52 Dose: 250 mg Albuterol/Ipratropium (Duoneb 3 Mg/0.5 Mg (3 Ml) Ud) 3 ml INH RQ6 [facility] Stop: 10/01/17 23:59 Last Admin: 10/01/17 07:54 Dose: 3 ml Cefepime HCl 1 gm/ Dextrose 50 mls @ 100 mls/hr IVPB Q12H [facility] PRN Reason: Protocol Last Admin: 10/01/17 07:36 Dose: 100 mls/hr Sodium Chloride (Sodium Chloride 0.9%) 1,000 mls @ 75 mls/hr IV .[id number] [facility] Stop: 10/02/17 00:19 Last Admin: 10/01/17 11:15 Dose: 75 mls/hr Lactulose (Enulose) 20 gm PO BID [facility] Last Admin: 10/01/17 09:28 Dose: 20 gm Levothyroxine Sodium (Synthroid) 100 mcg PO DAILY@0630 [facility] Last Admin: 10/01/17 06:16 Dose: 100 mcg Oxycodone HCl (Oxycodone Immediate Release Tab) 10 mg PO Q6H PRN PRN Reason: Pain, severe (8-10) Last Admin: 09/25/17 22:07 Dose: 10 mg Pantoprazole Sodium (Protonix Inj) 40 mg IVP Q12H [facility] Last Admin: 10/01/17 09:28 Dose: 40 mg Phytonadione (Vitamin K Tab) 10 mg PO DAILY [facility] Stop: 10/03/17 11:00 Last Admin: 10/01/17 09:42 Dose: 10 mg Prednisone (Prednisone Tab) 30 mg PO DAILY [facility] Stop: 10/02/17 23:59 Last Admin: 10/01/17 09:28 Dose: 30 mg Spironolactone (Aldactone) 50 mg PO BID [facility] Last Admin: 10/01/17 09:28 Dose: 50 mg - Labs Labs: 10/01/17 06:24 10/01/17 06:24 PT 60.6 SECONDS (9.7-12.2) H* D 10/01/17 06:24 INR 5.5 10/01/17 06:24 APTT 38 SECONDS (21-34) H 09/27/17 14:04 Attending/Attestation - Attestation I have personally seen and examined this patient.: Yes I have fully participated in the care of the patient.: Yes I have reviewed all pertinent clinical information, including history, physical exam and plan: Yes Notes (Text): 10/01/17 14:05 I have seen and examined patient with GI fellow. No acute events overnight, he is seen resting in chair next to bedside. He denies abdominal pain, nausea, vomiting, diarrhea, fever/chills. Tolerating PO diet without difficulty. Review of vitals from today are normal. Decompensated ETOH cirrhosis Ascites, s/p LVP Renal insufficiency, resolved Steroid refractory ETOH hepatitis HIV on HAART Pneumonia CHF - Low sodium diet as tolerated - LFTs stable, continue to monitor - Continue with steroid taper for treatment refractory ETOH hepatitis - Continue with lactulose for HE prevention - Continue with antibiotic therapy as per ID - Patient to be discharged home today and will need to follow up at [facility] liver clinic for transplant consideration. No further planned GI intervention, will sign off case. Please reconsult as necessary, thank you.
--- NOTE | 2017-10-01 10:01 | CP.PCM.PN ---
<Getachew Aquino - Last Filed: 10/01/17 14:23> Subjective - Date & Time of Evaluation Date of Evaluation: 10/01/17 Time of Evaluation: 09:45 - Subjective Subjective: Getachew Aquino PGY-1 [facility] Progress Note Patient seen and examined in ICU room. Patient offers no acute complaints. Patient states breathing is improved, good urine output, and good appetite. Patient denies chest pain, shortness of breath, nausea, vomiting, constipation or diarrhea. Objective - Vital Signs/Intake and Output Vital Signs (last 24 hours): Temp Pulse Resp BP Pulse Ox 97.4 F L 108 H 18 103/61 100 10/01/17 08:00 10/01/17 08:12 10/01/17 08:12 10/01/17 08:12 10/01/17 08:12 Intake and Output: 10/01/17 10/01/17 06:59 18:59 Intake Total 550 300 Output Total 600 400 Balance -50 -100 - Medications Medications: Current Medications Albuterol/Ipratropium (Duoneb 3 Mg/0.5 Mg (3 Ml) Ud) 3 ml INH RQ6 [facility] Stop: 10/01/17 23:59 Last Admin: 10/01/17 07:54 Dose: 3 ml Cefepime HCl 1 gm/ Dextrose 50 mls @ 100 mls/hr IVPB Q12H [facility] PRN Reason: Protocol Last Admin: 10/01/17 07:36 Dose: 100 mls/hr Lactulose (Enulose) 20 gm PO BID [facility] Last Admin: 10/01/17 09:28 Dose: 20 gm Levothyroxine Sodium (Synthroid) 100 mcg PO DAILY@0630 [facility] Last Admin: 10/01/17 06:16 Dose: 100 mcg Oxycodone HCl (Oxycodone Immediate Release Tab) 10 mg PO Q6H PRN PRN Reason: Pain, severe (8-10) Last Admin: 09/25/17 22:07 Dose: 10 mg Pantoprazole Sodium (Protonix Inj) 40 mg IVP Q12H [facility] Last Admin: 10/01/17 09:28 Dose: 40 mg Phytonadione (Vitamin K Tab) 10 mg PO DAILY [facility] Stop: 10/03/17 11:00 Last Admin: 10/01/17 09:42 Dose: 10 mg Prednisone (Prednisone Tab) 30 mg PO DAILY [facility] Stop: 10/02/17 23:59 Last Admin: 10/01/17 09:28 Dose: 30 mg Spironolactone (Aldactone) 50 mg PO BID [facility] Last Admin: 10/01/17 09:28 Dose: 50 mg - Labs Labs: 10/01/17 06:24 10/01/17 06:24 PT 60.6 SECONDS (9.7-12.2) H* D 10/01/17 06:24 INR 5.5 10/01/17 06:24 APTT 38 SECONDS (21-34) H 09/27/17 14:04 - Additional Findings Additional findings: - Constitutional Appears: Non-toxic, No Acute Distress - Eye Exam Eye Exam: Scleral icterus - Respiratory Exam Respiratory Exam: Rales. absent: Wheezes, Respiratory Distress Additional comments: bilateral rales - Cardiovascular Exam Cardiovascular Exam: REGULAR RHYTHM, +S1, +S2 - GI/Abdominal Exam GI & Abdominal Exam: Soft. absent: Tenderness - Extremities Exam Additional comments: moderate b/l leg edema extending to thighs, much improved; - Neurological Exam Neurological Exam: Alert, Awake - Psychiatric Exam Psychiatric exam: Normal Affect, Normal Mood. absent: Agitated - Skin Skin Exam: Warm. absent: Cyanosis Assessment and Plan - Assessment and Plan (Free Text) Assessment: Patient is a 52 year old male with PMH of HIV, alcoholic cirrhosis, pulmonary embolism, and ascites presents with increasing shortness of breath and abdominal distention. Plan: (1) Metabolic alkalosis Assessment & Plan: Progressively alkalotic in setting of aggressive loop diuretics needed to control volume status; volume status now much improved with relatively oxygen requirement; -giving 1000cc NS at 75cc/hr x1 bag -holding bumx drip, in setting of alkalosis and low blood presures; -continue aldactone 50 mg bid; Acetolazmide ordered IV q6 3 doses total to correct alkalosis -Venous blood gas ordered; -check bmp at 6pm Status: Acute (2) Ascites Assessment & Plan: Secondary to liver failure; s/p 4L drainage from paracentesis; will need to continue aggressive diuretic regimen to prevent recurrence, -Continue aldactone 50 mg bid; Other diuretics held in setting of alkalosis -low Na diet; Status: Acute (3) Renal insufficiency Assessment & Plan: Prerenal etiology; Cr improving 0.9 today HRS type I ruled out; avoid nephrotoxic agents, NSAIDS: Status: Resolved (4) Hypokalemia Assessment & Plan: Improved s/p KCl tablet single dose and aldactone bid Continue to monitor Status: Acute <Nadeem Triana - Last Filed: 10/02/17 07:26> Objective - Vital Signs/Intake and Output Vital Signs (last 24 hours): Temp Pulse Resp BP Pulse Ox 98 F 99 H 17 96/62 L 97 10/02/17 03:59 10/02/17 04:00 10/02/17 04:00 10/02/17 03:51 10/02/17 04:00 Intake and Output: 10/02/17 10/02/17 06:59 18:59 Intake Total 1690 Output Total 2000 Balance -310 - Medications Medications: Current Medications Cefepime HCl 1 gm/ Dextrose 50 mls @ 100 mls/hr IVPB Q12H [facility] PRN Reason: Protocol Last Admin: 10/01/17 20:13 Dose: 100 mls/hr Lactulose (Enulose) 20 gm PO BID [facility] Last Admin: 10/01/17 18:11 Dose: 20 gm Levothyroxine Sodium (Synthroid) 100 mcg PO DAILY@0630 [facility] Last Admin: 10/02/17 05:54 Dose: 100 mcg Oxycodone HCl (Oxycodone Immediate Release Tab) 10 mg PO Q6H PRN PRN Reason: Pain, severe (8-10) Last Admin: 09/25/17 22:07 Dose: 10 mg Pantoprazole Sodium (Protonix Inj) 40 mg IVP Q12H [facility] Last Admin: 10/01/17 21:17 Dose: 40 mg Phytonadione (Vitamin K Tab) 10 mg PO DAILY [facility] Stop: 10/03/17 11:00 Last Admin: 10/01/17 09:42 Dose: 10 mg Prednisone (Prednisone Tab) 30 mg PO DAILY [facility] Stop: 10/02/17 23:59 Last Admin: 10/01/17 09:28 Dose: 30 mg Spironolactone (Aldactone) 50 mg PO BID [facility] Last Admin: 10/01/17 18:11 Dose: 50 mg Torsemide (Demadex) 10 mg PO BID [facility] - Labs Labs: 10/02/17 06:17 10/02/17 06:16 PT 60.6 SECONDS (9.7-12.2) H* 10/02/17 06:17 INR 5.5 10/02/17 06:17 APTT 38 SECONDS (21-34) H 09/27/17 14:04 Assessment and Plan (1) Metabolic alkalosis Status: Acute (2) Ascites Status: Acute (3) Renal insufficiency Status: Resolved (4) Hypokalemia Status: Acute Attending/Attestation - Attestation I have personally seen and examined this patient.: Yes I have fully participated in the care of the patient.: Yes I have reviewed all pertinent clinical information, including history, physical exam and plan: Yes Notes (Text): Patient seen and examined; I agree with the resident's note as above with the following additions/edits: Patient admitted with decompensated liver disease w/ severe ascites/anasarca; transferred to ICU on Sunday for acute hypoxemic respiratory failure; treated with aggressive IV diuretics and on antibiotics for HCAP; now transferred back [facility] status; Severe and progressive metabolic alkalosis in the setting of being on aggressive loop diuretic regimen; discontinued yesterday but likely still with residual effect; started today on acetazolamide 250 mg q6h x 2 doses and 1L NS at 75 cc/hr with significant improvement in alkalosis; hypokalemia treated aggressively with PO KCl for total of 120 meq; Lactic acid elevated, etiology unclear; hemodynamically stable and only has mildly elevated anion gap on bmp; will have difficulty clearing lactate given liver dysfunction; checking repeat level in am;
[2017-10-01] MEDS ORDERED: Sodium Chloride 0.9% 1,000 ML IV SCH (11:00)
[2017-10-01] MEDS ORDERED: Albumin Human 25% (12.5 gm/50 ml) IV ONE ×2 (11:15→19:06)
--- NOTE | 2017-10-01 11:31 | CP.PCM.PN ---
Subjective - Date & Time of Evaluation Date of Evaluation: 10/01/17 Time of Evaluation: 11:31 - Subjective Subjective: CHIEF COMPLAINTS TODAY : AFEBRILE, NO ACUTE EVENTS OVERNIGHT. AWAKE AND ALERT. OFFERS NO NEW COMPLAINTS -VE SOB. iMPROVED URINE OUTPUT S/P PARACENTESIS BY IR 09/27/17- ROS. HEENT : N SCLERA ICTERIC Resp : No cough, wheezing ,pleuritic CP ,or hemoptysis Cardio : No anginal CP, PND, orthopnea, palpitation GI : No n/v ,diarrhea or GI bleeding .ABD +VE ASCITES [employer] : No headache, vertigo, focal deficit. Musculoskel : No joint swelling , Derm : No rash Psych : Normal affect. Ext : 2+ EDEMA , no calf pain PE. Pt. is alert awake, IN NO ACUTE DISTRESS V.S As noted in the chart Head ,ear nose,throat and eyes : Normal.ICTERIC Neck : Supple with normal carotids. Lungs: DIMINISHED BREATH SOUNDS AT THE BASES. Heart : S1 & S2 normal with S4. No murmur. Abd : Soft non tender with normal bowel sounds.abdomen is LESS DISTENDED secondary to ASCITIS Neuro : Moves all ext. with no localized deficit. Ext : 2+ EDEMA with intact pulses.Non tender calves Derm : No rashes or decubitus ulcer. LABS/RADIOLOGY: WBC 9.9 H/H 9.0 PLT 35. CXR 09/29/17 -CONFLUENT CONSOLIDATIVE OPACIFICATION SEEN IN RIGHT MIDDLE LOBE AND RIGHT LOWER LUNG BASE WELL LEFT LUNG BASE. CREATININE 0.9/bun 28.. INR 5.5 SERUM LACTATE 5.5. LFTS T .BILI 19.9, D.BILI 10.0 AST TO 46,ALT 217 AP 79. ABD. FLUID -NOTED CLOUDY,WBC 69,RBC 2762, 52N, 45L,2 M ASCITES FLUID -VE GROWTH TO DATE HEPATITIS SCREENING NEGATIVE FOR A.B,C. [id number] CELLS 663- >601 hiv rna QUANTITATIVE pcr-<1.30 NOT DETECT Objective - Vital Signs/Intake and Output Vital Signs (last 24 hours): Temp Pulse Resp BP Pulse Ox 97.4 F L 108 H 18 103/61 100 10/01/17 08:00 10/01/17 08:12 10/01/17 08:12 10/01/17 08:12 10/01/17 08:12 Intake and Output: 10/01/17 10/01/17 06:59 18:59 Intake Total 550 300 Output Total 600 400 Balance -50 -100 - Medications Medications: Current Medications Acetazolamide (Diamox 500 Mg Inj) 250 mg IV Q6 [facility] Stop: 10/02/17 00:01 Albuterol/Ipratropium (Duoneb 3 Mg/0.5 Mg (3 Ml) Ud) 3 ml INH RQ6 BEV Stop: 10/01/17 23:59 Last Admin: 10/01/17 07:54 Dose: 3 ml Cefepime HCl 1 gm/ Dextrose 50 mls @ 100 mls/hr IVPB Q12H BEV PRN Reason: Protocol Last Admin: 10/01/17 07:36 Dose: 100 mls/hr Sodium Chloride (Sodium Chloride 0.9%) 1,000 mls @ 75 mls/hr IV .[id number] BEV Stop: 10/02/17 00:19 Last Admin: 10/01/17 11:15 Dose: 75 mls/hr Lactulose (Enulose) 20 gm PO BID [facility] Last Admin: 10/01/17 09:28 Dose: 20 gm Levothyroxine Sodium (Synthroid) 100 mcg PO DAILY@0630 [facility] Last Admin: 10/01/17 06:16 Dose: 100 mcg Oxycodone HCl (Oxycodone Immediate Release Tab) 10 mg PO Q6H PRN PRN Reason: Pain, severe (8-10) Last Admin: 09/25/17 22:07 Dose: 10 mg Pantoprazole Sodium (Protonix Inj) 40 mg IVP Q12H [facility] Last Admin: 10/01/17 09:28 Dose: 40 mg Phytonadione (Vitamin K Tab) 10 mg PO DAILY BEV Stop: 10/03/17 11:00 Last Admin: 10/01/17 09:42 Dose: 10 mg Prednisone (Prednisone Tab) 30 mg PO DAILY BEV Stop: 10/02/17 23:59 Last Admin: 10/01/17 09:28 Dose: 30 mg Spironolactone (Aldactone) 50 mg PO BID [facility] Last Admin: 10/01/17 09:28 Dose: 50 mg - Labs Labs: 10/01/17 06:24 10/01/17 06:24 PT 60.6 SECONDS (9.7-12.2) H* D 10/01/17 06:24 INR 5.5 10/01/17 06:24 APTT 38 SECONDS (21-34) H 09/27/17 14:04 Assessment and Plan (1) Alcoholic hepatitis with ascites Assessment & Plan: ASCITES FLUID CLOUDY- - cULTURE -VE TO DATE DENIES ABDOMINAL , NAUSEA OR VOMITING. LFTS INCREASING-ALCOHOLIC HEPATITIS WITH CIRRHOSIS. ALSO ?AUTOIMMUNE HEPATITIS ON PREDNISONE 30MG PO OD DAILY PER GI. PATIENT AWAITING [facility] Status: Chronic (2) Dyspnea Assessment & Plan: CXR 09/29/17 NOTED +VE B/L INFILTRATES RML/RLL/LLL ?CHF VS PNEUMONITIS. DENIES COUGH OR EXPECTORATION. PT DENIES FEVER OR CHILLS WILL CONTINUE IV CEFEPIME 1GM IVPB [id number] FOR NOW 09/27/17 DIURESIS PER RENAL. F/U CXR IN AM. Status: Acute (3) Jaundice Status: Acute (4) HIV (human immunodeficiency virus infection) Assessment & Plan: ART ON HOLD. RISING LIVER FUNCTION TESTS. Status: Chronic (5) Thrombocytopenia Status: Acute (6) Hypothyroidism Status: Acute (7) Renal insufficiency Assessment & Plan: MUCH IMPROVED. IV FLUIDS AND DIURESIS PER RENAL Status: Resolved
--- NOTE | 2017-10-01 13:51 | CP.PCM.DIS ---
Provider - Provider Date of Admission: 09/19/17 02:38 Attending physician: Ruchi Patel MD Primary care physician: Dino Campoverde MD Time Spent in preparation of Discharge (in minutes): 35 Hospital Course - Lab Results Lab Results: Micro Results 09/27/17 16:02 Peritoneal Fluid Gram Stain - Final 09/27/17 16:02 Peritoneal Fluid Body Fluid Culture - Preliminary NO GROWTH AFTER 3 DAYS 09/28/17 11:59 Naris MRSA Culture (Admit) - Final MRSA NOT DETECTED 09/27/17 Unknown Urine,Clean Catch Urine Culture - Final No Growth (<1,000 CFU/ML) Most Recent Lab Values WBC 9.9 K/uL (4.8-10.8) 10/01/17 06:24 RBC 2.45 Mil/uL (4.40-5.90) L 10/01/17 06:24 Hgb 9.0 g/dL (12.0-18.0) L 10/01/17 06:24 Hct 26.2 % (35.0-51.0) L 10/01/17 06:24 MCV 106.9 fL (80.0-94.0) H 10/01/17 06:24 MCH 36.9 pg (27.0-31.0) H 10/01/17 06:24 MCHC 34.5 g/dL (33.0-37.0) 10/01/17 06:24 RDW 18.6 % (11.5-14.5) H 10/01/17 06:24 Plt Count 35 K/uL (130-400) L 10/01/17 06:24 MPV 8.7 fL (7.2-11.7) 10/01/17 06:24 Neut % (Auto) 80.1 % (50.0-75.0) H 09/30/17 05:53 Lymph % (Auto) 11.0 % (20.0-40.0) L 09/30/17 05:53 [place] % (Auto) 8.4 % (0.0-10.0) 09/30/17 05:53 Eos % (Auto) 0.3 % (0.0-4.0) 09/30/17 05:53 Baso % (Auto) 0.2 % (0.0-2.0) 09/30/17 05:53 Neut # (Auto) 7.8 K/uL (1.8-7.0) H 09/30/17 05:53 Lymph # (Auto) 1.1 K/uL (1.0-4.3) 09/30/17 05:53 [place] # (Auto) 0.8 K/uL (0.0-0.8) 09/30/17 05:53 Eos # (Auto) 0.0 K/uL (0.0-0.7) 09/30/17 05:53 Baso # (Auto) 0.0 K/uL (0.0-0.2) 09/30/17 05:53 Neutrophils % (Manual) 82 % (50-75) H 09/29/17 06:49 Band Neutrophils % 1 % (0-2) 09/29/17 06:49 Lymphocytes % (Manual) 8 % (20-40) L 09/29/17 06:49 Monocytes % (Manual) 9 % (0-10) 09/29/17 06:49 Nucleated RBC % 1 % (0-0) H 09/26/17 09:17 Differential Comment 09/30/17 05:53 Toxic Granulation Present 09/29/17 06:49 Platelet Estimate Markedly decreased (NORMAL) L 09/29/17 06:49 Large Platelets Present 09/18/17 23:53 Polychromasia Slight 09/29/17 06:49 Hypochromasia (manual) Moderate 09/29/17 06:49 Poikilocytosis (manual Slight 09/29/17 06:49 Anisocytosis (manual) Moderate 09/29/17 06:49 Macrocytosis (manual) Moderate 09/29/17 06:49 Target Cells Slight 09/26/17 09:17 Ovalocytes Slight 09/29/17 06:49 Blodgett Cells Slight 09/29/17 06:49 Rouleaux Slight 09/18/17 23:53 PT 60.6 SECONDS (9.7-12.2) H* D 10/01/17 06:24 INR 5.5 10/01/17 06:24 APTT 38 SECONDS (21-34) H 09/27/17 14:04 Puncture Site Rr 09/28/17 09:50 pCO2 41 mm/Hg (35-45) 09/28/17 09:50 pO2 73 mm/Hg (80-100) L 09/28/17 09:50 HCO3 32.6 mmol/L (21-28) H 09/28/17 09:50 ABG pH 7.52 (7.35-7.45) H 09/28/17 09:50 ABG Total CO2 34.8 mmol/L (22-28) H 09/28/17 09:50 ABG O2 Saturation 100.6 % (95-98) H 09/28/17 09:50 ABG Base Excess 9.8 mmol/L (-2.0-3.0) H 09/28/17 09:50 ABG Hemoglobin 6.7 g/dL (11.7-17.4) L 09/28/17 09:50 ABG Carboxyhemoglobin 3.7 % (0.5-1.5) H 09/28/17 09:50 POC ABG HHb (Measured) -0.6 % (0.0-5.0) L 09/28/17 09:50 ABG Methemoglobin 1.1 % (0.0-3.0) 09/28/17 09:50 Robb Test Pos 09/28/17 09:50 Hgb O2 Saturation 95.8 % (95.0-98.0) 09/28/17 09:50 Liter Flow 5.0 09/28/17 09:50 Sodium 139 mmol/L (132-148) 10/01/17 06:24 Potassium 4.1 mmol/L (3.6-5.2) 10/01/17 06:24 Chloride 88 mmol/L (98-107) L 10/01/17 06:24 Carbon Dioxide 42 mmol/L (22-30) H* 10/01/17 06:24 Anion Gap 13 (10-20) 10/01/17 06:24 BUN 28 mg/dL (9-20) H 10/01/17 06:24 Creatinine 0.9 mg/dL (0.8-1.5) 10/01/17 06:24 Est GFR ( Amer) > 60 10/01/17 06:24 Est GFR (Non-Af Amer) > 60 10/01/17 06:24 Random Glucose 89 mg/dL (75-110) 10/01/17 06:24 Lactic Acid 2.2 mmol/L (0.7-2.1) H 09/28/17 09:54 Calcium 9.1 mg/dl (8.6-10.4) 10/01/17 06:24 Phosphorus 3.3 mg/dL (2.5-4.5) 09/29/17 06:49 Magnesium 1.9 mg/dL (1.6-2.3) 09/29/17 06:49 Total Bilirubin 19.9 mg/dL (0.2-1.3) H 10/01/17 06:24 Direct Bilirubin 10.1 mg/dL (0.0-0.4) H 10/01/17 06:24 AST 246 U/L (17-59) H D 10/01/17 06:24 ALT 217 U/L (21-72) H D 10/01/17 06:24 Alkaline Phosphatase 79 U/L (38-126) 10/01/17 06:24 Ammonia 28 umol/L (9-33) D 09/28/17 09:54 NT-Pro-B Natriuret Pep 3510 pg/mL (0-900) H 09/28/17 09:54 Total Protein 6.5 g/dL (6.3-8.3) 10/01/17 06:24 Albumin 2.9 g/dL (3.5-5.0) L 10/01/17 06:24 Globulin 3.6 gm/dL (2.2-3.9) 10/01/17 06:24 Albumin/Globulin Ratio 0.8 (1.0-2.1) L 10/01/17 06:24 Lipase 302 U/L (23-300) H 09/18/17 23:53 Urine Color [place] (YELLOW) 09/27/17 23:01 Urine Clarity Clear (Clear) 09/27/17 23:01 Urine pH 6.0 (5.0-8.0) 09/27/17 23:01 Ur Specific [place] 1.014 (1.003-1.030) 09/27/17 23:01 Urine Protein Negative mg/dL (NEGATIVE) 09/27/17 23:01 Urine Glucose (UA) Normal mg/dL (Normal) 09/27/17 23:01 Urine Ketones Negative mg/dL (NEGATIVE) 09/27/17 23:01 Urine Blood 2+ (NEGATIVE) H 09/27/17 23:01 Urine Nitrate Negative (NEGATIVE) 09/27/17 23:01 Urine Bilirubin Negative (NEGATIVE) 09/27/17 23:01 Urine Urobilinogen Normal mg/dL (0.2-1.0) 09/27/17 23:01 Ur Leukocyte Esterase Neg Lance/uL (Negative) 09/27/17 23:01 Urine WBC (Auto) 1 /hpf (0-5) 09/27/17 23:01 Urine RBC (Auto) 20 /hpf (0-3) H 09/27/17 23:01 Ur Squamous Epith Cells < 1 /hpf (0-5) 09/26/17 22:19 Amorphous Sediment Occ /ul (<OCC) H 09/26/17 22:19 Hyaline Casts 0-2 /lpf (0-2) 09/27/17 23:01 Urine Osmolality 555 mosm/kg (300-1000) 09/27/17 02:17 Ur Random Creatinine 326 mg/dL 09/27/17 02:17 U Random Total Protein 8.0 mg/dL (0.0-12.0) 09/27/17 01:01 Ur Random Sodium < 5 mmol/L 09/27/17 02:17 Urine Microalbumin 20.5 mg/L (0.0-16.6) H 09/27/17 00:59 Fluid Source Peritoneal/ascites 09/27/17 16:02 Fluid Appearance Sl cloudy (CLEAR) 09/27/17 16:02 Fluid WBC 69.0 /mm3 (0.0-300.0) 09/27/17 16:02 Fluid RBC 2762.0 /mm3 (0.0-0.0) H 09/27/17 16:02 Fluid Tot Cell Count TEST NOT PERFORMED 09/27/17 16:02 Fluid Neutrophils 52.0 % (0-0) H 09/27/17 16:02 Fluid Lymphocytes 45.0 % (0-0) H 09/27/17 16:02 Fld Monocyte/Macrophag 3 % (0-0) H 09/27/17 16:02 Fluid Comment 09/27/17 16:02 Alcohol, Quantitative < 10 mg/dl (0-10) 09/19/17 03:04 Absolute Lymphs (Flow) 1499 Cells/mcL (850-3900) 09/20/17 07:00 % CD4 Cells 40 Percent (30-61) 09/20/17 07:00 Absolute CD4 Count 601 Cells/mcL (490-1740) 09/20/17 07:00 T-Help/Suppress Ratio 1.42 Ratio (0.86-5.00) 09/20/17 07:00 % CD8 Cells 28 Percent (12-42) 09/20/17 07:00 Absolute CD8 Count 422 Cells/mcL (180-1170) 09/20/17 07:00 Hepatitis A IgM Ab Negative (NEGATIVE) 09/20/17 07:00 Hep Bs Antigen Negative (NEGATIVE) 09/20/17 07:00 Hep B Core IgM Ab Negative (NEGATIVE) 09/20/17 07:00 Hepatitis C Antibody Negative (NEGATIVE) 09/20/17 07:00 HIV-1 RNA Qnt (RT-PCR) <1.30 not detected (Not Detected) 09/20/17 07:00 HIV-1 Genotyping Not detected 09/20/17 09:42 Blood Type A POSITIVE 09/26/17 15:21 Antibody Screen Negative 09/26/17 15:21 - Hospital Course Hospital Course: Patient is admitted with increasing shortness of breath secondary to tense ascites. HPI Patient was recently discharged from [facility] on September 03, 2017 after a diagnosis of alcoholic hepatitis with ascites during that time patient had 4 L of fluid tapped by interventional radiologist. Patient was put on prednisone Xifaxan and Aldactone by the GI service. Patient claims that he was not drinking. The fluid in the abdomen started reaccumulating to the point that patient again became short of breath due to the compression atelectasis. abdominal tap could not be done because her INR was 3.7 on multiple injections of vitamin K 10 mg IV. Patient then received fresh frozen plasma and INR became 2.1 and subsequently 4 L of straw-colored fluid was obtained patient after the paracentesis felt much better. 48 hours after the tap patient's hemoglobin dropped to 7 required 2 units of blood transfusion and fresh frozen which also stabilized after 48 hours. Bilirubin continued to remained between 17-19. The GI service contacted the liver center and patient was accepted for further treatment patient will be transferred to [facility] PT WAS DISCHARGED NEXT DAY DUE TO ELECTROLYTE BALANCE Discharge Exam - Head Exam Head Exam: ATRAUMATIC, NORMAL INSPECTION, NORMOCEPHALIC Discharge Plan - Follow Up Plan Condition: FAIR Disposition: HOME/ ROUTINE Instructions: Jaundice, Adult (DC), Fluid in the Belly (Ascites) (DC) Referrals: Dino Campoverde MD [Primary Care Provider] -
[2017-10-01 18:44] LABS: VENOUS BLOOD GAS BASE EXCESS 12.1 mmol/L (0.0-2.0); VENOUS BLOOD GAS PCO2 52 mmHg (40-60); VENOUS BLOOD GAS PO2 37 mm/Hg (30-55); VENOUS BLOOD PH 7.47 (7.32-7.43)
[2017-10-01 19:25] LABS: BLOOD UREA NITROGEN 24 mg/dL (9-20); CALCIUM 9.4 mg/dl (8.6-10.4); GFR AFRICAN-AMERICAN > 60; GFR NON-AFRICAN AMERICAN > 60
[2017-10-01] MEDS: Potassium Chloride 20 mEq ER Tab PO SCH ×2 (20:04→21:18)
[2017-10-02] MEDS: Levothyroxine 100 MCG TAB PO SCH (05:54)
[2017-10-02 06:29] LABS: EOS # 0.1 K/uL (0.0-0.7); RBC 2.57 Mil/uL (4.40-5.90)
[2017-10-02 06:44] LABS: ALB/GLOB RATIO 0.9 (1.0-2.1); ALBUMIN 3.2 g/dL (3.5-5.0); ALT/SGPT 221 U/L (21-72); AST/SGOT 212 U/L (17-59); BILIRUBIN,DIRECT 12.6 mg/dL (0.0-0.4); BLOOD UREA NITROGEN 21 mg/dL (9-20); CALCIUM 9.6 mg/dl (8.6-10.4); GFR AFRICAN-AMERICAN > 60; GFR NON-AFRICAN AMERICAN > 60
[2017-10-02 06:55] LABS: INR 5.5; PROTHROMBIN TIME 60.6 SECONDS (9.7-12.2)
[2017-10-02 07:00] LABS: BASO % 0.3 % (0.0-2.0); EOS % 1.1 % (0.0-4.0); HEMOGLOBIN 9.4 g/dL (12.0-18.0); LYMPH # 1.1 K/uL (1.0-4.3); LYMPH % 12.1 % (20.0-40.0); MEAN CELL VOLUME 107.7 fL (80.0-94.0); MEAN CORPUSCULAR HEMOGLOBIN 36.5 pg (27.0-31.0); MEAN CORPUSCULAR HGB CONC 33.9 g/dL (33.0-37.0); MEAN PLATELET VOLUME 9.5 fL (7.2-11.7); MONO # 0.6 K/uL (0.0-0.8); MONO % 6.7 % (0.0-10.0); NEUT # 7.2 K/uL (1.8-7.0); NEUT % 79.8 % (50.0-75.0); NRBC % 2.5 % (0.0-2.0); RED CELL DISTRIBUTION WIDTH 18.2 % (11.5-14.5)
[2017-10-02] MEDS ORDERED: Albumin Human 5% (12.5 gm/250 ml) IV ONE (07:50)
--- NOTE | 2017-10-02 11:10 | CP.PCM.PN ---
Subjective - Date & Time of Evaluation Date of Evaluation: 10/02/17 Time of Evaluation: 11:05 - Subjective Subjective: Getachew Aquino PGY-1 [facility] Progress Note Patient seen and examined at bedside in ICU. Patient offers no acute complaints. Pt reports good appetite and tolerating diet. Patient denies fever and chills. Patient reports good urine output with 6 episodes lacking dysuria or burning. Patient denies chest pain, shortness of breath, nausea/vomiting/ constipation/diarrhea. Objective - Vital Signs/Intake and Output Vital Signs (last 24 hours): Temp Pulse Resp BP Pulse Ox 98 F 99 H 19 101/51 L 98 10/02/17 08:00 10/02/17 08:37 10/02/17 07:51 10/02/17 07:51 10/02/17 07:51 Intake and Output: 10/02/17 10/02/17 06:59 18:59 Intake Total 1690 350 Output Total 2000 225 Balance -310 125 - Medications Medications: Current Medications Cefepime HCl 1 gm/ Dextrose 50 mls @ 100 mls/hr IVPB Q12H BEV PRN Reason: Protocol Last Admin: 10/02/17 07:46 Dose: 100 mls/hr Lactulose (Enulose) 20 gm PO BID [facility] Last Admin: 10/02/17 09:08 Dose: 20 gm Levothyroxine Sodium (Synthroid) 100 mcg PO DAILY@0630 [facility] Last Admin: 10/02/17 05:54 Dose: 100 mcg Oxycodone HCl (Oxycodone Immediate Release Tab) 10 mg PO Q6H PRN PRN Reason: Pain, severe (8-10) Last Admin: 09/25/17 22:07 Dose: 10 mg Pantoprazole Sodium (Protonix Inj) 40 mg IVP Q12H [facility] Last Admin: 10/02/17 09:07 Dose: 40 mg Phytonadione (Vitamin K Tab) 10 mg PO DAILY [facility] Stop: 10/03/17 11:00 Last Admin: 10/02/17 09:29 Dose: 10 mg Prednisone (Prednisone Tab) 30 mg PO DAILY [facility] Stop: 10/02/17 23:59 Last Admin: 10/02/17 09:08 Dose: 30 mg Spironolactone (Aldactone) 50 mg PO BID [facility] Last Admin: 10/02/17 09:08 Dose: 50 mg Torsemide (Demadex) 10 mg PO BID B[facility] Last Admin: 10/02/17 09:30 Dose: 10 mg - Labs Labs: 10/02/17 06:17 10/02/17 06:16 PT 60.6 SECONDS (9.7-12.2) H* 10/02/17 06:17 INR 5.5 10/02/17 06:17 APTT 38 SECONDS (21-34) H 09/27/17 14:04 - Additional Findings Additional findings: - Additional Findings Additional findings: - Constitutional Appears: Non-toxic, No Acute Distress - Eye Exam Eye Exam: Scleral icterus - Respiratory Exam Respiratory Exam: Rales. absent: Wheezes, Respiratory Distress Additional comments: bilateral rales - Cardiovascular Exam Cardiovascular Exam: REGULAR RHYTHM, +S1, +S2 - GI/Abdominal Exam GI & Abdominal Exam: Soft. absent: Tenderness - Extremities Exam Additional comments: moderate b/l leg edema extending to thighs, much improved; - Neurological Exam Neurological Exam: Alert, Awake - Psychiatric Exam Psychiatric exam: Normal Affect, Normal Mood. absent: Agitated - Skin Skin Exam: Warm. absent: Cyanosis Assessment and Plan - Assessment and Plan (Free Text) Assessment: Patient admitted with H of HIV, pulmonary embolism, decompensated liver disease w/ severe ascites/anasarca; transferred to ICU on Sunday for acute hypoxemic respiratory failure; treated with aggressive IV diuretics and on antibiotics for HCAP; now transferred back to [facility] status; Plan: (1) Metabolic alkalosis Assessment & Plan: Progressively alkalotic in setting of aggressive loop diuretics needed to control volume status; volume status now much improved with relatively oxygen requirement; -VBG pH= 7.47 (slightly alkalotic) s/p 1000c NS and acetolazmide 250 mg IV q6 -Albumin 12.5 mg IV x 1 -Started Torsemide 10 mg bid; -KCL 40 meq x 1 -continue aldactone 50 mg bid; -Monitor BMPs -Patient told to track daily weights for diuretic dose adjustment if necessary -Patient made aware to followup in outpatient for labs Status: Acute (2) Ascites Assessment & Plan: Secondary to liver failure; s/p 4L drainage from paracentesis; will need to continue aggressive diuretic regimen to prevent recurrence, -Continue aldactone 50 mg bid; -low Na diet; Status: Acute (3) Renal insufficiency Assessment & Plan: Prerenal etiology; Cr improving 1.1 today HRS type I ruled out; avoid nephrotoxic agents, NSAIDS: Status: Resolved (4) Hypokalemia Assessment & Plan: Potassium 4.1 s/p KCl x2 40 meq each and aldactone 50 mg bid Continue to monitor and replete as needed Status: Acute
[2017-10-02] MEDS ORDERED: Potassium Chloride 20 mEq ER Tab PO ONE (13:15)
--- NOTE | 2017-10-02 14:00 | CP.PCM.PN ---
Subjective - Date & Time of Evaluation Date of Evaluation: 10/02/17 Time of Evaluation: 13:57 - Subjective Subjective: Discharge of the patient is on hold due to the electrolyte and fluid imbalance by a washing machine operator. The lactate level is 5.5 with low blood pressure. Bicarb in the blood has improved to 34 with IV fluids and diuretics. And acetazolamide. Prednisone is decreased to 10 mg once a day for 5 days. INR has gone up to 5.5, and total bilirubin is now 21. [facility] as declined the transfer will see the patient on an outpatient basis. We will stabilize the patient and then discharged to follow in [facility] clinic. Objective - Vital Signs/Intake and Output Vital Signs (last 24 hours): Temp Pulse Resp BP Pulse Ox 97.9 F 96 H 21 95/59 L 96 10/02/17 12:00 10/02/17 12:00 10/02/17 12:00 10/02/17 11:51 10/02/17 12:00 Intake and Output: 10/02/17 10/02/17 11:59 23:59 Intake Total 1890 60 Output Total 2225 200 Balance -335 -140 - Medications Medications: Current Medications Cefepime HCl 1 gm/ Dextrose 50 mls @ 100 mls/hr IVPB Q12H [facility] PRN Reason: Protocol Last Admin: 10/02/17 07:46 Dose: 100 mls/hr Lactulose (Enulose) 20 gm PO BID [facility] Last Admin: 10/02/17 09:08 Dose: 20 gm Levothyroxine Sodium (Synthroid) 100 mcg PO DAILY@0630 [facility] Last Admin: 10/02/17 05:54 Dose: 100 mcg Oxycodone HCl (Oxycodone Immediate Release Tab) 10 mg PO Q6H PRN PRN Reason: Pain, severe (8-10) Last Admin: 09/25/17 22:07 Dose: 10 mg Pantoprazole Sodium (Protonix Inj) 40 mg IVP Q12H [facility] Last Admin: 10/02/17 09:07 Dose: 40 mg Phytonadione (Vitamin K Tab) 10 mg PO DAILY [facility] Stop: 10/03/17 11:00 Last Admin: 10/02/17 09:29 Dose: 10 mg Prednisone (Prednisone Tab) 10 mg PO DAILY [facility] Stop: 10/02/17 23:59 Spironolactone (Aldactone) 50 mg PO BID [facility] Last Admin: 10/02/17 09:08 Dose: 50 mg Torsemide (Demadex) 10 mg PO BID [facility] Last Admin: 10/02/17 09:30 Dose: 10 mg - Labs Labs: 10/02/17 06:17 10/02/17 06:16 PT 60.6 SECONDS (9.7-12.2) H* 10/02/17 06:17 INR 5.5 10/02/17 06:17 APTT 38 SECONDS (21-34) H 09/27/17 14:04
[2017-10-02 16:32] VITALS: BP 107/63; PULSE 99; RESP 19; O2SAT 94
[2017-10-02 16:35] VITALS: TEMP 98
--- NOTE | 2017-10-02 17:53 | CP.PCM.PN ---
Subjective - Date & Time of Evaluation Date of Evaluation: 10/02/17 Time of Evaluation: 13:00 - Subjective Subjective: No complaints, trying to eat more. Objective - Vital Signs/Intake and Output Vital Signs (last 24 hours): Temp Pulse Resp BP Pulse Ox 98.0 F 99 H 19 107/63 94 L 10/02/17 16:00 10/02/17 16:00 10/02/17 16:00 10/02/17 15:58 10/02/17 16:00 Intake and Output: 10/02/17 10/02/17 06:59 18:59 Intake Total 1690 410 Output Total 2000 425 Balance -310 -15 - Labs Labs: 10/02/17 06:17 10/02/17 06:16 PT 60.6 SECONDS (9.7-12.2) H* 10/02/17 06:17 INR 5.5 10/02/17 06:17 APTT 38 SECONDS (21-34) H 09/27/17 14:04 - Head Exam Head Exam: ATRAUMATIC - Eye Exam Eye Exam: Normal appearance - ENT Exam ENT Exam: Mucous Membranes Dry, Mucous Membranes Moist - Respiratory Exam Respiratory Exam: NORMAL BREATHING PATTERN - Cardiovascular Exam Cardiovascular Exam: +S1, +S2 - GI/Abdominal Exam GI & Abdominal Exam: Normal Bowel Sounds - Extremities Exam Extremities Exam: Pedal Edema Assessment and Plan (1) Coagulopathy Assessment & Plan: secondary to liver disease s/p FFP Status: Acute (2) Thrombocytopenia Assessment & Plan: secondary to liver disease, splenic sequestration Status: Acute (3) Anemia Assessment & Plan: chronic disease, likely intermittent GI blood loss from pHTN no iron/b12/folate deficiency transfusion support PRN Status: Acute
--- NOTE | 2017-10-02 17:59 | CP.PCM.PN ---
Subjective - Date & Time of Evaluation Date of Evaluation: 10/01/17 Time of Evaluation: 20:00 - Subjective Subjective: No complaints. Objective - Vital Signs/Intake and Output Vital Signs (last 24 hours): Temp Pulse Resp BP Pulse Ox 98.0 F 99 H 19 107/63 94 L 10/02/17 16:00 10/02/17 16:00 10/02/17 16:00 10/02/17 15:58 10/02/17 16:00 Intake and Output: 10/02/17 10/02/17 06:59 18:59 Intake Total 1690 410 Output Total 2000 425 Balance -310 -15 - Labs Labs: 10/02/17 06:17 10/02/17 06:16 PT 60.6 SECONDS (9.7-12.2) H* 10/02/17 06:17 INR 5.5 10/02/17 06:17 APTT 38 SECONDS (21-34) H 09/27/17 14:04 - Head Exam Head Exam: ATRAUMATIC - Eye Exam Eye Exam: Normal appearance - ENT Exam ENT Exam: Mucous Membranes Dry - Respiratory Exam Respiratory Exam: NORMAL BREATHING PATTERN - Cardiovascular Exam Cardiovascular Exam: +S1, +S2 - GI/Abdominal Exam GI & Abdominal Exam: Normal Bowel Sounds Assessment and Plan (1) Coagulopathy Assessment & Plan: liver disease s/p FFP Status: Acute (2) Thrombocytopenia Assessment & Plan: secondary to liver disease, splenic sequestration Status: Acute (3) Anemia Assessment & Plan: chronic disease, intermittent GI blood loss transfusion support PRN Status: Acute
== END 2017-10-02 17:30 | disposition home or self-care (01) | DRG 432 ==
LOC: SUPCPDRO 22:45 → C.ER 22:45 → C.6T 09-19 02:38 → C.9I 09-28 10:40
PROVIDERS: ADMIT Internal Medicine Cardiovascular Disease; ATTEND Internal Medicine Cardiovascular Disease
PROC: 0W9G3ZX Drainage of Peritoneal Cavity, Percutaneous Approach, Diagnostic (ICD-10-PCS; principal; 2017-09-27)
PROC: 30233L1 Transfusion of Nonautologous Fresh Plasma into Peripheral Vein, Percutaneous Approach (ICD-10-PCS; 2017-09-27)
PROC: 5A09557 Assistance with Respiratory Ventilation, Greater than 96 Consecutive Hours, Continuous Positive Airway Pressure (ICD-10-PCS; 2017-09-28)
PROC: 30233N1 Transfusion of Nonautologous Red Blood Cells into Peripheral Vein, Percutaneous Approach (ICD-10-PCS; 2017-09-28)
DX: K70.31 Alcoholic cirrhosis of liver with ascites (principal); J18.9 Pneumonia, unspecified organism; J96.01 Acute respiratory failure with hypoxia; E87.3 Alkalosis; K76.6 Portal hypertension; N17.9 Acute kidney failure, unspecified; J98.11 Atelectasis; D68.9 Coagulation defect, unspecified; I50.1 Left ventricular failure, unspecified; E03.9 Hypothyroidism, unspecified; D63.8 Anemia in other chronic diseases classified elsewhere; D69.6 Thrombocytopenia, unspecified; Z21 Asymptomatic human immunodeficiency virus [HIV] infection status; E87.5 Hyperkalemia; K70.11 Alcoholic hepatitis with ascites; K72.90 Hepatic failure, unspecified without coma; Z86.711 Personal history of pulmonary embolism; Z87.891 Personal history of nicotine dependence